=== PATIENT | male | born 1995 | race African-American/Black ===

== ENCOUNTER → 2016-04-15 | Outpatient (CLI) | payer OTHER ==
--- NOTE | 2016-04-16 18:09 | ECGEPIP ---
Stationary ECG Study [facility] Test Date: 2016-04-15 Pat Name: BISHNU CASEY Department: Room: - Gender: M Entry Level: VU : 1995 Requested By: Maged Ortega Order Number: [id number] Reading MD: Nicolás Meza Measurements Intervals [place] Rate: 98 P: 32 LA: 137 QRS: 81 QRSD: 101 T: 29 QT: 326 QTc: 417 Interpretive Statements SINUS RHYTHM NONSPECIFIC ST ELEVATION LAST TRACING ON 09/29/2014 AT 23:36:18. NO SIGNIFICANT CHANGES BUT HEART RATE IS SLOWER Electronically Signed On 04-16-2016 18:09:37 EST by Nicolás Meza
== END ==
LOC: M EKG 12:38
PROVIDERS: ATTEND Family Medicine
DX: F11.20 Opioid dependence, uncomplicated (principal)

== ENCOUNTER 2016-08-01 09:24 | Emergency (ER) | payer OTHER ==
[~2016-08-01] VITALS: Ht 165.1 cm; Wt 72.1 kg
[2016-08-01 09:26] VITALS: BP_SYST 139
[2016-08-01] MEDS ORDERED: METH40TA PO (09:35)
[2016-08-01] MEDS ORDERED: VYVA30CH PO (09:35)
[2016-08-01] MEDS ORDERED: SERO1TAB3 PO (09:35)
[2016-08-01] MEDS ORDERED: SERO1TAB PO (09:35)
[2016-08-01] MEDS ORDERED: WELLTAB40 PO (09:35)
[2016-08-01] MEDS ORDERED: GABA-283 PO (09:35)
== END 2016-08-01 10:04 | disposition home or self-care (01) ==
LOC: M ED 09:59
DX: S09.90XA Unspecified injury of head, initial encounter (principal); V00.131A Fall from skateboard, initial encounter; Y92.410 Unspecified street and highway as the place of occurrence of the external cause; Y93.51 Activity, roller skating (inline) and skateboarding; Y99.8 Other external cause status; J45.909 Unspecified asthma, uncomplicated; F41.9 Anxiety disorder, unspecified; F33.9 Major depressive disorder, recurrent, unspecified; F90.9 Attention-deficit hyperactivity disorder, unspecified type; F11.20 Opioid dependence, uncomplicated; Z79.899 Other long term (current) drug therapy

== ENCOUNTER 2016-08-06 14:46 | Emergency (ER) | payer OTHER ==
[~2016-08-06] VITALS: Ht 165.1 cm; Wt 72.6 kg
[~2016-08-06 14:46] MED LIST: GABA-283 PO; METH40TA PO; SERO1TAB PO; SERO1TAB3 PO; VYVA30CH PO; WELLTAB40 PO
[2016-08-06 16:24] VITALS: BP 138/76
== END 2016-08-06 16:29 | disposition home or self-care (01) ==
LOC: M ED 16:14
DX: F07.81 Postconcussional syndrome (principal); F17.200 Nicotine dependence, unspecified, uncomplicated

== ENCOUNTER 2016-08-19 13:28 | Emergency (ER) | payer OTHER ==
[~2016-08-19] VITALS: Ht 165.1 cm; Wt 68.0 kg
--- NOTE | 2016-08-19 15:20 | REP ---
CT Head without contrast HISTORY: Trauma COMPARISON: 05/31/2014 There is no intraparenchymal hemorrhage, acute infarct, mass or midline shift. The ventricular system is normal in appearance. There is no extra cerebral collection. There is no fracture. The visualized sinuses are clear. IMPRESSION: There is no intracranial lesion. Signed by Fritz Urrutia MD 08/19/2016 03:12 P
[2016-08-19 15:39] VITALS: BP 115/63
[2016-08-20] MEDS ORDERED: REGL10TA6 PO (22:57)
== END 2016-08-19 15:44 | disposition home or self-care (01) ==
LOC: M ED 14:19
DX: F07.81 Postconcussional syndrome (principal); F17.210 Nicotine dependence, cigarettes, uncomplicated

== ENCOUNTER 2016-08-20 21:10 | Emergency (ER) | payer OTHER ==
[~2016-08-20] VITALS: Ht 165.1 cm; Wt 63.5 kg
[2016-08-20] MEDS ORDERED: REGL10TA6 PO (22:57)
[2016-08-20 23:26] VITALS: BP 118/67
== END 2016-08-20 23:31 | disposition home or self-care (01) ==
LOC: M ED 22:31
DX: R51 Headache (principal)

== ENCOUNTER 2017-07-06 20:05 | Emergency (ER) | payer MEDICAID, OTHER ==
[2017-07-06] MEDS ORDERED: FLUORESCEIN OPHTH 1 MG STRIP OS (23:00)
== END 2017-07-06 23:16 | disposition left against medical advice (07) ==
LOC: M ED 20:05
DX: H53.9 Unspecified visual disturbance (principal); Z79.899 Other long term (current) drug therapy
CPT/HCPCS: 99281

== ENCOUNTER 2017-07-07 07:51 | Emergency (ER) | payer MEDICAID ==
[2017-07-07] MEDS: FLUORESCEIN OPHTH 1 MG STRIP OS (08:45)
== END 2017-07-07 09:46 | disposition home or self-care (01) ==
LOC: M ED 07:51
DX: H53.9 Unspecified visual disturbance (principal); J45.909 Unspecified asthma, uncomplicated; F41.9 Anxiety disorder, unspecified; F33.9 Major depressive disorder, recurrent, unspecified; F90.9 Attention-deficit hyperactivity disorder, unspecified type; F11.20 Opioid dependence, uncomplicated; Z79.899 Other long term (current) drug therapy
CPT/HCPCS: 99283

== ENCOUNTER → 2017-07-10 | Outpatient (CLI) | payer MEDICAID ==
[2017-07-13 12:13] LABS: HEPATITIS C VIRUS ABY INDEX > 11.0 INDEX (<0.8)
== END ==
LOC: M LAB 17:16
DX: Z11.3 Encounter for screening for infections with a predominantly sexual mode of transmission (principal)
CPT/HCPCS: 86803

== ENCOUNTER → 2017-07-22 | Outpatient (CLI) | payer MEDICAID ==
[2017-07-25 00:07] LABS: HEPATITIS C QUANTITATION 2892920 IU/mL (.)
== END ==
LOC: M LAB 17:31
DX: B18.2 Chronic viral hepatitis C (principal)
CPT/HCPCS: 36415

== ENCOUNTER 2017-07-23 15:45 | Emergency (ER) | payer MEDICAID | END 2017-07-23 17:06 | disposition left against medical advice (07) | LOC: M ED 15:45 | DX: Z53.29 Procedure and treatment not carried out because of patient's decision for other reasons (principal) ==

== ENCOUNTER → 2017-08-04 | Outpatient (CLI) | payer MEDICAID ==
[2017-08-04 17:59] LABS: HEMATOCRIT 34.9 % (42.0-52.0); HEMOGLOBIN 11.8 g/dl (13.5-17.5); MEAN CORPUSCULAR HEMOGLOBIN 28.2 pg (27.0-33.0); MEAN CORPUSCULAR HGB CONC 33.8 g/dl (32.0-36.5); MEAN CORPUSCULAR VOLUME 83.5 fl (80.0-96.0); PLATELET COUNT, AUTOMATED 319 10^3/uL (150-450); RED BLOOD COUNT 4.18 10^6/uL (4.30-6.10); RED CELL DISTRIBUTION WIDTH 13.1 % (11.5-14.5); WHITE BLOOD COUNT 8.2 10^3/uL (4.0-10.0)
[2017-08-04 18:38] LABS: ALBUMIN 4.5 GM/DL (3.2-5.2); ALBUMIN/GLOBULIN RATIO 1.22 (1.00-1.93); ALKALINE PHOSPHATASE 107 U/L (45-117); ALT/SGPT 55 U/L (12-78); ANION GAP 6 MEQ/L (8-16); AST/SGOT 38 U/L (7-37); BILIRUBIN,TOTAL 0.4 MG/DL (0.2-1.0); BLOOD UREA NITROGEN 13 MG/DL (7-18); CALCIUM LEVEL 9.4 MG/DL (8.5-10.1); CARBON DIOXIDE LEVEL 27 MEQ/L (21-32); CHLORIDE LEVEL 106 MEQ/L (98-107); CREATININE FOR GFR 1.04 MG/DL (0.70-1.30); GLOMERULAR FILTRATION RATE > 60.0 (>60); GLUCOSE, FASTING 113 MG/DL (70-100); POTASSIUM SERUM 4.3 MEQ/L (3.5-5.1); SODIUM LEVEL 139 MEQ/L (136-145); TOTAL PROTEIN 8.2 GM/DL (6.4-8.2)
[2017-08-04 21:01] LABS: CHLAMYDIA DNA AMPLIFICATION NEGATIVE (NEGATIVE); GC DNA AMPLIFICATION NEGATIVE (NEGATIVE)
[2017-08-05 10:47] LABS: HEPATITIS B SURFACE ANTIGEN NEGATIVE (NEGATIVE)
[2017-08-05 11:29] LABS: HIV 1&2 SCREEN CENTAUR NEGATIVE (NEGATIVE)
[2017-08-05 11:31] LABS: HEPATITIS C VIRUS ABY INDEX > 11.0 INDEX (<0.8)
[2017-08-08 00:07] LABS: HCV RNA NAA QUALITATIVE Positive (Negative)
== END ==
LOC: M LAB 16:14
DX: F11.20 Opioid dependence, uncomplicated (principal)
CPT/HCPCS: 93005

== ENCOUNTER 2017-08-15 19:02 | Emergency (ER) | payer MEDICAID ==
[2017-08-15] MEDS: AUGMENTIN 875 MG TAB PO (21:36)
[2017-08-15] MEDS: ERYTHROMYCIN OPHTH OINT OU (21:36)
== END 2017-08-15 21:38 | disposition home or self-care (01) ==
LOC: M ED 19:02
DX: H10.89 Other conjunctivitis (principal); J45.909 Unspecified asthma, uncomplicated; F17.210 Nicotine dependence, cigarettes, uncomplicated
CPT/HCPCS: 99283

== ENCOUNTER 2017-08-17 04:18 | Emergency (ER) | payer MEDICAID | END 2017-08-17 07:25 | disposition home or self-care (01) | LOC: M ED 04:18 | DX: S51.832A Puncture wound without foreign body of left forearm, initial encounter (principal); W46.0XXA Contact with hypodermic needle, initial encounter; Y92.89 Other specified places as the place of occurrence of the external cause; J45.909 Unspecified asthma, uncomplicated; B19.20 Unspecified viral hepatitis C without hepatic coma; F41.9 Anxiety disorder, unspecified; F33.9 Major depressive disorder, recurrent, unspecified; F90.9 Attention-deficit hyperactivity disorder, unspecified type; F11.20 Opioid dependence, uncomplicated; Z79.899 Other long term (current) drug therapy; F17.210 Nicotine dependence, cigarettes, uncomplicated | CPT/HCPCS: 73090 ==

== ENCOUNTER 2017-10-04 22:37 | Inpatient (IN) | payer OTHER, MEDICAID ==
[2017-10-04 23:12] LABS: BASO # 0.1 10^3/uL (0.0-0.2); BASO % 0.3 % (0.0-1.0); EOS # 0.3 10^3/uL (0.0-0.50); EOS % 1.7 % (0.0-3.0); HEMATOCRIT 33.6 % (42.0-52.0); HEMOGLOBIN 10.9 g/dl (13.5-17.5); IMMATURE GRANULOCYTE % 0.8 % (0-3.0); LYMPH # 2.6 10^3/uL (1.5-6.5); LYMPH % 14.5 % (24.0-44.0); MEAN CORPUSCULAR HEMOGLOBIN 27.5 pg (27.0-33.0); MEAN CORPUSCULAR HGB CONC 32.4 g/dl (32.0-36.5); MEAN CORPUSCULAR VOLUME 84.6 fl (80.0-96.0); MONO % 10.8 % (0.0-5.0); NEUTROPHILS # 13.1 10^3/uL (1.8-7.7); NEUTROPHILS % 71.9 % (36.0-66.0); PLATELET COUNT, AUTOMATED 298 10^3/uL (150-450); RED BLOOD COUNT 3.97 10^6/uL (4.30-6.10); RED CELL DISTRIBUTION WIDTH 13.5 % (11.5-14.5); WHITE BLOOD COUNT 18.2 10^3/uL (4.0-10.0)
[2017-10-04 23:58] LABS: ACETAMINOPHEN LEVEL < 2.0 UG/ML (10.0-30.0); ALBUMIN 3.9 GM/DL (3.2-5.2); ALBUMIN/GLOBULIN RATIO 1.03 (1.00-1.93); ALKALINE PHOSPHATASE 115 U/L (45-117); ALT/SGPT 122 U/L (12-78); ANION GAP 10 MEQ/L (8-16); AST/SGOT 191 U/L (7-37); BILIRUBIN,DIRECT 0.2 MG/DL (0.0-0.2); BILIRUBIN,TOTAL 0.6 MG/DL (0.2-1.0); BLOOD UREA NITROGEN 16 MG/DL (7-18); CALCIUM LEVEL 8.8 MG/DL (8.5-10.1); CARBON DIOXIDE LEVEL 27 MEQ/L (21-32); CHLORIDE LEVEL 108 MEQ/L (98-107); CPK CREATINE PHOSPHOKINASE 5737 U/L (39-308); CREATININE FOR GFR 1.18 MG/DL (0.70-1.30); ETHYL ALCOHOL (ETHANOL) < 0.003 % (0.000-0.010); GLOMERULAR FILTRATION RATE > 60.0 (>60); GLUCOSE, FASTING 73 MG/DL (70-100); POTASSIUM SERUM 3.7 MEQ/L (3.5-5.1); SALICYLATE LEVEL < 1.7 MG/DL (5.0-30.0); SODIUM LEVEL 145 MEQ/L (136-145); TOTAL PROTEIN 7.7 GM/DL (6.4-8.2)
[2017-10-05] MEDS: NALOXONE INJ 2 MG/2 ML SYRINGE (J2310) IV (00:07)
[2017-10-05] MEDS: NS 1,000 ML IV ×2 (00:30→06:05)
[2017-10-05 00:34] LABS: CK-MB VALUE MASS 19.4 NG/ML (<3.6); MB/CK RELATIVE INDEX 0.33 (< OR =4); TROPONIN I 0.02 NG/ML (< 0.10)
[2017-10-05] MEDS ORDERED: LORazepam 2 MG/ML VIAL (J2060) As Ordered ×2 (00:45→00:52)
[2017-10-05] MEDS: LORazepam 2 MG/ML VIAL (J2060) IV ×3 (00:49→00:51)
[2017-10-05] MEDS ORDERED: MIDAZOLAM INJ 2 MG/2 ML VIAL (J2250) As Ordered ×4 (01:04→01:05)
[2017-10-05] MEDS: MIDAZOLAM INJ 2 MG/2 ML VIAL (J2250) IV ×2 (01:09→01:13)
[2017-10-05 02:13] LABS: CSF TUBE# GLU TUBE 2; CSF TUBE# TP TUBE 2; GLUCOSE CSF 53 MG/DL (40-75)
[2017-10-05 02:19] LABS: CSF RBC < 2 10^3/uL (<2)
[2017-10-05 02:21] LABS: APPEARANCE, CSF CLEAR (CLEAR); COLOR, CSF COLORLESS (COLORLESS); CSF DIFF IF INDICATED? NO (NO); CSF TUBE# CELL CNT TUBE 1; CSF WBC 3 /uL (0-10)
[2017-10-05 02:22] LABS: CSF RBC < 2 10^3/uL (<2)
[2017-10-05 02:23] LABS: APPEARANCE, CSF CLEAR (CLEAR); COLOR, CSF COLORLESS (COLORLESS); CSF DIFF IF INDICATED? NO (NO); CSF TUBE# CELL CNT TUBE 3; CSF WBC 4 /uL (0-10)
[2017-10-05] MEDS: NS IV (02:30)
[2017-10-05] MEDS: DILUENT IV (02:30)
[2017-10-05] MEDS: ACETAMINOPHEN 650 MG SUPP PR (02:32)
[2017-10-05 04:31] LABS: LACTIC ACID SEPSIS PROTOCOL 0.7 MMOL/L (0.4-2.0)
[2017-10-05 04:48] LABS: AMPHETAMINES LEVEL URINE POSITIVE (NEGATIVE); BARBITURATES URINE NEGATIVE (NEGATIVE); BENZODIAZEPINES URINE POSITIVE (NEGATIVE); CANNABINOIDS URINE POSITIVE (NEGATIVE); COCAINE METABOLITE URINE NEGATIVE (NEGATIVE); METHADONE URINE POSITIVE (NEGATIVE); OPIATES URINE POSITIVE (NEGATIVE); PHENCYCLIDINE URINE NEGATIVE (NEGATIVE)
[2017-10-05 05:02] LABS: KETONE, URINE AUTO RFX 1+ mg/dL (NEGATIVE); LEUKOCYTE ESTERASE UR AUTO RFX NEGATIVE (NEGATIVE); MUCUS, URINE RFX SMALL (NEGATIVE); NITRITE, URINE AUTO RFX NEGATIVE (NEGATIVE); RBC, URINE AUTO RFX 1 /HPF (0-3); SPECIFIC GRAVITY UR AUTO RFX 1.029 (1.002-1.035); SQUAM EPITHELIAL CELL UR AURFX 0 /HPF (0-6); WBC, URINE AUTO RFX 1 /HPF (0-3)
[2017-10-05] MEDS: VANCOMYCIN HCL 1,000 MG, VIAL MATE ADAPTER 1 EACH in D5W 250 ML IV (06:05)
[2017-10-05 06:17] LABS: BEDSIDE GLUCOSE 94 MG/DL (70-105)
[2017-10-05] MEDS: VANCOMYCIN HCL 500 MG in D5W MINI-BAG PLUS 100 ML IV (06:49)
[2017-10-05] MEDS: ENOXAPARIN 40 MG/0.4 ML SYRINGE (J1650) SC (09:00)
[2017-10-05 09:02] LABS: ABG HCO3 25.9 MEQ/L (22.0-26.0); ABG O2 SATURATION 98.1 % (95.0-99.0); ABG PARTIAL PRESSURE CO2 47.7 mmHg (35.0-45.0); ABG PARTIAL PRESSURE O2 109.2 mmHg (75.0-100.0); ABG STANDARD HCO3 24.5 MEQ/L (22.0-26.0); ABG TOTAL CO2 27.4 MEQ/L (22.0-29.0); ABG pH (ARTERIAL) 7.353 UNITS (7.350-7.450)
[2017-10-05 09:35] LABS: HEMATOCRIT 36.6 % (42.0-52.0); HEMOGLOBIN 11.6 g/dl (13.5-17.5); MEAN CORPUSCULAR HEMOGLOBIN 27.1 pg (27.0-33.0); MEAN CORPUSCULAR HGB CONC 31.7 g/dl (32.0-36.5); MEAN CORPUSCULAR VOLUME 85.5 fl (80.0-96.0); PLATELET COUNT, AUTOMATED 277 10^3/uL (150-450); RED BLOOD COUNT 4.28 10^6/uL (4.30-6.10); RED CELL DISTRIBUTION WIDTH 13.9 % (11.5-14.5); WHITE BLOOD COUNT 12.4 10^3/uL (4.0-10.0)
[2017-10-05 09:46] LABS: TROPONIN I < 0.02 NG/ML (< 0.10)
[2017-10-05 09:56] LABS: ALBUMIN 3.3 GM/DL (3.2-5.2); ALBUMIN/GLOBULIN RATIO 0.97 (1.00-1.93); ALKALINE PHOSPHATASE 107 U/L (45-117); ALT/SGPT 107 U/L (12-78); ANION GAP 4 MEQ/L (8-16); AST/SGOT 153 U/L (7-37); BILIRUBIN,TOTAL 0.5 MG/DL (0.2-1.0); BLOOD UREA NITROGEN 15 MG/DL (7-18); CALCIUM LEVEL 8.3 MG/DL (8.5-10.1); CARBON DIOXIDE LEVEL 29 MEQ/L (21-32); CHLORIDE LEVEL 111 MEQ/L (98-107); CPK CREATINE PHOSPHOKINASE 3285 U/L (39-308); CREATININE FOR GFR 0.73 MG/DL (0.70-1.30); GLOMERULAR FILTRATION RATE > 60.0 (>60); GLUCOSE, FASTING 101 MG/DL (70-100); POTASSIUM SERUM 4.4 MEQ/L (3.5-5.1); SODIUM LEVEL 144 MEQ/L (136-145); TOTAL PROTEIN 6.7 GM/DL (6.4-8.2)
[2017-10-05] MEDS: PANTOPRAZOLE 40MG INJ (PROTONIX) (C9113) IV (10:04)
[2017-10-07 15:02] LABS: BEDSIDE GLUCOSE 77 MG/DL (70-105)
== END 2017-10-05 11:00 | disposition left against medical advice (07) | DRG 351 ==
LOC: M ED 22:37 → M ED INP 10-05 04:48 → M ICU 10-05 05:15
PROC: 009U3ZX Drainage of Spinal Canal, Percutaneous Approach, Diagnostic (ICD-10-PCS; principal; 2017-10-05)
DX: M62.82 Rhabdomyolysis (principal); G93.41 Metabolic encephalopathy; D72.829 Elevated white blood cell count, unspecified; F12.90 Cannabis use, unspecified, uncomplicated; R45.1 Restlessness and agitation; Z79.899 Other long term (current) drug therapy

== ENCOUNTER 2018-08-13 04:44 | Emergency (ER) | payer MEDICAID, OTHER ==
[~2018-08-13] VITALS: Ht 167.6 cm; Wt 70.5 kg
[~2018-08-13 04:44] MED LIST changes: +ATRO1OPD; +AUGM875T28 PO; +ERYTOIN8 OU; -GABA-283 PO; +GABA-845 PO; +GABA600T4 PO; +GUAN2TAB PO; +KEFL500C17 PO; +NIAC1TAB5 PO; +OFLO3OPSO; +PATIENT COMMENTS; +PREDOPD; +REGL10TA6 PO; +VITA-121 PO
[2018-08-13] MEDS ORDERED: AMOX500C PO (04:50)
[2018-08-13] MEDS ORDERED: AUGMENTIN 875 MG TAB PO ONE (05:15)
[2018-08-13] MEDS ORDERED: KETOROLAC 60 MG/2 ML VIAL (J1885) IM ONE (05:15)
[2018-08-13 06:33] VITALS: BP 158/78
== END 2018-08-13 06:34 | disposition home or self-care (01) ==
LOC: M ED 04:44
DX: K08.89 Other specified disorders of teeth and supporting structures (principal); J45.909 Unspecified asthma, uncomplicated; F33.9 Major depressive disorder, recurrent, unspecified; F41.9 Anxiety disorder, unspecified; F10.10 Alcohol abuse, uncomplicated; Z79.899 Other long term (current) drug therapy; Z79.82 Long term (current) use of aspirin; F17.210 Nicotine dependence, cigarettes, uncomplicated
CPT/HCPCS: 96372; 99283; J1885

== ENCOUNTER 2018-08-26 21:09 | Inpatient (IN) | payer MEDICAID ==
[~2018-08-26] VITALS: Ht 167.6 cm; Wt 68.2 kg
[~2018-08-26 21:09] MED LIST changes: +AMOX500C PO
[2018-08-26] MEDS ORDERED: LORazepam 2 MG/ML VIAL (J2060) IV ONE (21:45)
[2018-08-26] MEDS ORDERED: ONDANSETRON 4MG/2ML VIAL (J2405) IV ONE (21:45)
[2018-08-26] MEDS ORDERED: NS 1,000 ML IV ONE (21:45)
[2018-08-26 22:17] LABS: BASO % 0.3 % (0.0-1.0); EOS # 0.1 10^3/uL (0.0-0.50); EOS % 0.9 % (0.0-3.0); HEMATOCRIT 30.4 % (42.0-52.0); HEMOGLOBIN 9.9 g/dl (13.5-17.5); LYMPH # 2.6 10^3/uL (1.5-6.5); LYMPH % 39.1 % (24.0-44.0); MEAN CORPUSCULAR HEMOGLOBIN 28.1 pg (27.0-33.0); MEAN CORPUSCULAR HGB CONC 32.6 g/dl (32.0-36.5); MEAN CORPUSCULAR VOLUME 86.4 fl (80.0-96.0); MONO # 0.6 10^3/uL (0.0-0.8); MONO % 9.1 % (0.0-5.0); NEUTROPHILS # 3.3 10^3/uL (1.8-7.7); NEUTROPHILS % 50.1 % (36.0-66.0); PLATELET COUNT, AUTOMATED 265 10^3/uL (150-450); RED BLOOD COUNT 3.52 10^6/uL (4.30-6.10); WHITE BLOOD COUNT 6.6 10^3/uL (4.0-10.0)
[2018-08-26] MEDS ORDERED: SUBO8MIS SL (22:21)
[2018-08-26 22:29] LABS: INR 1.05; PARTIAL THROMBOPLASTIN TIME 29.6 SECONDS (25.4-37.6); PROTHROMBIN TIME 13.8 SECONDS (12.1-14.4)
[2018-08-26 22:36] LABS: ERYTHROCYTE SEDIMENTATION RATE 17 mm/hr (0-15)
[2018-08-26 22:48] LABS: ALBUMIN 2.6 GM/DL (3.2-5.2); ALT/SGPT 91 U/L (12-78); BILIRUBIN,DIRECT < 0.1 MG/DL (0.0-0.2); BILIRUBIN,TOTAL 0.3 MG/DL (0.2-1.0); BLOOD UREA NITROGEN 4 MG/DL (7-18); C REACTIVE PROTEIN QUANTITATIV 0.69 MG/DL (0.00-0.30); CALCIUM LEVEL 7.7 MG/DL (8.5-10.1); CARBON DIOXIDE LEVEL 28 MEQ/L (21-32); CHLORIDE LEVEL 108 MEQ/L (98-107); CPK CREATINE PHOSPHOKINASE 674 U/L (39-308); CREATININE FOR GFR 0.68 MG/DL (0.70-1.30); GLOMERULAR FILTRATION RATE > 60.0 (>60); GLUCOSE, FASTING 129 MG/DL (70-100); MB/CK RELATIVE INDEX 1.14 (< OR =4); NT-PRO BNP 121 PG/ML (<125); SODIUM LEVEL 142 MEQ/L (136-145); THYROID STIMULATING HORMONE 0.157 uIU/ML (0.358-3.740); TOTAL PROTEIN 6.1 GM/DL (6.4-8.2); TROPONIN I < 0.02 NG/ML (< 0.10)
[2018-08-26] MEDS ORDERED: ceFAZolin SOD 1 GM in D5W MINI-BAG PLUS 50 ML IV ONE (23:30)
[2018-08-27] MEDS ORDERED: ACETAMINOPHEN TAB 650MG DOSE (2X325MG) PO PRN
[2018-08-27] MEDS ORDERED: BUPR300T34 PO (00:04)
[2018-08-27] MEDS ORDERED: HYDR1CAP25 PO (00:04)
[2018-08-27] MEDS ORDERED: ASPI-161 PO (00:04)
[2018-08-27] MEDS ORDERED: SUBO8MIS SL (00:04)
[2018-08-27] MEDS ORDERED: CLOT1CRE TOP (00:04)
--- NOTE | 2018-08-27 00:20 | HPEPDOC ---
[facility] Medical History & Physical Date of Admission Aug 27, 2018 Date of Service: Aug 27, 2018 History and Physical CHIEF COMPLAINT: Opiate withdrawal HISTORY OF PRESENT ILLNESS: Patient is a 22-year-old male with history of IVDU heroin and Psychiatry disorders including anxiety/depression/ADHD presented to the ER with complaints of undergoing opiate withdrawal. He reports being on Suboxone normally but had not taken it in a week because he had lost his medications and he has been using heroin for the past week instead. Last use 48 hours ago and now he feels that he is undergoing withdrawal with symptoms of nausea/muscle discomfort/restless legs/agitation. Denies any significant pain or other symptoms. PAST MEDICAL HISTORY: Refer to [facility] PAST SURGICAL HISTORY: None SOCIAL HISTORY: Smokes 1ppd. Denies alcohol use. uses heroin. FAMILY HISTORY: None reported ALLERGIES: Please see below. REVIEW OF SYSTEMS: 10 point review of system negative except as stated in HPI HOME MEDICATIONS: Please see below. PHYSICAL EXAMINATION: General: Agitated with constant leg movement. Eyes closed but follows command and directable. Eyes: Normal sclera, EOMI, WAGNER HENT: Atraumatic, neck supple, moist mucous membranes Cardiovascular: Normal rate, normal rhythm. No murmurs appreciated. Pulmonary: Clear to auscultation b/l, no wheezing GI: Soft, nontender, nondistended Skin: Warm and dry Neuro: CN grossly intact. No focal deficits. Strengths equal b/l. LABORATORY DATA: See below. MICROBIOLOGY: Please see below. ASSESSMENT AND PLAN: 1. Opiate withdrawal - Normally on Suboxone but had stopped taking for 1 week, reportedly lost. - Last use IV heroin 2 days prior now with active withdraw symptoms. - Received some Ativan in ER and IVF. - To give one dose of Suboxone now and start daily dosing. - Monitor for withdrawal. Admit to ICU. 2. R. wrist swelling - Concern for possible abscess. - Will obtain CT scan. - Received Abx in ER. DVT ppx: Lovenox Code status: Full code Vital Signs Vital Signs Date Time Temp Pulse Resp B/P (MAP) Pulse Ox O2 Delivery O2 Flow Rate FiO2 08/26/18 22:39 85 16 98 Room Air 08/26/18 22:30 134/67 (89) 08/26/18 21:23 100.0 Laboratory Data Labs 24H Laboratory Tests 2 08/26/18 22:09: Immature Granulocyte % (Auto) 0.5, White Blood Count 6.6, Red Blood Count 3.52L, Hemoglobin 9.9L, Hematocrit 30.4L, Mean Corpuscular Volume 86.4, Mean Corpuscular Hemoglobin 28.1, Mean Corpuscular Hemoglobin Concent 32.6, Red Cell Distribution Width 14.1, Platelet Count 265, Neutrophils (%) (Auto) 50.1, Lymphocytes (%) (Auto) 39.1, Monocytes (%) (Auto) 9.1H, Eosinophils (%) (Auto) 0.9, Basophils (%) (Auto) 0.3, Neutrophils # (Auto) 3.3, Lymphocytes # (Auto) 2. 6, Monocytes # (Auto) 0.6, Eosinophils # (Auto) 0.1, Basophils # (Auto) 0.0, Nucleated Red Blood Cells % (auto) 0.0, Erythrocyte Sedimentation Rate 17H, Prothrombin Time 13.8, Prothromb Time International Ratio 1.05, Activated Partial Thromboplast Time 29.6, Anion Gap 6L, Glomerular Filtration Rate > 60.0, Calcium Level 7.7L, Aspartate Amino Transf (AST/SGOT) 84H, Alanine Aminotransferase (ALT/SGPT) 91H, Alkaline Phosphatase 87, Total Bilirubin 0.3, Direct Bilirubin < 0.1, Total Creatine Kinase 674H, Creatine Kinase MB 8.0H, Creatine Kinase MB Relative Index 1.14, Troponin I < 0.02, C-Reactive Protein, Quantitative 0.69H, UL-Ggl-W-Type Natriuretic Peptide 121, Total Protein 6.1L, Albumin 2.6L, Albumin/Globulin Ratio 0.74L, Thyroid Stimulating Hormone (TSH) 0.157L CBC/BMP Laboratory Tests 08/26/18 22:09 Red Blood Count 3.52 L, Mean Corpuscular Volume 86.4, Mean Corpuscular Hemoglobin 28.1, Mean Corpuscular Hemoglobin Concent 32.6, Red Cell Distribution Width 14.1, Neutrophils (%) (Auto) 50.1, Lymphocytes (%) (Auto) 39.1, Monocytes (%) (Auto) 9.1 H, Eosinophils (%) (Auto) 0.9, Basophils (%) (Auto) 0.3, Neutrophils # (Auto) 3.3, Lymphocytes # (Auto) 2.6, Monocytes # (Auto) 0.6, Eosinophils # (Auto) 0.1, Basophils # (Auto) 0.0 Microbiology Microbiology 08/26/18 Blood Culture, Received Pending 08/26/18 Blood Culture, Received Pending Home Medications Scheduled Aspirin (Aspirin EC) 81 Mg Tablet.dr, 81 MG PO DAILY Buprenorphine HCl/Naloxone HCl (Suboxone 8 mg-2 mg Sl Film) 1 Each Film, 1 STRIP SL DAILY Bupropion HCl (Bupropion Xl) 300 Mg Tab.er.24h, 300 MG PO DAILY Scheduled PRN Clotrimazole (Clotrimazole) 1% 28GM Cream..g., 1 DOSE TOP BID PRN for FUNGUS APPLY TO FEET NEEDED Hydroxyzine Pamoate (Hydroxyzine Pamoate) 25 Mg Capsule, 25 MG PO QID PRN for ANXIETY Allergies Coded Allergies: No Known Allergies (Verified , 08/19/16) A-FIB/CHADSVASC A-FIB History Current/History of A-Fib/PAF?: No GLEN JUSTICE MD Aug 27, 2018 00:20
[2018-08-27] MEDS ORDERED: POTASSIUM CHLORIDE 10 MEQ SR TABLET PO ONE ×2 (00:30)
[2018-08-27] MEDS: BUPRENORPHINE/NALOXONE 8-2MG SUBLINGUAL TABLET(SUBOXONE) SL SCH ×2 (00:32→12:43)
[2018-08-27 01:00] VITALS: BP 119/72
[2018-08-27] MEDS: NS 1,000 ML IV SCH ×2 (01:37→12:44)
[2018-08-27] MEDS: KETOROLAC 30 MG/ML VIAL (J1885) IV PRN ×2 (01:40→07:49)
[2018-08-27] MEDS ORDERED: KETOROLAC 30 MG/ML VIAL (J1885) IV SCH (02:00)
[2018-08-27 04:00] VITALS: BP 113/61
[2018-08-27 04:45] LABS: HEMATOCRIT 30.8 % (42.0-52.0); HEMOGLOBIN 9.8 g/dl (13.5-17.5); MEAN CORPUSCULAR HGB CONC 31.8 g/dl (32.0-36.5); MEAN CORPUSCULAR VOLUME 84.8 fl (80.0-96.0); PLATELET COUNT, AUTOMATED 276 10^3/uL (150-450); RED BLOOD COUNT 3.63 10^6/uL (4.30-6.10); WHITE BLOOD COUNT 5.5 10^3/uL (4.0-10.0)
[2018-08-27 04:58] LABS: BLOOD UREA NITROGEN 3 MG/DL (7-18); CALCIUM LEVEL 8.1 MG/DL (8.5-10.1); CARBON DIOXIDE LEVEL 29 MEQ/L (21-32); CHLORIDE LEVEL 111 MEQ/L (98-107); CREATININE FOR GFR 0.66 MG/DL (0.70-1.30); GLOMERULAR FILTRATION RATE > 60.0 (>60); GLUCOSE, FASTING 98 MG/DL (70-100); MAGNESIUM LEVEL 1.7 MG/DL (1.8-2.4); POTASSIUM SERUM 3.5 MEQ/L (3.5-5.1); SODIUM LEVEL 144 MEQ/L (136-145)
[2018-08-27] MEDS ORDERED: MAG SULF 1GM/100ML (MAG RUN) 1 GM in APPROPRIATE DILUENT 1 EA IV ONE (07:15)
[2018-08-27 07:39] VITALS: BP 116/61
[2018-08-27] MEDS ORDERED: BACTRIM 160MG/800MG DS TAB PO SCH (09:00)
[2018-08-27] MEDS ORDERED: DOXYCYCLINE HYCLATE 100 MG TAB PO SCH (09:00)
[2018-08-27] MEDS ORDERED: ENOXAPARIN 40 MG/0.4 ML SYRINGE (J1650) SC SCH (09:00)
--- NOTE | 2018-08-27 09:09 | REP ---
CHEST, SINGLE VIEW: There is no evidence of acute infiltrate. No pleural effusion is seen. The heart is normal in size. The mediastinal silhouette is unremarkable. The visualized osseous structures are intact. IMPRESSION: No acute pulmonary disease. Electronically Signed by Maged Arvizu MD 08/30/2018 05:01 P
[2018-08-27 10:26] LABS: HEPATITIS B SURFACE ANTIGEN NEGATIVE (NEGATIVE)
[2018-08-27 10:54] LABS: HEPATITIS B CORE ANTIBODY IGM NEGATIVE (NEGATIVE)
[2018-08-27 10:55] LABS: HEPATITIS A ANTIBODY IGM NEGATIVE (NEGATIVE)
[2018-08-27 11:06] LABS: HEPATITIS C VIRUS ABY INDEX > 11.0 INDEX (<0.8)
--- NOTE | 2018-08-27 11:24 | IPNPDOC ---
Text Note Date of Service The patient was seen on 08/27/18. NOTE SUBJECTIVE: Complains of wrist pain and swelling after his IV drug use. No abd ominal pain , nausea or vomiting or diarrhea any more. PHYSICAL EXAMINATION: VITALS: As below General: awake alert lying down comfortable in no acute distress. Eyes: Normal sclera, EOMI, HEENT: Atraumatic, neck supple, moist mucous membranes, anicteric eyes. Cardiovascular: Normal rate, normal rhythm. No murmurs appreciated. Pulmonary: Clear to auscultation b/l, no wheezing GI: Soft, nontender, nondistended Skin: Warm and dry Neuro: CN grossly intact. No focal deficits. Strengths equal b/l. LABORATORY DATA: See below. MICROBIOLOGY: Please see below. ASSESSMENT AND PLAN: 22 year old male with h/o IV heroin use on Suboxone program did not have any subaxone for the past week as his meds were stollen so he used heroin 2 to 3 days ago then came her for agitation , abdominal pain , nausea or vomiting and diarrhea admitted for withdrawal. Opiate withdrawal - Normally on Suboxone but had stopped taking for 1 week, reportedly lost. - Last use IV heroin 2 days prior - continue Suboxone. Right wrist developing abscess - Keflex. - seen by surgery , no fluctuation yet so nothing to drain for now but will probably develop in 1 to 2 days. - Hot compress for now. VS,Fishbone, I+O VS, Fishbone, I+O Laboratory Tests 08/26/18 22:09 Red Blood Count 3.52 L, Mean Corpuscular Volume 86.4, Mean Corpuscular Hemoglobin 28.1, Mean Corpuscular Hemoglobin Concent 32.6, Red Cell Distribution Width 14.1, Neutrophils (%) (Auto) 50.1, Lymphocytes (%) (Auto) 39.1, Monocytes (%) (Auto) 9.1 H, Eosinophils (%) (Auto) 0.9, Basophils (%) (Auto) 0.3, Neutrophils # (Auto) 3.3, Lymphocytes # (Auto) 2.6, Monocytes # (Auto) 0.6, Eosinophils # (Auto) 0.1, Basophils # (Auto) 0.0 08/27/18 04:15 Red Blood Count 3.63 L, Mean Corpuscular Volume 84.8, Mean Corpuscular Hemoglobin 27.0, Mean Corpuscular Hemoglobin Concent 31.8 L, Red Cell Distribution Width 14.0, Calcium Level 8.1 L Vital Signs Date Time Temp Pulse Resp B/P (MAP) Pulse Ox O2 Delivery O2 Flow Rate FiO2 08/27/18 07:39 97.7 80 16 116/61 (79) 100 08/27/18 00:39 Room Air I&O- Last 24 Hours up to 6 AM 08/27/18 06:00 Intake Total 1520 ml Output Total 0 ml Balance 1520 ml EVERARDO CORTES MD Aug 27, 2018 11:13
[2018-08-27 12:00] VITALS: BP 118/68
[2018-08-27] MEDS ORDERED: CEPHALEXIN 500 MG CAP PO SCH (12:00)
[2018-08-27] MEDS ORDERED: SULF1TAB93 PO (14:35)
--- NOTE | 2018-08-27 15:19 | DS.PDOC ---
Discharge Summary General Date of Admission Aug 26, 2018 at 23:46 Date of Discharge 08/27/18 Discharge Summary PROCEDURES PERFORMED DURING STAY: [None]. DISCHARGE DIAGNOSES: Opiate withdrawal Right wrist abscess COMPLICATIONS/CHIEF COMPLAINT: Opiate Withdrawal, Skin Abcess. HISTORY OF PRESENT ILLNESS: Please see history and physical HOSPITAL COURSE: 22 year old male with h/o IV heroin use on Suboxone program did not have any subaxone for the past week as his meds were stollen so he used heroin 2 to 3 days ago then came her for agitation , abdominal pain , nausea or vomiting and diarrhea admitted for withdrawal. Opiate withdrawal - Normally on Suboxone but had stopped taking for 1 week, reportedly lost. - Last use IV heroin 2 days prior - continue Suboxone. Right wrist developing abscess - Bactrim DS bid - seen by surgery , no fluctuation yet so nothing to drain for now but will probably develop in 1 to 2 days. - Hot compress for now. DISCHARGE MEDICATIONS: Please see below. ALLERGIES: Please see below. PHYSICAL EXAMINATION ON DISCHARGE: VITAL SIGNS: Please see below. General: awake alert lying down comfortable in no acute distress. Eyes: Normal sclera, EOMI, HEENT: Atraumatic, neck supple, moist mucous membranes, anicteric eyes. Cardiovascular: Normal rate, normal rhythm. No murmurs appreciated. Pulmonary: Clear to auscultation b/l, no wheezing GI: Soft, nontender, nondistended Skin: Warm and dry Neuro: CN grossly intact. No focal deficits. Strengths equal b/l. LABORATORY DATA: Please see below. ACTIVITY: [As tolerated]. DIET: As tolerated DISPOSITION: 01 Home, Self-Care. DISCHARGE INSTRUCTIONS: Follow up PMD in 1 week Follow up with Dr Mark in 3 days DISCHARGE CONDITION: [Stable]. TIME SPENT ON DISCHARGE: 35 minutes. Vital Signs/I&Os Vital Signs Date Time Temp Pulse Resp B/P (MAP) Pulse Ox O2 Delivery O2 Flow Rate FiO2 08/27/18 12:00 83 16 118/68 (85) 99 08/27/18 07:39 97.7 08/27/18 00:39 Room Air I&O- Last 24 Hours up to 6 AM 08/27/18 06:00 Intake Total 1520 ml Output Total 0 ml Balance 1520 ml Laboratory Data Labs 24H Laboratory Tests 2 08/26/18 22:09: Immature Granulocyte % (Auto) 0.5, White Blood Count 6.6, Red Blood Count 3.52L, Hemoglobin 9.9L, Hematocrit 30.4L, Mean Corpuscular Volume 86.4, Mean Corpuscular Hemoglobin 28.1, Mean Corpuscular Hemoglobin Concent 32.6, Red Cell Distribution Width 14.1, Platelet Count 265, Neutrophils (%) (Auto) 50.1, Lymphocytes (%) (Auto) 39.1, Monocytes (%) (Auto) 9.1H, Eosinophils (%) (Auto) 0.9, Basophils (%) (Auto) 0.3, Neutrophils # (Auto) 3.3, Lymphocytes # (Auto) 2.6, Monocytes # (Auto) 0.6, Eosinophils # (Auto) 0.1, Basophils # (Auto) 0.0, Nucleated Red Blood Cells % (auto) 0.0, Erythrocyte Sedimentation Rate 17H, Prothrombin Time 13.8, Prothromb Time International Ratio 1.05, Activated Partial Thromboplast Time 29.6, Anion Gap 6L, Glomerular Filtration Rate > 60.0, Calcium Level 7.7L, Aspartate Amino Transf (AST/SGOT) 84H, Alanine Aminotransferase (ALT/SGPT) 91H, Alkaline Phosphatase 87, Total Bilirubin 0.3, Direct Bilirubin < 0.1, Total Creatine Kinase 674H, Creatine Kinase MB 8.0H, Creatine Kinase MB Relative Index 1.14, Troponin I < 0.02, C-Reactive Protein, Quantitative 0.69H, LC-Kjo-Z-Type Natriuretic Peptide 121, Total Protein 6.1L, Albumin 2.6L, Albumin/Globulin Ratio 0.74L, Thyroid Stimulating Hormone (TSH) 0.157L, Hepatitis A IgM Antibody NEGATIVE, Hepatitis B Surface Antigen NEGATIVE, Hepatitis B Core IgM Antibody NEGATIVE, Hepatitis C Antibody Index > 11.0H, HIV Antigen/Antibody Combo Qual NEGATIVE 08/27/18 04:15: Nucleated Red Blood Cells % (auto) 0.0, Anion Gap 4L, Glomerular Filtration Rate > 60.0, Calcium Level 8.1L, Blood Urea Nitrogen 3L, Creatinine 0.66L, Sodium [place] 144, Potassium Level 3.5, Chloride Level 111H, Carbon Dioxide Level 29, Magnesium Level 1.7L CBC/BMP Laboratory Tests 08/26/18 22:09 Red Blood Count 3.52 L, Mean Corpuscular Volume 86.4, Mean Corpuscular Hemoglobin 28.1, Mean Corpuscular Hemoglobin Concent 32.6, Red Cell Distribution Width 14.1, Neutrophils (%) (Auto) 50.1, Lymphocytes (%) (Auto) 39.1, Monocytes (%) (Auto) 9.1 H, Eosinophils (%) (Auto) 0.9, Basophils (%) (Auto) 0.3, Neutrophils # (Auto) 3.3, Lymphocytes # (Auto) 2.6, Monocytes # (Auto) 0.6, Eosinophils # (Auto) 0.1, Basophils # (Auto) 0.0 08/27/18 04:15 Red Blood Count 3.63 L, Mean Corpuscular Volume 84.8, Mean Corpuscular Hemog lobin 27.0, Mean Corpuscular Hemoglobin Concent 31.8 L, Red Cell Distribution Width 14.0, Calcium Level 8.1 L Microbiology Microbiology 08/26/18 Blood Culture, Received Pending 08/26/18 Blood Culture, Received Pending Discharge Medications Scheduled Aspirin (Aspirin EC) 81 Mg Tablet.dr, 81 MG PO DAILY, (Reported) Buprenorphine HCl/Naloxone HCl (Suboxone 8 mg-2 mg Sl Film) 1 Each Film, 1 STRIP SL DAILY, (Reported) Bupropion HCl (Bupropion Xl) 300 Mg Tab.er.24h, 300 MG PO DAILY, (Reported) Sulfamethoxazole/Trimethoprim (Sulfamethoxazole-Tmp Ds Tablet) 1 Each Tablet, 1 TAB PO BID Scheduled PRN Clotrimazole (Clotrimazole) 1% 28GM Cream..g., 1 DOSE TOP BID PRN for FUNGUS, (Reported) APPLY TO FEET NEEDED Hydroxyzine Pamoate (Hydroxyzine Pamoate) 25 Mg Capsule, 25 MG PO QID PRN for ANXIETY, (Reported) Allergies Coded Allergies: No Known Allergies (Verified , 08/19/16) EVERARDO CORTES MD Aug 27, 2018 15:19
--- NOTE | 2018-08-28 08:25 | ECGEPIP ---
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
== END 2018-08-27 14:50 | disposition home or self-care (01) | DRG 383 ==
LOC: M ED 21:09 → M ED INP 23:46 → M ICU 08-27 00:52
PROVIDERS: ADMIT Student in an Organized Health Care Education/Training Program; ATTEND Internal Medicine Nephrology
DX: L02.413 Cutaneous abscess of right upper limb (principal); F11.23 Opioid dependence with withdrawal; Z79.82 Long term (current) use of aspirin; Z79.899 Other long term (current) drug therapy

== ENCOUNTER 2018-09-15 22:36 | Emergency (ER) | payer MEDICAID ==
[~2018-09-15] VITALS: Ht 167.6 cm; Wt 72.7 kg
[~2018-09-15 22:36] MED LIST changes: +ASPI-161 PO; +BUPR300T34 PO; +CLOT1CRE TOP; +HYDR1CAP25 PO; +SUBO8MIS SL; +SULF1TAB93 PO
[2018-09-15] MEDS ORDERED: BUPR150T3 (22:45)
[2018-09-15] MEDS ORDERED: QUET1TAB8 (22:45)
[2018-09-15] MEDS ORDERED: GABA-843 (22:45)
[2018-09-16] MEDS ORDERED: ACETAMINOPHEN 325 MG TAB PO ONE (02:00)
[2018-09-16] MEDS ORDERED: cloNIDine 0.1 MG TAB PO ONE (02:00)
[2018-09-16] MEDS ORDERED: ONDANSETRON 4 MG ORAL DISINTEGRATING TAB (Q0162 PER 1MG) PO ONE (02:00)
[2018-09-16] MEDS ORDERED: hydrOXYzine 25 MG TAB PO ONE (02:00)
[2018-09-16 02:10] VITALS: BP 136/68
[2018-09-16 02:41] VITALS: BP 120/55
== END 2018-09-16 02:57 | disposition home or self-care (01) ==
LOC: M ED 22:36
DX: F11.23 Opioid dependence with withdrawal (principal); G43.909 Migraine, unspecified, not intractable, without status migrainosus; E78.5 Hyperlipidemia, unspecified; J45.909 Unspecified asthma, uncomplicated; M54.9 Dorsalgia, unspecified; F41.9 Anxiety disorder, unspecified; F32.9 Major depressive disorder, single episode, unspecified; F90.9 Attention-deficit hyperactivity disorder, unspecified type; F11.10 Opioid abuse, uncomplicated; Z72.0 Tobacco use; Z79.899 Other long term (current) drug therapy
CPT/HCPCS: 99284; Q0162

== ENCOUNTER 2018-09-22 03:52 | Emergency (ER) | payer MEDICAID ==
[~2018-09-22] VITALS: Ht 167.6 cm; Wt 72.7 kg
[~2018-09-22 03:52] MED LIST changes: +BUPR150T3; +GABA-843; +QUET1TAB8
[2018-09-22 04:27] VITALS: BP 136/75
[2018-09-22] MEDS ORDERED: IBUPROFEN 800 MG TAB PO ONE (05:30)
[2018-09-23] MEDS ORDERED: IBUP80TA PO (06:13)
== END 2018-09-22 06:14 | disposition left against medical advice (07) ==
LOC: M ED 03:52
DX: M79.605 Pain in left leg (principal); H10.023 Other mucopurulent conjunctivitis, bilateral; F11.11 Opioid abuse, in remission; Z79.899 Other long term (current) drug therapy

== ENCOUNTER 2018-09-23 00:20 | Emergency (ER) | payer MEDICAID ==
[~2018-09-23] VITALS: Ht 165.1 cm; Wt 75.0 kg
[2018-09-23] MEDS ORDERED: ACETAMINOPHEN TAB 650MG DOSE (2X325MG) PO ONE (02:45)
[2018-09-23] MEDS ORDERED: IBUPROFEN 800 MG TAB PO ONE (02:45)
[2018-09-23] MEDS ORDERED: IBUP80TA PO (06:13)
[2018-09-23 06:31] VITALS: BP 111/55
--- NOTE | 2018-09-23 08:01 | REP ---
Clinical: Pain. Swelling. Technique: AP, lateral views of the right tibia / fibula. Findings: No acute fracture dislocation. Skeletal structures, joint spaces, and surrounding soft tissues are normal. Impression: No acute fracture dislocation. Electronically Signed by Mario Read MD 09/23/2018 07:52 A
--- NOTE | 2018-09-23 08:02 | REP ---
Clinical: Right lower extremity pain and swelling . Technique: Arvizu scale and color Doppler evaluation using linear high frequency transducer. Findings: Ultrasound examination of the right lower extremity deep venous structures from the common femoral vein to the popliteal vein demonstrates normal compressibility flow and wave patterns in response to respiration and augmentation. There is no evidence for deep venous thrombosis. Impression: No evidence for deep venous thrombosis. Electronically Signed by Mario Read MD 09/23/2018 07:53 A
== END 2018-09-23 06:32 | disposition home or self-care (01) ==
LOC: M ED 00:20
DX: M79.604 Pain in right leg (principal); X50.1XXA Overexertion from prolonged static or awkward postures, initial encounter; Y92.830 Public park as the place of occurrence of the external cause; Y93.67 Activity, basketball; Y99.9 Unspecified external cause status; F19.10 Other psychoactive substance abuse, uncomplicated; Z72.0 Tobacco use; Z79.899 Other long term (current) drug therapy

== ENCOUNTER 2019-06-12 22:58 | Emergency (ER) | payer MEDICAID ==
[~2019-06-12] VITALS: Ht 165.1 cm; Wt 68.2 kg
[~2019-06-12 22:58] MED LIST changes: -BUPR300T34 PO; +BUPR300T92 PO; +IBUP80TA PO; +QUET100T2; -QUET1TAB8
[2019-06-13] MEDS ORDERED: NS 1,000 ML IV ONE
[2019-06-13 00:18] LABS: HEMATOCRIT 32.1 % (42.0-52.0); HEMOGLOBIN 10.8 g/dl (13.5-17.5); MEAN CORPUSCULAR HEMOGLOBIN 28.2 pg (27.0-33.0); MEAN CORPUSCULAR HGB CONC 33.6 g/dl (32.0-36.5); MEAN CORPUSCULAR VOLUME 83.8 fl (80.0-96.0); PLATELET COUNT, AUTOMATED 226 10^3/uL (150-450); RED BLOOD COUNT 3.83 10^6/uL (4.30-6.10); WHITE BLOOD COUNT 8.6 10^3/uL (4.0-10.0)
[2019-06-13] MEDS ORDERED: DALBAVANCIN 1,500 MG in D5W 250 ML IV ONE (00:30)
[2019-06-13 00:44] LABS: ERYTHROCYTE SEDIMENTATION RATE 34 mm/hr (0-15)
[2019-06-13 01:10] VITALS: BP 148/90
[2019-06-13 01:21] LABS: ATYPICAL LYMPH 1 % (0-5); BASOPHILS 1 % (0-1); EOSINOPHILS 1 % (0-3); LYMPHOCYTES 12 % (16-44); MONOCYTES 8 % (0-5); NEUTROPHILS 77 % (28-66)
[2019-06-13 01:22] LABS: PLATELET ESTIMATE NORMAL (NORMAL)
--- NOTE | 2019-06-13 08:22 | REP ---
Clinical: Pain and swelling. Technique: AP, lateral, bilateral oblique views of the hands. Findings: The osseous structures and joint spaces are intact and normal. No acute fracture dislocation. No periosteal reaction or aggressive bony lesions noted. Mild soft tissue swelling cannot be excluded primarily surrounding the second digit. No subcutaneous emphysema or foreign body. Impression: Areas of swelling. Otherwise unremarkable. Electronically Signed by Mario Read MD 06/13/2019 08:13 A
== END 2019-06-13 01:25 | disposition home or self-care (01) ==
LOC: M ED 22:58
DX: L03.012 Cellulitis of left finger (principal); L03.114 Cellulitis of left upper limb; F19.10 Other psychoactive substance abuse, uncomplicated; J45.909 Unspecified asthma, uncomplicated; E78.5 Hyperlipidemia, unspecified; R51 Headache; Z86.19 Personal history of other infectious and parasitic diseases; F17.200 Nicotine dependence, unspecified, uncomplicated; Z79.899 Other long term (current) drug therapy
CPT/HCPCS: 36415; 73130; 80047; 83605; 85025; 85652; 86140; 87040; 96365; 99284; J0875

== ENCOUNTER 2019-08-09 17:13 | Emergency (ER) | payer MEDICAID ==
[2019-08-09 17:29] VITALS: BP 132/94
[2019-08-09] MEDS ORDERED: MORPHINE 2 MG/ML 1ML VIAL (J2270) IV PRN (17:30)
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
== END 2019-08-09 17:50 | disposition left against medical advice (07) ==
LOC: M ED 17:13 → EDBD 17:13 → M ED 17:50
DX: S51.012A Laceration without foreign body of left elbow, initial encounter (principal); S21.212A Laceration without foreign body of left back wall of thorax without penetration into thoracic cavity, initial encounter; W26.0XXA Contact with knife, initial encounter; Y92.89 Other specified places as the place of occurrence of the external cause; F17.210 Nicotine dependence, cigarettes, uncomplicated; F11.20 Opioid dependence, uncomplicated
CPT/HCPCS: 74021; 96374; 99283; J2270

== ENCOUNTER 2019-08-10 00:08 | Emergency (ER) | payer MEDICAID ==
[~2019-08-10] VITALS: Ht 157.5 cm; Wt 59.1 kg
[2019-08-10 00:48] VITALS: BP 131/76
[2019-08-10] MEDS ORDERED: LIDOCAINE 1% MDV 20ML VIAL SC ONE (01:00)
== END 2019-08-10 01:26 | disposition left against medical advice (07) ==
LOC: M ED 00:08
DX: S41.012A Laceration without foreign body of left shoulder, initial encounter (principal); Y04.8XXA Assault by other bodily force, initial encounter; Y92.89 Other specified places as the place of occurrence of the external cause

== ENCOUNTER 2019-08-13 19:35 | Emergency (ER) | payer MEDICAID ==
[~2019-08-13] VITALS: Ht 165.1 cm; Wt 63.6 kg
[2019-08-13 19:44] VITALS: BP_DIAS 63
[2019-08-13 19:45] VITALS: BP_SYST 127
== END 2019-08-13 19:58 | disposition left against medical advice (07) ==
LOC: EDBD 19:35 → M ED 19:35
DX: Z53.21 Procedure and treatment not carried out due to patient leaving prior to being seen by health care provider (principal)

== ENCOUNTER 2019-08-13 23:51 | Emergency (ER) | payer MEDICAID ==
[~2019-08-13] VITALS: Ht 165.1 cm; Wt 63.6 kg
[2019-08-13 23:59] VITALS: BP 162/94
== END 2019-08-14 00:51 | disposition left against medical advice (07) ==
LOC: M ED 23:51
DX: Z53.21 Procedure and treatment not carried out due to patient leaving prior to being seen by health care provider (principal)

== ENCOUNTER 2019-08-14 05:37 | Emergency (ER) | payer MEDICAID ==
[~2019-08-14] VITALS: Ht 165.1 cm; Wt 63.6 kg
[2019-08-14] MEDS ORDERED: BOOSTRIX/ADACEL VACCINE (DIPHTH/PERTUSS/ACELL/TETANUS) 0.5ML SYR IM ONE (06:30)
[2019-08-14] MEDS ORDERED: LIDOCAINE 1% MDV 20ML VIAL INFIL ONE (06:30)
[2019-08-14 07:26] LABS: BASO % 0.3 % (0.0-1.0); EOS # 0.1 10^3/uL (0.0-0.5); EOS % 1.1 % (0.0-3.0); HEMATOCRIT 29.3 % (42.0-52.0); HEMOGLOBIN 9.5 g/dl (13.5-17.5); LYMPH % 27.4 % (24.0-44.0); MEAN CORPUSCULAR HEMOGLOBIN 27.9 pg (27.0-33.0); MEAN CORPUSCULAR HGB CONC 32.4 g/dl (32.0-36.5); MEAN CORPUSCULAR VOLUME 85.9 fl (80.0-96.0); MONO # 0.7 10^3/uL (0.0-0.8); MONO % 9.6 % (0.0-5.0); NEUTROPHILS # 4.4 10^3/uL (1.5-8.5); NEUTROPHILS % 61.3 % (36.0-66.0); PLATELET COUNT, AUTOMATED 225 10^3/uL (150-450); RED BLOOD COUNT 3.41 10^6/uL (4.30-6.10); WHITE BLOOD COUNT 7.2 10^3/uL (4.0-10.0)
[2019-08-14] MEDS ORDERED: DALBAVANCIN 1,500 MG in D5W 250 ML IV ONE (07:45)
[2019-08-14 07:58] LABS: ALBUMIN 3.6 GM/DL (3.2-5.2); ALT/SGPT 50 U/L (12-78); BILIRUBIN,TOTAL 0.4 MG/DL (0.2-1.0); BLOOD UREA NITROGEN 13 MG/DL (7-18); CALCIUM LEVEL 8.7 MG/DL (8.5-10.1); CARBON DIOXIDE LEVEL 28 MEQ/L (21-32); CHLORIDE LEVEL 107 MEQ/L (98-107); CREATININE FOR GFR 0.91 MG/DL (0.70-1.30); GLOMERULAR FILTRATION RATE > 60.0 (>60); GLUCOSE, FASTING 98 MG/DL (70-100); POTASSIUM SERUM 3.7 MEQ/L (3.5-5.1); SODIUM LEVEL 140 MEQ/L (136-145); TOTAL PROTEIN 7.1 GM/DL (6.4-8.2)
[2019-08-14 10:01] VITALS: BP 138/82
--- NOTE | 2019-08-16 11:15 | REP ---
REASON: Assess for foreign body. PRIORS: None. Preliminary report given by Dr. Read There is a linear radial density seen in the soft tissues of the upper arm consistent with a foreign body. This measures approximately 7 mm in length. There is no osseous involvement. Electronically Signed by Bogdan Chandler DO 08/16/2019 12:26 P
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
--- NOTE | 2019-08-16 11:22 | REP ---
LEFT HUMERUS: Two views of the left humerus performed. The humerus is intact. There is no fracture or bone lesion identified. No dislocation is seen. There is a thin linear metallic foreign body at the level of the mid humerus unchanged since the prior exam earlier the same day. Electronically Signed by Maged Arvizu MD 08/16/2019 01:40 P
--- NOTE | 2019-08-16 11:26 | REP ---
REASON FOR EXAM: Foreign body seen radiographically. Assess for ultrasonographic evidence for possible extraction. Preliminary report is given by Dr. Read. Ultrasonic evaluation over the "palpable area" shows no ultrasonographic evidence of a foreign body. Electronically Signed by Bogdan Chandler DO 08/16/2019 12:27 P
== END 2019-08-14 10:32 | disposition left against medical advice (07) ==
LOC: M ED 05:37
DX: S61.211A Laceration without foreign body of left index finger without damage to nail, initial encounter (principal); W26.8XXA Contact with other sharp object(s), not elsewhere classified, initial encounter; Y92.89 Other specified places as the place of occurrence of the external cause; S41.122A Laceration with foreign body of left upper arm, initial encounter; S21.211A Laceration without foreign body of right back wall of thorax without penetration into thoracic cavity, initial encounter; L03.114 Cellulitis of left upper limb; Y04.8XXA Assault by other bodily force, initial encounter; Y92.098 Other place in other non-institutional residence as the place of occurrence of the external cause; F11.20 Opioid dependence, uncomplicated; F32.9 Major depressive disorder, single episode, unspecified; E78.5 Hyperlipidemia, unspecified; B19.20 Unspecified viral hepatitis C without hepatic coma; F90.9 Attention-deficit hyperactivity disorder, unspecified type; F17.200 Nicotine dependence, unspecified, uncomplicated; Z23 Encounter for immunization
CPT/HCPCS: 64450; 73060; 73140; 76882; 80053; 85025; 87040; 90471; 90715; 96365; 99284; J0875

== ENCOUNTER 2019-08-16 17:46 | Emergency (ER) | payer MEDICAID ==
[~2019-08-16] VITALS: Ht 165.1 cm; Wt 59.5 kg
[2019-08-16 17:47] VITALS: BP 113/56
[2019-08-16] MEDS ORDERED: SUBO8MIS (18:00)
== END 2019-08-16 20:06 | disposition left against medical advice (07) ==
LOC: M ED 17:46
DX: S61.211A Laceration without foreign body of left index finger without damage to nail, initial encounter (principal); F11.20 Opioid dependence, uncomplicated; S21.212A Laceration without foreign body of left back wall of thorax without penetration into thoracic cavity, initial encounter; Z87.891 Personal history of nicotine dependence; F32.9 Major depressive disorder, single episode, unspecified; X99.1XXA Assault by knife, initial encounter; Y92.9 Unspecified place or not applicable; Y07.9 Unspecified perpetrator of maltreatment and neglect; Y99.8 Other external cause status

== ENCOUNTER 2019-12-20 22:54 | Emergency (ER) | payer MEDICAID ==
[~2019-12-20] VITALS: Ht 165.1 cm; Wt 72.7 kg
[~2019-12-20 22:54] MED LIST changes: +SUBO8MIS
== END 2019-12-21 00:01 | disposition left against medical advice (07) ==
LOC: M ED 22:54
DX: Z53.21 Procedure and treatment not carried out due to patient leaving prior to being seen by health care provider (principal)

== ENCOUNTER 2020-08-16 21:54 | Emergency (ER) | payer MEDICAID ==
[~2020-08-16] VITALS: Ht 167.6 cm; Wt 72.0 kg
[2020-08-16 21:54] VITALS: BP 144/80
[~2020-08-16 21:54] MED LIST changes: +BACTDSTA PO; +BUPR150T12; -BUPR150T3; +GABA-282; +GABA-283 PO; -GABA-843; -GABA-845 PO; -SULF1TAB93 PO
--- NOTE | 2020-08-17 08:58 | REP ---
INDICATION: testicularpain r/o torsion; R/O TORSION. Repeat dictation. Preliminary report is provided at the time of the exam by allyson PERALTA. COMPARISON: No comparison study.. TECHNIQUE: High-resolution bilateral scrotal sonography. FINDINGS: There is evidence of a right inguinal hernia containing bowel. Patient reports a prior inguinal hernia repair. There is a complex hydrocele in the left scrotum. There is scrotal wall edema, left more so than right. There is no evidence of intratesticular mass lesion. Right testis measures 3.5 x 2.2 x 2.1 cm. Left testicular dimensions are 3.2 x 2.2 x 2.1 cm. Testicular Doppler flow is present bilaterally, resistive indices are 0.54 on the right and 0.38 on the left. There is some hyperemia of the left epididymis and left testis consistent with epididymo-orchitis. IMPRESSION: Complex hydrocele on the left. Scrotal wall edema as above. Right inguinal hernia containing bowel. Hyperemic epididymis and left testis consistent with epididymo-orchitis. <Electronically signed by Nahun De La Rosa > 08/17/20 0840
[2020-08-17] MEDS ORDERED: KETO10TAB PO (10:56)
[2020-08-17] MEDS ORDERED: DOXY100C37 PO (10:57)
== END 2020-08-17 01:11 | disposition left against medical advice (07) ==
LOC: M ED 21:54
DX: Z53.21 Procedure and treatment not carried out due to patient leaving prior to being seen by health care provider (principal)

== ENCOUNTER 2020-08-17 08:50 | Emergency (ER) | payer MEDICAID, OTHER ==
[~2020-08-17] VITALS: Ht 167.6 cm; Wt 75.0 kg
[2020-08-17] MEDS ORDERED: KETOROLAC 30 MG/ML 1ML VIAL IV ONE (09:05)
[2020-08-17] MEDS ORDERED: KETOROLAC TROMETHAMINE 10 MG TAB PO ONE (09:55)
[2020-08-17] MEDS ORDERED: PERCOCET 5MG/325MG TAB PO ONE (09:55)
[2020-08-17 10:02] LABS: BASO % 0.3 % (0.0-1.0); EOS # 0.1 10^3/uL (0.0-0.5); EOS % 1.1 % (0.0-3.0); HEMATOCRIT 30.1 % (42.0-52.0); HEMOGLOBIN 9.7 g/dl (13.5-17.5); LYMPH # 1.8 10^3/uL (1.5-5.0); LYMPH % 17.1 % (24.0-44.0); MEAN CORPUSCULAR HEMOGLOBIN 26.6 pg (27.0-33.0); MEAN CORPUSCULAR HGB CONC 32.2 g/dl (32.0-36.5); MEAN CORPUSCULAR VOLUME 82.7 fl (80.0-96.0); MONO # 0.9 10^3/uL (0.0-0.8); MONO % 8.6 % (2.0-8.0); NEUTROPHILS # 7.8 10^3/uL (1.5-8.5); NEUTROPHILS % 72.5 % (36.0-66.0); PLATELET COUNT, AUTOMATED 252 10^3/uL (150-450); RED BLOOD COUNT 3.64 10^6/uL (4.30-6.10); WHITE BLOOD COUNT 10.7 10^3/uL (4.0-10.0)
[2020-08-17 10:27] LABS: BLOOD UREA NITROGEN 11 MG/DL (7-18); CALCIUM LEVEL 8.8 MG/DL (8.5-10.1); CARBON DIOXIDE LEVEL 30 MEQ/L (21-32); CHLORIDE LEVEL 103 MEQ/L (98-107); CREATININE FOR GFR 0.88 MG/DL (0.70-1.30); GLOMERULAR FILTRATION RATE > 60.0 (>60); GLUCOSE, FASTING 96 MG/DL (70-100); SODIUM LEVEL 138 MEQ/L (136-145)
[2020-08-17] MEDS ORDERED: cefTRIAXone 500MG VIAL (J0696 PER 250MG) IM ONE (10:40)
[2020-08-17] MEDS ORDERED: DOXYCYCLINE HYCLATE 100MG TABLET PO ONE (10:40)
[2020-08-17] MEDS ORDERED: LIDOCAINE 1% SDV 5ML VIAL DILUENT ONE ×2 (10:40)
[2020-08-17] MEDS ORDERED: KETO10TAB PO (10:56)
[2020-08-17] MEDS ORDERED: DOXY100C37 PO (10:57)
[2020-08-17 12:08] VITALS: BP 138/77
== END 2020-08-17 12:10 | disposition home or self-care (01) ==
LOC: EDBD 08:50 → M ED 08:50
DX: N45.2 Orchitis (principal); K40.90 Unilateral inguinal hernia, without obstruction or gangrene, not specified as recurrent; N43.3 Hydrocele, unspecified; J45.909 Unspecified asthma, uncomplicated; F17.200 Nicotine dependence, unspecified, uncomplicated; Z83.3 Family history of diabetes mellitus
CPT/HCPCS: 36415; 80048; 85025; 87040; 87490; 87590; 87661; 96372; 99284; J0696

== ENCOUNTER 2020-08-21 17:54 | Emergency (ER) | payer OTHER ==
[~2020-08-21] VITALS: Ht 167.6 cm; Wt 70.1 kg
[~2020-08-21 17:54] MED LIST changes: +DOXY100C37 PO; +KETO10TAB PO
[2020-08-21 18:12] VITALS: BP 118/63
[2020-08-21] MEDS ORDERED: MECLIZINE 25 MG TABLET PO ONE (21:00)
[2020-08-21] MEDS ORDERED: NS 1,000 ML IV ONE (21:00)
--- NOTE | 2020-08-21 22:02 | REPVR ---
PROCEDURE INFORMATION: Exam: CT Head Without Contrast Exam date and time: 08/21/2020 9:02 PM Age: 24 years old Clinical indication: Altered mental status/memory loss; Confusion or disorientation TECHNIQUE: Imaging protocol: Computed tomography of the head without contrast. Axial and coronal reformatted images were created and reviewed. Radiation optimization: All CT scans at this facility use at least one of these dose optimization techniques: automated exposure control; mA and/or kV adjustment per patient size (includes targeted exams where dose is matched to clinical indication); or iterative reconstruction. COMPARISON: CT Head without contrast 10/05/2017 12:24 AM FINDINGS: Brain: No CT evidence of acute intracranial hemorrhage or acute territorial infarction. No significant mass effect or midline shift. Basal cisterns patent. Cerebral ventricles: Normal in size and configuration. Paranasal sinuses: Unremarkable. No fluid levels. Mastoid air cells: Grossly unremarkable. Bones/joints: No acute osseous abnormality. Soft tissues: Grossly unremarkable. IMPRESSION: No CT evidence of acute intracranial pathology. Electronically signed by: David Ortiz On 08/21/2020 22:01:41 PM
--- NOTE | 2020-08-22 20:46 | ECGEPIP ---
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
== END 2020-08-21 22:08 | disposition left against medical advice (07) ==
LOC: M ED 21:36
DX: R42 Dizziness and giddiness (principal); R00.1 Bradycardia, unspecified; I45.19 Other right bundle-branch block; J45.909 Unspecified asthma, uncomplicated; Z86.19 Personal history of other infectious and parasitic diseases; M54.9 Dorsalgia, unspecified; F17.200 Nicotine dependence, unspecified, uncomplicated; Z79.899 Other long term (current) drug therapy

== ENCOUNTER 2020-08-31 20:56 | Emergency (ER) | payer OTHER ==
[~2020-08-31] VITALS: Ht 167.6 cm; Wt 70.0 kg
[2020-08-31 20:56] VITALS: BP 156/91
== END 2020-09-01 00:35 | disposition left against medical advice (07) ==
LOC: M ED 20:56
DX: R05 Cough (principal); F17.210 Nicotine dependence, cigarettes, uncomplicated

== ENCOUNTER 2020-10-12 16:25 | Emergency (ER) | payer OTHER ==
[~2020-10-12] VITALS: Ht 167.6 cm; Wt 63.6 kg
[~2020-10-12 16:25] MED LIST changes: -CLOT1CRE TOP; +CLOT28CR2 TOP; -DOXY100C37 PO; +DOXY1CAP62 PO
[2020-10-12 16:26] VITALS: BP 137/96
[2020-10-13] MEDS ORDERED: CLIN150C15 PO (07:52)
== END 2020-10-13 00:02 | disposition left against medical advice (07) ==
LOC: M ED 16:25
DX: Z53.21 Procedure and treatment not carried out due to patient leaving prior to being seen by health care provider (principal)

== ENCOUNTER 2020-10-13 00:34 | Emergency (ER) | payer OTHER ==
[~2020-10-13] VITALS: Ht 167.6 cm; Wt 64.6 kg
[2020-10-13] MEDS ORDERED: IBUPROFEN 600MG TAB PO ONE (06:25)
[2020-10-13] MEDS ORDERED: CLINDAMYCIN 900 MG in IV 1 EA IV ONE (06:25)
[2020-10-13] MEDS ORDERED: NS 1,000 ML IV SCH (06:25)
[2020-10-13] MEDS ORDERED: ACETAMINOPHEN 325 MG TAB PO ONE (06:25)
[2020-10-13] MEDS ORDERED: CLIN150C15 PO (07:52)
[2020-10-13 08:00] VITALS: BP 150/70
== END 2020-10-13 08:13 | disposition home or self-care (01) ==
LOC: M ED 00:34
DX: L03.221 Cellulitis of neck (principal); Z53.9 Procedure and treatment not carried out, unspecified reason; Z86.19 Personal history of other infectious and parasitic diseases; Z86.14 Personal history of Methicillin resistant Staphylococcus aureus infection; F19.10 Other psychoactive substance abuse, uncomplicated

== ENCOUNTER 2020-10-14 23:55 | Emergency (ER) | payer OTHER ==
[~2020-10-14] VITALS: Ht 167.6 cm; Wt 66.6 kg
[~2020-10-14 23:55] MED LIST changes: +CLIN150C15 PO
[2020-10-14 23:58] VITALS: BP 145/68
[2020-10-15 02:07] LABS: BASO % 0.3 % (0.0-1.0); EOS # 0.1 10^3/uL (0.0-0.5); EOS % 1.4 % (0.0-3.0); HEMOGLOBIN 9.9 g/dl (13.5-17.5); LYMPH # 1.9 10^3/uL (1.5-5.0); LYMPH % 21.7 % (24.0-44.0); MEAN CORPUSCULAR HEMOGLOBIN 25.4 pg (27.0-33.0); MEAN CORPUSCULAR HGB CONC 30.9 g/dl (32.0-36.5); MEAN CORPUSCULAR VOLUME 82.1 fl (80.0-96.0); MONO # 0.5 10^3/uL (0.0-0.8); MONO % 5.3 % (2.0-8.0); NEUTROPHILS # 6.2 10^3/uL (1.5-8.5); NEUTROPHILS % 71.1 % (36.0-66.0); PLATELET COUNT, AUTOMATED 301 10^3/uL (150-450); WHITE BLOOD COUNT 8.8 10^3/uL (4.0-10.0)
[2020-10-15 02:32] LABS: BLOOD UREA NITROGEN 12 MG/DL (7-18); CALCIUM LEVEL 8.6 MG/DL (8.5-10.1); CARBON DIOXIDE LEVEL 31 MEQ/L (21-32); CHLORIDE LEVEL 104 MEQ/L (98-107); CREATININE FOR GFR 0.73 MG/DL (0.70-1.30); GLOMERULAR FILTRATION RATE > 60.0 (>60); GLUCOSE, FASTING 106 MG/DL (70-100); POTASSIUM SERUM 4.1 MEQ/L (3.5-5.1); SODIUM LEVEL 139 MEQ/L (136-145)
[2020-10-15] MEDS ORDERED: ISOVUE-370 76% 100ML VIAL As Ordered ONE (02:40)
== END 2020-10-15 02:47 | disposition left against medical advice (07) ==
LOC: M ED 23:55
DX: L02.11 Cutaneous abscess of neck (principal); Z53.9 Procedure and treatment not carried out, unspecified reason; F11.10 Opioid abuse, uncomplicated

== ENCOUNTER 2020-10-16 01:58 | Emergency (ER) | payer OTHER ==
[~2020-10-16] VITALS: Ht 167.6 cm; Wt 65.1 kg
[2020-10-16 01:59] VITALS: BP 136/73
== END 2020-10-16 02:43 | disposition left against medical advice (07) ==
LOC: M ED 01:58
DX: Z53.21 Procedure and treatment not carried out due to patient leaving prior to being seen by health care provider (principal)

== ENCOUNTER 2020-11-09 02:36 | Emergency (ER) | payer OTHER ==
[~2020-11-09] VITALS: Ht 167.6 cm; Wt 64.0 kg
[2020-11-09 02:36] VITALS: BP 143/74
[~2020-11-09 02:36] MED LIST changes: -CLIN150C15 PO; +CLIN150C17 PO
== END 2020-11-09 04:45 | disposition left against medical advice (07) ==
LOC: M ED 02:36
DX: Z53.21 Procedure and treatment not carried out due to patient leaving prior to being seen by health care provider (principal)

== ENCOUNTER 2020-11-15 02:31 | Emergency (ER) | payer OTHER ==
[~2020-11-15] VITALS: Ht 167.6 cm; Wt 64.8 kg
[2020-11-15 02:32] VITALS: BP 128/69
== END 2020-11-15 08:13 | disposition left against medical advice (07) ==
LOC: M ED 02:31
DX: Z53.21 Procedure and treatment not carried out due to patient leaving prior to being seen by health care provider (principal)

== ENCOUNTER 2020-11-21 07:14 | Day surgery (SDC) | payer OTHER ==
[~2020-11-21] VITALS: Ht 167.6 cm; Wt 64.6 kg
[2020-11-21 08:55] LABS: BASO # 0.1 10^3/uL (0.0-0.2); BASO % 0.4 % (0.0-1.0); EOS # 0.1 10^3/uL (0.0-0.5); EOS % 0.8 % (0.0-3.0); HEMATOCRIT 35.3 % (42.0-52.0); HEMOGLOBIN 11.1 g/dl (13.5-17.5); LYMPH # 3.7 10^3/uL (1.5-5.0); LYMPH % 31.8 % (24.0-44.0); MEAN CORPUSCULAR HEMOGLOBIN 25.4 pg (27.0-33.0); MEAN CORPUSCULAR HGB CONC 31.4 g/dl (32.0-36.5); MEAN CORPUSCULAR VOLUME 80.8 fl (80.0-96.0); MONO # 0.7 10^3/uL (0.0-0.8); MONO % 5.7 % (2.0-8.0); NEUTROPHILS # 7.1 10^3/uL (1.5-8.5); PLATELET COUNT, AUTOMATED 447 10^3/uL (150-450); RED BLOOD COUNT 4.37 10^6/uL (4.30-6.10); WHITE BLOOD COUNT 11.6 10^3/uL (4.0-10.0)
--- NOTE | 2020-11-21 09:10 | REP ---
INDICATION: abscess/needle stuck in L anterior neck COMPARISON: None. TECHNIQUE: Limited grayscale and color B-mode directed ultrasound examination using linear high-frequency transducer.. FINDINGS: Ultrasound examination demonstrates a linear foreign body consistent with needle fragment measuring approximately 8 mm in length along with an adjacent heterogeneous collection measuring 1.4 x 0.7 x 1.3 cm consistent with phlegmon/forming abscess. IMPRESSION: Foreign body and forming abscess noted. <Electronically signed by Mario Read > 11/21/20 [id number]
[2020-11-21 09:22] LABS: ALBUMIN 3.9 GM/DL (3.2-5.2); ALT/SGPT 30 U/L (12-78); BILIRUBIN,DIRECT < 0.1 MG/DL (0.0-0.2); BILIRUBIN,TOTAL 0.3 MG/DL (0.2-1.0); BLOOD UREA NITROGEN 10 MG/DL (7-18); CALCIUM LEVEL 9.6 MG/DL (8.5-10.1); CARBON DIOXIDE LEVEL 28 MEQ/L (21-32); CHLORIDE LEVEL 106 MEQ/L (98-107); CREATININE FOR GFR 0.91 MG/DL (0.70-1.30); GLOMERULAR FILTRATION RATE > 60.0 (>60); GLUCOSE, FASTING 82 MG/DL (70-100); SODIUM LEVEL 137 MEQ/L (136-145); TOTAL PROTEIN 8.4 GM/DL (6.4-8.2)
[2020-11-21 09:29] LABS: ERYTHROCYTE SEDIMENTATION RATE 22 mm/hr (0-15)
[2020-11-21 09:33] LABS: POTASSIUM SERUM 5.8 MEQ/L (3.5-5.1)
[2020-11-21] MEDS ORDERED: PIPERACILLIN/TAZOBACTAM SOD 3.375 GM in D5W MINI-BAG PLUS 50 ML IV ONE (09:55)
[2020-11-21 10:52] LABS: RSV AMPLIFICATION NEGATIVE (NEGATIVE)
[2020-11-21] MEDS ORDERED: AUGM875T28 PO (11:04)
[2020-11-21] MEDS ORDERED: SUBO8MIS SL (11:04)
[2020-11-21] MEDS ORDERED: HYDR-3363 PO (11:07)
[2020-11-21] MEDS ORDERED: CLON0.2T PO (11:07)
[2020-11-21] MEDS ORDERED: CVS10CAP7 PO (11:18)
[2020-11-21] MEDS ORDERED: ACET32TAB PO (11:18)
[2020-11-21] MEDS ORDERED: NICO21PAT TOP (11:18)
[2020-11-21] MEDS ORDERED: HYDR-3910 PO (11:18)
[2020-11-21] MEDS ORDERED: BENA25CA4 PO (11:18)
[2020-11-21] MEDS ORDERED: HOME MED LIST COMPLETE! XX SCH (11:20)
--- NOTE | 2020-11-21 12:28 | CR.PDOC ---
General Date of Consultation: Nov 21, 2020 Referring Provider: DOROTHY LORENZO PA-C Attending Physician: Fortino Samaniego MD Consultation REASON FOR CONSULTATION/CHIEF COMPLAINT: [Left neck abscess and foreign body]. HISTORY OF PRESENT ILLNESS: [Danny is a 24-year-old gentleman who has a history of IV drug abuse. He was injecting heroin about 10 days ago and the needle broke off in his neck. He was seen in outside hospital and had an incision and drainage but refused to have the needle removed in the operating room. He returned to the ER today with swelling pain in the same location. He said he does not use drugs since the incident occurred. Is a his history of hepatitis C and has been treated for that. Previous cultures have shown methicillin- resistant staph aureus. Ultrasound done in the ER shows a 1.5 cm abscess with an 8 mm linear fragment most likely needle tip]. ALLERGIES: Please see below. HOME MEDICATIONS: Please see below. PAST MEDICAL HISTORY: 1. [Hepatitis C]. 2. . PAST SURGICAL HISTORY: 1. [Hernia repair without complication] 2. FAMILY HISTORY: Father: Mother: Siblings: Children: Hereditary Diseases: Unexpected deaths due to medical reasons: SOCIAL HISTORY: Marital status and/or living arrangements: Children: Employment: Tobacco use:[Daily smoker] ETOH: Illicit drug use: IV drug use: [Yes] Other relevant social factors: REVIEW OF SYSTEMS: CONSTITUTIONAL: [Normal]. HEENT: [Normal]. CARDIOVASCULAR: [Negative]. RESPIRATORY: [Negative]. GENITOURINARY: [Negative]. MUSCULOSKELETAL: [Negative]. GASTROINTESTINAL: [Negative]. SKIN: [Negative]. NEUROLOGICAL: [Negative]. PSYCHIATRIC: [ADDH depression]. ENDOCRINE: [Negative]. HEMATOLOGIC/LYMPHATIC: [Negative]. ALLERGIC/IMMUNOLOGIC: [Negative]. PHYSICAL EXAMINATION: VITAL SIGNS: Please see below. GENERAL APPEARANCE: [Alert and oriented]. HEENT: [Ears are normal examination nose shows no obvious abnormality lips teeth and gums are within normal limits oral cavity and oropharynx are clear examination of the neck reveals a 1.5 cm swelling in the left neck minimally tender]. RESPIRATORY: [Clear]. CARDIOVASCULAR: [Normal heart sounds]. ABDOMEN: [Not assessed]. EXTREMITIES: [Grossly normal]. NEUROLOGICAL: [Not assessed]. PSYCHIATRIC: [Not assessed]. LABORATORY DATA: Please see below. ASSESSMENT/PLAN: 1. [Small neck abscess with foreign body most likely needle tip]. 2. [We recommended incision and drainage of the abscess and possible removal of foreign body I discussed the risks and benefits with him today and all questions were answered he indicated he like to proceed we will arrange for this later today in the operating room. For now he should remain n.p.o. and have recommended IV antibiotics prior to surgery]. Vital Signs/I&O Vital Signs Date Time Temp Pulse Resp B/P (MAP) Pulse Ox O2 Delivery O2 Flow Rate FiO2 11/21/20 10:48 97.1 81 18 135/71 (92) 100 Room Air Laboratory Data Labs 24H Laboratory Tests 2 11/21/20 08:40: Immature Granulocyte % (Auto) 0.3, Neutrophils (%) (Auto) 61.0, Lymphocytes (%) (Auto) 31.8, Monocytes (%) (Auto) 5.7, Eosinophils (%) (Auto) 0.8, Basophils (%) (Auto) 0.4, Neutrophils # (Auto) 7.1, Lymphocytes # (Auto) 3.7, Monocytes # (Auto) 0.7, Eosinophils # (Auto) 0.1, Basophils # (Auto) 0.1, Nucleated Red Blood Cells % (auto) 0.0, Erythrocyte Sedimentation Rate 22H, Anion Gap 3L, Glomerular Filtration Rate > 60.0, Calcium Level 9.6, Total Bilirubin 0.3, Direct Bilirubin < 0.1, Aspartate Amino Transf (AST/SGOT) 58H, Alanine Aminotransferase (ALT/SGPT) 30, Alkaline Phosphatase 120H, C-Reactive Protein, Quantitative 0.30, Total Protein 8.4H, Albumin 3.9, Albumin/Globulin Ratio 0.9 11/21/20 09:08: POC Lactate (Misc Panel) 0.69 11/21/20 10:04: Coronavirus (COVID-19)(PCR) NEGATIVE, Influenza Type A (RT-PCR) NEGATIVE, Influenza Type B (RT-PCR) NEGATIVE, Respiratory Syncytial Virus (PCR) NEGATIVE CBC/BMP Laboratory Tests 11/21/20 08:40 Microbiology Microbiology 11/21/20 Blood Culture, Received Pending 11/21/20 Blood Culture, Received Pending Allergies Coded Allergies: No Known Allergies (Verified , 08/19/16) Home Medications Scheduled Amoxicillin/Potassium Clav (Augmentin 875-125 Tablet) 1 Each Tablet, 875 MG PO BID, (Reported) Buprenorphine HCl/Naloxone HCl (Suboxone 8 mg-2 mg Sl Film) 1 Each Film, 1 STRIP SL DAILY, (Reported) Nicotine (Nicotine Patch) 21 Mg Patch.td24, 1 PATCH TOP QHS, (Reported) Scheduled PRN Acetaminophen (Acetaminophen) 325 Mg Tablet, 650 MG PO Q4H PRN for PAIN LEVEL 1- 4, (Reported) Clonidine HCl (Clonidine HCl) 0.2 Mg Tablet, 0.2 MG PO Q6H PRN for HIGH BLOOD PRESSURE, (Reported) Diphenhydramine HCl (Benadryl) 25 Mg Capsule, 25 MG PO ASDIRECTED PRN for WITHDRAWAL SYMPTOMS, (Reported) Hydralazine HCl (Hydralazine HCl) 25 Mg Tablet, 25 MG PO Q6H PRN for HIGH BLOOD PRESSURE, (Reported) Melatonin (Melatonin) 10 Mg Capsule, 10 MG PO QHS PRN for INSOMNIA, (Reported) Fortino Samaniego MD Nov 21, 2020 12:28
[2020-11-21] MEDS ORDERED: ROCURONIUM BROMIDE 50 MG/5 ML VIAL As Ordered ONE (15:36)
[2020-11-21] MEDS ORDERED: fentaNYL 100 MCG/2 ML INJECTION (J3010) As Ordered ONE (15:37)
[2020-11-21] MEDS ORDERED: KETOROLAC 60MG 2ML VIAL As Ordered ONE (15:37)
[2020-11-21] MEDS ORDERED: SUGAMMADEX SODIUM 500 MG/5 ML VIAL (BRIDION) As Ordered ONE (15:37)
[2020-11-21] MEDS ORDERED: ACETAMINOPHEN 1000MG 100ML IV BTL (OFIRMEV) (J0131 PER 10MG) As Ordered ONE (15:37)
[2020-11-21] MEDS ORDERED: ONDANSETRON 4MG/2ML VIAL As Ordered ONE (15:37)
[2020-11-21] MEDS ORDERED: LIDOCAINE 2% 100MG/5ML SDV (FOR ANES.) As Ordered ONE (15:37)
[2020-11-21] MEDS ORDERED: propofoL 200 MG/20 ML VIAL As Ordered ONE (15:37)
[2020-11-21] MEDS ORDERED: dexameTHASONE 4 MG/ML 1ML VIAL (J1100 PER 1MG) As Ordered ONE (15:37)
[2020-11-21] MEDS ORDERED: MIDAZOLAM INJ 2MG/2ML VIAL (J2250 PER 1MG) As Ordered ONE (15:38)
[2020-11-21] MEDS ORDERED: LIDOCAINE W/EPINEPHRINE 1% 20ML VIAL As Ordered ONE (16:42)
[2020-11-21] MEDS ORDERED: ePHEDrine SULFATE 25 MG/5 ML(5MG/ML) SYRINGE As Ordered ONE (16:56)
[2020-11-21] MEDS ORDERED: PHENYLephrine 500MCG 5ML (100MCG/ML) SYRINGE As Ordered ONE (16:56)
[2020-11-21] MEDS ORDERED: BACITRACIN OINTMENT 30GM TUBE As Ordered ONE (17:09)
[2020-11-21] MEDS ORDERED: ONDANSETRON 4MG/2ML VIAL IV PRN ×2 (17:40→19:10)
[2020-11-21] MEDS ORDERED: LR 1,000 ML IV SCH ×2 (17:40→19:05)
[2020-11-21] MEDS ORDERED: METOCLOPRAMIDE INJ 10MG/2ML VIAL (J2765 PER 1) IV PRN (17:40)
--- NOTE | 2020-11-21 17:42 | REP ---
INDICATION: LEFT NECK FOREIGN BODY. COMPARISON: None. TECHNIQUE: A C-arm view of the neck is performed. FINDINGS: The cervicothoracic junction is visualized. IMPRESSION: 1 second fluoroscopy time was utilized. <Electronically signed by Maged Arvizu > 11/21/20 3201
[2020-11-21] MEDS: PERCOCET 5MG/325MG TAB PO PRN ×2 (17:43→18:14)
[2020-11-21] MEDS: fentaNYL 100 MCG/2 ML INJECTION (J3010) IV PRN ×4 (17:46→18:03)
[2020-11-21 18:40] VITALS: BP 150/105
[2020-11-21] MEDS ORDERED: ANEXSIA, NORCO 7.5MG/325MG TABLET(HYDROCODONE/APAP) PO PRN (19:10)
[2020-11-21] MEDS ORDERED: PIPERACILLIN/TAZOBACTAM SOD 3.375 GM in D5W MINI-BAG PLUS 50 ML IV SCH (20:00)
--- NOTE | 2020-11-21 20:46 | POST-OPPD ---
Postoperative Procedure Note Date Of Procedure: Nov 21, 2020 Time Of Procedure: 17:30 PREOPERATIVE DIAGNOSIS: [Left neck abscess, foriegn body left neck (hypodermic needle)] POSTOPERATIVE DIAGNOSIS: [same] PROCEDURE: [Incision and drainage left neck abscess, exploration of left neck and removal of foreign body (needle)] SURGEON: [Aden] WEAVE ROOM SUPERVISOR: [Laurita] ANESTHESIA: [general] ESTIMATED BLOOD LOSS: [less than 20ml] FINDINGS: SPECIMENS: [culture sent for aeobic anaerobic and acid fast bacillus, left neck foreign body] COMPLICATIONS: [none] REPLACED: [none] DRAINS: [amrik] POSTOPERATIVE CONDITION: [stable] Operative note: Danny is a 24 year old who was seen in the ER and diagnosed with the above condition. Decision was made after discussion of the risks and benefits to undergo the above named procedure. He was taken to the operating room and administered a general anesthetic via intravenous injection. He was intubated endotracheally. The left neck was prepped and drapped in the usual fashion. The skin over the abscess was injected with 1% lidocaine with epinephrine. Using a 15 blade the skin was incised sharpely. We encountered an abscess cavity and cultures were sent for aerobic, anaerobic and acid fast bacillus. We carefully dissected the abscess cavity exploring for the 8mm length of needle seen on the ultrasound. The needle was discovered and removed. The wound was thoroughly irrigated. Decision was made to place a small amrik drain this was secured with 4-0 nylon sutures. The wound edges were then closed up the the amrik on either side. C -arm was brought in to confirm the entire foreign body was removed. No further evidence of foreign body were seen. A dressing was applied. The patient was then allowed to recover from the anesthesia and taken to the recovery area in stable condition. Fortino Samaniego MD Nov 21, 2020 20:46
[2020-11-22] MEDS ORDERED: UNRESOLVED CLARIFICATION ENTRY XX SCH (00:01)
== END 2020-11-21 19:09 | disposition home or self-care (01) ==
LOC: M ED 07:14 → M SDC 15:03 → ENRESERV 17:37 → M MSPAV 18:48 → M SDC 19:09
PROVIDERS: ATTEND Otolaryngology
DX: L02.11 Cutaneous abscess of neck (principal); M79.5 Residual foreign body in soft tissue; F11.10 Opioid abuse, uncomplicated; B18.2 Chronic viral hepatitis C; Z79.899 Other long term (current) drug therapy; Z79.891 Long term (current) use of opiate analgesic; F17.218 Nicotine dependence, cigarettes, with other nicotine-induced disorders; J45.909 Unspecified asthma, uncomplicated
CPT/HCPCS: 10060; 76000; 76536; 80048; 80076; 83605; 85025; 85652; 86140; 87040; 87070; 87075; 87076; 87116; 87206; 87631; 88300; 96365; 99284; J0131; J1100; J1885; J2250; J2370; J2405; J2543; J3010

== ENCOUNTER 2020-11-26 00:24 | Emergency (ER) | payer OTHER ==
[~2020-11-26] VITALS: Ht 167.6 cm; Wt 65.9 kg
[~2020-11-26 00:24] MED LIST changes: +ACET32TAB PO; +BENA25CA4 PO; +CLON0.2T PO; +CVS10CAP7 PO; +HYDR-3363 PO; +HYDR-3910 PO; +NICO21PAT TOP
[2020-11-26 00:26] VITALS: BP 132/74
== END 2020-11-26 00:55 | disposition left against medical advice (07) ==
LOC: M ED 00:24
DX: Z53.29 Procedure and treatment not carried out because of patient's decision for other reasons (principal)

== ENCOUNTER 2020-11-27 16:51 | Emergency (ER) | payer OTHER ==
[~2020-11-27] VITALS: Ht 167.6 cm; Wt 65.9 kg
[2020-11-27 16:52] VITALS: BP 131/65
[2020-11-28] MEDS ORDERED: BACT800T5 PO (06:38)
== END 2020-11-27 18:53 | disposition left against medical advice (07) ==
LOC: M ED 16:51
DX: Z53.21 Procedure and treatment not carried out due to patient leaving prior to being seen by health care provider (principal)

== ENCOUNTER 2020-11-27 20:21 | Emergency (ER) | payer OTHER ==
[~2020-11-27] VITALS: Ht 172.7 cm; Wt 65.9 kg
[2020-11-27 20:21] VITALS: BP 117/67
[2020-11-28] MEDS ORDERED: BACT800T5 PO (06:38)
== END 2020-11-27 21:22 | disposition left against medical advice (07) ==
LOC: M ED 20:21
DX: Z53.21 Procedure and treatment not carried out due to patient leaving prior to being seen by health care provider (principal)

== ENCOUNTER 2020-11-27 21:38 | Emergency (ER) | payer OTHER ==
[2020-11-28] MEDS ORDERED: BACT800T5 PO (06:38)
[2020-11-28 06:40] VITALS: BP 118/52
== END 2020-11-28 06:48 | disposition home or self-care (01) ==
LOC: M ED 21:38
DX: Z76.0 Encounter for issue of repeat prescription (principal); Z86.19 Personal history of other infectious and parasitic diseases; F19.10 Other psychoactive substance abuse, uncomplicated; F90.9 Attention-deficit hyperactivity disorder, unspecified type; F17.200 Nicotine dependence, unspecified, uncomplicated; Z79.899 Other long term (current) drug therapy

== ENCOUNTER 2020-11-29 04:55 | Emergency (ER) | payer OTHER ==
[~2020-11-29] VITALS: Ht 167.6 cm; Wt 67.5 kg
[~2020-11-29 04:55] MED LIST changes: +BACT800T5 PO
[2020-11-29 04:56] VITALS: BP 126/71
== END 2020-11-29 12:14 | disposition left against medical advice (07) ==
LOC: M ED 04:55
DX: Z53.21 Procedure and treatment not carried out due to patient leaving prior to being seen by health care provider (principal)

== ENCOUNTER 2021-02-11 22:21 | Emergency (ER) | payer OTHER, MEDICAID ==
[~2021-02-11] VITALS: Ht 167.6 cm; Wt 72.7 kg
[~2021-02-11 22:21] MED LIST changes: +DOXY-443 PO; -DOXY1CAP62 PO
--- OUTSIDE RECORDS SUMMARY | 2021-02-11 22:30 | CCD ---
Author Author Jean-Paul BISHNU Autogen erated Organization [facility] Address Unknown Phone Unavailable Care Team Providers Care Solutions Development Analyst Name Role Phone Deandra Webster Admphys Fritz Medina Attphys Aristeo Kelly Practitioner Roberto Jasso Admphys Functional Status No Results Allergies Name Onset Date Reaction Severity NKDA - NO KNOWN DRUG ALLERGIES (Allergy) ThuSep 19 08:00:00 EDT 2015 Encounters Program Name Primary Diagnosis Admission Date/ Time Discharge Date/Time [facility] ThuSep 19 13:15:00 EDT 2015 [facility] ThuSep 17 10:00:00 EDT 2015 [facility] ThuSep 09 13:00:00 EDT 2017 [facility] Heroin use disorder, severe ThuNov 16 18:32:00 EDT 2020 [facility] use dis order, severe, dependence ThuNov 16 21:15:00 EDT 2020Nov 20 15:15:00 EDT 2020 Immunizations No Known Immunizations Lab Results No Known Laboratory Results Medications Medication Directions Start Date End Date Suboxone 0.[address] one (1) mook m under the tongue daily ThuNov 21 00:00:00 EDT 2020Dec 04 00:00 :00 EDT 2020 NICOTINE 21 MG/24 HR PATCH, EXTENDED RELEASE 1 Patch Daily TRANSDERMAL ThuNov 19 08:00:00 EDT 2020Nov 20 15:17 :00 EDT 2020 NICOTINE POLACRILEX 2 MG LOZENGE/MARVIN 2 Each TID: Three Times a Day ORAL ThuNov 19 08:00:00 EDT 2020Nov 20 15:17:00 EDT 2020 SUBOXONE (BUPRENORPHINE-NALOXONE) 8MG-2MG F ILM 1 Film Daily SUBLINGUAL ThuNov 19 10:18:00 EDT 2020Nov 20 15:17 :00 EDT 2020 SUBOXONE (BUPRENORPHINE-NALOXONE) 4MG-1MG F ILM 1 Film Stat SUBLINGUAL (EKIT) ThuNov 18 09:34:00 EDT 2020Nov 18 09:35:00 EDT 2020 SUBOXONE (BUPRENORPHINE-NALOXONE) 4MG-1MG F ILM 1 Film Stat SUBLINGUAL (EKIT) ThuNov 17 13:13:00 EDT 2020 Rust Nov 17 13:17:00 EDT 2020 AMOXICILLIN/CLAVULANATE 875MG-125MG TABLET 1 Tablet BID: Twice a Day ORAL ThuNov 16 23:46:00 EDT 2020Nov 20 15:17:00 EDT 2020 ACETAMINOPHEN 500 MG CAPSULE 2 caps ule Q4HPRN: Every 4 Hours As Needed ORAL (MDD 6 Tabs) ThuNov 16:43:00 EDT 2020Nov 20:17:00 EDT 2020 DIPHENHYDRAMINE HCL 25 MG CAPSULE 1 capsule TID: Three Times a Day ORAL ThuNov 16:43:00 EDT 2020Nov 20:17 :00 EDT 2020 DOCUSATE SODIUM 100 MG CAPSULE, LIQUID FILLE D 1 capsule Daily As Needed ORAL ThuNov 16:43:00 EDT 2020Nov 20:17:00 EDT 2020 HYDROXYZINE HCL 25 MG TABLET 1 tabl et TIDPRN: Three Times A Day As Needed ORAL (Do not give within two (2) hours of Diphenhydramine or within one (1) hour of clonidine administration) ThuNov 16 23:43:00 EDT 2020Nov 20 15:17:00 EDT 2020 FIBER-LAX 625 MG TABLET 2 tablet IA N: As Needed ORAL (MDD 4 Tabs) ThuNov 16 23:43:00 EDT 2020Nov 20 15:17 :00 EDT 2020 IBUPROFEN 200 MG TABLET 3 tablet TI DPRN: Three Times A Day As Needed ORAL ThuNov 16:43:00 EDT 2020Nov 20 15:17 :00 EDT 2020 MELATONIN 5 MG CAPSULE 1 capsule HS PRN: At Bedtime As Needed ORAL (MDD 5mg) ThuNov 16:43:00 EDT 2020Nov 20:17:00 EDT 2020 MULTIVITAMIN TABLET 1 tablet Daily ORAL ThuNov 16:43:00 EDT 2020Nov 20:17:00 EDT 2020 CALCIUM CARBONATE 500 MG TABLET, CHEWABLE 3 tablet TIDPRN: Three Times A Day As Needed ORAL ThuNov 16:43:00 EDT 2020Nov 20:17:00 EDT 2020 ONDANSETRON 4 MG TABLET 1 tablet TI DPRN: Three Times A Day As Needed ORAL ThuNov 16:43:00 EDT 2020Nov 20:17 :00 EDT 2020 CLONIDINE HCL 0.1 MG TABLET 1 table t TIDPRN: Three Times A Day As Needed ORAL (SBP >110 HR>60Do not give within one (1) hour of hydroxyzine administration) ThuNov 16:43:00 EDT 2020Nov 20:17:00 EDT 2020 NARCAN (NALOXONE HCL) 4 MG/0.1 ML SPRAY 1 spray(s) As Directed NASAL ThuNov 16 23:43:00 EDT 2020Nov 17 23:42:00 EDT 2020 NICODERM CQ (NICOTINE) 21 MG/24 HR PATCH, EX TENDED RELEASE 1 patch Daily As Needed TRANSDERMAL (Remove at HS. MDD 1 Patch) ThuNov 16 23:43:00 EDT 2020Nov 18 23:42:00 EDT 2020 Problems Active Concerns * Addiction/Abstinence/Withdrawal * Code: USER-Addiction * Start Date: ThuSep 19 08:00:00 ED2015 * Text: * Biomedical * Code: USER-Biomedical * Start Date: ThuSep 19 08:00:00 ED2015 * Text: * Emotional/Behavioral/State of Change * Code: USER-Emotional * Start Date: ThuSep 19 08:00:00 ED2015 * Text: * Educational/Vocational * Code: USER-EducationalVoc * Start Date: ThuSep 19 08:00:00 EDT 2015 * Text: * Social/Interpersonal/Recovery Environment * Code: USER-Social * Start Date: ThuSep 19 08:00:00 ED2015 * Text: * Family * Code: USER-Family * Start Date: ThuSep 19 08:00:00 EDT 2015 * Text: * Legal * Code: USER-Legal * Start Date: ThuSep 19 08:00:00 EDT 2015 * Text: Procedures No Known Procedures Social History Social History Observation Description Alistair e Smoking Status Current Every Da y Smoker ThuNov 16 08:00:00 EDT 2020 Smoking Status Current Every Da y Smoker ThuNov 16 08:00:00 EDT 2020 Smoking Status Current Every Da y Smoker ThuNov 16 08:00:00 EDT 2020 Smoking Status Current Every Da y Smoker ThuNov 16 08:00:00 EDT 2020 Smoking Status Current Every Da y Smoker ThuSep 17 12:00:00 EDT 2015 Smoking Status Current Every Da y Smoker ThuSep 17 08:00:00 EDT 2015 Sex Male ThuNov 26 08:00:00 EDT 1993 Vital Signs Vital Sign Measurement Date Heart Rate 111 /MIN ThuNov 20 13:32:00 EDT 2020 Systolic 108 MM[HG] ThuNov 20 3:32:00 EDT 2020 Diastolic 66 MM[HG] ThuNov 20 13:32:00 EDT 2020 Vitals Refused Y Thu 05:27:00 EDT 2020 Temperature 97.7 [DEGF] ThuNov 19 19:05:00 EDT 2020 Temperature 36.5 VIN ThuOct 23 0 19:05:00 EDT 2020 Heart Rate 100 /MIN ThuNov 19 19:05:00 EDT 2020 Respiration 16 /MIN ThuOct 23 0 19:05:00 EDT 2020 Systolic 116 MM[HG] ThuNov 19 1 9:05:00 EDT 2020 Diastolic 75 MM[HG] ThuNov 19 19:05:00 EDT 2020 Temperature 98.2 [DEGF] ThuNov 19 14:52:00 EDT 2020 Temperature 36.8 VIN ThuOct 23 0 14:52:00 EDT 2020 Heart Rate 69 /MIN ThuNov 19 14:52:00 EDT 2020 Respiration 18 /MIN ThuOct 23 0 14:52:00 EDT 2020 Systolic 138 MM[HG] ThuNov 19 1 4:52:00 EDT 2020 Diastolic 82 MM[HG] ThuNov 19 14:52:00 EDT 2020 Temperature 98.2 [DEGF] ThuNov 19 05:35:00 EDT 2020 Temperature 36.8 VIN ThuOct 23 0 05:35:00 EDT 2020 Heart Rate 81 /MIN ThuNov 19 05:35:00 EDT 2020 Respiration 16 /MIN Mon Aug 3 0 05:35:00 EDT 2020 Systolic 134 MM[HG] Thu 30 0 5:35:00 EDT 2020 Diastolic 88 MM[HG] Thu 30 05:35:00 EDT 2020 BP Position 1 Position Mon Oct 3 0 05:35:00 EDT 2020 Vitals Refused Y Sun Au g 29 09:15:00 EDT 2020 Vitals Refused Y Sun Au g 29 05:23:00 EDT 2020 Temperature 98.2 [DEGF] Sat Oct 28 23:56:00 EDT 2020 Temperature 36.8 VIN Sat Oct 2 8 23:56:00 EDT 2020 Heart Rate 69 /MIN Sat Oct 28 23:56:00 EDT 2020 Respiration 16 /MIN Sat Oct 2 8 23:56:00 EDT 2020 Systolic 131 MM[HG] Sat Oct 28 2 3:56:00 EDT 2020 Diastolic 85 MM[HG] Sat Oct 28 23:56:00 EDT 2020 BP Position 3 Position Sat Oct 2 8 23:56:00 EDT 2020 Temperature 98.4 [DEGF] Sat Oct 28 11:58:00 EDT 2020 Temperature 36.9 VIN Sat Oct 2 8 11:58:00 EDT 2020 Heart Rate 116 /MIN Sat Oct 28 11:58:00 EDT 2020 Respiration 16 /MIN Sat Oct 2 8 11:58:00 EDT 2020 Systolic 128 MM[HG] Thu 28 1 1:58:00 EDT 2020 Diastolic 85 MM[HG] Rust Oct 28 11:58:00 EDT 2020 Temperature 97.7 [DEGF] Sat Oct 28 06:18:00 EDT 2020 Temperature 36.5 VIN Sat Oct 2 8 06:18:00 EDT 2020 Heart Rate 80 /MIN Thu 28 06:18:00 EDT 2020 Respiration 16 /MIN Sat Oct 2 8 06:18:00 EDT 2020 Systolic 130 MM[HG] Sat Oct 28 0 6:18:00 EDT 2020 Diastolic 84 MM[HG] Thu 28 06:18:00 EDT 2020 BP Position 1 Position Thu 2 8 06:18:00 EDT 2020 Temperature 98.1 [DEGF] ThuNov 16 23:35:00 EDT 2020 Temperature 36.7 VIN Thu 2 7 23:35:00 EDT 2020 Heart Rate 82 /MIN ThuNov 16 23:35:00 EDT 2020 Respiration 18 /MIN ThuOct 22 23:35:00 EDT 2020 SpO2 96 % ThuNov 16 23:35 :00 EDT 2020 Systolic 132 MM[HG] ThuNov 16 3:35:00 EDT 2020 Diastolic 97 MM[HG] ThuNov 16 23:35:00 EDT 2020 BP Position 2 Position ThuOct 22 23:35:00 EDT 2020
--- OUTSIDE RECORDS SUMMARY | 2021-02-11 22:30 | CCD | Continuity of Care Document ---
Author Author Danny SAMANIEGO MD Organization Unknown Address [address], [address] [place] [address] Phone [phone] Care Team Providers Care Mason Tender Restoration Labor Name Role Phone Keith Jimenez M.D. AUTM Jimbo Whitaker M.D. AUTM [phone] Problems Active Problems Provider Date Residual foreign body in soft tissue Fortino Samaniego MD Ons et: 11/21/2020 Cellulitis and abscess of neck Fortino Samaniego MD Onset: Allergic asthma without status asthmaticus Fortino Samaniego MD Onset: 11/22/2020 Social History Type Date Description Comments Sex Unknown ETOH Use Denies alcohol use Tobacco Use Start: Unknown Patient is a current smoker, smo kes every day Recreational Drug Use Current Drug User Allergies, Adverse Reactions, Alerts Description No Known Drug Allergies Medications Active Medications SIG Qnty Indications Ordering Provide r Date Sulfamethoxazole/Trimethoprim DS 800-160mg Tablets 1 PO bid 10 days 20tabs L02.11 Fortino Samaniego MD 021 Amoxicillin 500mg Capsules 1 by mouth every day Unknown Immunizations Description No Information Available Vital Signs Date Vital Result Comment 11/22/2020 12:52pm BP Systolic 120 mmHg BP Diastolic 980 mmHg Heart Rate 98 /min O2 % BldC Oximetry 97 % Height 65.5 inches 5'5.50" Weight 145.00 lb BMI (Body Mass Index) 23.8 kg/m2 [place] Body Weight 136 lb Weight 65.772 kg BSA (Body Surface Area) 1.74 m2 Results Test Acquired Date Facility Test Result H/L Range Note Laboratory test finding 11/21/2020 [facility] [address] [place] [address] [phone] Pathology Request For Service (SEE NOTE) 1 Wound Culture 11/21/2020 [facility] [address] [place] [address] [phone] Wound Culture <SEE NOTE> 2 Laboratory test finding 11/21/2020 [facility] [address] [place] [address] [phone] Anaerobic Culture FULL REPORT IN L <SEE NOTE> Normal 3 Blood Culture 11/21/2020 [facility] [address] [place] [address] [phone] Blood Culture No growth after <SEE NOTE> 4 1 FINAL DIAGNOSIS Foreign body, left neck, removal: Metallic foreign body, for gross examination only. 11/23/2020 - 1210 CLINICAL DIAGNOSIS Foreign body left neck 11/22/2020 - 1314 GROSS DIAGNOSIS Received in formalin labeled "foreign body left neck" and consists of one piece of thin lópez metallic object measuring 0.7 cm. in length and less than 1 mm. in diameter. For gross examination only. -CADENCE 11/22/2020 - 1314 Signed GOVIND SCOTT MD 11/23/2020 1211 2 If aerobic or anaerobic growth is detected within the next 7-21 days, an addendum will follow. . . FULL REPORT IN LAB NOTES ([facility] and [facility]). NO GROWTH AEROBICALLY 3 FULL REPORT IN LAB NOTES (e[facility] and [facility]). ORGANISM 1: STREPTOCOCCUS INTERMEDIUS ORGANISM 1: STREPTOCOCCUS INTERMEDIUS 4 No growth after 72 hours . A ll specimens observed for 5 days. Results final at that time. No growth after 48 hours . All specimens observed for 5 days. Results final at that time. No growth after 24 hours . All specimens observed for 5 days. Results final at that time. NO GROWTH AFTER 5 DAYS Procedures Date Code Description Status 11/21/2020 Remove Foreign Body Muscle/Tendo n Sheath Deep/Complicated Completed 11/21/2020 56636 I & D Abscess Simple Completed Medical Devices Description No Information Available Encounters Type Date Location Provider Dx Diagnosis Office Visit 11/22/2020 1:00p [facility] Brooklynn Pena D L02.11 Cutaneous abscess of neck Z48.817 Encntr for surgical aftcr fo l surgery on the skin, subcu Assessments Date Code Description Provider 11/22/2020 L02.11 Cutaneous abscess of neck Fortino Samaniego MD 11/22/2020 Z48.817 Encounter for surgic al aftercare following surgery on the skin and subcutaneous tissue Fortino Samaniego MD 11/21/2020 M79.5 Residual foreign body in soft ti ssue Fortino Samanigeo MD 11/21/2020 L02.11 Cutaneous abscess of neck Fortino Samaniego MD Plan of Treatment Future Appointment(s):* 11/29/2020 11:15 am - Fortino Samaniego MD at [facility] 11/22/2020 - Fortino Samaniego MD* L02.11 Cutaneous abscess of neck* New Medication: * Sulfamethoxazole/Trimethoprim DS 800-160 mg - 1 PO bid 10 days * Comments:* Partial suture removal was performed in the office to remove the drain. We discussed proper handling of the suture site. He will return in one week for removal of remaining sutures. I will see him back in the meantime for any changes. * Z48.817 Encounter for surgical aftercare following surgery on the skin and subcutaneous tissue Functional Status Description No Information Available Mental Status Description No Information Available Referrals Description No Information Available
--- OUTSIDE RECORDS SUMMARY | 2021-02-11 22:30 | CCD | Continuity of Care Document ---
Author Author Danny SAMANIEGO MD Organization Unknown Address [address], [address] [place] [address] Phone [phone] Care Team Providers Care Jr. Systems Administrator Name Role Phone Keith Jimenez M.D. AUTM Jimbo Whitaker M.D. AUTM [phone] Problems Active Problems Provider Date Residual foreign [...] lb BMI (Body Mass Index) 23.8 kg/m2 [place] Body Weight 136 lb Weight 65.772 kg BSA (Body Surface Area) 1.74 m2 Results Test Acquired Date Facility Test Result H/L Range Note Laboratory test finding 11/21/2020 [facility] Main [facility] [address] [place] [address] [phone] Pathology Request For Service (SEE NOTE) 1 Blood Culture 11/21/2020 [facility] Main Lab [address] [place] [address] [phone] Blood Culture No growth after <SEE NOTE> 2 1 FINAL DIAGNOSIS Foreign body, left neck, removal: Metallic foreign body, for gross examination only. 11/23/2020 - 1210 CLINICAL DIAGNOSIS Foreign body left neck 11/22/2020 - 1314 GROSS DIAGNOSIS Received in formalin labeled "foreign body left neck" and consists of one piece of thin lópez metallic object measuring 0.7 cm. in length and less than 1 mm. in diameter. For gross examination only. -SVEmy 11/22/2020 - 1314 Signed GOVIND SCOTT MD 11/23/20201210 2 No growth after 24 hours . A ll specimens observed for 5 days. Results final at that time. No Growth after 48 hours. All Specimens observed for 5 days. Results final at that time. Procedures Date Code Description Status 11/21/2020 68677 I & D Abscess/Hematoma Neck/Thor ax Soft Tissue Completed 11/21/2020 10460 Remove Foreign Body Subcutaneous Complicated Completed Medical Devices Description No Information Available Encounters Description No Information Available Assessments Date Code Description Provider 11/22/2020 L02.11 Cutaneous abscess of neck Fortino Samaniego MD 11/21/2020 M79.5 Residual foreign body in soft ti ssue Fortino Samaniego MD 11/21/2020 L02.11 Cutaneous abscess of neck Fortino Samaniego MD Plan of Treatment Future Appointment(s):* 11/29/2020 11:15 am - Fortino Samaniego MD at [facility] 11/22/2020 - Fortino Samaniego MD* L02.11 Cutaneous [...] back in the meantime for any changes. Functional Status Description No Information Available Mental Status Description No Information Available Referrals Description No Information Available
--- OUTSIDE RECORDS SUMMARY | 2021-02-11 22:30 | CCD | Continuity of Care Document ---
Author Author Danny SAMANIEGO MD Organization Unknown Address [address], [address] [place] [address] Phone [phone] Care Team Providers Care Single Spindle Screw Machine Operator Name Role Phone Keith Jimenez M.D. AUTM Jimbo Whitaker M.D. AUTM [phone] Problems Active Problems Provider Date Residual foreign [...] lb BMI (Body Mass Index) 23.8 kg/m2 [place] Body Weight 136 lb Weight 65.772 kg BSA (Body Surface Area) 1.74 m2 Results Test Acquired Date Facility Test Result H/L Range Note Laboratory test finding 11/21/2020 [facility] Main Lab [address] [place] [address] [phone] Pathology Request For Service (SEE NOTE) 1 Wound Culture 11/21/2020 [facility] [address] [place] [address] [phone] Wound Culture <SEE NOTE> 2 Laboratory test finding 11/21/2020 [facility] [address] [place] [address] [phone] Anaerobic Culture FULL REPORT IN L <SEE NOTE> Normal 3 Blood Culture 11/21/2020 [facility] [address] [place] [address] [phone] Blood Culture No growth after <SEE NOTE> [...] DAYS Procedures Date Code Description Status 11/21/2020 47331 I & D Abscess/Hematoma Neck/Thor ax Soft Tissue Completed 11/21/2020 52822 Remove Foreign Body Subcutaneous Complicated Completed Medical Devices Description No Information Available Encounters Description No Information Available Assessments Date Code Description Provider 11/22/2020 L02.11 Cutaneous abscess of neck Fortino Samaniego MD 11/21/2020 M79.5 Residual foreign body in soft ti ssue Fortino Samanigeo MD 11/21/2020 L02.11 Cutaneous abscess of neck Fortino Samaniego MD Plan of Treatment Future Appointment(s):* 11/29/2020 11:15 am - Fortino Saamniego MD at [facility] 11/22/2020 - Fortino Samaniego MD* [...]
--- OUTSIDE RECORDS SUMMARY | 2021-02-11 22:30 | CCD | Continuity of Care Document ---
Author Author Danny NOVAK M.D. Organization Unknown Address [address] [place] [address] Phone [phone] Problems Active Problems Provider Date Substance abuse Medical Onset: 10/08/2017 Chronic hepatitis C Medical Onset: 10/08/2017 Social History Type Date Description Comments Sex Unknown Allergies and adverse reactions Description No Known Drug Allergies Medications Description No Active Medications Immunizations Description No Information Available Vital Signs Date Vital Result Comment 01/07/2021 8:34am BP Systolic 122 mmHg BP Diastolic 90 mmHg Heart Rate 107 /min Respiratory Rate 20 /min Body Temperature 98.4 F 10/26/2019 8:27am BP Systolic 130 mmHg BP Diastolic 84 mmHg Heart Rate 85 /min Respiratory Rate 18 /min Body Temperature 98.0 F Weight 127.00 lb Results Description No Information Available Procedures Description No Information Available Medical Devices Description No Information Available Encounters Description No Information Available Assessments Description No Information Available Plan of Treatment No Information Available Functional Status Description No Information Available Mental Status Description No Information Available Referrals Description No Information Available
--- OUTSIDE RECORDS SUMMARY | 2021-02-11 22:30 | CCD | Continuity of Care Document ---
Author Author Danny SAMANIEGO MD Organization Unknown Address [address] [facility], [address] [place] [address] Phone [phone] Care Team Providers Care Morning Show Producer Name Role Phone Keith Jimenez M.D. AUTM [phone] Jimbo Whitaker M.D. AUTM [phone] Problems Active Problems Provider Date Residual foreign [...] lb BMI (Body Mass Index) 23.8 kg/m2 [place] Body Weight 136 lb Weight 65.772 kg BSA (Body Surface Area) 1.74 m2 Results Test Acquired Date Facility Test Result H/L Range Note Laboratory test finding 11/21/2020 [facility] Main Lab [address] [place] [address] [phone] Pathology Request For Service (SEE NOTE) 1 Wound Culture 11/21/2020 [facility] Lab [address] [place] [address] [phone] Wound Culture <SEE NOTE> 2 Laboratory test finding 11/21/2020 [facility] Main Lab [address] [place] [address] [phone] Anaerobic Culture FULL REPORT IN L <SEE NOTE> Normal 3 Blood Culture 11/21/2020 [facility] Lab [address] [place] [address] [phone] Blood Culture No growth after <SEE NOTE> [...] Body Muscle/Tendo n Sheath Deep/Complicated Completed 11/21/2020 15578 I & D Abscess Simple Completed Medical Devices Description No Information Available Encounters Type Date Location Provider Dx Diagnosis Office Visit 11/22/2020 1:00p [facility] Practice Brooklynn Pena D L02.11 Cutaneous [...] 11:15 am - Fortino Samaniego MD at [facility] 11/22/2020 - Fortino Samaniego MD* L02.11 Cutaneous [...]
--- OUTSIDE RECORDS SUMMARY | 2021-02-11 22:30 | CCD ---
Author Author Jean-Paul BISHNU Autogen erated Organization [facility] Address Unknown Phone Unavailable Care Team Providers Care Mushroom Packer Name Role Phone Deandra Webster Admphys Fritz Medina Attphys Aristeo Kelly Practitioner Roberto Jasso Admphys Functional Status No Results Allergies Name Onset Date Reaction Severity NKDA - NO KNOWN DRUG ALLERGIES (Allergy) ThuSep 19 08:00:00 EDT 2015 Encounters Program Name Primary Diagnosis Admission Date/ Time Discharge Date/Time [facility] ThuSep 17 10:00:00 EDT 2015 [place] [facility] Heroin use dis order, severe, dependence ThuNov 16 21:15:00 EDT 2020Nov 20 15:15:00 EDT 2020 [facility] Wait[facility] ThuSep 09 13:00:00 EDT 2017 [facility] [place] ThuSep 19 13:15:00 EDT 2015 [facility] Waiting Heroin use disorder, severe ThuNov 16 18:32:00 EDT 2020 Immunizations No Known Immunizations Lab [...] SUBLINGUAL (EKIT) ThuNov 17 13:13:00 EDT 2020 [facility] Nov 17 13:17:00 EDT 2020 AMOXICILLIN/CLAVULANATE 875MG-125MG [...] 2020 FIBER-LAX 625 MG TABLET 2 tablet NC N: As Needed ORAL (MDD 4 Tabs) [...] EDT 2020 Systolic 108 MM[HG] ThuNov 20 1 3:32:00 EDT 2020 Diastolic 66 MM[HG] ThuNov [...] 19 05:35:00 EDT 2020 Respiration 16 /MIN ThuOct 23 0 05:35:00 EDT 2020 Systolic 134 MM[HG] Mon Aug 30 0 5:35:00 EDT 2020 Diastolic 88 [...] 2 3:56:00 EDT 2020 Diastolic 85 MM[HG] Thu 28 23:56:00 EDT 2020 BP Position 3 Position Sat Oct 2 8 23:56:00 EDT 2020 Temperature 98.4 [DEGF] Sat Oct 28 11:58:00 EDT 2020 Temperature 36.9 VIN Sat Oct 2 8 11:58:00 EDT 2020 Heart Rate 116 /MIN Sat Oct 28 11:58:00 EDT 2020 Respiration 16 /MIN Sat Oct 2 8 11:58:00 EDT 2020 Systolic 128 MM[HG] Sat Oct 28 1 1:58:00 EDT 2020 Diastolic 85 MM[HG] Sat Oct 28 11:58:00 EDT 2020 Temperature 97.7 [DEGF] [facility] Oct 28 06:18:00 EDT 2020 Temperature 36.5 VIN Sat Oct 2 8 06:18:00 EDT 2020 Heart Rate 80 /MIN Thu 28 06:18:00 EDT 2020 Respiration 16 /MIN Sat Oct 2 8 06:18:00 EDT 2020 Systolic 130 MM[HG] Sat Oct 28 0 6:18:00 EDT 2020 Diastolic 84 MM[HG] Thu 28 06:18:00 EDT 2020 BP Position 1 Position Sat Oct 2 8 06:18:00 EDT 2020 Temperature 98.1 [DEGF] ThuNov 16 23:35:00 EDT 2020 Temperature 36.7 VIN ThuOct 22 7 23:35:00 EDT 2020 Heart Rate 82 /MIN ThuNov 16 23:35:00 EDT 2020 Respiration 18 /MIN ThuOct 22 23:35:00 EDT 2020 SpO2 96 % ThuNov 16 23:35 :00 EDT 2020 Systolic 132 MM[HG] ThuNov 16 3:35:00 EDT 2020 Diastolic 97 MM[HG] ThuNov 16 23:35:00 EDT 2020 BP Position 2 Position ThuOct 22 23:35:00 EDT 2020
--- OUTSIDE RECORDS SUMMARY | 2021-02-11 22:30 | CCD | Continuity of Care Document ---
Author Author Danny SAMANIEGO MD Organization Unknown Address [address] [facility], [address] [address] Phone [phone] Care Team Providers Care Telephone Maintainer Name Role Phone Keith Jimenez M.D. AUTM Jimbo Whitaker M.D. AUTM [phone] Problems Active Problems Provider Date Residual foreign [...] days 20tabs L02.11 Fortino Samaniego MD 021 Immunizations Description No Information Available Vital Signs Date Vital Result Comment 11/29/2020 2:55pm BP Systolic 110 mmHg BP Diastolic 80 mmHg Heart Rate 123 /min O2 % BldC Oximetry 98 % Height 65.5 inches 5'5.50" Weight 143.00 lb BMI (Body Mass Index) 23.4 kg/m2 [place] Body Weight 136 lb Weight 64.865 kg BSA (Body Surface Area) 1.73 m2 11/22/2020 12:52pm BP Systolic 120 mmHg BP Diastolic 980 mmHg Heart Rate 98 /min O2 % BldC Oximetry 97 % Height 65.5 inches 5'5.50" Weight 145.00 lb BMI (Body Mass Index) 23.8 kg/m2 [place] Body Weight 136 lb Weight 65.772 kg BSA (Body Surface Area) 1.74 m2 Results Test Acquired Date Facility Test Result H/L Range Note Laboratory test finding 11/21/2020 [facility] Main Lab [address] [place] [address] [phone] Pathology Request For Service (SEE NOTE) 1 Wound Culture 11/21/2020 [facility] Lab [address] [place] [address] [phone] Wound Culture <SEE NOTE> 2 Laboratory test finding 11/21/2020 [facility] Lab [address] [place] [address] [phone] Anaerobic Culture FULL REPORT IN L <SEE NOTE> Normal 3 Blood Culture 11/21/2020 [facility] Lab [address] [place] [address] [phone] Blood Culture No growth after <SEE NOTE> 4 1 FINAL DIAGNOSIS Foreign body, left neck, removal: Metallic foreign body, for gross examination only. 11/23/2020 - 1210 CLINICAL DIAGNOSIS Foreign body left neck 11/22/20201314 GROSS DIAGNOSIS Received in formalin labeled "foreign body left neck" and consists of one piece of thin lópez metallic object measuring 0.7 cm. in length and less than 1 mm. in diameter. For gross examination only. YOVANNY 11/22/2020 - 1314 Signed GOVIND SCOTT MD 11/23/20201210 2 If aerobic or anaerobic growth is [...] Body Muscle/Tendo n Sheath Deep/Complicated Completed 11/21/2020 52412 I & D Abscess Simple Completed Medical Devices Description No Information Available Encounters Type Date Location Provider Dx Diagnosis Office Visit 11/22/2020 1:00p [facility] Practice Brooklynn Pena D L02.11 Cutaneous abscess of neck Z48.817 Encntr for surgical aftcr fo l surgery on the skin, subcu Assessments Date Code Description Provider 11/29/2020 L02.11 Cutaneous abscess of neck Fortino Samaniego MD 11/22/2020 L02.11 Cutaneous abscess of neck Fortino Samaniego MD 11/22/2020 Z48.817 Encounter for surgic al aftercare following surgery on the skin and subcutaneous tissue Fortino Samaniego MD 11/21/2020 M79.5 Residual foreign body in soft ti ssue Fortino Samaniego MD 11/21/2020 L02.11 Cutaneous abscess of neck Fortino Samaniego MD Plan of Treatment No Information Available Functional Status Description No Information Available Mental Status Description No Information Available Referrals Description No Information Available
--- OUTSIDE RECORDS SUMMARY | 2021-02-11 22:30 | CCD | Continuity of Care Document ---
Author Author Danny SAMANIEGO MD Organization Unknown Address [address] [facility], [address] [place] [address] Phone [phone] Care Team Providers Care Down Filler Name Role Phone Keith Jimenez M.D. AUTM Jimbo Whitaker M.D. AUTM [phone] Problems Active Problems Provider Date Residual foreign [...] lb BMI (Body Mass Index) 23.8 kg/m2 [place] Body Weight 136 lb Weight 65.772 kg BSA (Body Surface Area) 1.74 m2 Results Test Acquired Date Facility Test Result H/L Range Note Laboratory test finding 11/21/2020 [facility] Main Lab [address] [place] [address] [phone] Pathology Request For Service (SEE NOTE) 1 Blood Culture 11/21/2020 [facility] Main Lab [address] [place] [address] [phone] Blood Culture No growth after <SEE NOTE> [...] time. Procedures Date Code Description Status 11/21/2020 98728 I & D Abscess/Hematoma Neck/Thor ax Soft Tissue Completed 11/21/2020 56930 Remove Foreign Body Subcutaneous Complicated Completed Medical [...] 11:15 am - Fortino Samaniego MD at [facility] 11/22/2020 - Fortino Samaniego MD* [...]
--- OUTSIDE RECORDS SUMMARY | 2021-02-11 22:30 | CCD | Continuity of Care Document ---
Author Author Danny SAMANIEGO MD Organization Unknown Address [address] [facility], [address] [place] [address] Phone [phone] Care Team Providers Care Transmitter Supervisor Name Role Phone Keith Jimenez M.D. AUTM [phone] Jimbo Whitaker M.D. AUTM [phone] Problems Active Problems Provider Date Residual foreign body in soft tissue Fortino Samaniego MD Ons et: 11/21/2020 Cellulitis and abscess of neck Fortino Samaniego MD Onset: Allergic asthma without status asthmaticus Fortino Samaniego MD Onset: 11/22/2020 Superficial foreign body in neck Fortino Samaniego MD Onset: 11/29/2020 Social History Type Date Description Comments Sex [...] lb BMI (Body Mass Index) 23.4 kg/m2 [place] Body Weight 136 lb Weight 64.865 kg BSA (Body Surface Area) 1.73 m2 11/22/2020 12:52pm BP Systolic 120 mmHg BP Diastolic 980 mmHg Heart Rate 98 /min O2 % BldC Oximetry 97 % Height 65.5 inches 5'5.50" Weight 145.00 lb BMI (Body Mass Index) 23.8 kg/m2 [place] Body Weight 136 lb Weight 65.772 kg BSA (Body Surface Area) 1.74 m2 Results Test Acquired Date Facility Test Result H/L Range Note Laboratory test finding 11/21/2020 [facility] Main Lab [address] [place] [address] [phone] Pathology Request For Service (SEE NOTE) 1 Wound Culture 11/21/2020 [facility] Lab [address] [place] [address] [phone] Wound Culture <SEE NOTE> 2 Laboratory test finding 11/21/2020 [facility] Lab [address] [place] [address] [phone] Anaerobic Culture FULL REPORT IN L <SEE NOTE> Normal 3 Blood Culture 11/21/2020 [facility] Lab [address] [place] [address] [phone] Blood Culture No growth after <SEE NOTE> 4 1 FINAL DIAGNOSIS Foreign body, left neck, removal: Metallic foreign body, for gross examination only. 11/23/20201210 CLINICAL DIAGNOSIS Foreign body left neck 11/22/20201314 GROSS DIAGNOSIS Received in formalin labeled "foreign body left neck" and consists of one piece of thin lópez metallic object measuring 0.7 cm. in length and less than 1 mm. in diameter. For gross examination only. YOVANNY 11/22/20201314 Signed GOVIND SCOTT MD 11/23/20201210 2 If [...] Body Muscle/Tendo n Sheath Deep/Complicated Completed 11/21/2020 37263 I & D Abscess Simple Completed Medical Devices Description No Information Available Encounters Type Date Location Provider Dx Diagnosis Office Visit 11/29/2020 11:15a [facility] Practice Brooklynn Pena L02.11 Cutaneous abscess of neck S10.95xD Superficial foreign body of unsp part of neck, subs encntr Z48.02 Encounter for removal of sut ures Office Visit 11/22/2020 1:00p [facility] Practice Brooklynn Pena L02.11 Cutaneous abscess of neck Z48.817 Encntr for surgical aftcr fo l surgery on the skin, subcu Assessments Date Code Description Provider 11/29/2020 L02.11 Cutaneous abscess of neck Fortino Samaniego MD 11/29/2020 S10.95xD Superficial foreign body of unspecified part of neck, subsequent encounter Fortino Samaniego MD 11/29/2020 Z48.02 Encounter for removal of sutures Fortino Samaniego MD 11/22/2020 L02.11 Cutaneous abscess of neck Fortino Samaniego MD 11/22/2020 Z48.817 Encounter for surgic al aftercare following surgery on the skin and subcutaneous tissue Fortino Samaniego MD 11/21/2020 M79.5 Residual foreign body in soft ti ssue Fortino Samaniego MD 11/21/2020 L02.11 Cutaneous abscess of neck Fortino Samaniego MD Plan of Treatment 11/29/2020 - Fortino Samaniego MD* L02.11 Cutaneous abscess of neck* Comments:* Sutures were removed fully today. We recommend he obtains the prescription tomorrow and finishes the dose to avoid recurrence. He is happy to follow this plan. * S10.95xD Superficial foreign body of unspecified part of neck, subsequent encounter* Comments:* This was removed in surgery on 11/21. The neck has healed nicely since then and wound is closed. * Z48.02 Encounter for removal of sutures Functional Status Description No Information Available Mental Status Description No Information Available Referrals Description No Information Available
--- OUTSIDE RECORDS SUMMARY | 2021-02-11 22:30 | CCD | Continuity of Care Document ---
Author Author Nurse 2, Danny Organization Unknown Address [address] [place] [address] Phone Unavailable Problems Active Problems Provider Date Substance abuse Medical Onset: 10/08/2017 Chronic hepatitis C Medical Onset: 10/08/2017 Social History Type Date Description Comments Sex Unknown Allergies and adverse reactions Description No Known Drug Allergies Medications Description No Active Medications Immunizations Description No Information Available Vital Signs Date Vital Result Comment 10/26/2019 8:27am BP Systolic 130 mmHg BP Diastolic 84 mmHg Heart Rate 85 /min Respiratory Rate 18 /min Body Temperature 98.0 F Weight 127.00 lb 09/30/2018 8:49am BP Systolic 108 mmHg BP Diastolic 70 mmHg Heart Rate 83 /min Respiratory Rate 18 /min Body Temperature 98.2 F Weight 137.00 lb Results Description No Information Available Procedures Description No Information Available Medical Devices Description No Information Available Encounters Description No Information Available Assessments Description No Information Available Plan of Treatment No Information Available Functional Status Description No Information Available Mental Status Description No Information Available Referrals Description No Information Available
--- OUTSIDE RECORDS SUMMARY | 2021-02-11 22:30 | CCD | Continuity of Care Document ---
Author Author Danny NOVAK M.D. Organization Unknown Address [address] [place] [address] Phone [phone] Problems Active Problems Provider Date Substance abuse [...]
--- OUTSIDE RECORDS SUMMARY | 2021-02-11 22:30 | CCD | Continuity of Care Document ---
Author Author Danny SAMANIEGO MD Organization Unknown Address [address] [facility], [address] [place] [address] Phone [phone] Care Team Providers Care Painter Helper Sign Name Role Phone Keith Jimenez M.D. AUTM Jimbo Whitaker M.D. AUTM [phone] Problems Active Problems Provider Date Residual foreign [...] lb BMI (Body Mass Index) 23.8 kg/m2 [place] Body Weight 136 lb Weight 65.772 kg BSA (Body Surface Area) 1.74 m2 Results Test Acquired Date Facility Test Result H/L Range Note Laboratory test finding 11/21/2020 [facility] Main Lab [address] [place] [address] [phone] Pathology Request For Service (SEE NOTE) 1 Wound Culture 11/21/2020 [facility] Lab [address] [place] [address] [phone] Wound Culture <SEE NOTE> 2 Laboratory test finding 11/21/2020 [facility] Main Lab [address] [place] [address] [phone] Anaerobic Culture FULL REPORT IN L <SEE NOTE> Normal 3 Blood Culture 11/21/2020 [facility] Lab [address] [place] [address] [phone] Blood Culture No growth after <SEE NOTE> [...] DAYS Procedures Date Code Description Status 11/21/2020 60152 I & D Abscess/Hematoma Neck/Thor ax Soft Tissue Completed 11/21/2020 77780 Remove Foreign Body Subcutaneous Complicated Completed Medical [...] 11:15 am - Fortino Samaniego MD at [facility] 11/22/2020 - Fortino Samaniego [...]
--- OUTSIDE RECORDS SUMMARY | 2021-02-11 22:30 | CCD | Continuity of Care Document ---
Author Author Danny SAMANIEGO MD Organization Unknown Address [address] [place] [address], [address] [place] [address] Phone [phone] Care Team Providers Care Silver Solderer Name Role Phone Keith Jimenez M.D. AUTM Jimbo Whitaker M.D. AUTM [phone] Problems Active Problems Provider Date Residual foreign [...] day Recreational Drug Use Current Drug User Allergies and adverse reactions Description No Known Drug Allergies Medications Active [...] lb BMI (Body Mass Index) 23.4 kg/m2 [place] Body Weight 136 lb Weight 64.865 kg BSA (Body Surface Area) 1.73 m2 11/22/2020 12:52pm BP Systolic 120 mmHg BP Diastolic 980 mmHg Heart Rate 98 /min O2 % BldC Oximetry 97 % Height 65.5 inches 5'5.50" Weight 145.00 lb BMI (Body Mass Index) 23.8 kg/m2 [place] Body Weight 136 lb Weight 65.772 kg BSA (Body Surface Area) 1.74 m2 Results Test Acquired Date Facility Test Result H/L Range Note Laboratory test finding 11/21/2020 [facility] Lab [address] [place] [address] [phone] Pathology Request For Service (SEE NOTE) 1 Wound Culture 11/21/2020 [facility] Lab [address] [place] [address] [phone] Wound Culture <SEE NOTE> 2 Laboratory test finding 11/21/2020 [facility] Lab [address] [place] [address] [phone] Anaerobic Culture FULL REPORT IN L <SEE NOTE> Normal 3 Acid Fast Smear & Culture(Afb) Sendout 11/21/2020 [facility] Lab [address] [place] [address] [phone] Afb Smear Testing performe <SEE NOTE> 4 Afb Culture Testing performe <SEE NOTE> 5 Blood Culture 11/21/[address] [address] [phone] Blood Culture No growth after <SEE NOTE> 6 1 FINAL DIAGNOSIS Foreign body, left neck, [...] STREPTOCOCCUS INTERMEDIUS ORGANISM 1: STREPTOCOCCUS INTERMEDIUS 4 Testing performed at [facility] . Report copy to follow on a separate form. 01/07/21 REF LAB#:[phone] Due to limited sensitivity, smear results should be used as an adjunct in evaluating patient tuberculosis status. Cultural examination is highly recommended for clinical diagnosis. AFB sm REF LAB concentra NEGATIVE 5 Testing performed at [facility] . Report copy to follow on a separate form. 01/07/21 REF LAB#:[phone] FULL REPORT IN LAB NOTES (eCW and Medent). No Acid-Fast Bacilli Isolated after 6 Weeks. 6 No growth after 72 hours . A ll specimens observed for 5 days. Results final at that time. No growth after 48 hours . All specimens observed for 5 days. Results final at that time. No growth after 24 hours . All specimens observed for 5 days. Results final at that time. NO GROWTH AFTER 5 DAYS Procedures Date Code Description Status 11/21/202059290 Remove Foreign Body Muscle/Tendo n Sheath Deep/Complicated Completed 11/21/2020 90502 I & D Abscess Simple Completed Medical Devices Description No Information Available Encounters Type Date Location Provider Dx Diagnosis Office Visit 11/29/2020 11:15a [facility]NT Practice Brooklynn Pena L02.11 Cutaneous abscess of neck S10.95xD Superficial foreign body of unsp part of neck, subs encntr Z48.02 Encounter for removal of sut ures Office Visit 11/22/2020 1:00p [facility]NT Practice Brooklynn Pena L02.11 Cutaneous abscess [...]
--- OUTSIDE RECORDS SUMMARY | 2021-02-11 22:30 | CCD | Continuity of Care Document ---
Author Author Nurse 2, Danny Organization Unknown Address [address] [place] [address] Phone Unavailable Problems Active Problems Provider Date [...]
--- OUTSIDE RECORDS SUMMARY | 2021-02-11 22:31 | CCD ---
Author Author BISHNU ROCHA [facility] Address [address] [place] [id number] Care Team Providers Care Flavor Maker Name Role Phone Deandra Webster Admphys Fritz Medina Attphys Aristeo Kelly Practitioner Roberto Jasso Admphys Functional Status No Results Allergies Name Onset Date Reaction Severity NKDA - NO KNOWN DRUG ALLERGIES (Allergy) ThuSep 19 08:00:00 EDT 2015 Encounters Program Name Primary Diagnosis Admission Date/ Time Discharge Date/Time [facility] ThuSep 17 10:00:00 EDT 2015 [place] Heroin use dis order, severe, dependence ThuNov 16 21:15:00 EDT 2020 [facility] ThuNov 16 18:32:00 EDT 2020 [facility] ThuSep 19 13:15:00 EDT 2015 [facility] ThuSep 09 13:00:00 EDT 2017 Immunizations No Known Immunizations Lab Results No Known Laboratory Results Medications Medication Directions Start Date End Date NICOTINE 21 MG/24 HR PATCH, EXTENDED RELEASE 1 Patch Daily TRANSDERMAL ThuNov 19 08:00:00 EDT 2020Dec 17 07:59 :00 EDT 2020 NICOTINE POLACRILEX 2 MG LOZENGE/MARVIN 2 Each TID: Three Times a Day ORAL ThuNov 19 08:00:00 EDT 2020Dec 17 07:59:00 EDT 2020 SUBOXONE (BUPRENORPHINE-NALOXONE) 8MG-2MG F ILM 1 Film Daily SUBLINGUAL ThuNov 19 10:18:00 EDT 2020Nov 23 10:17 :00 EDT 2020 SUBOXONE (BUPRENORPHINE-NALOXONE) 4MG-1MG F ILM 1 Film Stat SUBLINGUAL (EKIT) ThuNov 18 09:34:00 EDT 2020Nov 18 09:35:00 EDT 2020 SUBOXONE (BUPRENORPHINE-NALOXONE) 4MG-1MG F ILM 1 Film Stat SUBLINGUAL (EKIT) Sat Nov 17 13:13:00 EDT 2020 Sat Nov 17 13:17:00 EDT 2020 AMOXICILLIN/CLAVULANATE 875MG-125MG TABLET 1 Tablet BID: Twice a Day ORAL ThuNov 16 23:46:00 EDT 2020 Fri Sep 23:45:00 EDT 2020 ACETAMINOPHEN 500 MG CAPSULE 2 caps ule Q4HPRN: Every 4 Hours As Needed ORAL (MDD 6 Tabs) ThuNov 16 23:43:00 EDT 2020 Fri Sep 23:42:00 EDT 2020 DIPHENHYDRAMINE HCL 25 MG CAPSULE 1 capsule TID: Three Times a Day ORAL ThuNov 16:43:00 EDT 2020 Sep 23:42 :00 EDT 2020 DOCUSATE SODIUM 100 MG CAPSULE, LIQUID FILLE D 1 capsule Daily As Needed ORAL ThuNov 16:43:00 EDT 2020 Sep 23:42:00 EDT 2020 HYDROXYZINE HCL 25 MG TABLET 1 tabl et TIDPRN: Three Times A Day As Needed ORAL (Do not give within two (2) hours of Diphenhydramine or within one (1) hour of clonidine administration) ThuNov 16:43:00 EDT 2020 Sep 23:42:00 EDT 2020 FIBER-LAX 625 MG TABLET 2 tablet [place] N: As Needed ORAL (MDD 4 Tabs) ThuNov 16:43:00 EDT 2020 Fri Sep 23:42 :00 EDT 2020 IBUPROFEN 200 MG TABLET 3 tablet TI DPRN: Three Times A Day As Needed ORAL ThuNov 16:43:00 EDT 2020 Fri Sep 24 23:42 :00 EDT 2020 MELATONIN 5 MG CAPSULE 1 capsule HS PRN: At Bedtime As Needed ORAL (MDD 5mg) ThuNov 16:43:00 EDT 2020 Fri Sep 23:42:00 EDT 2020 MULTIVITAMIN TABLET 1 tablet Daily ORAL ThuNov 16:43:00 EDT 2020 Fri Sep 23:42:00 EDT 2020 CALCIUM CARBONATE 500 MG TABLET, CHEWABLE 3 tablet TIDPRN: Three Times A Day As Needed ORAL ThuNov 16:43:00 EDT 2020 ThuDec 14 23:42:00 EDT 2020 ONDANSETRON 4 MG TABLET 1 tablet TI DPRN: Three Times A Day As Needed ORAL ThuNov 16:43:00 EDT 2020Nov 23 23:42 :00 EDT 2020 NARCAN (NALOXONE HCL) 4 MG/0.1 ML SPRAY 1 spray(s) As Directed NASAL ThuNov 16 23:43:00 EDT 2020Nov 17:42:00 EDT 2020 CLONIDINE HCL 0.1 MG TABLET 1 table t TIDPRN: Three Times A Day As Needed ORAL (SBP >110 HR>60Do not give within one (1) hour of hydroxyzine administration) ThuNov 16:43:00 EDT 2020Nov 23:42:00 EDT 2020 NICODERM CQ (NICOTINE) 21 MG/24 HR PATCH, EX TENDED RELEASE 1 patch Daily As Needed TRANSDERMAL (Remove at HS. MDD 1 Patch) ThuNov 16:43:00 EDT 2020Nov 18:42:00 EDT 2020 Problems Active Concerns * Addiction/Abstinence/Withdrawal * Code: USER-Addiction * Start Date: ThuSep 19 08:00:00 EDT 2015 * Text: * Biomedical * Code: USER-Biomedical * Start Date: ThuSep 19 08:00:00 EDT 2015 * Text: * Emotional/Behavioral/State of Change * Code: USER-Emotional * Start Date: ThuSep 19 08:00:00 EDT 2015 * Text: * Educational/Vocational * Code: USER-EducationalVoc * Start Date: ThuSep 19 08:00:00 EDT 2015 * Text: * Social/Interpersonal/Recovery Environment * Code: USER-Social * Start Date: ThuSep 19 08:00:00 EDT 2015 * Text: * Family * Code: USER-Family [...] Smoking Status Current Every Da y Smoker Bina Sep 17 08:00:00 EDT 2015 Sex Male ThuNov 26 08:00:00 EDT 1995 Vital Signs Vital Sign Measurement Date Temperature 97.7 [DEGF] ThuNov 19 19:05:00 EDT 2020 Temperature 36.5 VIN Thu 3 0 19:05:00 EDT 2020 Heart Rate 100 [...] 0 05:35:00 EDT 2020 Systolic 134 MM[HG] ThuNov 19 0 5:35:00 EDT 2020 Diastolic 88 MM[HG] ThuNov 19 05:35:00 EDT 2020 BP Position 1 Position ThuOct 23 0 05:35:00 EDT 2020 Vitals Refused Y Sun Au g 29 09:15:00 EDT 2020 Vitals Refused Y Sun Au g 29 05:23:00 EDT 2020 Temperature 98.2 [DEGF] ThuNov 17 23:56:00 EDT 2020 Temperature 36.8 VIN ThuOct 22 8 23:56:00 EDT 2020 Heart Rate 69 /MIN ThuNov 17 23:56:00 EDT 2020 Respiration 16 /MIN ThuOct 22 8 23:56:00 EDT 2020 Systolic 131 MM[HG] Sat Aug 28 2 3:56:00 EDT 2020 Diastolic 85 MM[HG] Sat Oct 28 23:56:00 EDT 2020 BP Position 3 Position Sat Aug 2 8 23:56:00 EDT 2020 Temperature 98.4 [DEGF] Sat Oct 28 11:58:00 EDT 2020 Temperature 36.9 VIN Sat Aug 2 8 11:58:00 EDT 2020 Heart Rate 116 /MIN Sat Aug 28 11:58:00 EDT 2020 Respiration 16 /MIN Sat Aug 2 8 11:58:00 EDT 2020 Systolic 128 MM[HG] Sat Oct 28 1 1:58:00 EDT 2020 Diastolic 85 MM[HG] Sat Oct 28 11:58:00 EDT 2020 Temperature 97.7 [DEGF] Sat Oct 28 06:18:00 EDT 2020 Temperature 36.5 VIN Sat Oct 2 8 06:18:00 EDT 2020 Heart Rate 80 /MIN Sat Oct 28 06:18:00 EDT 2020 Respiration 16 /MIN Sat Oct 2 8 06:18:00 EDT 2020 Systolic 130 MM[HG] Sat Oct 28 0 6:18:00 EDT 2020 Diastolic 84 MM[HG] Sat Oct 28 06:18:00 EDT 2020 BP Position 1 Position Thu 2 8 06:18:00 EDT 2020 Temperature 98.1 [DEGF] ThuNov 16 23:35:00 EDT 2020 Temperature 36.7 VIN ThuOct 22 7 23:35:00 EDT 2020 Heart Rate 82 /MIN ThuNov 16 23:35:00 EDT 2020 Respiration 18 /MIN ThuOct 22 7 23:35:00 EDT 2020 SpO2 96 % ThuNov 16 23:35 :00 EDT 2020 Systolic 132 MM[HG] ThuNov 16 2 3:35:00 EDT 2020 Diastolic 97 MM[HG] ThuNov 16 23:35:00 EDT 2020 BP Position 2 Position Thu 2 7 23:35:00 EDT 2020
--- OUTSIDE RECORDS SUMMARY | 2021-02-11 22:31 | CCD ---
Author BISHNU Riddle [facility] Address [address] [place] [id number] Care Team Providers Care Civil Design Specialist Name Role Phone Deandra Webster Admphys Fritz Medina Attphys Aristeo Kelly Practitioner Roberto Jasso Admphys Functional Status No Results Allergies Name Onset Date Reaction Severity NKDA - NO KNOWN DRUG ALLERGIES (Allergy) ThuSep 19 08:00:00 EDT 2015 Encounters Program Name Primary Diagnosis Admission Date/ Time Discharge Date/Time [facility] Wait[facility] ThuSep 17 10:00:00 EDT 2015 [facility] ThuSep 09 13:00:00 EDT 2018 [facility] ThuNov 16 18:32:00 EDT 2020 [facility] ThuSep 19 13:15:00 EDT [place] Heroin use dis order, severe, dependence ThuNov 16 21:15:00 EDT 2020 Immunizations No Known Immunizations Lab Results No Known Laboratory Results Medications Medication Directions Start Date End Date SUBOXONE (BUPRENORPHINE-NALOXONE) 8MG-2MG F ILM 1 Film Daily SUBLINGUAL ThuNov 19 10:18:00 EDT 2020Nov 23 10:17 :00 EDT 2020 SUBOXONE (BUPRENORPHINE-NALOXONE) 4MG-1MG F ILM 1 Film Stat SUBLINGUAL (EKIT) ThuNov 18 09:34:00 EDT 2020Nov 18 09:35:00 EDT 2020 SUBOXONE (BUPRENORPHINE-NALOXONE) 4MG-1MG F ILM 1 Film Stat SUBLINGUAL (EKIT) ThuNov 17 13:13:00 EDT 2020Nov 17 13:17:00 EDT 2020 AMOXICILLIN/CLAVULANATE 875MG-125MG TABLET 1 Tablet BID: Twice a Day ORAL ThuNov 16 23:46:00 EDT 2020Dec 14 23:45:00 EDT 2020 ACETAMINOPHEN 500 MG CAPSULE 2 caps ule Q4HPRN: Every 4 Hours As Needed ORAL (MDD 6 Tabs) ThuNov 16:43:00 EDT 2020 Fri Sep 24 :42:00 EDT 2020 DIPHENHYDRAMINE HCL 25 MG CAPSULE 1 capsule TID: Three Times a Day ORAL ThuNov 16:43:00 EDT 2020 Fri Sep :42 :00 EDT 2020 DOCUSATE SODIUM 100 MG CAPSULE, LIQUID FILLE D 1 capsule Daily As Needed ORAL ThuNov 1643:00 EDT 2020 Fri Sep :42:00 EDT 2020 HYDROXYZINE HCL 25 MG TABLET 1 tabl et TIDPRN: Three Times A Day As Needed ORAL (Do not give within two (2) hours of Diphenhydramine or within one (1) hour of clonidine administration) ThuNov 16:43:00 EDT 2020Nov 23:42:00 EDT 2020 FIBER-LAX 625 MG TABLET 2 tablet [place] N: As Needed ORAL (MDD 4 Tabs) ThuNov 16:43:00 EDT 2020 Fri Sep :42 :00 EDT 2020 IBUPROFEN 200 MG TABLET 3 tablet TI DPRN: Three Times A Day As Needed ORAL ThuNov 16:43:00 EDT 2020 Fri Sep :42 :00 EDT 2020 MELATONIN 5 MG CAPSULE 1 capsule HS PRN: At Bedtime As Needed ORAL (MDD 5mg) ThuNov 1643:00 EDT 2020 Fri Sep :42:00 EDT 2020 MULTIVITAMIN TABLET 1 tablet Daily ORAL ThuNov 16:43:00 EDT 2020 Fri Sep :42:00 EDT 2020 CALCIUM CARBONATE 500 MG TABLET, CHEWABLE 3 tablet TIDPRN: Three Times A Day As Needed ORAL ThuNov 16:43:00 EDT 2020 Fri Sep :42:00 EDT 2020 ONDANSETRON 4 MG TABLET 1 tablet TI DPRN: Three Times A Day As Needed ORAL ThuNov 16:43:00 EDT 2020Nov 23:42 :00 EDT 2020 NARCAN (NALOXONE HCL) 4 MG/0.1 ML SPRAY 1 spray(s) As Directed NASAL ThuNov 16:43:00 EDT 2020Nov 17 23:42:00 EDT 2020 CLONIDINE HCL 0.1 MG TABLET 1 table t TIDPRN: Three Times A Day As Needed ORAL (SBP >110 HR>60Do not give within one (1) hour of hydroxyzine administration) ThuNov 16 23:43:00 EDT 2020Nov 23 23:42:00 EDT 2020 NICODERM CQ (NICOTINE) 21 [...] Vital Signs Vital Sign Measurement Date Temperature 98.2 [DEGF] ThuNov 19 05:35:00 EDT 2020 Temperature 36.8 VIN ThuOct 23 0 05:35:00 EDT 2020 Heart Rate 81 /MIN Thu 30 05:35:00 EDT 2020 Respiration 16 /MIN Thu 3 0 05:35:00 EDT 2020 Systolic 134 MM[HG] Thu 30 0 5:35:00 EDT 2020 Diastolic 88 MM[HG] ThuNov 19 05:35:00 EDT 2020 BP Position 1 Position Thu 3 0 05:35:00 EDT 2020 Vitals Refused Y Sun Au g 29 09:15:00 EDT 2020 Vitals Refused Y Sun Au g 29 05:23:00 EDT 2020 Temperature 98.2 [DEGF] Thu 28 23:56:00 EDT 2020 Temperature 36.8 VIN Sat Oct 2 8 23:56:00 EDT 2020 Heart Rate 69 /MIN [facility] Oct 28 23:56:00 EDT 2020 Respiration 16 /MIN [facility] Oct 2 8 23:56:00 EDT 2020 Systolic 131 MM[HG] ThuNov 17 2 3:56:00 EDT 2020 Diastolic 85 MM[HG] [facility] Nov 17 23:56:00 EDT 2020 BP Position 3 Position [facility] Oct 2 8 23:56:00 EDT 2020 Temperature 98.4 [DEGF] ThuNov 17 11:58:00 EDT 2020 Temperature 36.9 VIN [facility] Oct 2 8 11:58:00 EDT 2020 Heart Rate 116 /MIN [facility] Nov 17 11:58:00 EDT 2020 Respiration 16 /MIN Thu 2 8 11:58:00 EDT 2020 Systolic 128 MM[HG] ThuNov 17 1 1:58:00 EDT 2020 Diastolic 85 MM[HG] [facility] Nov 17 11:58:00 EDT 2020 Temperature 97.7 [DEGF] [facility] Oct 28 06:18:00 EDT 2020 Temperature 36.5 VIN Sat Oct 2 8 06:18:00 EDT 2020 Heart Rate 80 /MIN Thu 28 06:18:00 EDT 2020 Respiration 16 /MIN Sat Oct 2 8 06:18:00 EDT 2020 Systolic 130 MM[HG] Thu 28 0 6:18:00 EDT 2020 Diastolic 84 MM[HG] Thu 28 06:18:00 EDT 2020 BP Position 1 Position [facility] Oct 2 8 06:18:00 EDT 2020 Temperature 98.1 [DEGF] ThuNov 16 23:35:00 EDT 2020 Temperature 36.7 VIN ThuOct 22 23:35:00 EDT 2020 Heart Rate 82 /MIN ThuNov 16 23:35:00 EDT 2020 Respiration 18 /MIN ThuOct 22 23:35:00 EDT 2020 SpO2 96 % ThuNov 16 23:35 :00 EDT 2020 Systolic 132 MM[HG] ThuNov 16 3:35:00 EDT 2020 Diastolic 97 MM[HG] ThuNov 16 23:35:00 EDT 2020 BP Position 2 Position ThuOct 22 23:35:00 EDT 2020
--- OUTSIDE RECORDS SUMMARY | 2021-02-11 22:31 | CCD ---
Author Author BISHUN ROBERTS [facility] Address [address] [place] [address] Care Team Providers Care Tail Puller Name Role Phone CezarmariluDeandra Admphys Fritz Medina Attphys Aristeo Kelly Practitioner Roberto Jasso Admphys Functional Status No Results Allergies Name Onset Date Reaction Severity NKDA - NO KNOWN DRUG ALLERGIES (Allergy) ThuSep 19 08:00:00 EDT 2015 Encounters Program Name Primary Diagnosis Admission Date/ Time Discharge Date/Time [facility] Heroin use dis order, severe, dependence ThuNov 16 21:15:00 EDT 2020 [facility] ThuSep 09 13:00:00 EDT 2017 [facility] ThuSep 19 13:15:00 EDT 2016 [facility] Wait[facility] ThuNov 16 18:32:00 EDT 2020 [facility] ThuSep 17 10:00:00 EDT 2015 Immunizations No Known Immunizations Lab Results No Known Laboratory Results Medications Medication Directions Start Date End Date SUBOXONE (BUPRENORPHINE-NALOXONE) 4MG-1MG F ILM 1 Film Stat SUBLINGUAL (EKIT) ThuNov 17 13:13:00 EDT 2020Nov 17 13:17:00 EDT 2020 AMOXICILLIN/CLAVULANATE 875MG-125MG TABLET 1 Tablet BID: Twice a Day ORAL ThuNov 16 23:46:00 EDT 2020Dec 14 23:45:00 EDT 2020 ACETAMINOPHEN 500 MG CAPSULE 2 caps ule Q4HPRN: Every 4 Hours As Needed ORAL (MDD 6 Tabs) ThuNov 16 23:43:00 EDT 2020Dec 14 23:42:00 EDT 2020 DIPHENHYDRAMINE HCL 25 MG CAPSULE 1 capsule TID: Three Times a Day ORAL ThuNov 16 23:43:00 EDT 2020Dec 14 23:42 :00 EDT 2020 DOCUSATE SODIUM 100 MG CAPSULE, LIQUID FILLE D 1 capsule Daily As Needed ORAL ThuNov 1643:00 EDT 2020Dec 14:42:00 EDT 2020 HYDROXYZINE HCL 25 MG TABLET 1 tabl et TIDPRN: Three Times A Day As Needed ORAL (Do not give within two (2) hours of Diphenhydramine or within one (1) hour of clonidine administration) ThuNov 1643:00 EDT 2020Nov 23:42:00 EDT 2020 FIBER-LAX 625 MG TABLET 2 tablet [place] N: As Needed ORAL (MDD 4 Tabs) ThuNov 1643:00 EDT 2020Dec 14:42 :00 EDT 2020 IBUPROFEN 200 MG TABLET 3 tablet TI DPRN: Three Times A Day As Needed ORAL ThuNov 1643:00 EDT 2020Dec 14:42 :00 EDT 2020 MELATONIN 5 MG CAPSULE 1 capsule HS PRN: At Bedtime As Needed ORAL (MDD 5mg) ThuNov 1643:00 EDT 2020Dec 14:42:00 EDT 2020 MULTIVITAMIN TABLET 1 tablet Daily ORAL ThuNov 1643:00 EDT 2020Dec 14:42:00 EDT 2020 CALCIUM CARBONATE 500 MG TABLET, CHEWABLE 3 tablet TIDPRN: Three Times A Day As Needed ORAL ThuNov 1643:00 EDT 2020Dec 14:42:00 EDT 2020 ONDANSETRON 4 MG TABLET 1 tablet TI DPRN: Three Times A Day As Needed ORAL ThuNov 1643:00 EDT 2020Nov 23:42 :00 EDT 2020 NARCAN (NALOXONE HCL) 4 MG/0.1 ML SPRAY 1 spray(s) As Directed NASAL ThuNov 16:43:00 EDT 2020Nov 17:42:00 EDT 2020 CLONIDINE HCL 0.1 MG TABLET 1 table t TIDPRN: Three Times A Day As Needed ORAL (SBP >110 HR>60Do not give within one (1) hour of hydroxyzine administration) ThuNov 1643:00 EDT 2020Nov 23:42:00 EDT 2020 NICODERM CQ [...] 1995 Vital Signs Vital Sign Measurement Date Vitals Refused Y Thu 05:23:00 EDT 2020 Temperature 98.2 [DEGF] ThuNov 17 23:56:00 EDT 2020 Temperature 36.8 VIN ThuOct 22 23:56:00 EDT 2020 Heart Rate 69 /MIN ThuNov 17 23:56:00 EDT 2020 Respiration 16 /MIN ThuOct 22 23:56:00 EDT 2020 Systolic 131 MM[HG] ThuNov 17 2 3:56:00 EDT 2020 Diastolic 85 MM[HG] ThuNov 17 23:56:00 EDT 2020 BP Position 3 [...] 06:18:00 EDT 2020 Heart Rate 80 /MIN [facility] Oct 28 06:18:00 EDT 2020 Respiration 16 /MIN Sat Oct 2 8 06:18:00 EDT 2020 Systolic 130 MM[HG] Sat Oct 28 0 6:18:00 EDT 2020 Diastolic 84 MM[HG] [facility] Oct 28 06:18:00 EDT 2020 BP Position 1 Position ThuOct 22 8 06:18:00 EDT 2020 Temperature 98.1 [DEGF] [...] 2020 BP Position 2 Position ThuOct 22 7 23:35:00 EDT 2020
--- OUTSIDE RECORDS SUMMARY | 2021-02-11 22:31 | CCD ---
Author Author Jean-Paul BISHNU Autogen erated Organization [facility] Address Unknown Phone Unavailable Care Team Providers Care Bottle Capping Machine Operator Name Role Phone Deandra Webster Admphys Fritz Medina Attphys Aristeo Kelly Practitioner Roberto Jasso Admphys Functional Status No Results Allergies Name Onset Date Reaction Severity NKDA - NO KNOWN DRUG ALLERGIES (Allergy) ThuSep 19 08:00:00 EDT 2015 Encounters Program Name Primary Diagnosis Admission Date/ Time Discharge Date/Time [facility] [place] ThuSep 19 13:15:00 EDT 2015 [place] [facility] ThuSep 17 10:00:00 EDT 2015 [facility] ThuNov 16 18:32:00 EDT 2020 [facility] Heroin use dis order, severe, dependence ThuNov 16 21:15:00 EDT 2020 [place] ThuSep 09 13:00:00 EDT [...] (MDD 6 Tabs) ThuNov 16:43:00 EDT 2020 Sep 23:42:00 EDT 2020 DIPHENHYDRAMINE HCL 25 MG CAPSULE 1 capsule TID: Three Times a Day ORAL ThuNov 16:43:00 EDT 2020Dec 14 23:42 :00 EDT 2020 DOCUSATE SODIUM 100 MG CAPSULE, LIQUID FILLE D 1 capsule Daily As Needed ORAL ThuNov 16:43:00 EDT 2020Dec 14:42:00 EDT 2020 HYDROXYZINE HCL 25 MG TABLET 1 tabl et TIDPRN: Three Times A Day As Needed ORAL (Do not give within two (2) hours of Diphenhydramine or within one (1) hour of clonidine administration) ThuNov 16 23:43:00 EDT 2020Nov 23 23:42:00 EDT 2020 FIBER-LAX 625 MG TABLET 2 tablet [place] N: As Needed ORAL (MDD 4 Tabs) ThuNov 16:43:00 EDT 2020 Sep 23:42 :00 EDT 2020 IBUPROFEN 200 MG TABLET 3 tablet TI DPRN: Three Times A Day As Needed ORAL ThuNov 16:43:00 EDT 2020 Sep 23:42 :00 EDT 2020 MELATONIN 5 MG CAPSULE 1 capsule HS PRN: At Bedtime As Needed ORAL (MDD 5mg) ThuNov 16:43:00 EDT 2020 Sep 23:42:00 EDT 2020 MULTIVITAMIN TABLET 1 tablet Daily ORAL ThuNov 16:43:00 EDT 2020 Sep 23:42:00 EDT 2020 CALCIUM CARBONATE 500 MG TABLET, CHEWABLE 3 tablet TIDPRN: Three Times A Day As Needed ORAL ThuNov 16:43:00 EDT 2020Dec 14:42:00 EDT 2020 ONDANSETRON 4 MG TABLET 1 tablet TI DPRN: Three Times A Day As Needed ORAL ThuNov 16:43:00 EDT 2020Nov 23 23:42 :00 EDT 2020 NARCAN (NALOXONE HCL) 4 MG/0.1 ML SPRAY 1 spray(s) As Directed NASAL ThuNov 16 23:43:00 EDT 2020Nov 17 23:42:00 EDT 2020 CLONIDINE HCL 0.1 MG TABLET 1 table t TIDPRN: Three Times A Day As Needed ORAL (SBP >110 HR>60Do not give within one (1) hour of hydroxyzine administration) ThuNov 16:43:00 EDT 2020Nov 23 23:42:00 EDT 2020 NICODERM [...] ThuSep 17 08:00:00 EDT 2015 Sex Male Bina Nov 06 08:00:00 EDT 1995 Vital Signs Vital Sign Measurement Date Temperature 98.2 [DEGF] ThuNov 19 14:52:00 EDT 2020 Temperature 36.8 VIN Thu 3 0 14:52:00 EDT 2020 Heart Rate 69 [...] 29 05:23:00 EDT 2020 Temperature 98.2 [DEGF] [facility] Nov 17 23:56:00 EDT 2020 Temperature 36.8 VIN [facility] Oct 22 8 23:56:00 EDT 2020 Heart Rate 69 /MIN [facility] Nov 17 23:56:00 EDT 2020 Respiration 16 /MIN [facility] Oct 22 8 23:56:00 EDT 2020 Systolic 131 MM[HG] [facility] Nov 17 2 3:56:00 EDT 2020 Diastolic 85 MM[HG] [facility] Nov 17 23:56:00 EDT 2020 BP Position 3 Position [facility] Oct 22 8 23:56:00 EDT 2020 Temperature 98.4 [DEGF] [facility] Nov 17 11:58:00 EDT 2020 Temperature 36.9 VIN [facility] Oct 22 8 11:58:00 EDT 2020 Heart Rate 116 /MIN [facility] Nov 17 11:58:00 EDT 2020 Respiration 16 /MIN [facility] Oct 22 8 11:58:00 EDT 2020 Systolic 128 MM[HG] [facility] Nov 17 1 1:58:00 EDT 2020 Diastolic 85 MM[HG] ThuNov 17 11:58:00 EDT 2020 Temperature 97.7 [DEGF] ThuNov 17 06:18:00 EDT 2020 Temperature 36.5 VIN Thu 2 8 06:18:00 EDT 2020 Heart Rate 80 /MIN ThuNov 17 06:18:00 EDT 2020 Respiration 16 /MIN Thu 2 8 06:18:00 EDT 2020 Systolic 130 MM[HG] [facility] Oct 28 0 6:18:00 EDT 2020 Diastolic 84 MM[HG] ThuNov 17 06:18:00 EDT 2020 BP Position 1 Position [...]
--- OUTSIDE RECORDS SUMMARY | 2021-02-11 22:31 | CCD ---
Author BISHNU Prasad [facility] Address [address] [place] [address] Care Team Providers Care Bindery Cutter Operator Name Role Phone Deandra Webster Admphys Fritz Medina Attphys Aristeo Kelly Practitioner Roberto Jasso Admphys Functional Status No Results Allergies Name Onset Date Reaction Severity NKDA - NO KNOWN DRUG ALLERGIES (Allergy) ThuSep 19 08:00:00 EDT 2015 Encounters Program Name Primary Diagnosis Admission Date/ Time Discharge Date/Time [place] [facility] Wait[facility] ThuSep 17 10:00:00 EDT 2015 [facility] [place] ThuSep 19 13:15:00 EDT 2015 [facility] Wait[facility] ThuNov 16 18:32:00 EDT 2020 [place] [facility] Heroin use dis order, severe, dependence ThuNov 16 21:15:00 EDT 2020Nov 20 15:15:00 EDT 2020 [place] [facility] Wait[facility] ThuSep 09 13:00:00 EDT [...] SUBLINGUAL (EKIT) ThuNov 17 13:13:00 EDT 2020 [facility] Nov 17 13:17:00 EDT 2020 AMOXICILLIN/CLAVULANATE 875MG-125MG TABLET 1 Tablet BID: Twice a Day ORAL ThuNov 16 23:46:00 EDT 2020Nov 20:17:00 EDT 2020 NARCAN (NALOXONE HCL) 4 MG/0.1 ML SPRAY 1 spray(s) As Directed NASAL ThuNov 16 23:43:00 EDT 2020Nov 17 23:42:00 EDT 2020 NICODERM CQ (NICOTINE) 21 MG/24 HR PATCH, EX TENDED RELEASE 1 patch Daily As Needed TRANSDERMAL (Remove at HS. MDD 1 Patch) ThuNov 16 23:43:00 EDT 2020 [place] Nov 18 23:42:00 EDT 2020 ACETAMINOPHEN 500 MG CAPSULE 2 caps ule Q4HPRN: Every 4 Hours As Needed ORAL (MDD 6 Tabs) ThuNov 16:43:00 EDT 2020Nov 20 15:17:00 EDT 2020 DIPHENHYDRAMINE HCL 25 MG CAPSULE 1 capsule TID: Three Times a Day ORAL ThuNov 16:43:00 EDT 2020Nov 20:17 :00 EDT 2020 DOCUSATE SODIUM 100 MG CAPSULE, LIQUID FILLE D 1 capsule Daily As Needed ORAL ThuNov 16 23:43:00 EDT 2020Nov 20 15:17:00 EDT 2020 HYDROXYZINE HCL 25 MG TABLET 1 tabl et TIDPRN: Three Times A Day As Needed ORAL (Do not give within two (2) hours of Diphenhydramine or within one (1) hour of clonidine administration) ThuNov 16:43:00 EDT 2020Nov 20:17:00 EDT 2020 FIBER-LAX 625 MG TABLET 2 tablet [place] N: As Needed ORAL (MDD 4 Tabs) ThuNov 16:43:00 EDT 2020Nov 20:17 :00 EDT 2020 IBUPROFEN 200 MG TABLET 3 tablet TI DPRN: Three Times A Day As Needed ORAL ThuNov 16:43:00 EDT 2020Nov 20 15:17 :00 EDT 2020 MELATONIN 5 MG CAPSULE 1 capsule HS PRN: At Bedtime As Needed ORAL (MDD 5mg) ThuNov 16:43:00 EDT 2020Nov 20:17:00 EDT 2020 MULTIVITAMIN TABLET 1 tablet Daily ORAL ThuNov 16:43:00 EDT 2020Nov 20 15:17:00 EDT 2020 CALCIUM CARBONATE 500 MG TABLET, [...] of hydroxyzine administration) ThuNov 16:43:00 EDT 2020Nov 20::00 EDT 2020 Problems Active Concerns * Addiction/Abstinence/Withdrawal * Code: USER-Addiction * Start Date: ThuSep 19 08:00:00 ED2015 * Text: * Biomedical * Code: USER-Biomedical * Start Date: ThuSep 19 08:00:00 ED2015 * Text: * Emotional/Behavioral/State of Change * Code: USER-Emotional * Start Date: ThuSep 19 08:00:00 ED2015 * Text: * Educational/Vocational * Code: USER-EducationalVoc * Start Date: ThuSep 19 08:00:00 ED2015 * Text: * Social/Interpersonal/Recovery Environment * Code: USER-Social * Start Date: ThuSep 19 08:00:00 ED2015 * Text: * Family * Code: USER-Family * Start Date: ThuSep 19 08:00:00 ED2015 * Text: * Legal * Code: USER-Legal * Start Date: ThuSep 19 08:00:00 ED2015 * Text: Procedures No Known Procedures Social [...] Diastolic 88 MM[HG] ThuNov 19 05:35:00 EDT 2021 BP Position 1 Position Mon Oct 3 0 05:35:00 EDT 2020 Vitals Refused Y Sun Au g 29 09:15:00 EDT 2020 Vitals Refused Y Sun Au g 29 05:23:00 EDT 2020 Temperature 98.2 [DEGF] Sat Oct 28 23:56:00 EDT 2020 Temperature 36.8 VIN Sat Aug 2 8 23:56:00 EDT 2020 Heart Rate [...]
--- OUTSIDE RECORDS SUMMARY | 2021-02-11 22:31 | CCD ---
Author Author Jean-Paul BISHNU Autogen erated Organization [facility] Address Unknown Phone Unavailable Care Team Providers Care Service Counselor Name Role Phone Deandra Webster Admphys Fritz Medina Attphys Aristeo Kelly Practitioner Roberto Jasso Admphys Functional Status No Results Allergies Name Onset Date Reaction Severity NKDA - NO KNOWN DRUG ALLERGIES (Allergy) ThuSep 19 08:00:00 EDT 2015 Encounters Program Name Primary Diagnosis Admission Date/ Time Discharge Date/Time [facility] ThuSep 19 13:15:00 EDT 2015 [facility] Hero[facility] use dis order, severe, dependence ThuNov 16 21:15:00 EDT 2020 [facility] ThuNov 16 18:32:00 EDT 2020 [facility] ThuSep 17 10:00:00 EDT 2015 [facility] ThuSep 09 13:00:00 EDT [...] 2020 FIBER-LAX 625 MG TABLET 2 tablet NE N: As Needed ORAL (MDD 4 Tabs) [...] 20 13:32:00 EDT 2020 Vitals Refused Y Tue Au g 31 05:27:00 EDT 2020 Temperature 97.7 [DEGF] ThuNov [...] Temperature 98.2 [DEGF] ThuNov 17 23:56:00 EDT 2021 Temperature 36.8 VIN Sat Aug 2 8 23:56:00 EDT 2020 Heart Rate 69 /MIN Sat Aug 28 23:56:00 EDT 1 Respiration 16 /MIN Sat Aug 2 8 23:56:00 EDT 2020 Systolic 131 [...] 06:18:00 EDT 2020 Respiration 16 /MIN Sat Aug 2 8 06:18:00 EDT 2020 Systolic 130 [...] 16 23:35:00 EDT 2020 Respiration 18 /MIN Thu 2 7 23:35:00 EDT 2020 SpO2 96 % ThuNov 16 23:35 :00 EDT 2020 Systolic 132 MM[HG] ThuNov 16 2 3:35:00 EDT 2020 Diastolic 97 MM[HG] ThuNov 16 23:35:00 EDT 2020 BP Position 2 Position Thu 2 7 23:35:00 EDT 2020
--- OUTSIDE RECORDS SUMMARY | 2021-02-11 22:31 | CCD ---
Author Author [facility] Organization [facility] Address Unknown Phone Unavailable Care Team Providers Care Process Control Engineer Name Role Phone Alcon Whitaker MD Unavailable Unavailable Alcon Whitaker MD Unavailable Unavailable Alcon Whitaker MD Unavailable Unavailable Alcon Whitaker MD Unavailable Unavailable Alcon Whitaker MD Unavailable Unavailable Alcon Whitaker MD Unavailable Unavailable Alcon Whitaker MD Unavailable Unavailable Alcon Whitaker MD Unavailable Unavailable Alcon Whitaker MD Unavailable Unavailable Alcon Whitaker MD Unavailable Unavailable Alcon Whitaker MD Unavailable Unavailable Alcon Whitaker MD Unavailable Unavailable Alcon Whitaker MD Unavailable Unavailable Alcon Whitaker MD Unavailable Unavailable Alcon Whitaker MD Unavailable Unavailable Alcon Whitaker MD Unavailable Unavailable Alcon Whitaker MD Unavailable Unavailable LyndaAlcon fine MD Unavailable Unavailable LyndaAlcon fine MD Unavailable Unavailable LyndaAlcon fine MD Unavailable Unavailable LyndaAlcon fine MD Unavailable Unavailable LyndaAlcon fine MD Unavailable Unavailable LyndaAlcon fine MD Unavailable Unavailable LyndaAlcon fine MD Unavailable Unavailable LyndaAlcon fine MD Unavailable Unavailable LyndaAlcon fine MD Unavailable Unavailable LyndaAlcon fine MD Unavailable Unavailable LyndaAlcon fine MD Unavailable Unavailable LyndaAlcon fine MD Unavailable Unavailable LyndaAlcon fine MD Unavailable Unavailable LyndaAlcon fine MD Unavailable Unavailable LyndaAlcon fine MD Unavailable Unavailable LyndaAlcon fine MD Unavailable Unavailable LyndaAlcon fine MD Unavailable Unavailable LyndaAlcon fine MD Unavailable Unavailable LyndaAlcon fine MD Unavailable Unavailable LyndaAlcon fine MD Unavailable Unavailable LyndaAlcon fine MD Unavailable Unavailable LyndaAlcon fine MD Unavailable Unavailable LyndaAlcon fine MD Unavailable Unavailable LyndaAlcon fine MD Unavailable Unavailable LyndaAlcon fine MD Unavailable Unavailable LynAlcon paez MD Unavailable Unavailable LyndaAlcon fine MD Unavailable Unavailable LynAlcon paez MD Unavailable Unavailable LyndaAlcon fine MD Unavailable Unavailable LyndaAlcon fine MD Unavailable Unavailable LyndaAlcon fine MD Unavailable Unavailable LynAlcon paez MD Unavailable Unavailable LynAlcon paez MD Unavailable Unavailable LynAlcon paez MD Unavailable Unavailable LynAlcon paez MD Unavailable Unavailable LynAlcon paez MD Unavailable Unavailable LyndaAlcon fine MD Unavailable Unavailable LynAlcon paez MD Unavailable Unavailable LynAlcon paez MD Unavailable Unavailable LynAlcon paez MD Unavailable Unavailable LynAlcon paez MD Unavailable Unavailable LyndaAlcon fine MD Unavailable Unavailable LyndaAlcon fine MD Unavailable Unavailable LyndaAlcon fine MD Unavailable Unavailable LyndaAlcon fine MD Unavailable Unavailable LynAlcon paez MD Unavailable Unavailable LyndaAlcon fine MD Unavailable Unavailable LynAlcon paez MD Unavailable Unavailable LyndaAlcon fine MD Unavailable Unavailable LyndaAlcon fine MD Unavailable Unavailable LyndaAlcon fine MD Unavailable Unavailable Alcon Whitaker MD Unavailable Unavailable Alcon Whitaker MD Unavailable Unavailable Alcon Whitaker MD Unavailable Unavailable Alcon Whitaker MD Unavailable Unavailable Alcon Whitaker MD Unavailable Unavailable Alcon Whitaker MD Unavailable Unavailable Alcon Whitaker MD Unavailable Unavailable Alcon Whitaker MD Unavailable Unavailable Alcon Whitaker MD Unavailable Unavailable Alcon Whitaker MD Unavailable Unavailable Alcon Whitaker MD Unavailable Unavailable Alcon Whitaker MD Unavailable Unavailable Alcon Whitaker MD Unavailable Unavailable Alcon Whitaker MD Unavailable Unavailable Alcon Whitaker MD Unavailable Unavailable Alcon Whitaker MD Unavailable Unavailable Alcon Whitaker MD Unavailable Unavailable Alcon Whitaker MD Unavailable Unavailable Alcon Whitaker MD Unavailable Unavailable Alcon Whitaker MD Unavailable Unavailable Alcon Whitaker MD Unavailable Unavailable Alcon Whitaker MD Unavailable Unavailable Alcon Whitaker MD Unavailable Unavailable Alcon Whitaker MD Unavailable Unavailable Alcon Whitaker MD Unavailable Unavailable Alcon Whitaker MD Unavailable Unavailable Alcon Whitaker MD Unavailable Unavailable Alcon Whitaker MD Unavailable Unavailable Alcon Whitaker MD Unavailable Unavailable Alcon Whitaker MD Unavailable Unavailable Vishal Barclay MD Unavailable Unavailable Vishal Barclay MD Unavailable Unavailable Vishal Barclay MD Unavailable Unavailable Vishal Barclay MD Unavailable Unavailable Vishal Barclay MD Unavailable Unavailable Vishal Barclay MD Unavailable Unavailable Kristen Jasso Unavailable Unavailable Daniele Cherry MD Unavailable Unavailable Daniele Cherry MD Unavailable Unavailable Daniele Cherry MD Unavailable Unavailable Daniele Cherry MD Unavailable Unavailable Daniele Cherry MD Unavailable Unavailable Daniele Cherry MD Unavailable Unavailable Daniele Cherry MD Unavailable Unavailable Daniele Cherry MD Unavailable Unavailable Daniele Cherry MD Unavailable Unavailable Daniele Cherry MD Unavailable Unavailable Daniele Cherry MD Unavailable Unavailable Daniele Cherry MD Unavailable Unavailable Daniele Cherry MD Unavailable Unavailable Daniele Cherry MD Unavailable Unavailable Daniele Cherry MD Unavailable Unavailable Daniele Cherry MD Unavailable Unavailable Daniele Cherry MD Unavailable Unavailable Daniele Cherry MD Unavailable Unavailable Daniele Cherry MD Unavailable Unavailable Daniele Cherry MD Unavailable Unavailable Daniele Cherry MD Unavailable Unavailable Daniele Cherry MD Unavailable Unavailable Daniele Cherry MD Unavailable Unavailable Daniele Cherry MD Unavailable Unavailable Daniele Cherry MD Unavailable Unavailable Daniele Cherry MD Unavailable Unavailable Daniele Cherry MD Unavailable Unavailable Daniele Cherry MD Unavailable Unavailable Daniele Cherry MD Unavailable Unavailable Daniele Cherry MD Unavailable Unavailable Daniele Cherry MD Unavailable Unavailable Daniele Cherry MD Unavailable Unavailable Daniele Cherry MD Unavailable Unavailable Daniele Cherry MD Unavailable Unavailable Daniele Cherry MD Unavailable Unavailable Daniele Cherry MD Unavailable Unavailable Daniele Cherry MD Unavailable Unavailable Daniele Cherry MD Unavailable Unavailable Daniele Cherry MD Unavailable Unavailable Daniele Cherry MD Unavailable Unavailable Daniele Cherry MD Unavailable Unavailable Daniele Cherry MD Unavailable Unavailable Daniele Cherry MD Unavailable Unavailable Daniele Cherry MD Unavailable Unavailable Daniele Cherry MD Unavailable Unavailable Daniele Cherry MD Unavailable Unavailable Daniele Cherry MD Unavailable Unavailable Daniele Cherry MD Unavailable Unavailable Daniele Cherry MD Unavailable Unavailable Daniele Cherry MD Unavailable Unavailable Daniele Cherry MD Unavailable Unavailable Daniele Cherry MD Unavailable Unavailable Daniele Cherry MD Unavailable Unavailable Daniele Cherry MD Unavailable Unavailable Daniele Cherry MD Unavailable Unavailable Daniele Cherry MD Unavailable Unavailable Daniele Cherry MD Unavailable Unavailable Daniele Cherry MD Unavailable Unavailable Daniele Cherry MD Unavailable Unavailable Daniele Cherry MD Unavailable Unavailable Daniele Cherry MD Unavailable Unavailable Daniele Cherry MD Unavailable Unavailable Daniele Cherry MD Unavailable Unavailable Daniele Cherry MD Unavailable Unavailable Daniele Cherry MD Unavailable Unavailable Daniele Cherry MD Unavailable Unavailable Daniele Cherry MD Unavailable Unavailable Daniele Cherry MD Unavailable Unavailable Daniele Cherry MD Unavailable Unavailable Daniele Cherry MD Unavailable Unavailable Daniele Cherry MD Unavailable Unavailable Daniele Cherry MD Unavailable Unavailable Daniele Cherry MD Unavailable Unavailable Daniele Cherry MD Unavailable Unavailable Daniele Cherry MD Unavailable Unavailable Daniele Cherry MD Unavailable Unavailable Daniele Cherry MD Unavailable Unavailable Daniele Cherry MD Unavailable Unavailable Daniele Cherry MD Unavailable Unavailable Daniele Cherry MD Unavailable Unavailable Daniele hCerry MD Unavailable Unavailable Daniele Cherry MD Unavailable Unavailable Daniele Cherry MD Unavailable Unavailable Daniele Cherry MD Unavailable Unavailable Daniele Cherry MD Unavailable Unavailable Daniele Cherry MD Unavailable Unavailable Daniele Cherry MD Unavailable Unavailable Daniele Cherry MD Unavailable Unavailable Daniele Cherry MD Unavailable Unavailable Daniele Cherry MD Unavailable Unavailable Daniele Cherry MD Unavailable Unavailable Daniele Cherry MD Unavailable Unavailable CherryDaniele MD Unavailable Unavailable Aden, C Fortino PH.D., M.D. Unavailable Unavailable Aden, C Fortino PH.D., M.D. Unavailable Unavailable Aden, C Fortino PH.D., M.D. Unavailable Unavailable Aedn, C Fortino PH.D., M.D. Unavailable Unavailable Aden, C Fortino PH.D., M.D. Unavailable Unavailable Aden, C Fortino PH.D., M.D. Unavailable Unavailable Aden, C Fortino PH.D., M.D. Unavailable Unavailable Aden, C Fortino PH.D., M.D. Unavailable Unavailable Aden, C Fortino PH.D., M.D. Unavailable Unavailable Aden, C Fortino PH.D., M.D. Unavailable Unavailable Aden, C Fortino PH.D., M.D. Unavailable Unavailable Aden, C Fortino PH.D., M.D. Unavailable Unavailable Aden, C Fortino PH.D., M.D. Unavailable Unavailable Aden, C Fortino PH.D., M.D. Unavailable Unavailable Aden, C Fortino PH.D., M.D. Unavailable Unavailable Aden, C Fortino PH.D., M.D. Unavailable Unavailable Aden, C Fortino PH.D., M.D. Unavailable Unavailable Aden, C Fortino PH.D., M.D. Unavailable Unavailable Aden, C Fortino PH.D., M.D. Unavailable Unavailable Aden, C Fortino PH.D., M.D. Unavailable Unavailable Aden, C Fortino PH.D., M.D. Unavailable Unavailable Aden, C Fortino PH.D., M.D. Unavailable Unavailable Aden, C Fortino PH.D., M.D. Unavailable Unavailable Aden, C Fortino PH.D., M.D. Unavailable Unavailable Aden, C Fortino PH.D., M.D. Unavailable Unavailable Aden, C Fortino PH.D., M.D. Unavailable Unavailable Aden, C Fortino PH.D., M.D. Unavailable Unavailable Aden, C Fortino PH.D., M.D. Unavailable Unavailable Aden, C Fortino PH.D., M.D. Unavailable Unavailable Aden, C Frotino PH.D., M.D. Unavailable Unavailable Aden, C Fortino PH.D., M.D. Unavailable Unavailable Aden, C Fortino PH.D., M.D. Unavailable Unavailable Aden, C Fortino PH.D., M.D. Unavailable Unavailable Aden, C Fortino PH.D., M.D. Unavailable Unavailable Aden, C Fortino PH.D., M.D. Unavailable Unavailable Aden, C Fortino PH.D., M.D. Unavailable Unavailable Aden, C Fortino PH.D., M.D. Unavailable Unavailable Aden, C Fortino PH.D., M.D. Unavailable Unavailable Aden, C Fortino PH.D., M.D. Unavailable Unavailable Aden, C Fortino PH.D., M.D. Unavailable Unavailable Aden, C Fortino PH.D., M.D. Unavailable Unavailable Aden, C Fortino PH.D., M.D. Unavailable Unavailable Aden, C Fortino PH.D., M.D. Unavailable Unavailable Aden, C Fortino PH.D., M.D. Unavailable Unavailable Aden, C Fortino PH.D., M.D. Unavailable Unavailable Aden, C Fortino PH.D., M.D. Unavailable Unavailable Aden, C Fortino PH.D., M.D. Unavailable Unavailable Aden, C Fortino PH.D., M.D. Unavailable Unavailable Aden, C Fortino PH.D., M.D. Unavailable Unavailable Aden, C Fortino PH.D., M.D. Unavailable Unavailable Aden, C Fortino PH.D., M.D. Unavailable Unavailable Aden, C Fortino PH.D., M.D. Unavailable Unavailable Aden, C Fortino PH.D., M.D. Unavailable Unavailable Aden, C Fortino PH.D., M.D. Unavailable Unavailable Aden, C Fortino PH.D., M.D. Unavailable Unavailable Aden, C Fortino PH.D., M.D. Unavailable Unavailable Aden, C Fortino PH.D., M.D. Unavailable Unavailable Aden, C Fortino PH.D., M.D. Unavailable Unavailable Aden, C Fortino PH.D., M.D. Unavailable Unavailable Aden, C Fortino PH.D., M.D. Unavailable Unavailable Aedn, C Fortino PH.D., M.D. Unavailable Unavailable Aden, C Fortino PH.D., M.D. Unavailable Unavailable Aden, C Fortino PH.D., M.D. Unavailable Unavailable Aden, C Fortino PH.D., M.D. Unavailable Unavailable Aden, C Fortino PH.D., M.D. Unavailable Unavailable Aden, C Fortino PH.D., M.D. Unavailable Unavailable Aden, C Fortino PH.D., M.D. Unavailable Unavailable Aden, Deidre Freitas PH.D., M.D. Unavailable Unavailable Aden, Deidre Freitas PH.D., M.D. Unavailable Unavailable Aden, Deidre Freitas PH.D., M.D. Unavailable Unavailable Aden, Deidre Freitas PH.D., M.D. Unavailable Unavailable Aden, Deidre Freitas PH.D., M.D. Unavailable Unavailable Aden, Deidre Freitas PH.D., M.D. Unavailable Unavailable Aden, Deidre Freitas PH.D., M.D. Unavailable Unavailable Aden, Deidre Freitas PH.D., M.D. Unavailable Unavailable Aden, Deidre Freitas PH.D., M.D. Unavailable Unavailable Aden, Deidre Freitas PH.D., M.D. Unavailable Unavailable Aden, Deidre Freitas PH.D., M.D. Unavailable Unavailable Aden, Deidre Freitas PH.D., M.D. Unavailable Unavailable Aden, Deidre Freitas PH.D., M.D. Unavailable Unavailable Aden, Deidre Freitas PH.D., M.D. Unavailable Unavailable Aden, Deidre Freitas PH.D., M.D. Unavailable Unavailable Re-disclosure Warning The records that you are about to access may contain information from federally-assisted alcohol or drug abuse programs. If such information is present, then the following federally mandated warning applies: This information has been disclosed to you from records protected by federal confidentiality rules (42 CFR part 2). The federal rules prohibit you from making any further disclosure of this information unless further disclosure is expressly permitted by the written consent of the person to whom it pertains or as otherwise permitted by 42 CFR part 2. A general authorization for the release of medical or other information is NOT sufficient for this purpose. The Federal rules restrict any use of the information to criminally investigate or prosecute any alcohol or drug abuse patient.The records that you are about to access may contain highly sensitive health information, the redisclosure of which is protected by Article 27-F of the [facility] Public Health law. If you continue you may have access to information: Regarding HIV / AIDS; Provided by facilities licensed or operated by the [facility] Office of Mental Health; or Provided by the [facility] Office for People With Developmental Disabilities. If such information is present, then the following [facility] mandated warning applies: This information has been disclosed to you from confidential records which are protected by state law. State law prohibits you from making any further disclosure of this information without the specific written consent of the person to whom it pertains, or as otherwise permitted by law. Any unauthorized further disclosure in violation of state law may result in a fine or alf sentence or both. A general authorization for the release of medical or other information is NOT sufficient authorization for further disc losure. Allergies and Adverse Reactions Type Description Substance Reaction Status Data Source(s ) No Known Drug Allergies No Known Drug Allergies [facility] Encounters Encounter Providers Location Date Indications Data Source(s ) Office Visit Attender: Fortino Samaniego PH.Niko Mcwilliams/Leodan 11/29/2020 11:15:00 AM EDT [facility] ([facility] ) Office Visit Attender: Fortino Samaniego PH.Niko Mcwilliams/Leodan 11/22/2020 01:00:00 PM EDT [facility] ([facility] Unlisted evaluation and management service Performer: Roberto hadley 11/17/2020 01:15:00 AM EDT - 11/20/2020 07:15:00 PM EDT [facility] ([facility]) Unlisted evaluation and management service Performer: Roberto hadley 11/16/2020 10:32:00 PM EDT [facility] ([facility]) Emergency Attender: Vishal Barclay MDConsultant: Jimbo Whitaker MD 11/16/2020 09:54:00 AM EDT - 11/16/2020 03:32:00 PM EDT [facility] Patient discharged. Outpatient Attender: Gabriel Cherry MD 12/29/2019 11:37:02 AM EDT [facility] Medications Medication Brand Name Start Date Product Form Dose Route Admi nistrative Instructions Pharmacy Instructions Status Indications Reaction Description Data Source(s) Sulfamethoxazole 800 MG / Trimethoprim 160 MG Oral Tab let Sulfamethoxazole/Trimethoprim DS 11/22/2020 12:00:00 AM EDT ORAL active [facility] ([facility] ) Insurance Providers Payer name Policy type / Coverage type Policy ID Covered republican ID Covered republican's relationship to skinner Policy Skinner Plan Information [facility]AN [facility] [id number] SP [id number] [facility] [id number] SP [id number] MEDICAID [id number] Self [id number] CORRECTIONS [id number] Self [id number] Medicaid P [id number] S [id number] MEDICAID [id number] S [id number] MVP MCDHMO [id number] SP [id number] ANSI-Medicaid [id number] ANSI-Medicaid [id number] MEDICAID [id number] S [id number] [facility] [address] [id number] S [id number] ANSI-Medicaid [id number] SELF PAY Unemployed MEDICAID [id number] S [id number] [facility] [address] [id number] S [id number] ANSI-Medicaid [id number] [facility] COMMUNITY PLAN [facility] [id number] SP [id number] MEDICAID [id number] S [id number] MEDICAID PROF FEES [id number] MEDICAID UNAVAILABLE UNAVAILA BLE Medicaid P [id number] S [id number] ANSI-Medicaid [id number] Sliding Fee Scale P none S no ne Medicaid S UNAVAILABLE S UNAVAILA BLE [facility]) O [id number] S [id number] UN COMMUNITY PLAN MCDHMO [id number] SP [id number] SELF PAY UNAVAILABLE SP UNAVAILA BLE MEDICAID - O/P EMERGENCY ROOM [id number] MEDICAID-O/P [id number] MEDICAID-O/P UNAVAILABLE UNAVA ILABLE [facility] MEDICAID HMO -O/P [id number] MVP MEDICAID HMO -O/P [id number] [employer] AMERICHOICE XIX -HMO [id number] 18 [id number] [place] [id number] SP [id number] [id number] SP [id number] MEDICAID [id number] SP [id number] Problems, Conditions, and Diagnoses Code Display Name Description Problem Type Effective Dates Data Source(s) Y9[address] or not applicable Unspecified place or not applicable Diagnosis 11/16/2020 09:54:00 AM EDT [facility] [id number] Exposure to other specified factors, ini tial encounter Exposure to other specified factors, initial encounter Diagnosis 11/16/2020 09:54:00 AM EDT [facility] Z8614 Personal history of Methicillin resistan t Staphylococcus aureus infection Personal history of Methicillin resistant Staphylococcus aureus infection Diagnosis 11/16/2020 09:54:00 AM EDT [facility] D16827 Unspecified asthma, uncomplicated Unspecified as thma, uncomplicated Diagnosis 11/16/2020 09:54:00 AM EDT [facility] O04866 Nicotine dependence, cigarettes, uncompl icated Nicotine dependence, cigarettes, uncomplicated Diagnosis 11/16/2020 09:54:00 AM EDT [facility] [id number] Superficial foreign body of unspecified part of neck, initial encounter Superficial foreign body of unspecified part of neck, initial encounter Diagnosis 11/16/2020 09:54:00 AM EDT [facility] L0211 Cutaneous abscess of neck Cutaneous abscess of neck Di agnosis 11/16/2020 09:54:00 AM EDT [facility] M542 Cervicalgia Cervicalgia Diagnosis 11/16/2020 09:54:00 AM EDT [facility] S10.95XD Superficial foreign body in neck Superficial for eign body in neck Problem 11/29/2020 12:00:00 AM EDT [facility] ([facility]ON[facility] Matos) [id number] Allergic asthma without status asthmatic us Allergic asthma without status asthmaticus Problem 11/22/2020 12:00:00 AM EDT [facility] ([facility], ) Z48.02 Removal of suture Removal of suture Problem 11/22/2020 12:00:00 AM EDT [facility] ([facility], ) L02.11 Cellulitis and abscess of neck Cellulitis and abscess of neck Problem 11/21/2020 12:00:00 AM EDT [facility] ([facility], ) M79.5 Residual foreign body in soft tissue Residual fo reign body in soft tissue Problem 11/21/2020 12:00:00 AM EDT [facility] ([facility]) Surgeries/Procedures Procedure Description Date Indications Data Source(s) I & D Abscess Simple 11/21/2020 12:00:00 AM EDT [facility] ([facility], ) RMVL FOREIGN BODY MUSCLE/TENDON SHEATH DEEP/COMP 11/21 12:00:00 AM EDT [facility] ([facility], ) Remove Foreign Body Subcutaneous Complicated 12:00:00 AM EDT [facility] ([facility], ) I & D Abscess/Hematoma Neck/Thorax Soft Tissue 021 12:00:00 AM EDT [facility] ([facility], ) Results ID Date Data Source [id number] 11/16/2020 09:54:00 AM EDT [facility] 1 OrderSheet [facility] Emergency Department [address] [place] [address] Phone #: ext- [phone] 11/16/2020 09:54 Patient: BISHNU CASEY III Sex: M : 1995 Age: 24yWEIGHT:68.0 kg (S) HEIGHT:66 inches (S) BMI:24.2ALLERGIES: NoneCHIEF COMPLAINT: lesion, boil, tender areaDIAGNOSIS: Abscess, Soft tissue foreign bodyLAB ORDERSOrder Description Priority Entered Acknowledged InitialedCBC w Diff STAT 10:15 11/16/2020 10:17 Martinez Chandler R.N. PA;CMP STAT 10:15 11/16/2020 10:17 Martinez Chandler R.N. PA;Lactic Acid STAT 10:15 11/16/2020 10:17 Martinez Chandler R.N. PA;Sed. Rate STAT 10:15 11/16/2020 10:17 Martinez Chandler Leatha R.N. PA;CRP STAT 10:15 11/16/2020 10:17 Martinez Chandler R.N. PA;Culture, Wound STAT 14:37 11/16/2020 14:39 Geraldine,(Abscess) Martinez Zhang R.N. PA; NOTES: NeckDIAGNOSTIC STUDY ORDERSOrder Description Priority Entered Acknowledged InitialedCT Neck Soft STAT 10:15 11/16/2020 Ack'd: 10:17 12:32 Geraldine,Tissue W/ Cont Leatha Person R.N.(O xygen?(No)) PA; R.N.(IV?(Yes)) Reason for Study: Infection, Mass, Pain, SwellingUS Soft Tissue 13:22 11/16/2020 Ack'd: 13:25 13:59 Geraldine,Head/Neck Leatha Person R.N. PA; R.N. 2 OrderSheet [facility] Emergency Department [address] [place] [address] Phone #: ext- [phone] 11/16/2020 09:54 Patient: BISHNU CASEY III Sex: M : 1995 Age: 24y NOTES: anterior neck abscess with FB, localize and selena FBMEDICATION/IV/DRIP/FLUID ORDERSOrder Description Priority Entered Acknowledged InitialedToradol IVP 30 mg 10:15 11/16/2020 Ack'd: 10:17 12:59 Martinez Chandler Amber Amber R.N. PA; R.NTrishaZosyn- IVPB 3.375 12:32 11/16/2020 Ack'd: 12:43 13:16 Geraldinegm (in 50 mL D5W, Leatha Person R.N.X1) PA; R.NTrishaNS IV 1000 mL 12:37 11/16/2020 Ack'd: 12:43 12:59 Geraldine,Bolus: : Bolus 1000 Leatha Person R.N.mL (X1) PA; R.NTrishaGENERAL ORDERSOrder Description Priority Entered Acknowledged InitialedSaline Lock 10:15 0 11/16/2020 Ack'd: 10:17 12:32 Martinez Chandler Amber Amber R.N. PA; R.NTrishaDiet: (Regular Diet) 14:21 11/16/2020 14:31 Martinez Chandler R.N.;[Electronically signed by Leatha Chandler R.N. (16:31 11/16/2020)][Electronically signed by Martinez Rollins (19:42 11/17/2020)][Electronically locked by Leatha Chandler R.N. (16:31 11/16/2020)] Name Value Range Interpretation Code Description Data Yaritza rce(s) Supporting Document(s) ID Date Data Source [id number] 11/16/2020 09:54:00 AM EDT [facility] 1 Medication Reconciliation Report [facility] Emergency Department [address] [place] [address] Phone #: ext- [phone] 11/16/2020 09:54 Patient: BISHNU CASEY III Sex: M : 1995 Age: 24yWeight: 68.0 kgHeight/Length: 66 in.BMI: 24.2ALLERGIES: NoneThe patient's Home Medications are listed below:NONE.The source(s) of the original Home Medication information:Not obtained.The following Medications were given to the patient in the Emergency Department:Toradol [IVP] IVP 30 mg, administered: 12:54 11/16/2020NS [IV] IV Fluids bolus 1000 mL wide open, administered: 12:49 11/16/2020Zosyn [IVPB] IVPB bolus 0, then 3.375 gm 100 mL/hr, administered: 13:16 11/16/2020The following Medications were prescribed to the patient:Augmentin 875 mg-125 mg tablet Take 1 tablet twice a day as directed for 10 days -- Dispense 20tablet. Refills: 0. Substitution permitted.Pharmacy - [facility] - [address] [place] [id number]. . -- PACHECO Adams Name Value Range Interpretation Code Description Data Yaritza rce(s) Supporting Document(s) ID Date Data Source [id number] 11/16/2020 09:54:00 AM EDT [facility] 1 Medication Administration Record [facility] Emergency Department [address] [place] [address] Phone #: ext [phone] 11/16/2020 09:54 Patient: BISHNU CASEY III Sex: M : 1995 Age: 24yWeight: 68.0 kgHeight/Length: 66 inBMI: 24.2ALLERGIES: None Date/Time Medication Administered Medication OrderedGiven TORADOL [IVP] (KETOROLAC Toradol IVP 30 mg12:54 11/16/2020 TROMETHAMINE)Leatha Chandler R.N. Dose: 30 mg IVP Site: #1 left upper armStart ZOSYN [IVPB] (PIPERACILLIN Zosyn- IVPB 3.375 gm (in 50 mL13:16 11/16/2020 SOD-TAZOBACTAM SO) D5W, X1)Leatha Chandler R.N. Dose: 3.375 gm IVPB---- Rate: 100 mL/hrStop Dispensed: 50 mL bag13:45 11/16/2020 Site: #1 left upper armLeatha Chandler R.N.Start NS [IV] NS IV 1000 mL Bolus: : Bolus 677231:[id number] 11/16/2020 Dose: IV Fluids mL (X1)Leatha Chandler R.N. Bolus: 1000 mL wide open---- Dispensed: 1000 mL bagStop Site: #1 left upper arm14:34 11/16/2020Leatha Chandler R.N. Name Value Range Interpretation Code Description Data Yaritza rce(s) Supporting Document(s) ID Date Data Source [id number] 11/16/2020 09:54:00 AM EDT [facility] 1 General Instructions [facility] Emergency Department [address] [place] [address] Phone #: ext- [phone] 11/16/2020 09:54 Patient: BISHNU CASEY III Sex: M : 1995 Age: 24ySingle superficial abscess to the neck.Retained superficial metal soft tissue foreign body to the left anterior neck. Infection present. No puncturewound.INSTRUCTIONSWarnings: Further evaluation is necessary. It is very important to follow up with a healthcare provider.GENERAL WARNINGS: Return or contact your physician immediately if your condition worsens orchanges unexpectedly, if not improving as expected, or if other problems arise. Specifically return if pain orfever worsens.Your Current Medications: .No home medication.Prescription Medications:Augmentin 875 mg-125 mg tablet Take 1 tablet twice a day as directed for 10 days -- Dispense 20tablet. Refills: 0. Substitution permitted.Pharmacy - [facility] - [address] [facility] ; [place], [place] [phone]. FaxNumber: .Understanding of the discharge instructions verbalized by patient.Follow-up with: [facility], , [id number], [address] [place] [address], ,[place], [address] Follow up Thursday. Call for the next available appointment. Reason for referral: evaluation and treatment.Summary of care provided to patient. ADDITIONAL INFORMATIONAbscess (Incision Drainage)An abscess is sometimes called a boil. It happens when bacteria get trapped under the skin and startto grow. Pus forms inside the abscess as the body responds to the bacteria. An abscess can happenwith an insect bite, ingrown hair, blocked oil gland, pimple, cyst, or puncture wound.Your healthcare provider has drained the pus from your abscess. If the abscess pocket was large,your healthcare provider may have put in gauze packing. Your provider will need to remove or 2 General Instructions [facility] Emergency Department [address] [place] [address] Phone #: ext- [phone] 11/16/2020 09:54 Patient: BISHNU CASEY III Sex: M : 1995 Age: 24yreplace it on your next visit. . You may not need antibiotics to treat a simp le abscess, unless theinfection is spreading into the skin around the wound (cellulitis).The wound will take about 1 to 2 weeks to heal, depending on the size of the abscess. Healthy tissuewill grow from the bottom and sides of the opening until it seals over.Home careThese tips can help your wound heal: The wound may drain for the first 2 days. Cover the wound with a clean dry dressing. Change the dressing if it becomes soaked with blood or pus. If a gauze packing was placed inside the abscess pocket, you may be told to remove it yourself. You may do this in the shower. Once the packing is removed, you should wash the area in the shower, or clean the area as directed by your provider. Continue to do this until the skin opening has closed. Make sure you wash your hands after changing the packing or cleaning the wound. If you were prescribed antibiotics, take them as directed until they are all gone. You may use acetaminophen or ibuprofen to control pain, unless another pain medicine was prescribed. If you have liver disease or ever had a stomach ulcer, talk with your healthcare provider before using these medicines.Follow-up careFollow up with your healthcare provider, or as advised. If a gauze packing was put in your wound, itshould be removed in 1 to 2 days. Check your wound every day for any signs that the infection isgetting worse. The signs are listed below.When to seek medical adviceCall your healthcare provider right away if any of these occur: Increasing redness or swelling Red streaks in the skin leading away from the wound Increasing local pain or swelling Continued pus draining from the wound 2 days after treatment Fever of 100.4F (38C) or higher, or as directed by your healthcare provider Boil returns when you are at home 3 [facility] Emergency Department [address] [place] [address] Phone #: ext- [phone] 11/16/2020 09:54 Patient: BISHNU CASEY III Sex: M : 1995 Age: 24y [id number] [employer] [place] [address]. All rights reserved. This information is not intended as asubstitute for professional medical care. Always follow your healthcare professional's instructions.Foreign Object Under the Skin (Not Removed)Very small particles that remain under the skin usually don't cause problems or need furthertreatment. But sometimes they can cause an infection. Sometimes they work their way to the surfaceon their own without any problems. If you see this happening, you can remove any particles withtweezers. Be careful not to dig up the skin and make things worse.You may need to see a surgeon if the object is large and couldn't be removed.. The surgeon canassess the injury and treat it. Sometimes a surgeon uses X-rays or ultrasound to guide them inremoving the object.Home careWound care Keep the wound clean and dry. If there is a dressing or bandage, change it when it gets wet or dirty. Otherwise, leave it on for the first 24 hours, then change it once a day or as often as you were instructed. If stitches or nica were used, clean the wound every day: o After taking off the dressing, wash the area gently with soap and water. o Apply a thin layer of antibiotic ointment to the cut. This will keep the wound clean and make it easier to remove the stitches. If it is oozing a lot, you can put a nonstick dressing over it. Then reapply the bandage or dressing as you were instructed. o You can get it wet, just like when you clean it. This means you can shower as usual for the first 24 hours. But don't soak the area in water (no baths or swimming) until the stitches or nica are taken out. If surgical tape or strips were used, keep the area clean and dry. If it becomes wet, blot it dry with a towel.Medicine You can take edsn-tiq-vrwppsk medicine for pain, unless you were given a different pain medicine to use. Talk with your healthcare provider before using these medicines if you have chronic liver or kidney disease, ever had a stomach ulcer or digestive bleeding, or are taking blood-thinner medicines. If you were given antibiotics, take them until they are used up. It's important to finish the 4 General Instructions [facility] Emergency Department [address] [place] [address] Phone #: ext- [phone] 11/16/2020 09:54 Patient: BISHNU CASEY III Sex: M : 1995 Age: 24y antibiotics even if the wound looks better to make sure the infection clears.Follow-up careFollow up your healthcare provider, or as advised. Keep in mind the following: Watch for any signs of infection, such as increasing pain, redness, swelling, or pus drainage. If this happens, don't wait for your scheduled visit. See your healthcare provider sooner. Stitches or nica are usually taken out within 5 to 14 days. This varies depending on what part of your body they are on, and the type of wound. The healthcare provider will tell you how long they should be left in. If surgical tape or strips were used, they are usually left on for 7 to 10 days. You can remove them after that unless you were told otherwise. If you try to remove them, and it is too difficult, soaking can help. If the edges of the cut pull apart, then stop removing the tape, and follow up with your healthcare provider. If X-rays were taken, you will be told if there are new findings that may affect your care.When to seek medical adviceCall your healthcare provider right away if any of these occur: Fever of 100.4F (38C) or higher, or as directed by your healthcare provider Increasing pain in the wound Redness, swelling or pus coming from the wound [phone] [employer]. [address] [place] [address]. All rights reserved. This information is not intended as asubstitute for professional medical care. Always follow your healthcare professional's instructions. You have been given the following additional information: Abscess, Incision And Drainage Foreign Body, Soft Tissue (Not Removed)(Electronically signed by PACHECO Adams 11/17/2020 19:42) Name Value Range Interpretation Code Description Data Yaritza rce(s) Supporting Document(s) ID Date Data Source [id number] 11/16/2020 09:54:00 AM EDT [facility] 1 Clinical Report - Nurses [facility] Emergency Department [address] [place] [address] Phone #: ext- [phone] 11/16/2020 09:54 Patient: BISHNU CASEY III Sex: M : 1995 Age: 24yTRIAGEArrived by private vehicle. Historian: patient. Accompanied by family. ( enlarged area on left side ofneck, has had abscess before on the other side of his neck).Acuity: LEVEL 3.Chief Complaint: NECK PAIN and (enlarged area on left bottom of neck).Alert.Onset. (3 days ago). ( hurts to swallow).Treatment POLISHER IMPLANT:None.SEPSIS SCREEN: SIRS SCREEN NEGATIVE. SEPSIS SCREEN NEGATIVE. No suspected or confirmedsigns of infection present. --10:01 11/16/20 Clary Frey R.N.09:56 11/16/20. BP: 125/87. MAP: 99. HR: 81. RR: 16. O2 saturation: 100%. Temp: 97.8 F. Pain levelnow: 10/30. --10:01 11/16/20 Clary Frey R.N.Weight: 68 kg stated. Height/Length: 66 inches Per Patient. BMI: 24.2. --09:56 11/16/20 Clary Frey R.N.MedicationsNone. --09:58 11/16/20 Clary Frey R.N.AllergiesNone. --09:58 11/16/20 Clary Frey R.N.PROBLEMS:Asthma.Abscess. --09:58 11/16/20 Clary Frey R.N.ADDITIONAL QUEZADA RGERIES:Abscess drained. --09:58 11/16/20 Clary Frye R.N.HistoryPAST MEDICAL HX: Immunizations: up-to-date and (no covid vaccine).SOCIAL HX: Light tobacco smoker- less than 1/2 a pack per day. No alcohol use or drug use. He wasoffered HIV testing but declined and hepatitis C testing but declined. He has not traveled outside the [place]Infectious disease exposure: No infectious disease exposure. 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 Patient is not a known carrier of tuberculosis, hepatitis, HIV, 2 Clinical Report - Nurses [facility] Emergency Department [address] [place] [address] Phone #: ext- [phone] 11/16/2020 09:54 Patient: BISHNU CASEY III Sex: M : 1995 Age: 24y VRE or CRE. SELF HARM ASSESSMENT: Self harm assessment was performed. The patient answered "no" to the question(s) "Have you recently felt down, depressed, or hopeless?" and "Do you have thoughts of harming or killing yourself?". ABUSE ASSESSMENT: Abuse assessment. Abuse denied. No suspicion of abuse. No report of abuse. NUTRITIONAL RISK ASSESSMENT: The nutritional risk assessment revealed no deficiencies. FUNCTIONAL ASSESSMENT: Functional assessment: no impairments noted. LEARNING NEEDS ASSESSMENT: The learning needs assessment revealed no barriers. FALL RISK ASSESSMENT: Fall risk assessment completed. No risk factors identified. SKIN INTEGRITY ASSESSMENT: Skin integrity risk assessment completed. No skin integrity risk identified. --10:01 11/16/20 Clary Frey R.N. Interventions Identification band on patient. To treatment room. --10:01 11/16/20 Clary Frey R.N.PHYSICAL ASSESSMENTGENERAL / NEURO / PSYCH: Alert. Oriented X 4.RESPIRATORY: Respirations not labored. Chest nontender. Breath sounds within normal limits.CVS: Normal heart rate and rhythm. Capillary refill less than 2 seconds.GI / : Abdomen soft and nontender. Bowel sounds within normal limits.EXTREMITIES: Sensation intact in extremities.BACK: ( swelling on left lower neck). --10:02 11/16/20 Clary Frey R.N.NURSING PROGRESS NOTESPatient gowned. Reassurance given. Two patient identifiers checked. Call light placed in reach. Siderails up x 2. Bed placed in lowest position. Brakes of bed on. Patient ready for evaluation. --10: Clary Frey R.N. Patient gowned. Reassurance given. Rounding: Position: states comfortable. Proximity of possessions / care items: call light within easy reach. Set expectations: advised patient of rounding protocol timing and asked if they needed anything else at this time. The patient is calm and resting quietly. Patient waiting for lab results. --11:09 11/16/20 Leatha Chandler R.N. Monitoring of patient in place. Patient gowned. Reassurance given. 3 Clinical Report - Nurses [facility] Emergency Department [address] [place] [address] Phone #: ext- [phone] 11/16/2020 09:54 Patient: BISHNU CASEY III Sex: M : 1995 Age: 24yRounding: Position: states comfortable. Proximity of possessions / care items: call light within easy reach.Set expectations: advised patient of rounding protocol timing and asked if they needed anything else at thistime. The patient is calm, resting quietly and sleeping. Patient waiting for lab results. --11:59 11/16/20Leatha Chandler R.N.late entry - 10:30 11/16/20. ( IV attempted at this time, pt tolerated well). --12:01 11/16/20 Leatha Chandler R.N.late entry - 11:00 11/16/20. ( June RN NM attempting IV at this time). --12:00 11/16/20 Leatha Chandler R.N.late entry - 11:38 11/16/20. ( Anesthesia contacted to attempt IV). --11:53 11/16/20 Leatha Chandler R.N.11:34 11/16/20. BP: 142/86. MAP: 104. HR: 81. RR: 16. O2 saturation: 99% on room air. --12:0611/16/20 Leatha Chandler R.N.12:23 11/16/2020 Site #1 started via IV in the left upper arm with an 20g angiocath, with aseptic techniqueand good blood return. Saline lock flushed with 10 mL saline (7 attempts). --12:33 11/16/20 Leatha Chandler R.N.12:49 11/16/2020 Started bag #1 1000 mL IV Fluids NS; bolus of 1000 mL wide open via site #1 via IVpump. Allergies verified and confirmed 5 rights. IV patency established. IV site checked: no pain, redness,or swelling. IV flushed thoroughly pre- and post- medication administration. Information reviewed withpatient including reason for taking this medication, signs of allergic reaction and precautions. Verbalizesunderstanding. --12:59 11/16/20 Leatha Chandler R.N.12:54 11/16/2020 Toradol (Ketorolac Tromethamine) IVP 30 mg given over 2 minute(s) via site #1.Allergies verified and confirmed 5 rights. IV patency established. IV site checked: no pain, redness, orswelling. IV flushed thoroughly pre- and post- medication administration. IVP given by RN. Informationreviewed with patient including reason for taking this medication, signs of allergic reaction and precautions.Verbalizes understanding. --12:59 11/16/20 Leatha Chandler R.N.Monitoring of patient in place. Patient gowned. Reassurance given.Rounding: Position: states comfortable. Proximity of possessions / care items: call light within easy reach.Plug ins: assured IV pump plugged in; checked status of equipment in use; located all cords, tubes, andlines to prevent fall hazard. Set expectations: advised patient of rounding protocol timing and asked if theyneeded anything else at this time. The patient is calm, resting quietly and sleeping. Patient waiting forlab and CT results. --13:08 11/16/20 Leatha Chandler R.N.13:16 11/16/2020 Started 3.375 gm of Zosyn (Piperacillin Sod-Tazobactam So) IVPB in bag #1 50 mL; at100 mL/hr via site #1. via IV pump. Allergies verified and confirmed 5 rights. IV patency established. IV sitechecked: no pain, redness, or swelling. IV flushed thoroughly pre- and post-medication administration.Information reviewed with patient including reason for taking thi s medication, signs of allergic reaction and 4 Clinical Report - Nurses [facility] Emergency Department [address] [place] [address] Phone #: ext- [phone] 11/16/2020 09:54 Patient: BISHNU CASEY III Sex: M : 1995 Age: 24y precautions. Verbalizes understanding. --13:16 11/16/20 Leatha Chandler R.N. late entry - 13:30 11/16/20. ( Pt evaluated by Dr. Painter at this time. Pt refusing to go to the OR.). --14:00 11/16/20 Leatha Chandler R.N. 13:45 11/16/2020 Zosyn IVPB via IV site #1 Discontinued: bag #1 infused. Total amount infused: 50ml mL. IV patency established. IV site checked: no pain, redness, or swelling. IV flushed thoroughly. --14:34 11/16/20 Leatha Chandler R.N. late entry - 14:00 11/16/20. Patient ID band checked for patient name and birthdate: patient confirmed. Wound to neck swabbed for culture; collected by doctor. Specimen labeled in the presence of the patient. I D: Incision and Drainage of abscess performed by (Dr. Painter). Assisted by one nurse. The abscess is located on the neck. Preparation: Incision and Drainage tray set up with 1% lidocaine. Procedure: skin cleansed with Betadine; pus was drained. Sample obtained for cultures. A dressing was applied. Post-procedure: he was stable, no complications, patient tolerated the procedure well and bleeding controlled. --16:24 11/16/20 Leatha Chandler R.N. 14:34 11/16/2020 IV Fluids NS via IV site #1 Discontinued: bag #1 infused. Total amount infused: 1000ml mL. IV patency established. IV site checked: no pain, redness, or swelling. IV flushed thoroughly. --14:34 11/16/20 Leatha Chandler R.N. late entry - 15:00 11/16/20. ( Pt given dinner tray, pt called mother for ride). --16:25 11/16/20 Leatha Chandler R.N. 15:11/16/2020 Site #1 removed upon discharge. Catheter intact. Bandage applied. --16:30 11/16/20 Leatha Chandler R.N.DISPOSITION / DISCHARGE late entry - 15:32 11/16/20. Departure time: late entry - 15:11/16/2020. Phil Coma Scale: 15- eyes open- spontaneous (4); best verbal response- oriented (5); best motor response- obeys commands (6). Condition at departure: improved and stable. No learning barriers present. Discharge instructions provided and reviewed with the patient. Reviewed warnings (infection). Reviewed medication(s) side effects, precautions, dosing and course information. Prescription(s) sent electronically to pharmacy (Augmentin). Reviewed referral to an ear, nose, and throat specialist (machine operator helper) for followup. Patient verbalized un derstanding. Written instructions provided in [place]. The patient was discharged by the physician title i instructional assistant. He was discharged home and accompanied by parent. He left ambulatory and via private vehicle. Parent driving. --16:28 11/16/20 Leatha Chandler R.N. 15:11/16/20. BP: 130/84. MAP: 99. HR: 74. RR: 18. O2 saturation: 100% on room air. --16:11/16/20 Leatha Chandler R.NTrisha 15:11/16/20. Temp: 98.9 F (temporal). Pain level now: 05/02. --16:11/16/20 Leatha Chandler R.N. 5 Clinical Report - Nurses [facility] Emergency Department [address] [place] [address] Phone #: ext- [phone] 11/16/2020 09:54 Patient: BISHNU CASEY III Sex: M : 1995 Age: 24yLocked/Released at 11/16/2020 16:31 by Leatha Chandler R.N. Name Value Range Interpretation Code Description Data Yaritza rce(s) Supporting Document(s) ID Date Data Source [id number] 11/16/2020 09:54:00 AM EDT [facility] 1 Clinical Report - Physicians/Mid Levels [facility] Emergency Department [address] [place] [address] Phone #: ext- [phone] 11/16/2020 09:54 Patient: BISHNU CASEY III Sex: M : 1995 Age: 24y Time Seen: 10:05 11/16/2020. Arrived- By private vehicle. Historian- patient.HISTORY OF PRESENT ILLNESS Chief Complaint: LESION, BOIL and TENDER AREA. This started 3 days ago and is still present. It was gradual in onset and has been constant. It is described as painful. It has been located on the neck (Left anterior neck). A possible cause has been identified (H/O MRSA). Similar symptoms previously. Patient has had similar symptoms once. Recent medical care: The patient was seen recently at another facility in the emergency department.REVIEW OF SYSTEMSNo fever, chills, sore throat, cough or difficulty breathing. No hoarseness, lump in throat, enlarged lymphnodes, headache or eye irritation. No chest pain, abdominal pain, nausea, diarrhea or difficulty withurination. No joint pain or vomiting.PAST HISTORYProblems:Asthma.Abscess. Additional Surgeries: Abscess drained. Medications: None. Allergies: None.SOCIAL HISTORYLight tobacco smoker (cigarette)- less than 1/2 a pack per day. No alcohol use or drug use.PHYSICAL EXAMVital Signs: 11/16/2020 09:56 BP: 125/87. MAP: 99. HR: 81. RR: 16. O2 saturation: 100%. Temp: 97.8 F.Pain level now: 10/30. Have been reviewed as normal. Oxygen saturation normal.Appearance: Alert. Oriented X3. No acute distress.Eyes: Pupils equal, round and reactive to light. Conjunctivae and eyelids normal.ENT: Ears normal. Nose normal. Pharynx normal.Neck: Moderate left anterior neck lymphadenopathy present.CVS: Normal heart rate and rhythm. Heart sounds normal. 2 Clinical Report - Physicians/[facility] Emergency Department [address] [place] [address] Phone #: ext- [phone] 11/16/2020 09:54 Patient: BISHNU CASEY III Sex: M : 1995 Age: 24y Respiratory: No respiratory distress. Breath sounds normal. Abdomen: Nontender. Skin: Skin warm and dry. Normal skin color. Normal skin turgor. Single medium abscess with cellulitis to the neck (3 x 3 cm, erythematous and indurated). No fluctuance. There is warmth, induration, tenderness, thickening and swelling. Extremities: Extremities nontender. Neuro: Oriented X 3.LABS, X-RAYS, AND EKGCT Neck - Soft Tissue: (7 mm linear hyperdense foreign body deep subcutaneous fat left anterior midneck. Subjacent 25 mm complex fluid collection in the sternocleidomastoid muscle which is likely a nabscess.). Neck CT (soft tissue) performed with contrast. The study was interpreted by the radiologistand contemporaneously by me. Interpretation time: 14:17 11/16/2020.Laboratory Tests: Laboratory tests have been ordered, with results reviewed and considered in themedical decision making process. CBC w Diff: (YAN: 11/16/2020 10:40) ( MsgRcvd 11/16/2020 11:01) Final results Test Result Flag Units (Reference) CBC W/AUTOMATED DIFF COMPLETE BLOOD COUNT WBC 9.4 10/uL (4.2 - 11.0) RBC 4.73 10/uL (4.50 - 6.30) HEMOGLOBIN 12.0 L g/dL (14.0 - 16.0) HEMATOCRIT 37.6 L % (41.0 - 51.0) MCV 79.5 L fL (80.0 - 94.0) MCH 25.4 L pg (27.0 - 34.0) MCHC 31.9 g/dL (31.0 - 36.0) RDW 15.4 H % (11.5 - 14.8) PLATELETS 190 10/uL (150 - 450) MPV 10.9 H fL (7.4 - 10.4) NEUT 83.9 H % (37.0 - 80.0) LYMPH 12.0 L % (25.0 - 40.0) MONO 3.3 % (3.0 - 8.0) EOS 0.3 % (0.0 - 7.0) BASO 0.2 % (0.0 - 2.0) %IG 0.3 H % (0.0 - 0.0) %NRBC 0.0 % (0.0 - 0.0) #NEUT 7.88 H 10/uL (2.00 - 6.90) #LYMPH 1.13 10/uL (0.60 - 3.40) #MONO 0.31 10/uL (0.00 - 0.90) #EOS 0.03 10/uL (0.00 - 0.70) #BASO 0.02 10/uL (0.00 - 0.20) #IG 0.03 10/uL (0.00 - 0.10) #NRBC 0.00 10/uL (0.00 - 0.00) MANUAL DIFF NOT INDICATED RBC MORPH NOT INDICATED CMP: (YAN: 11/16/2020 10:40) ( MsgRcvd 11/16/2020 11:31) Final results Test Result Flag Units (Reference) COMPREHENSIVE METABOLIC PANEL COMPREHENSIVE METABOLIC PANEL SODIUM 137 mEq/L (134 - 153) POTASSIUM 4.5 mEq/L (3.6 - 5.0) 3 Clinical Report - Physicians/Mid Levels [facility] Emergency Department [address] [place] [address] Phone #: ext- [phone] 11/16/2020 09:54 Patient: BISHNU CASEY III Sex: M : 1995 Age: 24y CHLORIDE 100 mEq/L (98 - 107) CO2 27 MEQ/L (22 - 30) GLUCOSE 91 MG/DL (70 - 99) BUN 8 MG/DL (7 - 21) CREATININE 0.8 MG/DL (0.7 - 1.5) BUN/CREAT 10 (8 - 27) TOTAL PROTEIN 7.8 G/DL (6.3 - 8.2) ALBUMIN 4.3 G/DL (3.9 - 5.0) GLOBULIN 3.5 H GM/DL (2.4 - 3.2) A/G RATIO 1.2 (0.8 - 2.0) CALCIUM 10.0 MG/DL (8.4 - 10.2) TOTAL BILI <0.7 MG/DL (0.2 - 1.3) ALKALINE PHOS 159 H U/L (38 - 126) SGOT/AST 28 U/L (5 - 40) SGPT/ALT 18 U/L (7 - 56) ANION GAP 10.0 mmol/L (8.0 - 16.0) AGE 24 yrs NON-AA GFR >60 mL/min AFR AMER GFR >60 mL/min Male GFR Interprentation 20-49 yrs >60 mL/min Normal 50-59 yrs >56 mL/min Normal 60-69 yrs >49 mL/min Normal 70-79yrs >42 mL/min Normal 80 and above >35 mL/min Normal Female GFR Interpretation 20-39 yrs >60 mL/min Normal 40-49 yrs >58 mL/min Normal 50-59 yrs >51 mL/min Normal 60-69 yrs >45 mL/min Normal 70-79 yrs >39 mL/min Normal 80 and above >32 mL/min Normal Lactic Acid: (YAN: 11/16/2020 10:40) ( [facility] 11/16/2020 11:09) Final results Test Result Flag Units (Reference) LACTIC ACID 1.5 MMOL/L (0.2 - 2.2) Sed. Rate: (YAN: 11/16/2020 10:40) ( HigRcvd 11/16/2020 11:23) Final results Test Result Flag Units (Reference) SED RATE 4 mm/hr (0 - 15) SED RATE REENTER 4 CRP: (YAN: 11/16/2020 10:40) ( [facility] 11/16/2020 11:32) Final results Test Result Flag Units (Reference) CRP-HS 16.01 H MG/L (1.00 - 3.00) CDC/S HS-CRP CUT-OFF: RELATIVE RISK: <1.0 mg/L Low 1.0 - 3.0 mg/L Average >3.0 mg/L High Optimally, the average of HS-CRP results repeated two weeks apart should be used for risk assessment. CT Neck Soft Tissue W/ Cont: (YAN: 11/16/2020 10:15) ( [facility] 11/16/2020 12:55) In Progress CT ST NECK W/CONTRAST Reason(s): Infection TRANSPORTATION: IV? IV?(Yes) O2? Oxygen?(No) Ro.PROGRESS AND PROCEDURESCourse of Care: 14:17 Nov 16 2020. Evaluation after observation. (Pt was evaluated by Dr Painter in theED and he performed a needle aspiration, pt refused to go to OR and have surgery. Pt does not want to 4 Clinical Report - Physicians/Mid Levels [facility] Emergency Department [address] [place] [address] Phone #: ext- [phone] 11/16/2020 09:54 Patient: BISHNU CASEY III Sex: M : 1995 Age: 24y stay for IV antibiotics. Discussed return s/s and pt is agreeable with close follow up.). Patient counseled in person regarding the patient's stable condition, test results, diagnosis and need for follow-up. Patient agrees with plan of care. 14:Nov 16 2020. Disposition: Discharged home in good and improved condition (14:Nov 16 2020).CLINICAL IMPRESSION Single superficial abscess to the neck. Retained superficial metal soft tissue foreign body to the left anterior neck. Infection present. No puncture wound.INSTRUCTIONS Warnings: Further evaluation is necessary. It is very important to follow up with a healthcare provider. GENERAL WARNINGS: Return or contact your physician immediately if your condition worsens or changes unexpectedly, if not improving as expected, or if other problems arise. Specifically return if pain or fever worsens. Your Current Medications: . No home medication. Prescription Medications: Augmentin 875 mg-125 mg tablet Take 1 tablet twice a day as directed for 10 days -- Dispense 20 tablet. Refills: 0. Substitution permitted. Pharmacy - [facility] - [address] [place] [address] ; [place], [place] [id number]. P christopher: . Understanding of the discharge instructions verbalized by patient. Follow-up with: [facility], , [id number], [address] [place] [address], [place], [address] Follow up Thursday. Call for the next available appointment. Reason for referral: evaluation and treatment. Summary of care provided to patient.(Electronically signed by PACHECO Adams 11/17/2020 19:42) 5Clinical Report - Physicians/Mid Levels [facility] Emergency Department [address] [place] [address] Phone #: ext- [phone] 11/16/2020 09:54 Patient: BISHNU CASEY III Sex: M : 1995 Age: 24y Name Value Range Interpretation Code Description Data Yaritza rce(s) Supporting Document(s) ID Date Data Source [id number] 11/16/2020 09:54:00 AM EDT [facility] Addenda for BISHNU CASEY III VisitID: [id number] Date: 12:17Bactrim DS 800 mg-160 mg tablet Take 1 tablet twice a day as directed for 10 days -- Dispense 20tablet. Refills: 0. Substitution permitted.Pharmacy - [facility] - [address] [place] [address] ; [place], [place] [id number]. FaxNumber: .(Electronically signed by Martinez BERGMAN - 11/24/2020 12:17) Name Value Range Interpretation Code Description Data Yaritza rce(s) Supporting Document(s) ID Date Data Source [id number] 11/21/2020 05:05:00 PM EDT [facility] ) Name Value Range Interpretation Code Description Data Yaritza e(s) Supporting Document(s) Surgical pathology study Laboratory test result [facility] ([facility], ) FINAL DIAGNOSIS Foreign body, left neck, removal: Metallic foreign body, for gross examination only. 11/23/2020 - 1211 CLINICAL DIAGNOSIS Foreign body left neck 11/22/2020 - 1315 GROSS DIAGNOSIS Received in formalin labeled "foreign body left neck" and consists of one piece of thin lópez metallic object measuring 0.7 cm. in length and less than 1 mm. in diameter. For gross examination only. -LETTYY 11/22/2020 - 1315 Signed GOVIND SCOTT MD 11/23/2020 1211 ID Date Data Source [id number] 11/21/2020 04:46:00 PM EDT [facility] Name Value Range Interpretation Code Description Data Yaritza rce(s) Supporting Document(s) Afb Smear Laboratory test result [facility] ([facility]) Testing performed at reference lab . Rep ort copy to follow on a separate form. 01/07/21 REF LAB#:[id number] Due to limited sensitivity, smear results should be used as an adjunct in evaluating patient tuberculosis status. Cultural examination is highly recommended for clinical diagnosis. AFB sm REF LAB concentra NEGATIVE Afb Culture Laboratory test result [facility] ([facility]) Testing performed at reference lab . Rep ort copy to follow on a separate form. 01/07/21 REF LAB#:[id number] [facility] RE[facility] NOT[facility] No Acid-Fast Bacilli Isolated after 6 Weeks. ID Date Data Source [id number] 11/21/2020 04:46:00 PM EDT [facility]) Name Value Range Interpretation Code Description Data Yaritza rce(s) Supporting Document(s) Bacteria identified in Unspecified specimen by Anaerob e culture Laboratory test result Normal (applies to non-numeric results) [facility]) FULL REPORT IN LAB NOTES ([facility] and [facility] ). ORGANISM 1: STREPTOCOCCUS INTERMEDIUS ORGANISM 1: STREPTOCOCCUS INTERMEDIUS ID Date Data Source [id number] 11/21/2020 04:46:00 PM EDT [facility] ([facility]) Name Value Range Interpretation Code Description Data Yaritza rce(s) Supporting Document(s) Wound Culture Laboratory test result [facility] ([facility]) If aerobic or anaerobic growth is detected within the next 7-21 days, an addendum will follow. . . FULL REPORT IN LAB NOTES ([facility] and [facility]). NO GROWTH AEROBICALLY ID Date Data Source [id number] 11/21/2020 10:04:00 AM EDT [facility] Name Value Range Interpretation Code Description Data Yaritza rce(s) Supporting Document(s) SARS coronavirus 2 RNA [Presence] in Res piratory specimen by JENNIFER with probe detection NEGATIVE [facility] This lab was ordered by [facility] a nd reported by [facility]. ID Date Data Source [id number] 11/21/2020 08:40:00 AM EDT [facility] ) Name Value Range Interpretation Code Description Data Yaritza rce(s) Supporting Document(s) Blood Culture Laboratory test result [facility] ([facility], ) No growth after 72 hours . All specimens observed for 5 days. Results final at that time. No growth after 48 hours . All specimens observed for 5 days. Results final at that time. No growth after 24 hours . All specimens observed for 5 days. Results final at that time. NO GROWTH AFTER 5 DAYS ID Date Data Source [id number] 11/16/2020 03:13:00 PM EDT [facility] [address] [place] [address] PHONE: [phone] FAX: [phone] Name .................. : JACINTO BISHNU III Acct Number.................. : [id number] ROOM. ................. : TR-03 MR Number ................... : [id number] Stay type ............. : E/R Discharge Date......... ... : Admit Date ......... : 11/16/20 Admit Phys .................... : ARGELIA Jiang Date of ....... : 1995 Family Phys ................... : VANESSA Sheth Phone .................. : [phone] Age ................................ : 24 Film# .................. .:[id number] Sex ................................. : M Unsigned transcriptions are preliminary reports and do not represent a medical or legal document SOFT TISSUE HEAD/NECK [id number] COMPLETE:11/16/20 13:22 Reason(s): ABCESS ULTRASOUND OF SOFT TISSUES OF HEAD AND NECK: HISTORY: Abscess COMPARISON: CT 11/16/2020 FINDINGS: Complex fluid collection in the left sternocleidomastoid muscle in the mid neck. This measures 1.6 x 2.4 x 2.7 cm. Internal contents are heterogeneous with septations. Color flow imaging shows increased blood flow around the lesion and in one septation but not in the complex content. This indicates the complex content is fluid rather than solid material. Overlying the complex collection in the superficial tissues is a linear hyperechoic structure measuring 8 mm. This corresponds to the dense structure seen on CT. IMPRESSION: Complex fluid collection in the left neck as described above. This is likely an abscess. Overlying the abscess in the subcutaneous tissue is a hyperechoic 8 mm structure corresponding to the metallic foreign body seen on CT. This could be a broken needle. Electronically Reviewed and Signed By Niraj Lucas MD , 11/16/20 15:13, BERNARD Transcribe Initials: SKIP , Transcribe Date: 11/16/20 14:29, Dictation Date: Copy for: 010 EMERGENCY SRV Copy for: MARIBEL ARNOLD via fax Copy for: EMERGENCY DEPT via modem Copy for: 710 MED REC Page 1 of 1 Name Value Range Interpretation Code Description Data Yaritza rce(s) Supporting Document(s) ID Date Data Source [id number] 11/16/2020 03:12:00 PM EDT [facility] [address] [place] [address] PHONE: [phone] FAX: [phone] Name .................. : JACINTO GOETZ III Acct Number.................. : [id number] ROOM. ................. : TR-03 MR Number ................... : [id number] Stay type ............. : E/R Discharge Date......... ... : Admit Date ......... : 11/16/20 Admit Phys .................... : ARGELIA Jiang Date of ....... : 1995 Family Phys ................... : VANESSA Sheth Phone .................. : [phone] Age ................................ : 24 Film# .................. .:[id number] Sex ................................. : M Unsigned transcriptions are preliminary reports and do not represent a medical or legal document CT ST NECK W/CONTRAST [id number] COMPLETE:11/16/20 12:55 SRG [id number] Reason(s): Infection CT NECK WITH IV CONTRAST INDICATION: Infection, swelling, pain COMPARISON: None CONTRAST: 75 cc Isovue-370 FINDINGS: There is a linear hyperdense structure in the deep subcutaneous fat of the left anterior mid neck at the level of the laryngeal cartilage. This measures 7 mm in length. Deep to this there is moderate enlargement of the left sternocleidomastoid muscle. A complex fluid collection is seen in the anterior sternocleidomastoid muscle deep to the foreign body. This measures 1.8 x 2.2 x 2.5 cm. It has irregular ring enhancement. Moderate infiltration is seen in the surrounding fat and there is mild overlying skin thickening. BRAIN/POSTERIOR FOSSA: Posterior fossa structures are within normal limits. To the extent included orbits and supratentorial brain are within normal limits. SALIVARY/THYROID: Normal parotid and submandibular glands. Thyroid gland is within normal limits. PHARYNX/LARYNX: No pharyngeal or laryngeal masses. LYMPH NODES: Mildly prominent left jugulodigastric lymph node measuring up to 12 mm short axis. SPINE: No significant abnormalities. IMPRESSION: 7 mm linear hyperdense foreign body deep subcutaneous fat left anterior mid neck. Subjacent 25 mm complex fluid collection in the sternocleidomastoid muscle which is likely an abscess. Page 1 of 2 [facility] [address] [place] [address] PHONE: [phone] FAX: [phone] Name .................. : JACINTO GOETZ III Acct Number.................. : [id number] ROOM. ................. : TR-03 MR Number ................... : [id number] Stay type ............. : E/R Discharge Date......... ... : Admit Date ......... : 11/16/20 Admit Phys .................... : ARGELIA Jiang Date of ....... : 1995 Family Phys ................... : VANESSA Sheth Phone .................. : [phone] Age ................................ : 24 Film# .................. .:[id number] Sex ................................. : M Unsigned transcriptions are preliminary reports and do not represent a medical or legal document CT ST NECK W/CONTRAST [id number] COMPLETE:11/16/20 12:55 SRG [id number] Reason(s): Infection These findings were discussed with Martinez BERGMAN in the emergency department at 1:11 PM. Electronically Reviewed and Signed By Niraj Lucas MD , 11/16/20 15:12, JWS Transcribe Initials: SKIP , Transcribe Date: 11/16/20 14:22, Dictation Date: Copy for: 010 EMERGENCY SRV Copy for: MARIBEL ARNOLD via fax Copy for: EMERGENCY DEPT via modem Copy for: 710 MED REC Page 2 of 2 Name Value Range Interpretation Code Description Data Yaritza rce(s) Supporting Document(s) ID Date Data Source [id number] 11/22/2020 06:29:00 AM EDT [facility] Name Value Range Interpretation Code Description Data Yaritza rce(s) Supporting Document(s) CULTURE WOUND [facility] spital _CULTURE WOUND_$$[id number]$$[id number]$$[id number]$$[id number]$$[id number]$$[id number] DATE/TIME: 11/21/2020 15:06Culture: CULTURE WOUND Status: FinalIsolate 1 Enterobacter species Flag: A . . . . . . .5Moderate growth Previous result entered on 11/20/2020 14:06 ET Gram negative rodsAerobic Bacterial Culture: [id number] species Flag: AIsolate 2 Streptococcus intermedius Flag: A . . . . . . .6Moderate growthSusceptibility not normally performed on this organism. Previous result entered on 11/20/2020 14:06 ET Microbiological testing to rule out the presence of possible pathogensis in progress.Streptococcus intermedius Flag: APatient: JACINTO BISHNU III Order: [id number] Page 2Culture: CULTURE WOUND Status: Final ISOLATE 1 Enterobacter species Isolate 1Antibiotic NEGIN IntUnits ug/mL Amoxicillin/Clavulanic Acid R R . . . . . .20-8Cefazolin R R . . . . . .76-0Cefepime S S . . . . . .6644-9Cefuroxime R R . . . . . .145-3Ciprofloxacin S S . . . . . .185-9Ertapenem S S . . . . . .62120- 0Gentamicin S S . . . . . .267-5Imipenem S S . . . . . .279-0Levofloxacin S S . . . . . .51391-5Mmmadltvh S S . . . . . .6652-2Tetracycline S S . . . . . .496-0Tobramycin S S . . . . . .508-2Trimethoprim/Sulfa S S . . . . . .516- 5P1 Test performed by: [facility] #: [id number] [address] [id number] [facility] [id number] Director : Larry Foster MD NPI #:Emd Special Education Teacher : -- Continued on next page --Patient: JACINTO GOETZ III Order: [id number] Page 2Culture: CULTURE WOUND Status: Prelim 11/21/20.40.XMT.SENT REF 11/22/20.XMT.SENT REF ID Date Data Source [id number] 11/16/2020 11:31:00 AM EDT [facility] Name Value Range Interpretation Code Description Data Yaritza rce(s) Supporting Document(s) C reactive protein [Mass/volume] in Serum or Plasma by High sensitivity method 16.01 MG/L 1.00 - 3.00 H [facility] CDC/S HS-CRP CUT-OFF: RELATIVE RISK: <1.0 mg/L Low 1.0 - 3.0 mg/L Average >3.0 mg/L High Optimally, the average of HS-CRP results repeated two weeks apart should be used for risk assessment. ID Date Data Source [id number] 11/16/2020 11:30:00 AM EDT [facility] Name Value Range Interpretation Code Description Data Yaritza rce(s) Supporting Document(s) COMPREHENSIVE METABOLIC PANEL [facility] COMPREHENSIVE METABOLIC PANEL Sodium [Moles/volume] in Serum or Plasma 137 mEq/L 134 - 153 [facility] Potassium [Moles/volume] in Serum or Plasma 4.5 mEq/L 3.6 - 5.0 [facility] Chloride [Moles/volume] in Serum or Plasma 100 mEq/L 98 - 107 [facility] Carbon dioxide, total [Moles/volume] in Serum or Plasma 27 MEQ/L 22 - 30 [facility] Glucose [Mass/volume] in Serum or Plasma 91 MG/DL 70 - 99 [facility] BUN 8 MG/DL 7 - 21 [facility] al Creatinine [Mass/volume] in Serum or Plasma 0.8 MG/DL 0.7 - 1.5 [facility] BUN/CREAT 10 8 - 27 [facility] Protein [Mass/volume] in Serum or Plasma 7.8 G/DL 6.3 - 8.2 [facility] Albumin [Mass/volume] in Serum or Plasma 4.3 G/DL 3.9 - 5.0 [facility] Globulin [Mass/volume] in Serum by calculation 3.5 GM/DL 2.4 - 3.2 H [facility] A/G RATIO 1.2 0.8 - 2.0 [facility] Calcium [Mass/volume] in Serum or Plasma 10.0 MG/DL 8.4 - 10.2 [facility] Bilirubin.total [Mass/volume] in Serum or Plasma <0.7 MG/DL 0.2 - 1.3 [facility] Alkaline phosphatase [Enzymatic activity/volume] in Serum or Plasma 159 U/L 38 - 126 H [facility] Aspartate aminotransferase [Enzymatic activity/volume] in Serum or Plasma 28 U/L 5 - 40 [facility] Alanine aminotransferase [Enzymatic activity/volume] in Seru m or Plasma 18 U/L 7 - 56 [facility] Anion gap 3 in Serum or Plasma 10.0 mmol/L 8.0 - 16.0 [facility] AGE 24 yrs [facility] al NON-AA GFR >60 mL/min [facility] ital AFR AMER GFR >60 mL/min [facility] Ho spital Male GFR In terprentation 20-49 yrs >60 mL/min Normal 50-59 yrs >56 mL/min Normal 60-69 yrs >49 mL/min Normal 70-79yrs >42 mL/min Normal 80 and above >35 mL/min Normal Female GFR Interpretation 20-39 yrs >60 mL/min Normal 40-49 yrs >58 mL/min Normal 50-59 yrs >51 mL/min Normal 60-69 yrs >45 mL/min Normal 70-79 yrs >39 mL/min Normal 80 and above >32 mL/min Normal ID Date Data Source [id number] 11/16/2020 11:22:00 AM EDT [facility] Name Value Range Interpretation Code Description Data Yaritza rce(s) Supporting Document(s) Erythrocyte sedimentation rate by Westergren method 4 mm/hr 0 - 15 [facility] SED RATE REENTER 4 [facility] ID Date Data Source [id number] 11/16/2020 11:09:00 AM EDT [facility] Name Value Range Interpretation Code Description Data Yaritza rce(s) Supporting Document(s) Lactate [Moles/volume] in Serum or Plasma 1.5 MMOL/L 0.2 - 2.2 [facility] ID Date Data Source [id number] 11/16/2020 11:01:00 AM EDT [facility] Name Value Range Interpretation Code Description Data Yaritza rce(s) Supporting Document(s) CBC W/AUTOMATED DIFF [facility] COMPLETE BLOOD COUNT Leukocytes [#/volume] in Blood by Automated count 9.4 10^3/uL 4.2 - 1 1.0 [facility] Erythrocytes [#/volume] in Blood by Automated count 4.73 10^6/uL 4. 50 - 6.30 [facility] Hemoglobin [Mass/volume] in Blood 12.0 g/dL 14.0 - 16.0 L [facility] Hematocrit [Volume Fraction] of Blood by Automated count 37.6 % 4 1.0 - 51.0 L [facility] Erythrocyte mean corpuscular volume [Entitic volume] by Auto mated count 79.5 fL 80.0 - 94.0 L [facility] Erythrocyte mean corpuscular hemoglobin [Entitic mass] by Automated count 25.4 pg 27.0 - 34.0 L [facility] Erythrocyte mean corpuscular hemoglobin concentration [Mass/volume] by Automated count 31.9 g/dL 31.0 - 36.0 [facility] Erythrocyte distribution width [Ratio] by Automated count 15.4 % 11.5 - 14.8 H [facility] Platelets [#/volume] in Blood by Automated count 190 10^3/uL 150 - 45 0 [facility] Platelet mean volume [Entitic volume] in Blood by Automated count 10.9 fL 7.4 - 10.4 H [facility] Neutrophils/100 leukocytes in Blood by Automated count 83.9 % 37. 0 - 80.0 H [facility] Lymphocytes/100 leukocytes in Blood by Manual count 12.0 % 25.0 - 40.0 L [facility] Monocytes/100 leukocytes in Blood by Automated count 3.3 % 3.0 - 8.0 [facility] Eosinophils/100 leukocytes in Blood by Automated count 0.3 % 0.0 - 7.0 [facility] Basophils/100 leukocytes in Blood by Automated count 0.2 % 0.0 - 2.0 [facility] %IG 0.3 % 0.0 - 0.0 H [facility] al %NRBC 0.0 % 0.0 - 0.0 [facility] Neutrophils [#/volume] in Blood by Automated count 7.88 10^3/uL 2.00 - 6.90 H [facility] Lymphocytes [#/volume] in Blood by Automated count 1.13 10^3/uL 0.60 - 3.40 [facility] Monocytes [#/volume] in Blood by Automated count 0.31 10^3/uL 0.00 - 0.90 [facility] Eosinophils [#/volume] in Blood by Automated count 0.03 10^3/uL 0.00 - 0.70 [facility] Basophils [#/volume] in Blood by Automated count 0.02 10^3/uL 0.00 - 0.20 [facility] #IG 0.03 10^3/uL 0.00 - 0.10 [facility] ospital #NRBC 0.00 10^3/uL 0.00 - 0.00 [facility]ital MANUAL DIFF NOT INDICATED [facility] RBC MORPH NOT INDICATED [facility] Ho spital Procedure Social History Code Duration Value Status Description Data Source(s ) Smoking 11/16/2020 12:00:00 PM EDT Smokes tobacco daily (sinaTV Volume Wizard App) completed Current Every Day Smoker [facility] ([facility]) Vital Signs ID Date Data Source UNK Name Value Range Interpretation Code Description Data Source(s) Diastolic blood pressure 90 mm[Hg] 90 mm[Hg] [facility] ([facility]) Heart rate 107 /min 107 /min [facility] Respiratory rate 20 /min 20 /min [facility] ( [facility]) Systolic blood pressure 122 mm[Hg] 122 mm[Hg] [facility] Body temperature 98.4 [degF] 98.4 [degF] [facility] ([facility]) Body height 65.5 [in_i] 65.5 [in_i] [facility] ([facility]) 5'5.50" Diastolic blood pressure 80 mm[Hg] 80 mm[Hg] [facility] ([facility]) Heart rate 123 /min 123 /min [facility] ([facility]) Oxygen saturation in Arterial blood by Pulse oximetry 98 % 98 % [facility] ([facility]) Body weight 143.00 [lb_av] 143.00 [lb_av] [facility] ([facility]) Body mass index (BMI) [Ratio] 23.4 kg/m2 23.4 k g/m2 [facility] ([facility]) [place] body weight 136 [lb_av] 136 [lb_av] [facility] Body weight 64.865 kg 64.865 kg [facility] ([facility]) Body surface area Derived from formula 1.73 m2 1.73 m2 [facility] ([facility]) Systolic blood pressure 110 mm[Hg] 110 mm[Hg] [facility] ([facility]) Body weight 145.00 [lb_av] 145.00 [lb_av] [facility] Body weight 65.772 kg 65.772 kg [facility] ([facility]) [place] body weight 136 [lb_av] 136 [lb_av] [facility] ([facility]) Body mass index (BMI) [Ratio] 23.8 kg/m2 23.8 k g/m2 [facility] ([facility]) Body surface area Derived from formula 1.74 m2 1.74 m2 [facility] ([facility]) Systolic blood pressure 120 mm[Hg] 120 mm[Hg] [facility] ([facility], ) Diastolic blood pressure 980 mm[Hg] 980 mm[Hg] [facility] ([facility], ) Heart rate 98 /min 98 /min [facility] ([facility], ) Oxygen saturation in Arterial blood by Pulse oximetry 97 % 97 % [facility] ([facility], ) Body height 65.5 [in_i] 65.5 [in_i] [facility] ([facility] [place], ) 5'5.50" Heart rate 111.0 /MIN 111.0 /MIN [facility] ([facility]) Diastolic blood pressure 66.0 MM[HG] 66.0 MM[HG ] [facility] ([facility]) Systolic blood pressure 108.0 MM[HG] 108.0 MM[H G] [facility] ([facility]) Systolic blood pressure 116.0 MM[HG] 116.0 MM[H G] [facility] ([facility]) Body temperature 97.7 [DEGF] 97.7 [DEGF] [facility] ([facility]) Body temperature 36.5 VIN 36.5 VIN [facility] ([facility]) Heart rate 100.0 /MIN 100.0 /MIN [facility] ([facility]) Respiratory rate 16.0 /MIN 16.0 /MIN [facility] ([facility]) Diastolic blood pressure 75.0 MM[HG] 75.0 MM[HG ] [facility] ([facility]) Diastolic blood pressure 82.0 MM[HG] 82.0 MM[HG ] [facility] ([facility]) Body temperature 98.2 [DEGF] 98.2 [DEGF] [facility] ([facility]) Body temperature 36.8 VIN 36.8 VIN [facility] ([facility]) Heart rate 69.0 /MIN 69.0 /MIN [facility] ([facility]) Respiratory rate 18.0 /MIN 18.0 /MIN [facility] ([facility]) Systolic blood pressure 138.0 MM[HG] 138.0 MM[H G] [facility] ([facility]) Body temperature 98.2 [DEGF] 98.2 [DEGF] [facility] ([facility]) Body temperature 36.8 VIN 36.8 VIN [facility] ([facility]) Heart rate 81.0 /MIN 81.0 /MIN [facility] ([facility]) Respiratory rate 16.0 /MIN 16.0 /MIN [facility] ([facility]) Systolic blood pressure 134.0 MM[HG] 134.0 MM[H G] [facility] ([facility]) Diastolic blood pressure 88.0 MM[HG] 88.0 MM[HG ] [facility] ([facility]) Body temperature 36.8 VIN 36.8 VIN [facility] ([facility]) Body temperature 98.2 [DEGF] 98.2 [DEGF] [facility] ([facility]) Heart rate 69.0 /MIN 69.0 /MIN [facility] ([facility]) Respiratory rate 16.0 /MIN 16.0 /MIN [facility] ([facility]) Systolic blood pressure 131.0 MM[HG] 131.0 MM[H G] [facility] ([facility]) Diastolic blood pressure 85.0 MM[HG] 85.0 MM[HG ] [facility] ([facility]) Body temperature 36.9 VIN 36.9 VIN [facility] ([facility]) Heart rate 116.0 /MIN 116.0 /MIN [facility] ([facility]) Respiratory rate 16.0 /MIN 16.0 /MIN [facility] ([facility]) Systolic blood pressure 128.0 MM[HG] 128.0 MM[H G] [facility] ([facility]) Diastolic blood pressure 85.0 MM[HG] 85.0 MM[HG ] [facility] ([facility]) Body temperature 98.4 [DEGF] 98.4 [DEGF] [facility] ([facility]) Body temperature 36.5 VIN 36.5 VIN [facility] ([facility]) Heart rate 80.0 /MIN 80.0 /MIN [facility] ([facility]) Body temperature 97.7 [DEGF] 97.7 [DEGF] [facility] ([facility]) Respiratory rate 16.0 /MIN 16.0 /MIN [facility] ([facility]) Diastolic blood pressure 84.0 MM[HG] 84.0 MM[HG ] [facility] ([facility]) Systolic blood pressure 130.0 MM[HG] 130.0 MM[H G] [facility] ([facility]) Respiratory rate 18.0 /MIN 18.0 /MIN [facility] ([facility]) Oxygen saturation in Arterial blood by Pulse oximetry 96.0 % 96.0 % [facility] ([facility]) Body temperature 36.7 VIN 36.7 VIN [facility] ([facility]) Heart rate 82.0 /MIN 82.0 /MIN [facility] ([facility]) Body temperature 98.1 [DEGF] 98.1 [DEGF] [facility] ([facility]) Systolic blood pressure 132.0 MM[HG] 132.0 MM[H G] [facility] ([facility]) Diastolic blood pressure 97.0 MM[HG] 97.0 MM[HG ] [facility] ([facility])
--- OUTSIDE RECORDS SUMMARY | 2021-02-11 22:31 | CCD | Continuity of Care Document ---
Author Author Danny SAMANIEGO MD Organization Unknown Address [address], [address] [place] [address] Phone [phone] Care Team Providers Care Car Ferry Captain Name Role Phone Keith Jimenez M.D. AUTM Jimbo Whitaker M.D. AUTM [phone] Problems Active Problems Provider Date Removal of suture Fortino Samaniego MD Onset: 11/22/2020 Cellulitis and abscess of neck Fortino Samaniego MD Onset: Residual foreign body in soft tissue Fortino Samaniego MD Ons et: 11/21/2020 Allergic asthma without status asthmaticus Fortino Samaniego MD Onset: 11/22/2020 Social History Type Date Description Comments Sex Unknown ETOH Use Denies alcohol use Tobacco Use Start: Unknown Patient is a current smoker, smo kes every day Recreational Drug Use Current Drug User Allergies, Adverse Reactions, Alerts Description No Known Drug Allergies Medications Active Medications SIG Qnty Indications Ordering Provide r Date Amoxicillin 500mg Capsules 1 by mouth every day Unknown Immunizations Description No Information Available Vital Signs Date Vital Result Comment 11/22/2020 12:52pm BP Systolic 120 mmHg BP Diastolic 980 mmHg Heart Rate 98 /min O2 % BldC Oximetry 97 % Height 65.5 inches 5'5.50" Weight 145.00 lb BMI (Body Mass Index) 23.8 kg/m2 [place] Body Weight 136 lb Weight 65.772 kg BSA (Body Surface Area) 1.74 m2 Results Test Acquired Date Facility Test Result H/L Range Note Blood Culture 11/21/2020 [facility] nt Main Lab [address], [place] [id number] [phone] Blood Culture No growth after <SEE NOTE> 1 1 No growth after 24 hours . A ll specimens observed for 5 days. Results final at that time. Procedures Date Code Description Status 11/21/2020 46312 I & D Abscess/Hematoma Neck/Thor ax Soft Tissue Completed 11/21/2020 23432 Remove Foreign Body Subcutaneous Complicated Completed Medical [...] 11:15 am - Fortino Samaniego MD at [facility] 11/22/2020 - Fortino Samaniego MD* L02.11 Cutaneous abscess of neck* Comments:* Partial suture removal was performed in [...]
--- OUTSIDE RECORDS SUMMARY | 2021-02-11 22:31 | CCD ---
Author [facility] Address [address] [place] [address] Care Team Providers Care Production Inspector Name Role Phone Deandra Webster Admphys Fritz Medina Attphys Aristeo Kelly Practitioner Roberto Jasso Admphys Functional Status No Results Allergies Name Onset Date Reaction Severity NKDA - NO KNOWN DRUG ALLERGIES (Allergy) ThuSep 19 08:00:00 EDT 2015 Encounters Program Name Primary Diagnosis Admission Date/ Time Discharge Date/Time [facility] [place] ThuSep 19 13:15:00 EDT 2016 [facility] Heroin use disorder, severe ThuNov 16 18:32:00 EDT 2020 [place] [facility] ThuSep 09 13:00:00 EDT 2017 [place] [facility] Heroin use dis order, severe, dependence ThuNov 16 21:15:00 EDT 2020Nov 20 15:15:00 EDT 2020 [place] [facility] ThuSep 17 10:00:00 EDT [...] 23:43:00 EDT 2020Nov 18 23:42:00 EDT 2020 ACETAMINOPHEN 500 MG CAPSULE 2 caps ule Q4HPRN: Every 4 Hours As Needed ORAL (MDD 6 Tabs) ThuNov 16 23:43:00 EDT 2020Nov 20:17:00 EDT 2020 DIPHENHYDRAMINE HCL [...] 2020 FIBER-LAX 625 MG TABLET 2 tablet NM N: As Needed ORAL (MDD 4 Tabs) ThuNov 16 23:43:00 EDT 2020Nov 20:17 :00 EDT 2020 IBUPROFEN 200 MG TABLET 3 tablet TI DPRN: Three Times A Day As Needed ORAL ThuNov 16:43:00 EDT 2020Nov 20:17 :00 EDT 2020 MELATONIN 5 MG CAPSULE 1 capsule HS PRN: At Bedtime As Needed ORAL (MDD 5mg) ThuNov 16:43:00 EDT 2020Nov 20 15:17:00 EDT 2020 MULTIVITAMIN TABLET 1 tablet Daily [...] ThuNov 16:43:00 EDT 2020Nov 20:17:00 EDT 2020 Problems Active Concerns * Addiction/Abstinence/Withdrawal [...] 19 05:35:00 EDT 2020 Temperature 36.8 VIN Thu 3 0 05:35:00 EDT 2020 Heart Rate 81 [...] 1 1:58:00 EDT 2020 Diastolic 85 MM[HG] [facility] Oct 28 11:58:00 EDT 2020 Temperature 97.7 [DEGF] [facility] Oct 28 06:18:00 EDT 2020 Temperature 36.5 [...]
[2021-02-12 06:02] VITALS: BP 130/81
[2021-02-12] MEDS ORDERED: PERI0.126 PO (06:17)
[2021-02-12] MEDS ORDERED: AUGM875T28 PO (06:17)
[2021-02-12] MEDS ORDERED: ACETAMINOPHEN 500 MG TAB PO ONE (06:20)
== END 2021-02-12 06:29 | disposition home or self-care (01) ==
LOC: M ED 22:21
DX: K04.7 Periapical abscess without sinus (principal); F41.9 Anxiety disorder, unspecified; Z79.899 Other long term (current) drug therapy

== ENCOUNTER 2021-02-22 16:58 | Emergency (ER) | payer OTHER, MEDICAID ==
[~2021-02-22] VITALS: Ht 167.6 cm; Wt 68.2 kg
[2021-02-22 16:58] VITALS: BP 138/68
[~2021-02-22 16:58] MED LIST changes: +PERI0.126 PO
--- OUTSIDE RECORDS SUMMARY | 2021-02-22 17:08 | CCD | Continuity of Care Document ---
Author Author [facility] Organization [facility] Address [address] [place] [address] Phone Care Team Providers Care Barrel Lathe Operator Outside Name Role Phone Dwello Gisselle BERGMAN Unavailable Unavailable Allergies, Adverse Reactions, Alerts Substance Reaction Status Criticality No Known Allergies Active No Information Medications Medication Instructions Dosage Effective Dates (start - stop) Sta tus Comments Truvada 200 mg-300 mg tablet take 1 tablet by oral rou te at the same time every day - Active Isentress 400 mg tablet take 1 tablet by oral route twice da edna (every 12 hrs) - Active Problems Condition Effective Dates (start - stop) Clinical Status C omments Contact w and (suspected) exposure to human immunodef virus Other sex counseling Human immunodeficiency virus [HIV] counseling Encounter for screening for human immunodeficiency virus Encntr screen for infections w sexl mode of transmiss High risk heterosexual behavior Encounter for oth general cnsl and advice on contraception Unspecified viral hepatitis C without hepatic coma Encntr screen for infections w sexl mode of transmiss Encounter for screening for human immunodeficiency virus Human immunodeficiency virus [HIV] counseling High risk heterosexual behavior Encounter for oth general cnsl and advice on contraception Procedures Procedure Date No Information Results Test Name Date and Time Measure Units Reference Range Abnormal Flag St atus Comments No Information Advance Directives Directive Yes / No Effective Date File Name No Information Encounters Encounter Description Practice Location Reason(s) For Visit Diagnose s Date Provider Providers Copied on Encounter [facility], [address], [place], [id number], tel:[phone] [facility] No Information D peg Yost. [address] [place] [address], [address] [place] [address], . tel:[phone] [facility], [address] [place] [address], [address] [place] [address], tel:[phone] [facility] [place] Contact w and (susp ected) exposure to human immunodef virusOther sex counselingHuman immunodeficiency virus [HIV] counselingEncounter for screening for human immunodeficiency virusEncntr screen for infections w sexl mode of transmissHigh risk heterosexual behaviorEncounter for oth general cnsl and advice on contraception Dwell o Gisselle Yost. [address] [place] [address], [address] [place] [address], . tel:[phone] Referring Provider: Gisselle Helms, [address] [place] [address], [address] [place] [address]. tel:[phone] [facility], [address] [place] [address], [address] [place] [address], tel:[phone] [facility] [place] Unspecified viral h epatitis C without hepatic coma Shana Tejeda. [address] [place] [address], [address] [place] [address], . tel:[phone] [facility], [address] [place] [address], [address] [place] [address], tel:[phone] [facility] [place] Encntr screen for i nfections w sexl mode of transmissEncounter for screening for human immunodeficiency virusHuman immunodeficiency virus [HIV] counselingHigh risk heterosexual behaviorEncounter for oth general cnsl and advice on contraception Israel Aguilar. [address] [place] [address], [address] [place] [address], . tel:[phone] Referring Provider: Lauren Wood, [address] [place] [address], [address] [place] [address]. tel:[phone] Family History Family Member Diagnosis Age At Onset 1st degree relative No hx of osteoporosis 1st degree relative No hx of cancer of breast, colon, endome trium or ovary 1st degree relative No hx of venous thromboembolism 1st degree relative No hx of coronary heart disease (female <65, male <55) Immunizations Vaccine Date Status Comments No Information Payers Payer name Insurance type Covered constitution party ID Authorization(s ) Medicaid MC [id number] Social History Type Description Quantity Date Captured Comments Alcohol Use Details Unknown Caffeine Use Details Unknown Tobacco Use Status Smoking Status Light tobacco smoker Sex Male Vital Signs Date / Time: Height Weight BMI Pulse Rate Blood Pressure Temperatu re Respiratory Rate Body Surface Area Head Circumference BMI percentile Pulse Ox In haled Ox No Information Chief Complaint And Reason For Visit No Information Reason For Referral Reason For Referral No Information Plan Of Treatment Date Type Action Status Goal Tobacco cessation counseling com pleted Goal Tobacco cessation counseling com pleted Referral Ordered: Primary Care Provider (related to Unspecified viral hepatitis C without hepatic coma) ordered Referral Referred To: Dr. Zahra Wan [address], [place] [id number] Ordered: Referrals: Primary Care Provider. Dr. Zahra Wan. Location: [facility]. Evaluate and treat Appointment date/timeframe: 3 Months ordered Appointment Danny Rush BOOKED Appointment Danny Rush BOOKED History Of Present Illness Encounter Date Complaint History Of Present I llness No Information Functional Status Date Functional Assessment No Information Medications Administered Medication Instructions Dosage Effective Dates (start - stop) Sta tus Comments No Information Instructions Date Instruction Additional Informati on No Information Assessments Type Assessment Date No Information Goals Health Concern Goal Type Priority Status Date No Information Medical Equipment Description Device [place] Device Identifier Effective Alisatir es (start - stop) Status No Information Mental Status Date Cognitive Assessment No Information Health Concerns Observation Date No Information Concern Status Date No Information Physical Examination Exam Findings Details No Information
--- OUTSIDE RECORDS SUMMARY | 2021-02-22 17:09 | CCD ---
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 Name Role Phone Alcon Whitaker MD Unavailable [...] Unavailable Unavailable LyndaAlcon fine MD Unavailable Unavailable LyndakerAlcon MD Unavailable Unavailable LyndaAlcon fine MD Unavailable Unavailable LyndakerAlcon MD Unavailable Unavailable LyndakerlAcon MD Unavailable Unavailable LyndakerAlcon MD Unavailable Unavailable LyndaAlcon fine MD Unavailable Unavailable LyndaAlcon fine MD Unavailable Unavailable LyndaAlcon fine MD Unavailable Unavailable LyndaAlcon fine MD Unavailable Unavailable LyndakerAlcon MD Unavailable Unavailable LyndakerAlcon MD Unavailable Unavailable LyndaAlcon fine MD Unavailable [...] Unavailable Unavailable LyndaAlcon fine MD Unavailable Unavailable Lyndarody L Jimbo MD Unavailable Unavailable LynAlcon paez MD Unavailable Unavailable Alcon Whitaker MD Unavailable Unavailable Alcon Whitaker MD Unavailable Unavailable Alcon Whitaker MD Unavailable Unavailable LynAlcon paez MD Unavailable Unavailable Alcon Whitaker MD Unavailable Unavailable Alcon Whitaker MD Unavailable Unavailable LynAlcon paez MD Unavailable Unavailable LynAlcon paez MD Unavailable Unavailable Alcon Whitaker MD Unavailable Unavailable Alcon Whitaker MD Unavailable Unavailable LynAlcon paez MD Unavailable Unavailable Alcon Whitaker MD Unavailable [...] Unavailable Unavailable Vishal Barclay MD Unavailable Unavailable Daniele Cherry MD Unavailable [...] Unavailable Unavailable Daniele Cherry MD Unavailable Unavailable Daneile Cherry MD Unavailable Unavailable Daniele Cherry MD [...] Unavailable Unavailable Daniele Cherry MD Unavailable Unavailable Danieel Cherry MD Unavailable Unavailable Daniele Cherry MD [...] Unavailable Unavailable Daniele Cherry MD Unavailable Unavailable DEFAULT, PROVIDER Unavailable Unavailable Dwello PA PA, Gisselle Unavailable Unavailable Dwello PA PA, Gisselle Unavailable Unavailable Dwello PA PA, Gisselle Unavailable Unavailable Dwello PA PA, Gisselle Unavailable Unavailable Dwello PA PA, Gisselle Unavailable Unavailable Dwello PA PA, Gisselle Unavailable Unavailable Dwello PA PA, Gisselle Unavailable Unavailable Airoldi, Noa PA Unavailable Unavailable Airoldi, Noa PA Unavailable Unavailable Airoldi, Noa PA Unavailable Unavailable Airoldi, Noa PA Unavailable Unavailable Airoldi, Noa PA Unavailable Unavailable Airoldi, Noa PA Unavailable Unavailable Airoldi, Noa PA Unavailable Unavailable Airoldi, Noa PA Unavailable Unavailable Airoldi, Noa PA Unavailable Unavailable Airoldi, Noa PA Unavailable Unavailable Airoldi, Noa PA Unavailable Unavailable Airoldi, Noa PA Unavailable Unavailable Airoldi, Noa PA Unavailable Unavailable Luis Alfredo Hurst Unavailable Unavailable Aden, Deidre Freitas PH.D., M.D. [...] Deidre Freitas PH.D., M.D. Unavailable Unavailable Aden, C Fortino [...] Aden, C Fortino PH.D., M.D. Unavailable Unavailable Re-disclosure Warning The [...] is protected by Article 27-F of the [facility] Public Health law. If you continue you may have access to information: Regarding HIV / AIDS; Provided by facilities licensed or operated by the [facility] Office of Mental Health; or Provided by the [facility] Office for People With Developmental Disabilities. If such information is present, then the following [facility] mandated warning applies: This information has [...] law may result in a fine or chcf sentence or both. A general authorization for the release of medical or other information is NOT sufficient authorization for further disc losure. Allergies and Adverse Reactions Type Description Substance Reaction Status Data Source(s ) No Known Drug Allergies No Known Drug Allergies [facility] Encounters Encounter Providers Location Date Indications Data Source(s ) Attender: Gisselle Sorto 03/2020 07:16:00 AM EST - 02/20/2021 07:16:00 AM EST [facility] ([facility]) Attender: Gisselle Sorto 09:13:00 AM EST - 02/19/2021 09:13:00 AM EST [facility] ([facility]) Outpatient Attender: PROVIDER DEFAULT 02/18/2021 05:45:00 PM EST [facility] Attender: Noa Mendiola 01/22 09:28:00 AM EST - 02/15/2021 09:28:00 AM EST [facility] ([facility]) OutpatientOFFICE/OUTPATIENT VISIT, NEW Attender: Gisselle BERGMAN [place] 02/13/2021 03:45:00 PM EST - 02/13/2021 03:45:00 PM ES T Encounter for oth general cnsl and advice on contraceptionHigh risk heterosexual behaviorEncntr screen for infections w sexl mode of transmissEncounter for screening for human immunodeficiency virusHuman immunodeficiency virus [HIV] counselingOther sex counselingContact w and (suspected) exposure to human immunodef virus [facility] ([facility]) Encounter for oth general cnsl and advic e on contraception High risk heterosexual behavior Encntr screen for infections w sexl mode of transmiss Encounter for screening for human immuno deficiency virus Human immunodeficiency virus [HIV] couns eling Other sex counseling Contact w and (suspected) exposure to hu man immunodef virus Office Visit Attender: Fortino Samaniego PH.Oj, MShi Torres 11/29/2020 11:15:00 AM EDT [facility], ) Office Visit Attender: Fortino Samaniego PH.Oj, MShi Torres 11/22/2020 01:00:00 PM EDT [facility] ([facility] ) Unlisted evaluation and management service Performer: Dory ca 11/17/2020 01:15:00 AM EDT - 11/20/2020 07:15:00 PM EDT [facility] ([facility]) Unlisted evaluation and management service Performer: Dory ca 11/16/2020 10:32:00 PM EDT [facility] ([facility]) Emergency Attender: Vishal Barclay MDConsultant: Jimbo Whitaker MD 11/16/2020 09:54:00 AM EDT - 11/16/2020 03:32:00 PM EDT [facility] Patient discharged. Outpatient Attender: Gabriel MARIE 12/29/2019 11:37:02 AM EDT [facility] Medications Medication Brand Name Start Date Product Form Dose Route Admi nistrative Instructions Pharmacy Instructions Status Indications Reaction Description Data Source(s) raltegravir 400 MG Oral Tablet [ISENTRESS] Isentress 4 00 mg tablet Isentress 400 mg tablet 02/13/2021 12:00:00 AM EST active raltegravir 400 MG Oral Tablet [Isentress] [facility] ([facility]) emtricitabine 200 MG / Tenofovir disopro xil fumarate 300 MG Oral Tablet [Truvada] Truvada 200 mg-300 mg tablet Truvada 200 mg-300 mg tablet 02/13/2021 12:00:00 AM EST active emtricitabine 200 MG / tenofovir disoproxil fumarate 300 MG Oral Tablet [Truvada] [facility] ([facility]) Sulfamethoxazole 800 MG / Trimethoprim 160 MG Oral Tab let Sulfamethoxazole/Trimethoprim DS 11/22/2020 12:00:00 AM EDT ORAL active [facility] ([facility] ) Insurance Providers Payer name Policy type / Coverage type Policy ID Covered libertarian ID Covered libertarian's relationship to skinner Policy Skinner Plan Information [facility] [id number] SP [id number] [facility] [id number] SP [id number] MEDICAID M [id number] Self [id number] CORRE[place] B [id number] Self [id number] Medicaid P [id number] S [id number] MEDICAID [id number] S [id number] P [facility] [id number] SP [id number] ANSI-Medicaid [id number] ANSI-Medicaid [id number] MEDICAID [id number] S [id number] [facility] [address] [id number] S [id number] ANSI-Medicaid [id number] SELF PAY Unemployed MEDICAID [id number] S [id number] [facility] [address] [id number] S [id number] ANSI-Medicaid [id number] UN COMMUNITY PLAN [facility] [id number] SP [id number] MEDICAID [id number] S [id number] MEDICAID PROF FEES [id number] S [id number] MEDICAID UNAVAILABLE UNAVAILA BLE Medicaid P [id number] S [id number] ANSI-Medicaid [id number] Sliding Fee Scale P none S no ne Medicaid S UNAVAILABLE S UNAVAILA BLE [facility] O [id number] S [id number] UN COMMUNITY PLAN [facility] [id number] SP [id number] SELF PAY UNAVAILABLE SP UNAVAILA BLE MEDICAID - O/P EMERGENCY ROOM [id number] MEDICAID-O/P [id number] MEDICAID-O/P UNAVAILABLE UNAVA ILABLE [facility] MEDICAID [id number] SP [id number] T [facility] MEDICAID HMO -O/P [id number] 18 [id number] [facility] MEDICAID HMO -O/P [id number] [facility] [id number] 18 [id number] [place] [id number] SP [id number] MEDICAID [id number] SP [id number] Problems, Conditions, and Diagnoses Code Display Name Description Problem Type Effective Dates Data Source(s) Y9[address] or not applicable Unspecified place or not applicable Diagnosis 11/16/2020 09:54:00 AM EDT [facility] Q11BSNP Exposure to other specified factors, ini tial encounter Exposure to other specified factors, initial encounter Diagnosis 11/16/2020 09:54:00 AM EDT [facility] Z8614 Personal history of Methicillin resistan t Staphylococcus aureus infection Personal history of Methicillin resistant Staphylococcus aureus infection Diagnosis 11/16/2020 09:54:00 AM EDT [facility] T78880 Unspecified asthma, uncomplicated Unspecified as thma, uncomplicated Diagnosis 11/16/2020 09:54:00 AM EDT [facility] K00360 Nicotine dependence, cigarettes, uncompl icated Nicotine dependence, cigarettes, uncomplicated Diagnosis 11/16/2020 09:54:[address] [facility] F0129HG Superficial foreign body of unspecified part of neck, initial encounter Superficial foreign body of unspecified part of neck, initial encounter Diagnosis 11/16/2020 09:54:00 AM EDT [facility] L0211 Cutaneous abscess of neck Cutaneous abscess of neck Di agnosis 11/16/2020 09:54:00 AM EDT [facility] M542 Cervicalgia Cervicalgia Diagnosis 11/16/2020 09:54:00 AM EDT [facility] S10.95XD Superficial foreign body in neck Superficial for eign body in neck Problem 11/29/2020 12:00:00 AM EDT [facility] ([facility], ) [id number] Allergic asthma without status asthmatic us Allergic asthma without status asthmaticus Problem 11/22/2020 12:00:00 AM EDT [facility] ([facility], ) Z48.02 Removal of suture Removal of suture Problem 11/22/2020 12:00:00 AM EDT [facility] ([facility], ) L02.11 Cellulitis and abscess of neck Cellulitis and abscess of neck Problem 11/21/2020 12:00:00 AM EDT [facility] ([facility], ) M79.5 Residual foreign body in soft tissue Residual fo reign body in soft tissue Problem 11/21/2020 12:00:00 AM EDT [facility] ([facility], ) Surgeries/Procedures Procedure Description Date Indications Data Source(s) HCS Pre Test Counseling 02/13/2021 12:00 :00 AM EST - 02/13/2021 12:00:00 AM EST [facility] ([facility]) HIV-1/HIV-2, SINGLE ASSAY 02/13/2021 12: 00:00 AM EST - 02/13/2021 12:00:00 AM EST [facility] ([facility]) CVR Senior Architectural Designer.Svc. STI / H 02/13/2021 12:00:00 AM EST - 02/13/2021 12:00:00 AM EST [facility] ([facility]) CVR Senior Architectural Designer.Svc. Contraceptive 02/13/2021 12 :00:00 AM EST - 02/13/2021 12:00:00 AM EST [facility] ([facility]) CVR Med.Svc. Height/Weight 02/13/2021 12 :00:00 AM EST - 02/13/2021 12:00:00 AM EST [facility] ([facility]) CVR Blood Pressure 02/13/2021 12:00:00 AM EST - 2020 12:00:00 AM EST [facility] ([facility]) OFFICE/OUTPATIENT VISIT, NEW 02/13/2021 12:00:00 AM EST - 02/13/2021 12:00:00 AM EST [facility] ([facility]) ROUTINE VENIPUNCTURE 02/13/2021 12:00:00 AM EST - 02/13/2021 12:00:00 AM EST [facility] ([facility]) COMPLETE CBC W/AUTO DIFF WBC 02/13/2021 12:00:00 AM EST - 02/13/2021 12:00:00 AM EST [facility] ([facility]) TRICHOMONAS VAGIN, AMP PROBE 02/13/2021 12:00:00 AM EST - 02/13/2021 12:00:00 AM EST [facility] ([facility]) HEPATITIS C, RNA, AMP PROBE 02/13/2021 1 2:00:00 AM EST - 02/13/2021 12:00:00 AM EST [facility] ([facility]) METABOLIC PANEL TOTAL CA 02/13/2021 12:0 0:00 AM EST - 02/13/2021 12:00:00 AM EST [facility] ([facility]) HEP B CORE ANTIBODY, TOTAL 02/13/2021 12 :00:00 AM EST - 02/13/2021 12:00:00 AM EST [facility] ([facility]) HEPATIC FUNCTION PANEL 02/13/2021 12:00: 00 AM EST - 02/13/2021 12:00:00 AM EST [facility] ([facility]) HTLV/HIV SERUM TEST 02/13/2021 12:00:00 AM EST - 02/13 12:00:00 AM EST [facility] ([facility]) HEPATITIS B SURFACE AG, EIA 02/13/2021 1 2:00:00 AM EST - 02/13/2021 12:00:00 AM EST [facility] ([facility]) N.GONORRHOEAE, URINE 02/13/2021 12:00:00 AM EST - 02/13/2021 12:00:00 AM EST [facility] ([facility]) CHYLMD TRACH, URINE 02/13/2021 12:00:00 AM EST - 02/13 12:00:00 AM EST [facility] ([facility]) I & D Abscess Simple 11/21/2020 12:00:00 AM EDT [facility] ([facility], ) RMVL FOREIGN BODY MUSCLE/TENDON SHEATH DEEP/COMP 11/21 12:00:00 AM EDT [facility] ([facility], ) Remove Foreign Body Subcutaneous Complicated 12:00:00 AM EDT [facility] ([facility], ) I & D Abscess/Hematoma Neck/Thorax Soft Tissue 021 12:00:00 AM EDT [facility] ([facility], ) Results ID Date Data Source [id number] 02/13/2021 06:08:49 PM EST [facility] ([facility]) Name Value Range Interpretation Code Description Data Yaritza rce(s) Supporting Document(s) Non-Reactive (Negative); Lot : [id number]; Exp: 10/30/2021; Start time: 3:45 PM; Completed time: 3:46 PM Rapid HIV [facility] ([facility]) ID Date Data Source [id number] 11/16/2020 09:54:00 AM EDT [facility] 1 OrderSheet [facility] Emergency Department [address] [place] [address] Phone #: ext- [phone] 11/16/2020 09:54 Patient: [...] Rate STAT 10:15 11/16/2020 10:17 Martinez Chandler R.N. PA;CRP STAT 10:15 11/16/2020 10:17 Martinez Chandler R.N. PA;Culture, Wound STAT 14:37 11/16/2020 14:39 Geraldine,(Abscess) Martinez Zhang R.N. PA; NOTES: NeckDIAGNOSTIC STUDY ORDERSOrder Description Priority Entered Acknowledged InitialedCT Neck Soft STAT 10:11/16/2020 Ack'd: 10:17 12:32 Geraldine,Tissue W/ Cont Leatha Person R.NTrisha(Oxygen?(No)) PA; R.N.(IV?(Yes)) Reason for Study: Infection, Mass, Pain, SwellingUS Soft Tissue 13:22 11/16/2020 Ack'd: 13:25 13:59 Geraldine,Head/Neck Leatha PersonNTrisha PA; R.N. 2 OrderSheet [facility] Emergency Department [address] [place] [address] Phone #: ext- [phone] 11/16/2020 09:54 Patient: BISHNU CASEY III Sex: M : 1995 Age: 24y NOTES: anterior neck abscess with FB, localize and selena FBMEDICATION/IV/DRIP/FLUID ORDERSOrder Description Priority Entered Acknowledged InitialedToradol IVP 30 mg 10:15 11/16/2020 Ack'd: 10:17 12:59 Martinez Chandler Amber Amber R.N. PA; R.NTrishaZosyn- IVPB 3.375 12:32 11/16/2020 Ack'd: 12:43 13:16 Geraldinegm (in 50 mL D5W, Leatha PersonNTrishaX1) PA; R.NTrishaNS IV 1000 mL 12:37 11/16/2020 Ack'd: 12:43 12:59 GeraldineBolus: : Bolus 1000 Leatha Person R.N.mL (X1) PA; R.NTrishaGENERAL ORDERSOrder Description Priority Entered Acknowledged InitialedSaline Lock 10:15 11/16/2020 Ack'd: 10:17 12:32 Martinez Chandler Amber Amber R.N. PA; R.NTrishaDiet: (Regular Diet) 14:21 11/16/2020 14:31 Martinez Chandler R.N.;[Electronically signed by Leatha Chandler R.N. (16:31 11/16/2020)][Electronically signed by Martinez Rollins (19:42 11/17/2020)][Electronically locked by Leatha Chandler R.N. (16:31 11/16/2020)] Name Value Range Interpretation Code Description Data Yaritza rce(s) Supporting Document(s) ID Date Data Source [id number] 11/16/2020 09:54:00 AM EDT [facility] 1 Medication Reconciliation Report [facility] Emergency Department [address] [place] [address] Phone #: ext [phone] 11/16/2020 09:54 Patient: BISHNU CASEY III Sex: [...] Dispense 20tablet. Refills: 0. Substitution permitted.Pharmacy - [facility] - [address] [place] [phone]. . -- PACHECO Adams Name Value Range Interpretation Code Description Data Yaritza rce(s) Supporting Document(s) ID Date Data Source [id number] 11/16/2020 09:54:00 AM EDT [facility] 1 Medication Administration Record [facility] Emergency Department [address] [place] [address] Phone #: ext- [phone] 11/16/2020 09:54 Patient: BISHNU CASEY III Sex: [...] NS IV 1000 mL Bolus: : Bolus [id number] 11/16/2020 Dose: IV Fluids mL (X1)Leatha Chandler R.N. Bolus: 1000 mL wide open---- Dispensed: 1000 mL bagStop Site: #1 left upper arm14:34 11/16/2020Leatha Chandler R.N. Name Value Range Interpretation Code Description Data Yaritza rce(s) Supporting Document(s) ID Date Data Source [id number] 11/16/2020 09:54:00 AM EDT [facility] 1 General Instructions [facility] Emergency Department [address] [place] [address] Phone #: ext- [phone] 11/16/2020 09:54 Patient: [...] Dispense 20tablet. Refills: 0. Substitution permitted.[facility] - [facility] - [address] [place] [address] ; [place], [place] [phone]. FaxNumber: [phone].Understanding of the discharge instructions verbalized by patient.Follow-up with: [facility], , [phone], [address] [place] [address], [id number] Follow up Thursday. Call for the next [...] need to remove or 2 General Instructions [facility] Emergency Department [address] [place] [address] Phone #: ext- [phone] 11/16/2020 09:54 Patient: BISHNU CASEY III Sex: [...] returns when you are at home 3 [facility] Emergency Department [address] [place] [address] Phone #: ext- [phone] 11/16/2020 09:54 Patient: BISHNU CASEY III Sex: M : 1995 Age: 24y [id number] [employer] [place] [address]. All rights reserved. This information is not [...] dry with a towel.Medicine You can take [id number] medicine for pain, unless you were given a different pain medicine to use. Talk with your healthcare provider before using these medicines if you have chronic liver or kidney disease, ever had a stomach ulcer or digestive bleeding, or are taking blood-thinner medicines. If you were given antibiotics, take them until they are used up. It's important to finish the 4 General Instructions [facility] Emergency Department [address] [place] [address] Phone #: ext- [phone] 11/16/2020 09:54 Patient: [...] swelling or pus coming from the wound [phone] [employer]. [address] [place] [address], [place] [address]. All rights reserved. This information is not intended as asubstitute for professional medical care. Always follow your healthcare professional's instructions. You have been given the following additional information: Abscess, Incision And Drainage Foreign Body, Soft Tissue (Not Removed)(Electronically signed by PACHECO Adams 11/17/2020 19:42) Name Value Range Interpretation Code Description Data Yaritza rce(s) Supporting Document(s) ID Date Data Source [id number] 11/16/2020 09:54:00 AM EDT [facility] 1 Clinical Report - Nurses [facility] Emergency Department [address] [place] [address] Phone #: ext- [phone] 11/16/2020 09:54 Patient: BISHNU CASEY III Sex: M : 1995 Age: 24yTRIAGEArrived by private vehicle. Historian: patient. Accompanied by family. ( enlarged area on left side ofneck, has had abscess before on the other side of his neck).Acuity: LEVEL 3.Chief Complaint: NECK PAIN and (enlarged area on left bottom of neck).Alert.Onset. (3 days ago). ( hurts to swallow).Treatment SENIOR BUSINESS ANALYST:None.SEPSIS SCREEN: SIRS SCREEN NEGATIVE. SEPSIS SCREEN NEGATIVE. No suspected or confirmedsigns of infection present. --10:01 11/16/20 Clary Frey R.N.09:56 11/16/20. BP: 125/87. MAP: 99. HR: 81. RR: 16. O2 saturation: 100%. Temp: 97.8 F. Pain levelnow: 10/30. --10:01 11/16/20 Clary Frey R.N.Weight: 68 kg stated. Height/Length: 66 inches Per Patient. BMI: 24.2. --09:56 11/16/20 Clary Frey R.N.MedicationsNone. --09:58 11/16/20 Tk, Clary, R.N.AllergiesNone. --09:58 11/16/20 Clary Frey R.N.PROBLEMS:Asthma.Abscess. --11/16/20 Clary Frey R.N.ADDITIONAL QUEZADA RGERIES:Abscess drained. --:58 11/16/20 Clary Frey R.N.HistoryPAST MEDICAL HX: Immunizations: up-to-date and (no [...] hepatitis, HIV, 2 Clinical Report - Nurses [facility] Emergency Department [address] [place] [address] Phone #: ext- [phone] 11/16/2020 09:54 [id number] Sex: M : 1995 Age: 24y VRE [...] bed on. Patient ready for evaluation. --10: lCary Frey R.N. Patient gowned. Reassurance given. Rounding: Position: states comfortable. Proximity of possessions / care items: call light within easy reach. Set expectations: advised patient of rounding protocol timing and asked if they needed anything else at this time. The patient is calm and resting quietly. Patient waiting for lab results. --11:09 11/16/20 Leatha Cahndler R.N. Monitoring of patient in place. Patient gowned. Reassurance given. 3 Clinical Report - Nurses [facility] Emergency Department [address] [place] [address] Phone #: ext- [phone] 11/16/2020 09:54 Patient: BISHNU CASEY III Sex: [...] reaction and 4 Clinical Report - Nurses [facility] Emergency Department [address] [place] [address] Phone #: ext- [phone] 11/16/2020 09:54 Patient: [...] for ride). --16:25 11/16/20 Leatha Chandler R.N. 15:30 11/16/2020 Site #1 removed upon discharge. Catheter intact. Bandage applied. --16:30 11/16/20 Leatha Chandler R.N.DISPOSITION / DISCHARGE late entry - 15:32 11/16/20. Departure time: late entry - 15:32 11/16/2020. [place] Coma Scale: 15- eyes open- spontaneous (4); best verbal response- oriented (5); best motor response- obeys commands (6). Condition at departure: improved and stable. No learning barriers present. Discharge instructions provided and reviewed with the patient. Reviewed warnings (infection). Reviewed medication(s) side effects, precautions, dosing and course information. Prescription(s) sent electronically to pharmacy (Augmentin). Reviewed referral to an ear, nose, and throat specialist (theater manager) for followup. Patient verbalized un derstanding. Written instructions provided in Burkinan. The patient was discharged by the physician preschool teacher's assistant. He was discharged home and accompanied by parent. He left ambulatory and via private vehicle. Parent driving. --16:28 11/16/20 Leatha Chandler R.N. 15:30 11/16/20. BP: 130/84. MAP: 99. HR: 74. RR: 18. O2 saturation: 100% on room air. --16:28 11/16/20 Leatha Chandler R.N. 15:30 11/16/20. Temp: 98.9 F (temporal). Pain level now: 05/02. --16:28 11/16/20 Leatha Chandler R.N. 5 Clinical Report - Nurses [facility] Emergency Department [address] [place] [address] Phone #: ext- [phone] 11/16/2020 09:54 Patient: BISHNU CASEY III Sex: M : 1995 Age: 24yLocked/Released at 11/16/2020 16:31 by Leatha Chandler R.N. Name Value Range Interpretation Code Description Data Yaritza rce(s) Supporting Document(s) ID Date Data Source [id number] 11/16/2020 09:54:00 AM EDT [facility] 1 Clinical Report - Physicians/Mid Levels [facility] Emergency Department [address] [place] [address] Phone #: ext- [phone] 11/16/2020 09:54 Patient: BISHNU CASEY III Sex: [...] saturation: 100%. Temp: 97.8 F.Pain level now: 8/10. Have been reviewed as normal. Oxygen saturation normal.Appearance: Alert. Oriented X3. No acute distress.Eyes: Pupils equal, round and reactive to light. Conjunctivae and eyelids normal.ENT: Ears normal. Nose normal. Pharynx normal.Neck: Moderate left anterior neck lymphadenopathy present.CVS: Normal heart rate and rhythm. Heart sounds normal. 2 Clinical Report - Physicians/Mid Levels [facility] Emergency Department [address] [place] [address] Phone #: ext- [phone] 11/16/2020 09:54 Patient: BISHNU CASEY III Sex: [...] 5.0) 3 Clinical Report - Physicians/Mid Levels [facility] Emergency Department [address] [place] [address] Phone #: ext- [phone] 11/16/2020 09:54 Patient: [...] Normal Lactic Acid: (YAN: 11/16/2020 10:40) ( [facility] 11/16/2020 11:09) Final results Test Result Flag Units (Reference) LACTIC ACID 1.5 MMOL/L (0.2 - 2.2) Sed. Rate: (YAN: 11/16/2020 10:40) ( [facility] 11/16/2020 11:23) Final results Test Result Flag Units (Reference) SED RATE 4 mm/hr (0 - 15) SED RATE REENTER 4 CRP: (YAN: 11/16/2020 10:40) ( [facility] 11/16/2020 11:32) Final results Test Result Flag Units (Reference) CRP-HS 16.01 H MG/L (1.00 - 3.00) CDC/S HS-CRP CUT-OFF: RELATIVE RISK: <1.0 mg/L Low 1.0 - 3.0 mg/L Average >3.0 mg/L High Optimally, the average of HS-CRP results repeated two weeks apart should be used for risk assessment. CT Neck Soft Tissue W/ Cont: (YAN: 11/16/2020 10:15) ( MsgRcvd 11/16/2020 12:55) In Progress CT ST NECK W/CONTRAST Reason(s): Infection TRANSPORTATION: IV? IV?(Yes) O2? Oxygen?(No) Ro.PROGRESS AND PROCEDURESCourse of Care: 14:17 Nov 16 2020. Evaluation after observation. (Pt was evaluated by Dr Painter in theED and he performed a needle aspiration, pt refused to go to OR and have surgery. Pt does not want to 4 Clinical Report - Physicians/Mid Levels [facility] Emergency Department [address] [place] [address] Phone #: ext- [phone] 11/16/2020 09:54 Patient: [...] Discharged home in good and improved condition (14:20 Nov 16 2020).CLINICAL IMPRESSION Single superficial abscess to [...] tablet. Refills: 0. Substitution permitted. Pharmacy - [facility] - [address] [place] [address] [phone]. P christopher: . Understanding of the discharge instructions verbalized by patient. Follow-up with: [facility], , [id number], [address], , [place], [address] Follow up Thursday. Call for the next available appointment. Reason for referral: evaluation and treatment. Summary of care provided to patient.(Electronically signed by PACHECO Adams 11/17/2020 19:42) 5Clinical Report - Physicians/Mid Levels [facility] Emergency Department [address] [place] [address] Phone #: ext- [phone] 11/16/2020 09:54 Patient: BISHNU CASEY III Sex: M : 1995 Age: 24y Name Value Range Interpretation Code Description Data Yaritza rce(s) Supporting Document(s) ID Date Data Source [id number] 11/16/2020 09:54:00 AM EDT [facility] Addenda for BISHNU CASEY III VisitID: [id number] Date: 12:17Bactrim DS 800 mg-160 mg tablet Take 1 tablet twice a day as directed for 10 days -- Dispense 20tablet. Refills: 0. Substitution permitted.Pharmacy - [facility] - [address] [place] [address] [phone]. FaxNumber: [phone].(Electronically signed by Martinez BERGMAN - 11/24/2020 12:17) Name Value Range Interpretation Code Description Data Yaritza rce(s) Supporting Document(s) ID Date Data Source [id number] 11/21/2020 05:05:00 PM EDT [facility] ([facility]) Name Value Range Interpretation Code Description Data Yaritza rce(s) Supporting Document(s) Surgical pathology study Laboratory test result [facility] ([facility]) FINAL DIAGNOSIS Foreign body, left neck, removal: [...] - 1314 Signed GOVIND SCOTT MD 11/23/20201210 ID Date Data Source [id number] 11/21/2020 04:46:00 PM EDT [facility] ([facility]) Name Value Range Interpretation Code Description Data Yaritza e(s) Supporting Document(s) Afb Smear Laboratory test result [facility] ([facility]) Testing performed at reference lab . Rep ort copy to follow on a separate form. 01/07/21 REF LAB#:[id number] Due to limited sensitivity, smear results should be used as an adjunct in evaluating patient tuberculosis status. Cultural examination is highly recommended for clinical diagnosis. AFB sm REF LAB concentra NEGATIVE [employer] Culture Laboratory test result [facility] ([facility]) Testing performed at reference lab . Rep ort copy to follow on a separate form. 01/07/21 REF LAB#:[id number] FULL REPORT IN LAB NOTES ([facility] and [facility]). No Acid-Fast Bacilli Isolated after 6 Weeks. ID Date Data Source [id number] 11/21/2020 04:46:00 PM EDT [facility] ([facility]) Name Value Range Interpretation Code Description Data Yaritza rce(s) Supporting Document(s) Bacteria identified in Unspecified specimen by Anaerob e culture Laboratory test result Normal (applies to non-numeric results) [facility] FULL REPORT IN LAB NOTES ([facility] and [facility] ). ORGANISM 1: STREPTOCOCCUS INTERMEDIUS ORGANISM 1: STREPTOCOCCUS INTERMEDIUS ID Date Data Source [id number] 11/21/2020 04:46:00 PM EDT [facility] ([facility] ) Name Value Range Interpretation Code Description Data Yaritza rce(s) Supporting Document(s) Wound Culture Laboratory test result [facility] ([facility], ) If aerobic or anaerobic growth is detected within the next 7-21 days, an addendum will follow. . . FULL REPORT IN LAB NOTES ([facility]CW and [facility]). NO GROWTH AEROBICALLY ID Date Data Source [id number] 11/21/2020 10:04:00 AM EDT [facility] Name Value Range Interpretation Code Description Data Yaritza rce(s) Supporting Document(s) SARS coronavirus 2 RNA [Presence] in Res piratory specimen by JENNIFER with probe detection NEGATIVE [facility] This lab was ordered by [facility] a nd reported by [facility]. ID Date Data Source [id number] 11/21/2020 08:40:00 AM EDT [facility] ([facility] ) Name Value Range Interpretation Code Description Data Yaritza rce(s) Supporting Document(s) Blood Culture Laboratory test result [facility] ([facility], ) No growth after 72 hours . All specimens observed for 5 days. Results final at that time. No growth after 48 hours . All specimens observed for 5 days. Results final at that time. No growth after 24 hours . All specimens observed for 5 days. Results final at that time. NO GROWTH AFTER 5 DAYS ID Date Data Source [id number] 11/16/2020 03:13:00 PM EDT [facility] [address] [place] [address] PHONE: [phone] FAX: [phone] Name .................. : JACINTO GOETZ III Acct Number.................. : [id number] ROOM. ................. : TR-03 MR Number ................... : [id number] Stay type ............. : E/R Discharge Date......... ... : Admit Date ......... : 11/16/20 Admit Phys .................... : ARGELIA Jiang Date of ....... : 1995 Family Phys ................... : Humansized Phone .................. : [phone] Age ................................ : 24 Film# .................. .:[id number] Sex ................................. : M Unsigned transcriptions are preliminary reports and do not represent a medical or legal document SOFT TISSUE HEAD/NECK [id number] COMPLETE:11/16/20 13:22 Reason(s): ABCESS ULTRASOUND OF SOFT [...] rce(s) Supporting Document(s) ID Date Data Source [id number] 11/16/2020 03:12:00 [place] [address] PHONE: [phone] FAX: [phone] Name .................. : JACINTO BISHNU III Acct Number.................. : [id number] ROOM. ................. : TR-03 Number ................... : [id number] Stay type ............. : E/R Discharge Date......... ... : Admit Date ......... : 11/16/20 Admit Phys .................... : ARGELIA Jiang Date of ....... : 1995 Family Phys ................... : VANESSA Sheth Phone .................. : [phone] Age ................................ : 24 Film# .................. .:[id number] Sex ................................. : M Unsigned transcriptions are preliminary reports and do not represent a medical or legal document CT ST NECK W/CONTRAST [id number] COMPLETE:11/16/20 12:55 [facility] [id number] Reason(s): Infection CT NECK WITH IV CONTRAST [...] likely an abscess. Page 1 of 2 [facility] [address] [place] [address] PHONE: [phone] FAX: [phone] Name .................. : JACINTO GOETZ III Acct Number.................. : [id number] ROOM. ................. : TR-03 Number ................... : [id number] Stay type ............. : E/R Discharge Date......... ... : Admit Date ......... : 11/16/20 Admit Phys .................... : ARGELIA Jiang Date of ....... : 1995 Family Phys ................... : VANESSA S Phone .................. : [phone] Age ................................ : 24 Film# .................. .:[id number] Sex ................................. : M Unsigned transcriptions are preliminary reports and do not represent a medical or legal document CT ST NECK W/CONTRAST [id number] COMPLETE:11/16/20 12:55 SRG 81102 Reason(s): Infection These findings were discussed with Martinez BERGMAN in the emergency department at 1:11 PM. Electronically Reviewed and Signed By Niraj Lucas MD , 11/16/20 15:12, JWDomenic Transcribe Initials: SKIP , Transcribe Date: 11/16/20 14:22, Dictation Date: Copy for: 010 EMERGENCY SRV Copy for: MARIBEL ARNOLD via fax Copy for: EMERGENCY DEPT via modem Copy for: 710 MED REC Page 2 of 2 Name Value Range Interpretation Code Description Data Yaritza rce(s) Supporting Document(s) ID Date Data Source [id number] 11/22/2020 06:29:00 AM EDT [facility] Name Value Range Interpretation Code Description Data Yaritza rce(s) Supporting Document(s) CULTURE WOUND [facility] _CULTURE WOUND_$$[id number]$$[id number]$$[id number] [id number]$$[id number]$$[id number]$$[id number] DATE/TIME: 11/21/2020 15:06Culture: CULTURE WOUND Status: FinalIsolate 1 Enterobacter species Flag: A . . . . . . .5Moderate growth Previous result entered on 11/20/2020 14:06 ET Gram negative rodsAerobic Bacterial Culture: [id number] species Flag: AIsolate 2 Streptococcus intermedius Flag: A . . . . . . .6Moderate growthSusceptibility not normally performed on this organism. Previous result entered on 11/20/2020 14:06 ET Microbiological testing to rule out the presence of possible pathogensis in progress.Streptococcus intermedius Flag: APatient: JACINTO GOETZ III Order: [id number] Page 2Culture: CULTURE WOUND Status: Final ISOLATE [...] S S . . . . . .26495- 0Gentamicin S S . . . . . .267-5Imipenem S S . . . . . .279-0Levofloxacin S S . . . . . .69959-6Nsutqkfbi S S . . . . . .6652-2Tetracycline S S . . . . . .496-0Tobramycin S S . . . . . .508-2Trimethoprim/Sulfa S S . . . . . .516- 5P1 Test performed by: [facility] #: [id number] [address] [id number] [facility] [id number] Director : Larry Foster MD NPI #:Width Stripper : -- Continued on next page --Patient: JACINTO GOETZ III Order: [id number] Page 2Culture: CULTURE WOUND Status: Prelim 11/21/20.40.XMT.SENT REF 11/22/20.30.XMT.SENT REF ID Date Data Source [id number] 11/16[facility]2020 [facility]:31[facility] Interpretation Code Description Data Yaritza rce(s) Supporting Document(s) C reactive protein [Mass/volume] in Serum or Plasma by High sensitivity method 16.01 MG/L 1.00 - 3.00 H [facility] CDC/S HS-CRP CUT-OFF: RELATIVE RISK: <1.0 mg/L Low 1.0 - 3.0 mg/L Average >3.0 mg/L High Optimally, the average of HS-CRP results repeated two weeks apart should be used for risk assessment. ID Date Data Source [id number] 11/16/2020 11:30:00 AM EDT [facility] Name Value Range Interpretation Code Description Data Ayritza rce(s) Supporting Document(s) COMPREHENSIVE METABOLIC PANEL [facility] COMPREHENSIVE METABOLIC PANEL Sodium [Moles/volume] in Serum or Plasma 137 mEq/L 134 - 153 [facility] Potassium [Moles/volume] in Serum or Plasma 4.5 mEq/L 3.6 - 5.0 [facility] Chloride [Moles/volume] in Serum or Plasma 100 mEq/L 98 - 107 [facility] Carbon dioxide, total [Moles/volume] in Serum or Plasma 27 MEQ/L 22 - 30 [facility] Glucose [Mass/volume] in Serum or Plasma 91 MG/DL 70 - 99 [facility] BUN 8 MG/DL 7 - 21 [facility] al Creatinine [Mass/volume] in Serum or Plasma 0.8 MG/DL 0.7 - 1.5 [facility] BUN/CREAT 10 8 - 27 [facility] al Protein [Mass/volume] in Serum or Plasma 7.8 G/DL 6.3 - 8.2 [facility] Albumin [Mass/volume] in Serum or Plasma 4.3 G/DL 3.9 - 5.0 [facility] Globulin [Mass/volume] in Serum by calculation 3.5 GM/DL 2.4 - 3.2 H [facility] A/G RATIO 1.2 0.8 - 2.0 [facility] Calcium [Mass/volume] in Serum or Plasma 10.0 MG/DL 8.4 - 10.2 [facility] Bilirubin.total [Mass/volume] in Serum or Plasma <0.7 MG/DL 0.2 - 1.3 [facility] Alkaline phosphatase [Enzymatic activity/volume] in Serum or Plasma 159 U/L 38 - 126 H [facility] Aspartate aminotransferase [Enzymatic activity/volume] in Serum or Plasma 28 U/L 5 - 40 [facility] Alanine aminotransferase [Enzymatic activity/volume] in Seru m or Plasma 18 U/L 7 - 56 [facility] Anion gap 3 in Serum or Plasma 10.0 mmol/L 8.0 - 16.0 [facility] 24 [facility] >60 mL/min [facility] ital AFR AMER GFR >60 mL/min [facility] Male GFR In terprentation 20-49 [...] >32 mL/min Normal ID Date Data Source [id number] 11/16/2020 11:22:00 AM EDT [facility] Name Value Range Interpretation Code Description Data Yaritza rce(s) Supporting Document(s) Erythrocyte sedimentation rate by Westergren method 4 mm/hr 0 - 15 [facility] SED RATE REENTER 4 [facility] ID Date Data Source [id number] 11/16/2020 11:09:00 AM EDT [facility] Name Value Range Interpretation Code Description Data Yaritza rce(s) Supporting Document(s) Lactate [Moles/volume] in Serum or Plasma 1.5 MMOL/L 0.2 - 2.2 [facility] ID Date Data Source [id number] 11/16/2020 11:01:00 AM [facility] Name Value Range Interpretation Code Description Data Yaritza rce(s) Supporting Document(s) CBC W/AUTOMATED DIFF [facility] COMPLETE BLOOD COUNT Leukocytes [#/volume] in Blood by Automated count 9.4 10^3/uL 4.2 - 1 1.0 [facility] Erythrocytes [#/volume] in Blood by Automated count 4.73 10^6/uL 4. 50 - 6.30 [facility] Hemoglobin [Mass/volume] in Blood 12.0 g/dL 14.0 - 16.0 L [facility] Hematocrit [Volume Fraction] of Blood by Automated count 37.6 % 4 1.0 - 51.0 L [facility] Erythrocyte mean corpuscular volume [Entitic volume] by Auto mated count 79.5 fL 80.0 - 94.0 L [facility] Erythrocyte mean corpuscular hemoglobin [Entitic mass] by Automated count 25.4 pg 27.0 - 34.0 L [facility] Erythrocyte mean corpuscular hemoglobin concentration [Mass/volume] by Automated count 31.9 g/dL 31.0 - 36.0 [facility] Erythrocyte distribution width [Ratio] by Automated count 15.4 % 11.5 - 14.8 H [facility] Platelets [#/volume] in Blood by Automated count 190 10^3/uL 150 - 45 0 [facility] Platelet mean volume [Entitic volume] in Blood by Automated count 10.9 fL 7.4 - 10.4 H [facility] Neutrophils/100 leukocytes in Blood by Automated count 83.9 % 37. 0 - 80.0 H [facility] Lymphocytes/100 leukocytes in Blood by Manual count 12.0 % 25.0 - 40.0 L [facility] Monocytes/100 leukocytes in Blood by Automated count 3.3 % 3.0 - 8.0 [facility] Eosinophils/100 leukocytes in Blood by Automated count 0.3 % 0.0 - 7.0 [facility] Basophils/100 leukocytes in Blood by Automated count 0.2 % 0.0 - 2.0 [facility] %IG 0.3 % 0.0 - 0.0 [facility] %NRBC 0.0 % 0.0 - 0.0 [facility] al Neutrophils [#/volume] in Blood by Automated count 7.88 10^3/uL 2.00 - 6.90 H [facility] Lymphocytes [#/volume] in Blood by Automated count 1.13 10^3/uL 0.60 - 3.40 [facility] Monocytes [#/volume] in Blood by Automated count 0.31 10^3/uL 0.00 - 0.90 [facility] Eosinophils [#/volume] in Blood by Automated count 0.03 10^3/uL 0.00 - 0.70 [facility] Basophils [#/volume] in Blood by Automated count 0.02 10^3/uL 0.00 - 0.20 [facility] #IG 0.03 10^3/uL 0.00 - 0.10 [facility] ospital #NRBC 0.00 10^3/uL 0.00 - 0.00 [facility] MANUAL DIFF NOT INDICATED [facility] RBC MORPH NOT INDICATED [facility] Procedure Social History Code Duration Value Status Description Data Source(s ) Smoking 02/20/2021 12:00:00 AM EST Light tobacco smoker comple nicolas Light tobacco smoker [facility] ([facility]) 02/13/2021 12:00:00 AM EST Light cigarette smoker (1-9 cigs/day) completed Light cigarette smoker (1-9 cigs/day) [facility] ([facility]) Smoking 11/16/2020 12:00:00 PM EDT Smokes tobacco daily ([employer]) completed Current Every Day Smoker [facility] ([facility]) Vital Signs ID Date Data Source UNK Name Value Range Interpretation Code Description Data Source(s) Body height 165.10 cm 165.10 cm [facility] ([facility]) Body weight 72.575 kg 72.575 kg [facility] ([facility]) Systolic blood pressure 118 mm[Hg] 118 mm[Hg] N [facility] ([facility]) Diastolic blood pressure 74 mm[Hg] 74 mm[Hg] [facility] ([facility]) Body mass index (BMI) [Ratio] 26.63 kg/m2 Overweight 26.63 kg/m2 [facility] By [facility] ([facility]) Diastolic blood pressure 90 mm[Hg] 90 mm[Hg] [facility] Heart rate 107 /min 107 /min [facility] ([facility]) Respiratory rate 20 /min 20 /min [facility] ( [facility]) Systolic blood pressure 122 mm[Hg] 122 mm[Hg] [facility] Body temperature 98.4 [degF] 98.4 [degF] [facility] ([facility]) Heart rate 123 /min 123 /min [facility] ([facility] ) Diastolic blood pressure 80 mm[Hg] 80 mm[Hg] [facility] ([facility] ) Oxygen saturation in Arterial blood by Pulse oximetry 98 % 98 % [facility] ([facility], ) Body weight 143.00 [lb_av] 143.00 [lb_av] [facility] ([facility]) Body mass index (BMI) [Ratio] 23.4 kg/m2 23.4 k g/m2 [facility] ([facility]) [place] body weight 136 [lb_av] 136 [lb_av] [facility] ([facility]) Body weight 64.865 kg 64.865 kg [facility] ([facility]) Body surface area Derived from formula 1.73 m2 1.73 m2 [facility] ([facility]) Body height 65.5 [in_i] 65.5 [in_i] [facility] ([facility]) 5'5.50" Systolic blood pressure 110 mm[Hg] 110 mm[Hg] [facility] ([facility]) Body weight 145.00 [lb_av] 145.00 [lb_av] [facility] ([facility]) Body weight 65.772 kg 65.772 kg [facility] ([facility]) [place] body weight 136 [lb_av] 136 [lb_av] [facility] ([facility]) Body mass index (BMI) [Ratio] 23.8 kg/m2 23.8 k g/m2 [facility] ([facility]) Body surface area Derived from formula 1.74 m2 1.74 m2 [facility] ([facility]) Systolic blood pressure 120 mm[Hg] 120 mm[Hg] [facility] ([facility]) Diastolic blood pressure 980 mm[Hg] 980 mm[Hg] [facility] ([facility]) Heart rate 98 /min 98 /min [facility] ([facility]) Oxygen saturation in Arterial blood by Pulse oximetry 97 % 97 % [facility] ([facility]) Body height 65.5 [in_i] 65.5 [in_i] [facility] ([facility]) 5'5.50" Heart rate 111.0 /MIN 111.0 /MIN [...] 36.8 VIN 36.8 VIN [facility] ([facility]) Respiratory rate 16.0 /MIN 16.0 /MIN [facility] ([facility]) Heart rate 69.0 /MIN 69.0 /MIN [facility] ([facility]) Systolic blood pressure 131.0 MM[HG] 131.0 MM[H G] [facility] ([facility]) Diastolic blood pressure 85.0 MM[HG] 85.0 MM[HG ] [facility] ([facility]) Body temperature 98.2 [DEGF] 98.2 [DEGF] [facility] ([facility]) Body temperature 98.4 [DEGF] 98.4 [DEGF] [facility] ([facility]) Body temperature 36.9 VIN 36.9 VIN [facility] ([facility]) Heart rate 116.0 /MIN 116.0 /MIN [facility] ([facility]) Respiratory rate 16.0 /MIN 16.0 /MIN [facility] ([facility]) Systolic blood pressure 128.0 MM[HG] 128.0 MM[H G] [facility] ([facility]) Diastolic blood pressure 85.0 MM[HG] 85.0 MM[HG ] [facility] ([facility]) Body temperature 36.5 VIN 36.5 VIN [facility] ([facility]) Heart rate 80.0 /MIN 80.0 /MIN [facility] ([facility]) Respiratory rate 16.0 /MIN 16.0 /MIN [facility] ([facility]) Systolic blood pressure 130.0 MM[HG] 130.0 MM[H G] [facility] ([facility]) Body temperature 97.7 [DEGF] 97.7 [DEGF] [facility] ([facility]) Diastolic blood pressure 84.0 MM[HG] 84.0 MM[HG ] [facility] ([facility]) Body temperature 36.7 VIN 36.7 VIN [facility] ([facility]) Respiratory rate 18.0 /MIN 18.0 /MIN [facility] ([facility]) Oxygen saturation in Arterial blood by Pulse oximetry 96.0 % 96.0 % [facility] ([facility]) Heart rate 82.0 /MIN 82.0 /MIN [facility] ([facility]) Body temperature 98.1 [DEGF] 98.1 [DEGF] [facility] ([facility]) Systolic blood pressure 132.0 MM[HG] 132.0 MM[H G] [facility] ([facility]) Diastolic blood pressure 97.0 MM[HG] 97.0 MM[HG ] [facility] ([facility]) Patient Treatment Plan of Care Planned Activity Planned Date Details Description Data Source (s) raltegravir 400 MG Oral Tablet [ISENTRESS] 02/13/2021 12:00:[address] [place] ([facility]) emtricitabine 200 MG / Tenofovir disopro xil fumarate 300 MG Oral Tablet [Truvada] 02/13/2021 12:00:00 AM N[facility] ([facility])
--- OUTSIDE RECORDS SUMMARY | 2021-02-22 17:09 | CCD | Continuity of Care Document ---
Author Author [facility] Organization [facility] Address [address] [place] [address] Phone Care Team Providers Care De Ionizer Operator Name Role Phone Noa Saldaña Unavailable Unavailable Allergies, Adverse Reactions, Alerts Substance [...] Provider Providers Copied on Encounter [facility] [place] [facility], [address] [place], [place], [id number], tel:[phone] [facility] [place] No Information Tobias Latham. [address] [place] [address], [id number], . tel:[phone] [facility] [place] [facility], [address] [place] [address], [id number], tel:[phone] [facility] [place] Contact w and (susp ected) exposure to human immunodef virusOther sex counselingHuman immunodeficiency virus [HIV] counselingEncounter for screening for human immunodeficiency virusEncntr screen for infections w sexl mode of transmissHigh risk heterosexual behaviorEncounter for oth general cnsl and advice on contraception Dwell o Gisselle Yost. [address] [place] [address], [address] [place] [address], . tel:[phone] Referring Provider: Gisselle Helms, [address] [place] [address], [address] [place] [address]. tel:[phone] [facility] [place] [facility], [address] [place] [address], [address] [place] [address], tel:[phone] [facility] [place] Unspecified viral h epatitis C without hepatic coma Shana Tejeda. [address] [place] [address], [id number], . tel:[phone] [facility] [place] [facility], [address] [place] [address], [address] [place] [address], tel:[phone] [facility] [place] Encntr screen for i nfections w sexl mode of transmissEncounter for screening for human immunodeficiency virusHuman immunodeficiency virus [HIV] counselingHigh risk heterosexual behaviorEncounter for oth general cnsl and advice on contraception Israel Aguilar. [address] [place] [address], [id number], [place]. tel:[phone] Referring Provider: Lauren Wood, [address] [place] [address], [address] [place] [address]. tel:[phone] Family History Family Member Diagnosis Age At Onset 1st degree relative No hx of osteoporosis 1st degree relative No hx of cancer of breast, colon, endome trium or ovary 1st degree relative No hx of venous thromboembolism 1st degree relative No hx of coronary heart disease (female <65, male <55) Immunizations Vaccine Date Status Comments No Information Payers Payer name Insurance type Covered alliance party ID Authorization(s ) Medicaid MC [id number] Social History Type Description Quantity Date Captured [...] Referral Referred To: Dr. Zahra Wan [address] [place], [place] [phone] Ordered: Referrals: Primary Care Provider. Dr. Zahra Wan. Location: [facility]. Evaluate and treat Appointment date/timeframe: 3 Months [...] Date No Information Medical Equipment Description Device [place] Device Identifier Effective Alistair es (start - stop) Status No Information Mental Status Date Cognitive Assessment No Information Health Concerns Observation Date No Information Concern Status Date No Information Physical Examination Exam Findings Details No Information
--- OUTSIDE RECORDS SUMMARY | 2021-02-22 17:09 | CCD | Continuity of Care Document ---
Author Author [facility] Organization [facility] Address Unknown Phone Unavailable Care Team Providers Care Pile Operator Name Role Phone Dwello Gisselle BERGMAN Unavailable [...] and advice on contraception Procedures Procedure Date CHYLMD TRACH, URINE N.GONORRHOEAE, URINE HEPATITIS B SURFACE AG, EIA HTLV/HIV SERUM TEST HEPATIC FUNCTION PANEL HEP B CORE ANTIBODY, TOTAL METABOLIC PANEL TOTAL CA HEPATITIS C, RNA, AMP PROBE TRICHOMONAS VAGIN, AMP PROBE COMPLETE CBC W/AUTO DIFF WBC ROUTINE VENIPUNCTURE OFFICE/OUTPATIENT VISIT, NEW CVR Blood Pressure CVR Med.Svc. Height/Weight CVR Airline Reservationist.Svc. Contraceptive CVR Airline Reservationist.Svc. STI / H HIV-1/HIV-2, SINGLE ASSAY HCS Pre Test Counseling Results Test Name Date and Time Measure Units Reference Range Abnormal Flag St atus Comments Panel Description: Rapid HIV Final Rapid HIV 18:08:49 Non-Reactive (Negat rahel); Lot: [id number]; Exp: 10/30/2021; Start time: 3:45 PM; Completed time: 3:46 PM Final Advance Directives Directive Yes / No Effective Date File Name No Information Encounters Encounter Description Practice Location Reason(s) For Visit Diagnose s Date Provider Providers Copied on Encounter OFFICE/OUTPATIENT VISIT, [facility], [address] [place] [address], [id number], tel:[phone] [facility] [place] PEP (ch ief complaint) Contact w and (suspected) exposure to hu man immunodef virusOther sex counselingHuman immunodeficiency virus [HIV] counselingEncounter for screening for human immunodeficiency virusEncntr screen for infections w sexl mode of transmissHigh risk heterosexual behaviorEncounter for oth general cnsl and advice on contraception Scooter Ysot. [address] [place] [address], [id number], . tel:[phone] Referring Provider: Gisselle Helms, [address] [place] [address], [id number]. 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 [address] [place] [address], [id number], . tel:[phone] [facility] [place], [address] [place], [place], [id number], tel:[phone] [facility] [place] Encntr screen for i nfections w sexl mode of transmissEncounter for screening for human immunodeficiency virusHuman immunodeficiency virus [HIV] counselingHigh risk heterosexual behaviorEncounter for oth general cnsl and advice on contraception Israel Aguilar. [address] [place], [place], [id number], [place]. tel:[phone] Referring Provider: Lauren Wood, [address] [place] [address], [id number]. tel:[phone] Family History Family Member Diagnosis Age At [...] constitution party ID Authorization(s ) Medicaid MC [id number] Social History Type Description Quantity Date Captured Comments Alcohol Use Details Unknown Caffeine Use Details Unknown Tobacco Use Status Light cigarette smoker (1-9 cigs/day) Smoking Status Light tobacco smoker Smoking Tobacco Use Details Cigarette: Years Used 10 Cigarette: 3 Cigarettes per day, Pack Year: 1.5 Sex Male Vital Signs Date / Time: Height Weight BMI Pulse Rate Blood Pressure Temperatu re Respiratory Rate Body Surface Area Head Circumference BMI percentile Pulse Ox In haled Ox 6:05 PM 65.00 in 160.00 lbs 26.63 kg/meter(2) 118/74 m m[Hg] Chief Complaint And Reason For Visit Most recent encounter only, dated 02/13/2021 15:45'. PEP (chief complaint) Reason For Referral Reason For Referral No Information Plan Of Treatment Date Type Action Status Goal Tobacco cessation counseling com pleted Goal Tobacco cessation counseling com pleted Referral Ordered: Primary Care Provider (related to Unspecified viral hepatitis C without hepatic coma) ordered Referral Referred To: Dr. Zahra Wan [address] [place], [place] [id number] Ordered: Referrals: Primary Care Provider. Dr. Zahra Wan. Location: [facility]. Evaluate and treat Appointment date/timeframe: 3 Months [...] on No Information Assessments Type Assessment Date assessment Contact w and (suspected) exposure to hu man immunodef virus assessment Other sex counseling assessment Human immunodeficiency virus [HIV] couns eling assessment Encounter for screening for human immuno deficiency virus assessment Encntr screen for infections w sexl mode of transmiss assessment High risk heterosexual behavior 021 assessment Encounter for oth general cnsl and advic e on contraception Goals Health Concern Goal Type Priority Status Date No Information Medical Equipment Description Device [place] Device Identifier Effective Alistair es (start - stop) Status No Information Mental Status Date Cognitive Assessment Orientation - Oriented to ti me, place, person, situation.Normal Orientation Health Concerns Observation Date No Information Concern Status Date No Information Physical Examination Exam Findings Details Neurological Normal Level of consciousne ss - Normal. Orientation - Normal. Psychiatric Normal Orientation - Tyler ed to time, place, person & situation.
--- OUTSIDE RECORDS SUMMARY | 2021-02-22 18:25 | CCD ---
Author Author [facility] Organization [facility] Address Unknown Phone Unavailable Care Team Providers Care Application Integration Specialist Name Role Phone Alcon Whitaker MD Unavailable Unavailable Alcon Whitaker MD Unavailable Unavailable Alcon Whitaker MD Unavailable Unavailable Alcon Whitaker MD Unavailable Unavailable Alcon Whitaker MD Unavailable Unavailable Alocn Whitaker MD Unavailable Unavailable Alcon Whitaker MD [...] Unavailable Daniele Cherry MD Unavailable Unavailable Daniele Chrery MD Unavailable Unavailable Daniele Cherry MD Unavailable [...] Airoldi, Noa PA Unavailable Unavailable Luis Alfredo Jasso Unavailable Unavailable Aden, Deidre Freitas PH.D., M.D. [...] Aden, Deidre Freitas PH.D., M.D. Unavailable Unavailable Adne, Deidre Freitas PH.D., M.D. Unavailable Unavailable Aden, [...] is protected by Article 27-F of the [facility] Public Health law. If you continue you may have access to information: Regarding HIV / AIDS; Provided by facilities licensed or operated by the [facility] Office of Mental Health; or Provided by the [facility] Office for People With Developmental Disabilities. If such information is present, then the following [facility] mandated warning applies: This information has [...] law may result in a fine or long term sentence or both. A general authorization for the release of medical or other information is NOT sufficient authorization for further disc losure. Allergies and Adverse Reactions Type Description Substance Reaction Status Data Source(s ) No Known Drug Allergies No Known Drug Allergies [facility] Encounters Encounter Providers Location Date Indications Data Source(s ) Attender: Gisselle Sorto 03/2020 07:16:00 AM EST - 02/20/2021 07:16:00 AM EST [facility] ([facility]) Attender: Gisselle Sorto 09:13:00 AM EST - 02/19/2021 09:13:00 AM EST [facility] ([facility]) Outpatient Attender: PROVIDER DEFAULT 02/18/2021 05:45:00 PM EST [facility] Attender: Noa Mendiola 01/22 09:28:00 AM EST - 02/15/2021 09:28:00 AM EST [facility] ([facility]) [facility] Gisselle BERGMAN PPNCNY [place] 02/13/2021 03:45:00 PM EST - 02/13/2021 03:45:00 PM ES T Encounter for oth general cnsl and advice on contraceptionHigh risk heterosexual behaviorEncntr screen for infections w sexl mode of transmissEncounter for screening for human immunodeficiency virusHuman immunodeficiency virus [HIV] counselingOther sex counselingContact w and (suspected) exposure to human immunodef virus [facility] ([facility]) Encounter for oth general cnsl and [...] MShi Torres 11/29/2020 11:15:00 AM EDT [facility] ([facility] Adithya novoa ) Office Visit Attender: Fortino Samaniego PH.Daniele., MShi Torres 11/22/2020 01:00:00 PM EDT [facility] ([facility] Adithya novoa ) Unlisted evaluation and management service Performer: Roberto hadley 11/17/2020 01:15:00 AM EDT - 11/20/2020 07:15:00 PM EDT [facility] ([facility]) Unlisted evaluation and management service Performer: Roberto hadley 11/16/2020 10:32:00 PM EDT [facility] ([facility]) Emergency Attender: Vishal Barclay MDConsultant: Jimbo Whitaker MD 11/16/2020 09:54:00 AM EDT - 11/16/2020 03:32:[address] [facility] Patient discharged. Outpatient Attender: Gabriel Cherry MD 12/29/2019 11:37:02 AM EDT [facility] Medications Medication Brand Name Start Date Product Form Dose Route Admi nistrative Instructions Pharmacy Instructions Status Indications Reaction Description Data Source(s) raltegravir 400 MG Oral Tablet [ISENTRESS] Isentress 4 00 mg tablet Isentress 400 mg tablet 02/13/2021 12:00:00 AM EST active raltegravir 400 MG Oral Tablet [Isentress] [facility] ([facility]) emtricitabine 200 MG / Tenofovir disopro xil fumarate 300 MG Oral Tablet [Truvada] Truvada 200 mg-300 mg tablet Truvada 200 mg-300 mg tablet 02/13/2021 12:00:00 AM EST active emtricitabine 200 MG / tenofovir disoproxil fumarate 300 MG Oral Tablet [Truvada] [facility] ([facility]) Sulfamethoxazole 800 MG / Trimethoprim 160 MG Oral Tab let Sulfamethoxazole/Trimethoprim DS 11/22/2020 12:00:00 AM EDT ORAL active [facility] ([facility], ) Insurance Providers Payer name Policy type / Coverage type Policy ID Covered democrat ID Covered democrat's relationship to skinner Policy Skinner Plan Information [facility] COMMUNITY PLAN [facility] [id number] SP [id number] [facility] COMMUN[facility] [id number] SP [id number] MEDICAID M [id number] Self [id number] [place]RE[place] [id number] Self [id number] Medicaid P [id number] S [id number] MEDICAID [id number] MVP [facility] [id number] SP [id number] ANSI-Medicaid [id number] ANSI-Medicaid [id number] MEDICAID [id number] S [id number] [facility] [id number] S [id number] ANSI-Medicaid [id number] SELF PAY Unemployed MEDICAID [id number] S [id number] [facility] [id number] S [id number] ANSI-Medicaid [id number] UN COMMUNITY PLAN [facility] [id number] SP [id number] MEDICAID [id number] S [id number] MEDICAID PROF FEES [id number] S [id number] MEDICAID UNAVAILABLE UNAVAILA BLE Medicaid P [id number] S [id number] ANSI-Medicaid [id number] Sliding Fee Scale P none S no ne Medicaid S UNAVAILABLE S UNAVAILA BLE [facility] O [id number] S [id number] UN COMMUNITY PLAN [facility] [id number] SP [id number] SELF PAY UNAVAILABLE SP UNAVAILA BLE MEDICAID - O/P EMERGENCY ROOM [id number] MEDICAID-O/P [id number] MEDICAID-O/P UNAVAILABLE UNAVA ILABLE [facility] MEDICAID [id number] SP [id number] T MVP MEDICAID HMO -O/P [id number] 18 [id number] MV MEDICAID HMO -O/P [id number] 18 [id number] UN AMERICHOICE XIX -O [id number] 18 [id number] EMEDNY [id number] SP [id number] MEDICAID [id number] SP [id number] Problems, Conditions, and Diagnoses Code Display Name Description Problem Type Effective Dates Data Source(s) Y9[address] or not applicable Unspecified place or not applicable Diagnosis 11/16/2020 09:54:[address] [facility] [id number] Exposure to other specified factors, ini tial encounter Exposure to other specified factors, initial encounter Diagnosis 11/16/2020 09:54:[address] [facility] Z8614 Personal history of Methicillin resistan t Staphylococcus aureus infection Personal history of Methicillin resistant Staphylococcus aureus infection Diagnosis 11/16/2020 09:54:[address] [facility] [id number] Unspecified asthma, uncomplicated Unspecified as thma, uncomplicated Diagnosis 11/16/2020 09:54:[address] [facility] N89812 Nicotine dependence, cigarettes, uncompl icated Nicotine dependence, cigarettes, uncomplicated Diagnosis 11/16/2020 09:54:[address] [facility] [id number] Superficial foreign body of unspecified part of neck, initial encounter Superficial foreign body of unspecified part of neck, initial encounter Diagnosis 11/16/2020 09:54:[address] [facility] L0211 Cutaneous abscess of neck Cutaneous abscess of neck Di agnosis 11/16/2020 09:54:[address] [facility] M542 Cervicalgia Cervicalgia Diagnosis 11/16/2020 09:54:[address] [facility] S10.95XD Superficial foreign body in neck Superficial for eign body in neck Problem 11/29/2020 12:00:00 AM EDT [facility] ([facility], ) [id number] Allergic asthma without status asthmatic us Allergic asthma without status asthmaticus Problem 11/22/2020 12:00:00 AM EDT [facility] ([facility], ) Z48.02 Removal of suture Removal of suture Problem 11/22/2020 12:00:00 AM EDT [facility] ([facility], ) L02.11 Cellulitis and abscess of neck Cellulitis and abscess of neck Problem 11/21/2020 12:00:00 AM EDT [facility] ([facility], ) M79.5 Residual foreign body in soft tissue Residual fo reign body in soft tissue Problem 11/21/2020 12:00:00 AM EDT [facility] Surgeries/Procedures Procedure Description Date Indications Data Source(s) HCS Pre Test Counseling 02/13/2021 12:00 :00 AM EST - 02/13/2021 12:00:00 AM EST [facility] ([facility]) HIV-1/HIV-2, SINGLE ASSAY 02/13/2021 12: 00:00 AM EST - 02/13/2021 12:00:00 AM EST [facility] ([facility]) CVR Buffing Wheel Former Automatic.Svc. STI / H 02/13/2021 12:00:00 AM EST - 02/13/2021 12:00:00 AM EST [facility] ([facility]) CVR Buffing Wheel Former Automatic.Svc. Contraceptive 02/13/2021 12 :00:00 AM EST - 02/13/2021 12:00:00 AM EST [facility] ([facility]) CVR Med.Svc. Height/Weight 02/13/2021 12 :00:00 AM EST - 02/13/2021 12:00:00 AM EST [facility] ([facility]) CVR Blood Pressure 02/13/2021 12:00:00 AM EST - 2020 12:00:00 AM EST [facility] ([facility]) OFFICE/OUTPATIENT VISIT, NEW 02/13/2021 12:00:00 AM EST - 02/13/2021 12:00:00 AM EST [facility] ([facility]) ROUTINE VENIPUNCTURE 02/13/2021 12:00:00 AM EST - 02/13/2021 12:00:00 AM EST [facility] ([facility]) COMPLETE CBC W/AUTO DIFF WBC 02/13/2021 12:00:00 AM EST - 02/13/2021 12:00:00 AM EST [facility] ([facility]) TRICHOMONAS VAGIN, AMP PROBE 02/13/2021 12:00:00 AM EST - 02/13/2021 12:00:00 AM EST [facility] ([facility]) HEPATITIS C, RNA, AMP PROBE 02/13/2021 1 2:00:00 AM EST - 02/13/2021 12:00:00 AM EST [facility] ([facility]) METABOLIC PANEL TOTAL CA 02/13/2021 12:0 0:00 AM EST - 02/13/2021 12:00:00 AM EST [facility] ([facility]) HEP B CORE ANTIBODY, TOTAL 02/13/2021 12 :00:00 AM EST - 02/13/2021 12:00:00 AM EST [facility] ([facility]) HEPATIC FUNCTION PANEL 02/13/2021 12:00: 00 AM EST - 02/13/2021 12:00:00 AM EST [facility] ([facility]) HTLV/HIV SERUM TEST 02/13/2021 12:00:00 AM EST - 02/13 12:00:00 AM EST [facility] ([facility]) HEPATITIS B SURFACE AG, EIA 02/13/2021 1 2:00:00 AM EST - 02/13/2021 12:00:00 AM EST [facility] ([facility]) N.GONORRHOEAE, URINE 02/13/2021 12:00:00 AM EST - 02/13/2021 12:00:00 AM EST [facility] ([facility]) CHYLMD TRACH, URINE 02/13/2021 12:00:00 AM EST - 02/13 12:00:00 AM EST [facility] I & D Abscess Simple 11/21/2020 12:00:00 AM EDT [facility] ([facility], ) RMVL FOREIGN BODY MUSCLE/TENDON SHEATH DEEP/COMP 11/21 12:00:00 AM EDT [facility] ([facility], ) Remove Foreign Body Subcutaneous Complicated 12:00:00 AM EDT [facility] ([facility], ) I & D Abscess/Hematoma Neck/Thorax Soft Tissue 021 12:00:00 AM EDT [facility] ([facility], ) Results ID Date Data Source [id number] 02/13/2021 06:08:49 PM EST [facility] ([facility]) Name Value Range Interpretation Code Description Data Yaritza rce(s) Supporting Document(s) Non-Reactive (Negative); Lot : [id number]; Exp: 10/30/2021; Start time: 3:45 PM; Completed time: 3:46 PM Rapid HIV [facility] ([facility]) ID Date Data Source [id number] 11/16/2020 09:54:[address] [facility] [address] [facility] Emergency Department [address] [place] [address] Phone #: ext- [phone] 11/16/2020 09:54 Patient: [...] R.N. PA;Culture, Wound STAT 14:37 11/16/2020 14:39 Geraldine(Abscess) Martinez Zhang R.N. PA; NOTES: NeckDIAGNOSTIC STUDY ORDERSOrder Description Priority Entered Acknowledged InitialedCT Neck Soft STAT 10:15 11/16/2020 Ack'd: 10:17 12:32 Geraldine,Tissue W/ Cont Leatha Person R.NTrisha(Oxygen?(No)) PA; R.N.(IV?(Yes)) Reason for Study: Infection, Mass, Pain, SwellingUS Soft Tissue 13:22 11/16/2020 Ack'd: 13:25 13:59 Geraldine,Head/Neck Leatha PersonNTrisha PA; R.N. [address] [facility] Emergency Department [address] [place] [address] Phone #: ext- [phone] 11/16/2020 09:54 Patient: [...] rce(s) Supporting Document(s) ID Date Data Source [id number] 11/16/2020 09:54:[address] [facility] [address] [facility] Emergency Department [address] [place] [address] Phone #: ext [phone] 11/16/2020 09:54 Patient: BISHNU CASEY III Sex: [...] Dispense 20tablet. Refills: 0. Substitution permitted.Pharmacy - [facility] - [address] [place] [address] [phone]. . -- PACHECO Adams Name Value Range Interpretation Code Description Data Yaritza rce(s) Supporting Document(s) ID Date Data Source [id number] 11/16/2020 09:54:[address] [facility] [address] [facility] Emergency Department [address] [place] [address] Phone #: ext [phone] 11/16/2020 09:54 Patient: BISHNU CASEY III Sex: [...] NS IV 1000 mL Bolus: : Bolus [id number] 11/16/2020 Dose: IV Fluids mL (X1)Leatha Chandler R.N. Bolus: 1000 mL wide open---- Dispensed: 1000 mL bagStop Site: #1 left upper arm14:34 11/16/2020Leatha Chandler R.N. Name Value Range Interpretation Code Description Data Yaritza rce(s) Supporting Document(s) ID Date Data Source [id number] 11/16/2020 09:54:[address] [facility] [address] [facility] Emergency Department [address] [place] [address] Phone #: ext- [phone] 11/16/2020 09:54 Patient: [...] Dispense 20tablet. Refills: 0. Substitution permitted.Pharmacy - [facility] - [address] [place] [address] ; [place], [place] [phone]. FaxNumber: .Understanding of the discharge instructions verbalized by patient.Follow-up with: [facility], , [id number], [address] [place] [address], ,[place], [address] Follow up Thursday. Call for the next [...] need to remove or [address] [facility] Emergency Department [address] [place] [address] Phone #: ext- [phone] 11/16/2020 09:54 Patient: BISHNU CASEY III Sex: [...] returns when you are at home 3 [facility] Emergency Department [address] [place] [address] Phone #: ext- [phone] 11/16/2020 09:54 Patient: BISHNU CASEY III Sex: M : 1995 Age: 24y [id number] [employer]. [address] [place], [place] [id number]. All rights reserved. This information is not [...] dry with a towel.Medicine You can take nakr-szq-ipvortt medicine for pain, unless you were given a different pain medicine to use. Talk with your healthcare provider before using these medicines if you have chronic liver or kidney disease, ever had a stomach ulcer or digestive bleeding, or are taking blood-thinner medicines. If you were given antibiotics, take them until they are used up. It's important to finish the [address] [facility] Emergency Department [address] [place] [address] Phone #: ext- [phone] 11/16/2020 09:54 Patient: [...] swelling or pus coming from the wound [phone] [employer]. [address] [place] [address], [place] [address]. All rights reserved. This information is not intended as asubstitute for professional medical care. Always follow your healthcare professional's instructions. You have been given the following additional information: Abscess, Incision And Drainage Foreign Body, Soft Tissue (Not Removed)(Electronically signed by PACHECO Adams 11/17/2020 19:42) Name Value Range Interpretation Code Description Data Yaritza rce(s) Supporting Document(s) ID Date Data Source [id number] 11/16/2020 09:54:[address] [facility] 1 Clinical Report - Nurses [facility] Emergency Department [address] [place] [address] Phone #: ext- [phone] 11/16/2020 09:54 Patient: BISHNU CASEY III Sex: M : 1995 Age: 24yTRIAGEArrived by private vehicle. Historian: patient. Accompanied by family. ( enlarged area on left side ofneck, has had abscess before on the other side of his neck).Acuity: LEVEL 3.Chief Complaint: NECK PAIN and (enlarged area on left bottom of neck).Alert.Onset. (3 days ago). ( hurts to swallow).Treatment TIP TESTER:None.SEPSIS SCREEN: SIRS SCREEN NEGATIVE. SEPSIS SCREEN NEGATIVE. [...] Frey R.N.AllergiesNone. --09:58 11/16/20 Clary Frey R.N.PROBLEMS:Asthma.Abscess. --:58 11/16/20 Clary Frey R.N.ADDITIONAL QUEZADA RGERIES:Abscess drained. --:58 [...] hepatitis, HIV, 2 Clinical Report - Nurses [facility] Emergency Department [address] [place] [address] Phone #: ext- [phone] 11/16/2020 09:54 Patient: [...] assessment completed. No skin integrity risk identified. --10:11/16/20 Clary Frey R.N. Interventions Identification band on patient. To treatment room. --10:11/16/20 Clary Frey R.N.PHYSICAL ASSESSMENTGENERAL / NEURO / [...] Reassurance given. 3 Clinical Report - Nurses [facility] Emergency Department [address] [place] [address] Phone #: ext- [phone] 11/16/2020 09:54 Patient: BISHNU CASEY III Sex: [...] entry - 11:00 11/16/20. ( June RN TAMMY attempting IV at this time). --12:00 11/16/20 [...] reaction and 4 Clinical Report - Nurses [facility] Emergency Department [address] [place] [address] Phone #: ext- [phone] 11/16/2020 09:54 Patient: [...] Departure time: late entry - 15:32 11/16/2020. [place] Coma Scale: 15- eyes open- spontaneous (4); best verbal response- oriented (5); best motor response- obeys commands (6). Condition at departure: improved and stable. No learning barriers present. Discharge instructions provided and reviewed with the patient. Reviewed warnings (infection). Reviewed medication(s) side effects, precautions, dosing and course information. Prescription(s) sent electronically to pharmacy (Augmentin). Reviewed referral to an ear, nose, and throat specialist (snowboarding instructor) for followup. Patient verbalized un derstanding. Written instructions provided in Nigerien. The patient was discharged by the physician housing assistant. He was discharged home and accompanied [...] Chandler R.N. 5 Clinical Report - Nurses [facility] Emergency Department [address] [place] [address] Phone #: ext- [phone] 11/16/2020 09:54 Patient: BISHNU CASEY III Sex: M : 1995 Age: 24yLocked/Released at 11/16/2020 16:31 by Leatha Chandler R.N. Name Value Range Interpretation Code Description Data Yaritza rce(s) Supporting Document(s) ID Date Data Source [id number] 11/16/2020 09:54:[address] [facility] 1 Clinical Report - Physicians/Mid Levels [facility] Emergency Department [address] [place] [address] Phone #: ext- [phone] 11/16/2020 09:54 Patient: BISHNU CASEY III Sex: [...] Heart sounds normal. 2 Clinical Report - Physicians/[facility] Emergency Department [address] [place] [address] Phone #: ext- [phone] 11/16/2020 09:54 Patient: BISHNU CASEY III Sex: [...] 5.0) 3 Clinical Report - Physicians/Mid Levels [facility] Emergency Department [address] [place] [address] Phone #: ext- [phone] 11/16/2020 09:54 Patient: [...] Normal Lactic Acid: (YAN: 11/16/2020 10:40) ( [facility] 11/16/2020 11:09) Final results Test Result Flag Units (Reference) LACTIC ACID 1.5 MMOL/L (0.2 - 2.2) Sed. Rate: (YAN: 11/16/2020 10:40) ( [facility] 11/16/2020 11:23) Final results Test Result Flag Units (Reference) SED RATE 4 mm/hr (0 - 15) SED RATE REENTER 4 CRP: (YAN: 11/16/2020 10:40) ( [facility] 11/16/2020 11:32) Final results Test Result Flag Units (Reference) CRP-HS 16.01 H MG/L (1.00 - 3.00) CDC/AHS HS-CRP CUT-OFF: RELATIVE RISK: <1.0 mg/L Low 1.0 - 3.0 mg/L Average >3.0 mg/L High Optimally, the average of HS-CRP results repeated two weeks apart should be used for risk assessment. CT Neck Soft Tissue W/ Cont: (YAN: 11/16/2020 10:15) ( MsgRcvd 11/16/2020 12:55) In Progress CT ST NECK W/CONTRAST Reason(s): Infection TRANSPORTATION: IV? IV?(Yes) O2? Oxygen?(No) Ro.PROGRESS AND PROCEDURESCourse of Care: 14:Nov 16 2020. Evaluation after observation. (Pt was evaluated by Dr Painter in theED and he performed a needle aspiration, pt refused to go to OR and have surgery. Pt does not want to 4 Clinical Report - Physicians/Mid Levels [facility] Emergency Department [address] [place] [address] Phone #: ext- [phone] 11/16/2020 09:54 Patient: [...] tablet. Refills: 0. Substitution permitted. Pharmacy - [facility] - [address] [place] [address] [place] [phone]. P christopher: . Understanding of the discharge instructions verbalized by patient. Follow-up with: [facility], , [id number], [address] [facility] [address], , [place], [address] Follow up Thursday. Call for the next available appointment. Reason for referral: evaluation and treatment. Summary of care provided to patient.(Electronically signed by PACHECO Adams 11/17/2020 19:42) 5Clinical Report - Physicians/Mid Levels [facility] Emergency Department [address] [place] [address] Phone #: ext- [phone] 11/16/2020 09:54 Patient: BISHNU CASEY III Sex: M : 1995 Age: 24y Name Value Range Interpretation Code Description Data Yaritza rce(s) Supporting Document(s) ID Date Data Source [id number] 11/16/2020 09:54:[address] [facility] Addenda for BISHNU CASEY III VisitID: [id number] Date: 12:17Bactrim DS 800 mg-160 mg tablet Take 1 tablet twice a day as directed for 10 days -- Dispense 20tablet. Refills: 0. Substitution permitted.Pharmacy - [facility] - [address] [place] [phone]. FaxNumber: .(Electronically signed by Martinez BERGMAN - 11/24/2020 12:17) Name Value Range Interpretation Code Description Data Yaritza rce(s) Supporting Document(s) ID Date Data Source [id number] 11/21/2020 05:05:00 PM EDT [facility] ([facility]) Name Value Range Interpretation Code Description Data Yaritza rce(s) Supporting Document(s) Surgical pathology study Laboratory test result [facility] ([facility]) FINAL DIAGNOSIS Foreign body, left neck, [...] SCOTT MD 11/23/20201210 ID Date Data Source [id number] 11/21/2020 04:46:00 PM EDT [facility] ([facility]) Name Value Range Interpretation Code Description Data Yaritza rce(s) Supporting Document(s) Afb Smear Laboratory test result [facility] ([facility]) Testing performed at reference lab . Rep ort copy to follow on a separate form. 01/07/21 REF LAB#:[id number] Due to limited sensitivity, smear results should be used as an adjunct in evaluating patient tuberculosis status. Cultural examination is highly recommended for clinical diagnosis. AFB sm REF LAB concentra NEGATIVE Afb Culture Laboratory test result [facility] ([facility]) Testing performed at reference lab . Rep ort copy to follow on a separate form. 01/07/21 REF LAB#:[id number] FULL REPORT IN LAB NOTES (eCW and [facility]). No Acid-Fast Bacilli Isolated after 6 Weeks. ID Date Data Source [id number] 11/21/2020 04:46:00 PM EDT [facility] ([facility]) Name Value Range Interpretation Code Description Data Yaritza rce(s) Supporting Document(s) Bacteria identified in Unspecified specimen by Anaerob e culture Laboratory test result Normal (applies to non-numeric results) [facility] ([facility]) FULL REPORT IN LAB NOTES (eCW and [facility] ). ORGANISM 1: STREPTOCOCCUS INTERMEDIUS ORGANISM 1: STREPTOCOCCUS INTERMEDIUS ID Date Data Source [id number] 11/21/2020 04:46:00 PM EDT [facility] ([facility], ) Name Value Range Interpretation Code Description Data Yaritza rce(s) Supporting Document(s) Wound Culture Laboratory test result [facility] ([facility], ) If aerobic or anaerobic growth is detected within the next 7-21 days, an addendum will follow. . . FULL REPORT IN LAB NOTES (eCW and [facility]). NO GROWTH AEROBICALLY ID Date Data Source [id number] 11/21/2020 10:04:00 AM EDT [facility] Name Value Range Interpretation Code Description Data Yaritza rce(s) Supporting Document(s) SARS coronavirus 2 RNA [Presence] in Res piratory specimen by JENNIFER with probe detection NEGATIVE [facility] This lab was ordered by [facility] a nd reported by [facility]. ID Date Data Source [id number] 11/21/2020 08:40:00 AM EDT [facility] ([facility], ) Name Value Range Interpretation Code Description Data Yaritza rce(s) Supporting Document(s) Blood Culture Laboratory test result [facility] ([facility], ) No growth after 72 hours . All specimens observed for 5 days. Results final at that time. No growth after 48 hours . All specimens observed for 5 days. Results final at that time. No growth after 24 hours . All specimens observed for 5 days. Results final at that time. NO GROWTH AFTER 5 DAYS ID Date Data Source [id number] 11/16/2020 03:13:00 PM EDT [facility] [address] [place] [address] PHONE: [phone] FAX: [phone] Name .................. : JACINTO BISHNU III Acct Number.................. : [id number] ROOM. ................. : TR-03 MR Number ................... : [id number] Stay type ............. : E/R Discharge Date......... ... : Admit Date ......... : 11/16/20 Admit Phys .................... : ARGELIA Jiang Date of ....... : 1995 Family Phys ................... : [employer] Phone .................. : [phone] Age ................................ : 24 Film# .................. .:[id number] Sex ................................. : M Unsigned transcriptions are preliminary reports and do not represent a medical or legal document SOFT TISSUE HEAD/NECK [id number] COMPLETE:11/16/20 13:22 Reason(s): ABCESS ULTRASOUND OF SOFT [...] rce(s) Supporting Document(s) ID Date Data Source [id number] 11/16/2020 03:12:00 [place] [address] PHONE: [phone] FAX: [phone] Name .................. : JACINTO BISHNU III Acct Number.................. : [id number] ROOM. ................. : TR-03 MR Number ................... : [id number] Stay type ............. : E/R Discharge Date......... ... : Admit Date ......... : 11/16/20 Admit Phys .................... : ARGELIA Jiang Date of ....... : 1995 Family Phys ................... : VANESSA Sheth Phone .................. : [phone] Age ................................ : 24 Film# .................. .:[id number] Sex ................................. : M Unsigned transcriptions are preliminary reports and do not represent a medical or legal document CT ST NECK W/CONTRAST [id number] COMPLETE:11/16/20 12:55 [facility] [id number] Reason(s): Infection CT NECK WITH IV CONTRAST [...] likely an abscess. Page 1 of 2 [facility] [address] [place] [address] PHONE: [phone] FAX: [phone] Name .................. : JACINTO GOETZ III Acct Number.................. : [id number] ROOM. ................. : TR-03 MR Number ................... : [id number] Stay type ............. : E/R Discharge Date......... ... : Admit Date ......... : 11/16/20 Admit Phys .................... : ARGELIA Jiang Date of ....... : 1995 Family Phys ................... : [employer] Phone .................. : [phone] Age ................................ : Film# .................. .:[id number] Sex ................................. : M Unsigned transcriptions are preliminary reports and do not represent a medical or legal document CT ST NECK W/CONTRAST [id number] COMPLETE:11/16/20 12:55 [facility] 11240 Reason(s): Infection These findings were discussed with [...] rce(s) Supporting Document(s) ID Date Data Source [id number] 11/22/2020 06:29:00 AM EDT [facility] Name Value Range Interpretation Code Description Data Yaritza rce(s) Supporting Document(s) CULTURE WOUND [facility] spital _CULTURE WOUND_$$[id number]$$[id number]$$[id number]$$[id number]$$[id number]$$[id number] DATE/TIME: 11/21/2020 15:06Culture: CULTURE WOUND Status: FinalIsolate 1 Enterobacter species Flag: A . . . . . . .5Moderate growth Previous result entered on 11/20/2020 14:06 ET Gram negative rodsAerobic Bacterial Culture: [id number] species Flag: AIsolate 2 Streptococcus intermedius Flag: A . . . . . . .6Moderate growthSusceptibility not normally performed on this organism. Previous result entered on 11/20/2020 14:06 ET Microbiological testing to rule out the presence of possible pathogensis in progress.Streptococcus intermedius Flag: APatient: JACINTO BISHNU III Order: [id number] Page 2Culture: CULTURE WOUND Status: Final ISOLATE [...] S S . . . . . .87415- 0Gentamicin S S . . . . . .267-5Imipenem S S . . . . . .279-0Levofloxacin S S . . . . . .24921-3Ltzxltasb S S . . . . . .6652-2Tetracycline S S . . . . . .496-0Tobramycin S S . . . . . .508-2Trimethoprim/Sulfa S S . . . . . .516- 5P1 Test performed by: [facility] #: [id number] [address] [id number] [facility] [id number] Director : Larry Foster MD NPI #:Lecturer In Computer Science : -- Continued on next page --Patient: JACINTO GOETZ III Order: [id number] Page 2Culture: CULTURE WOUND Status: Prelim 11/21/20.0640.XMT.SENT REF 11/22/20.0630.XMT.SENT REF ID Date Data Source [id number] 11/16/2020 11:31:00 AM EDT [facility] Value Range Interpretation Code Description Data Yaritza rce(s) Supporting Document(s) C reactive protein [Mass/volume] in Serum or Plasma by High sensitivity method 16.01 MG/L 1.00 - 3.00 [facility] HS-CRP CUT-OFF: RELATIVE RISK: <1.0 mg/L Low 1.0 - 3.0 mg/L Average >3.0 mg/L High Optimally, the average of HS-CRP results repeated two weeks apart should be used for risk assessment. ID Date Data Source [id number] 11/16/2020 11:30:00 AM EDT [facility] Value Range Interpretation Code Description Data Yaritza rce(s) Supporting Document(s) COMPREHENSIVE METABOLIC PANEL [facility] COMPREHENSIVE METABOLIC PANEL Sodium [Moles/volume] in Serum or Plasma 137 mEq/L 134 - 153 [facility] Potassium [Moles/volume] in Serum or Plasma 4.5 mEq/L 3.6 - 5.0 [facility] Chloride [Moles/volume] in Serum or Plasma 100 mEq/L 98 - 107 [facility] Carbon dioxide, total [Moles/volume] in Serum or Plasma 27 MEQ/L 22 - 30 [facility] Glucose [Mass/volume] in Serum or Plasma 91 MG/DL 70 - 99 [facility] BUN 8 MG/DL 7 - 21 [facility] Creatinine [Mass/volume] in Serum or Plasma 0.8 MG/DL 0.7 - 1.5 [facility] BUN/CREAT 10 8 - 27 [facility] Protein [Mass/volume] in Serum or Plasma 7.8 G/DL 6.3 - 8.2 [facility] Albumin [Mass/volume] in Serum or Plasma 4.3 G/DL 3.9 - 5.0 [facility] Globulin [Mass/volume] in Serum by calculation 3.5 GM/DL 2.4 - 3.[address] [facility] A/G RATIO 1.2 0.8 - 2.0 [facility] Calcium [Mass/volume] in Serum or Plasma 10.0 MG/DL 8.4 - 10.2 [facility] Bilirubin.total [Mass/volume] in Serum or Plasma <0.7 MG/DL 0.2 - 1.3 [facility] Alkaline phosphatase [Enzymatic activity/volume] in Serum or Plasma 159 U/L 38 - [address] [facility] Aspartate aminotransferase [Enzymatic activity/volume] in Serum or Plasma 28 U/L 5 - 40 [facility] Alanine aminotransferase [Enzymatic activity/volume] in Seru m or Plasma 18 U/L 7 - 56 [facility] Anion gap 3 in Serum or Plasma 10.0 mmol/L 8.0 - 16.0 [facility] 24 [facility]60 mL/min [facility] AFR AMER GFR >60 mL/min [facility] Male GFR In [...] >32 mL/min Normal ID Date Data Source [id number] 11/16/2020 11:22:[address] [facility] Name Value Range Interpretation Code Description Data Yaritza rce(s) Supporting Document(s) Erythrocyte sedimentation rate by Westergren method 4 mm/hr 0 - 15 [facility] SED RATE REENTER 4 [facility] ID Date Data Source [id number] 11/16/2020 11:09:[address] [facility] Name Value Range Interpretation Code Description Data Yaritza rce(s) Supporting Document(s) Lactate [Moles/volume] in Serum or Plasma 1.5 MMOL/L 0.2 - 2.2 [facility] ID Date Data Source [id number] 11/16/2020 11:01:[address] [facility] Name Value Range Interpretation Code Description Data Yaritza rce(s) Supporting Document(s) CBC W/AUTOMATED DIFF [facility] COMPLETE BLOOD COUNT Leukocytes [#/volume] in Blood by Automated count 9.4 10^3/uL 4.2 - [address] [facility] Erythrocytes [#/volume] in Blood by Automated count 4.73 10^6/uL 4. 50 - 6.30 [facility] Hemoglobin [Mass/volume] in Blood 12.0 g/dL 14.0 - 16.[address] [facility] Hematocrit [Volume Fraction] of Blood by Automated count 37.6 % 4 1.0 - 51.[address] [facility] Erythrocyte mean corpuscular volume [Entitic volume] by Auto mated count 79.5 fL 80.0 - 94.[address] [facility] Erythrocyte mean corpuscular hemoglobin [Entitic mass] by Automated count 25.4 pg 27.0 - 34.[address] [facility] Erythrocyte mean corpuscular hemoglobin concentration [Mass/volume] by Automated count 31.9 g/dL 31.0 - 36.0 [facility] Erythrocyte distribution width [Ratio] by Automated count 15.4 % 11.5 - 14.[address] [facility] Platelets [#/volume] in Blood by Automated count 190 10^3/uL 150 - [address] [facility] Platelet mean volume [Entitic volume] in Blood by Automated count 10.9 fL 7.4 - 10.[address] [facility] Neutrophils/100 leukocytes in Blood by Automated count 83.9 % 37. 0 - 80.[address] [facility] Lymphocytes/100 leukocytes in Blood by Manual count 12.0 % 25.0 - 40.[address] [facility] Monocytes/100 leukocytes in Blood by Automated count 3.3 % 3.0 - 8.0 [facility] Eosinophils/100 leukocytes in Blood by Automated count 0.3 % 0.0 - 7.0 [facility] Basophils/100 leukocytes in Blood by Automated count 0.2 % 0.0 - 2.0 [facility] %IG 0.3 % 0.0 - 0.0 [facility] %NRBC 0.0 % 0.0 - 0.0 [facility] al Neutrophils [#/volume] in Blood by Automated count 7.88 10^3/uL 2.00 - 6.[address] [facility] Lymphocytes [#/volume] in Blood by Automated count 1.13 10^3/uL 0.60 - 3.40 [facility] Monocytes [#/volume] in Blood by Automated count 0.31 10^3/uL 0.00 - 0.90 [facility] Eosinophils [#/volume] in Blood by Automated count 0.03 10^3/uL 0.00 - 0.70 [facility] Basophils [#/volume] in Blood by Automated count 0.02 10^3/uL 0.00 - 0.20 [facility] #IG 0.03 10^3/uL 0.00 - 0.10 [facility] #NRBC 0.00 10^3/uL 0.00 - 0.00 [facility] MANUAL DIFF NOT INDICATED [facility] RBC MORPH NOT INDICATED [facility] Procedure Social History Code Duration Value Status Description Data Source(s ) Smoking 02/20/2021 12:00:00 AM EST Light tobacco smoker comple nicolas Light tobacco smoker [facility] ([facility]) 02/13/2021 12:00:00 AM EST Light cigarette smoker (1-9 cigs/day) completed Light cigarette smoker (1-9 cigs/day) [facility] ([facility]) Smoking 11/16/2020 12:00:00 PM EDT Smokes tobacco daily (findi Fiiiling) completed Current Every Day Smoker NETSMART ([facility]) Vital Signs ID Date Data Source UNK Name Value Range Interpretation Code Description Data Source(s) Body height 165.10 cm 165.10 cm [facility] ([facility]) Body weight 72.575 kg 72.575 kg [facility] Systolic blood pressure 118 mm[Hg] 118 mm[Hg] N extGen ([facility]) Diastolic blood pressure 74 mm[Hg] 74 mm[Hg] [facility] ([facility]) Body mass index (BMI) [Ratio] 26.63 kg/m2 Overweight 26.63 kg/m2 [facility] ([facility]) Diastolic blood pressure 90 mm[Hg] 90 mm[Hg] [facility] ([facility]) Heart rate 107 /min 107 /min [facility]) Respiratory rate 20 /min 20 /min [facility] ( [facility]) Systolic blood pressure 122 mm[Hg] 122 mm[Hg] M [facility] ([facility]) Body temperature 98.4 [degF] 98.4 [degF] [facility] ([facility]) Body height 65.5 [in_i] 65.5 [in_i] [facility] ([facility], ) 5'5.50" Diastolic blood pressure 80 mm[Hg] 80 mm[Hg] [facility] ([facility] ) Heart rate 123 /min 123 /min [facility] ([facility] ) Oxygen saturation in Arterial blood by Pulse oximetry 98 % 98 % [facility] ([facility]) Body weight 143.00 [lb_av] 143.00 [lb_av] [facility] Body mass index (BMI) [Ratio] 23.4 kg/m2 23.4 k g/m2 [facility] ([facility]) Dos Rios body weight 136 [lb_av] 136 [lb_av] [facility] T ([facility]) Body weight 64.865 kg 64.865 kg [facility] ([facility]) Body surface area Derived from formula 1.73 m2 1.73 m2 [facility] ([facility]) Systolic blood pressure 110 mm[Hg] 110 mm[Hg] [facility] ([facility]) Body weight 65.772 kg 65.772 kg [facility] ([facility]) Body weight 145.00 [lb_av] 145.00 [lb_av] [facility] Dos Rios body weight 136 [lb_av] 136 [lb_av] [facility] Body mass index (BMI) [Ratio] 23.8 kg/m2 23.8 k g/m2 [facility] ([facility]) Body surface area Derived from formula 1.74 m2 1.74 m2 [facility] ([facility]) Systolic blood pressure 120 mm[Hg] 120 mm[Hg] [facility] ([facility]) Diastolic blood pressure 980 mm[Hg] 980 mm[Hg] [facility] ([facility]) Heart rate 98 /min 98 /min [facility] ([facility]) Oxygen saturation in Arterial blood by Pulse oximetry 97 % 97 % [facility] ([facility]) Body height 65.5 [in_i] 65.5 [in_i] [facility] ([facility]) 5'5.50" Heart rate 111.0 /MIN 111.0 /MIN [facility] ([facility]) Diastolic blood pressure 66.0 MM[HG] 66.0 MM[HG ] [facility] ([facility]) Systolic blood pressure 108.0 MM[HG] 108.0 [...] [DEGF] NETSMA RT ([facility]) Body temperature 97.7 [DEGF] 97.7 [...] MM[H G] [facility] ([facility]) Body temperature 36.7 VIN 36.7 VIN [facility] ([facility]) Heart rate 82.0 /MIN 82.0 /MIN [facility] ([facility]) Respiratory rate 18.0 /MIN 18.0 /MIN [facility]SM[facility] ([facility]) Oxygen saturation in Arterial blood by Pulse oximetry 96.0 % 96.0 % [facility] ([facility]) Body temperature 98.1 [DEGF] 98.1 [DEGF] [facility]SMA RT ([facility]) Systolic blood pressure 132.0 MM[HG] 132.0 MM[H G] [facility] ([facility]) Diastolic blood pressure 97.0 MM[HG] 97.0 MM[HG ] [facility] ([facility]) Patient Treatment Plan of Care Planned Activity Planned Date Details Description Data Source (s) raltegravir 400 MG Oral Tablet [ISENTRESS] 02/13/2021 12:00:[address] [place] ([facility]) emtricitabine 200 MG / Tenofovir disopro xil fumarate 300 MG Oral Tablet [Truvada] 02/13/2021 12:00:00 AM EST Winston ingram ([facility])
== END 2021-02-22 18:18 | disposition left against medical advice (07) ==
LOC: M ED 16:58
DX: Z53.21 Procedure and treatment not carried out due to patient leaving prior to being seen by health care provider (principal)

== ENCOUNTER 2021-02-24 06:13 | Emergency (ER) | payer OTHER, MEDICAID ==
[~2021-02-24] VITALS: Ht 167.6 cm; Wt 68.2 kg
[2021-02-24 06:22] VITALS: BP 165/74
--- OUTSIDE RECORDS SUMMARY | 2021-02-24 06:28 | CCD | Continuity of Care Document ---
Author Author [facility] Organization [facility] Address Unknown Phone Unavailable Care Team Providers Care Resin Filterer Name Role Phone Dwello Gisselle BERGMAN Unavailable [...] Provider Providers Copied on Encounter [facility], [address] [place] [address], [id number], tel:[phone] [facility] No Information Daniele Yost. [address] [place] [address], [id number], . tel:[phone] [facility], [address] [place] [address], [id number], tel:[phone] [facility] Contact w and (susp ected) exposure to human immunodef virusOther sex counselingHuman immunodeficiency virus [HIV] counselingEncounter for screening for human immunodeficiency virusEncntr screen for infections w sexl mode of transmissHigh risk heterosexual behaviorEncounter for oth general cnsl and advice on contraception Dwell o Gisselle Yost. [address] [place] [address], [id number], [place]. tel:[phone] Referring Provider: Gisselle Helms, [address] [place] [address], [address] [place] [address]. tel:[phone] [facility], [address] [place] [address], [address] [place] [address], tel:[phone] [facility] Unspecified viral h epatitis C without hepatic coma Shana Ileana. [address] [place] [address], [id number], [place]. tel:[phone] [facility], [address] [place] [address], [address] [place] [address], tel:[phone] [facility] Encntr screen for i nfections w sexl mode of transmissEncounter for screening for human immunodeficiency virusHuman immunodeficiency virus [HIV] counselingHigh risk heterosexual behaviorEncounter for oth general cnsl and advice on contraception Israel Aguilar. [address] [place] [address], [id number], [place]. tel:[phone] Referring Provider: Lauren Wood, [address] [place] [address], [address] [place] [address]. tel:[phone] Family History Family Member Diagnosis Age At Onset 1st degree relative No hx of osteoporosis 1st degree relative No hx of cancer of breast, colon, endome trium or ovary 1st degree relative No hx of venous thromboembolism 1st degree relative No hx of coronary heart disease (female <65, male <55) Immunizations Vaccine Date Status Comments No Information Payers Payer name Insurance type Covered democrat ID Authorization(s ) Medicaid MC [id number] Social History Type Description Quantity Date Captured [...] Referral Referred To: Dr. Zahra Wan [address] [place], [place] [id number] Ordered: Referrals: Primary Care Provider. Dr. Zahra Wan. Location: [facility]. Evaluate and treat Appointment date/timeframe: 3 Months [...] Date No Information Medical Equipment Description Device [place] Device Identifier Effective Alistair es (start - stop) Status No Information Mental Status Date Cognitive Assessment No Information Health Concerns Observation Date No Information Concern Status Date No Information Physical Examination Exam Findings Details No Information
--- OUTSIDE RECORDS SUMMARY | 2021-02-24 06:28 | CCD | Continuity of Care Document ---
Author Author [facility] Organization [facility] Address [address] [place] [address] Phone Care Team Providers Care Mold Mechanic Name Role Phone Dwello Gisselle BERGMAN Unavailable [...] Provider Providers Copied on Encounter [facility], [address] [place] [address], [place], [id number], tel:[phone] [facility] No Information D peg Yost. [address] [place] [address], [address] [place] [address], . tel:[phone] [facility], [address] [place] [address], [address] [place] [address], tel:[phone] [facility] Contact w and (susp ected) exposure to human immunodef virusOther sex counselingHuman immunodeficiency virus [HIV] counselingEncounter for screening for human immunodeficiency virusEncntr screen for infections w sexl mode of transmissHigh risk heterosexual behaviorEncounter for oth general cnsl and advice on contraception Dwell o Gisselle Yost. [address] [place] [address], [address] [place] [address], . tel:[phone] Referring Provider: Gisselle Helms, [address] [place] [address], [address] [place] [address]. 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 [address] [place] [address], [address] [place] [address], . tel:[phone] [facility], [address] [place] [address], [address] [place] [address], tel:[phone] [facility] Encntr screen for i nfections w sexl mode of transmissEncounter for screening for human immunodeficiency virusHuman immunodeficiency virus [HIV] counselingHigh risk heterosexual behaviorEncounter for oth general cnsl and advice on contraception Israel Aguilar. [address] [place] [address], [address] [place] [address], . tel:[phone] Referring Provider: Lauren Wood, [address] [place] [address], [address] [place] [address]. tel:[phone] Family History Family Member Diagnosis Age At Onset 1st degree relative No hx of osteoporosis 1st degree relative No hx of cancer of breast, colon, endome trium or ovary 1st degree relative No hx of venous thromboembolism 1st degree relative No hx of coronary heart disease (female <65, male <55) Immunizations Vaccine Date Status Comments No Information Payers Payer name Insurance type Covered libertarian ID Authorization(s ) Medicaid MC [id number] Social History Type Description Quantity Date Captured [...] Referral Referred To: Dr. Zahra Wan [address], [place] [id number] Ordered: Referrals: Primary Care Provider. Dr. Zahra Wan. Location: [facility]. Evaluate and treat Appointment date/timeframe: 3 Months [...] Date No Information Medical Equipment Description Device Nakina Device Identifier Effective Alistair es (start - stop) Status No Information Mental Status Date Cognitive Assessment No Information Health Concerns Observation Date No Information Concern Status Date No Information Physical Examination Exam Findings Details No Information
--- OUTSIDE RECORDS SUMMARY | 2021-02-24 06:29 | CCD ---
Author Author [facility] Organization [facility] Address Unknown Phone Unavailable Care Team Providers Care Radio Program Checker Name Role Phone Alcon Whitaker MD Unavailable [...] Unavailable Unavailable LyndaAlcon fine MD Unavailable Unavailable LyndaAlocn fine MD Unavailable Unavailable LynAlcon paez MD [...] Unavailable Lyndarody L Jimbo MD Unavailable Unavailable Alcon Whitaker MD Unavailable Unavailable Alcon hWitaker MD Unavailable Unavailable Alcon Whitaker MD Unavailable [...] Unavailable Unavailable Vishal Barclay MD Unavailable Unavailable Luis Alfredo Corley Unavailable Unavailable DEFAULT, PROVIDER Unavailable Unavailable Dwello [...] Unavailable Unavailable Airoldi, Noa PA Unavailable Unavailable Daniele Cherry MD Unavailable Unavailable [...] Unavailable Unavailable Daniele Cherry MD Unavailable Unavailable Cherry, Daniele Rios MD Unavailable Unavailable Cherry, Daniele Rios MD Unavailable Unavailable Cherry, Daniele Rios MD Unavailable Unavailable Cherry, Daniele Rios MD Unavailable Unavailable Cherry, Daniele Rios MD Unavailable Unavailable Cherry, Daniele Rios MD Unavailable Unavailable Cherry, Daniele Rios MD Unavailable Unavailable Cherry, Daniele Rios MD Unavailable Unavailable Cherry, Daniele Rios MD Unavailable Unavailable Cherry, Daniele Rios MD Unavailable Unavailable Cherry, Daniele Rios MD Unavailable Unavailable Cherry, Daniele Rios MD Unavailable Unavailable Cherry, Daniele Rios MD Unavailable Unavailable Cherry, Daniele Rios MD Unavailable Unavailable Cherry, Daniele Rios MD Unavailable Unavailable Cherry, Daniele Rios MD Unavailable Unavailable Cherry, Daniele Rios MD Unavailable Unavailable Cherry, Daniele Rios MD Unavailable Unavailable Cherry, Daniele Rios MD Unavailable Unavailable Cherry, Daniele Rios MD Unavailable Unavailable Cherry, Daniele Rios MD Unavailable Unavailable Cherry, Daniele Rios MD Unavailable Unavailable Cherry, Daniele Rios MD Unavailable Unavailable Cherry, Daniele Rios MD Unavailable Unavailable Cherry, Daniele Rios MD Unavailable Unavailable Cherry, Daniele Rios MD Unavailable Unavailable Cherry, Daniele Rios MD Unavailable Unavailable Cherry, Daniele Rios MD Unavailable Unavailable Cherry, Daniele Rios MD Unavailable Unavailable Aden, Deidre Freitas PH.D., M.D. [...] is protected by Article 27-F of the [facility] Public Health law. If you continue you may have access to information: Regarding HIV / AIDS; Provided by facilities licensed or operated by the [facility] Office of Mental Health; or Provided by the [facility] Office for People With Developmental Disabilities. If such information is present, then the following [facility] mandated warning applies: This information has [...] law may result in a fine or nursing home sentence or both. A general authorization for the release of medical or other information is NOT sufficient authorization for further disc losure. Allergies and Adverse Reactions Type Description Substance Reaction Status Data Source(s ) No Known Drug Allergies No Known Drug Allergies [facility] Hospital Encounters Encounter Providers Location Date Indications Data Source(s ) Attender: Gisselle Sorto 04/2020 02:37:00 PM EST - 02/21/2021 02:37:00 PM EST [facility] ([facility]) Attender: Gisselle Sorto 03/2020 07:16:00 AM EST - 02/20/2021 07:16:00 AM EST [facility] ([facility]) Attender: Gisselle Sorto 09:13:00 AM EST - 02/19/2021 09:13:00 AM EST [facility] ([facility]) Outpatient Attender: WENDI BELL 02/18/2021 05:45:00 PM EST [facility] Attender: Noa Mendiola 01/22 09:28:00 AM EST - 02/15/2021 09:28:00 AM EST [facility] ([facility]) OFFICE/OUTPATIENT VISIT, [facility] Attender: Gisselle MARTIN Farnham 02/13/2021 03:45:00 PM EST - 02/13/2021 03:45:00 PM ES T Encounter for oth general cnsl and advice on contraceptionHigh risk heterosexual behaviorEncntr screen for infections w sexl mode of transmissEncounter for screening for human immunodeficiency virusHuman immunodeficiency virus [HIV] counselingOther sex counselingContact w and (suspected) exposure to human immunodef virus [facility] ([facility]) Encounter for oth general cnsl and advic e on contraception High risk heterosexual behavior Encntr screen for infections w sexl mode of transmiss Encounter for screening for human immuno deficiency virus Human immunodeficiency virus [HIV] couns eling Other sex counseling Contact w and (suspected) exposure to hu man immunodef virus Office Visit Attender: Fortino Samaniego PH.Oj, Niko Torres 11/29/2020 11:15:00 AM EDT [facility] ([facility]) Office Visit Attender: Fortino Samaniego PH.Daniele., Niko Torres 11/22/2020 01:00:00 PM EDT [facility] ([facility]) Unlisted evaluation and management service Performer: Marleni dc 11/17/2020 01:15:00 AM EDT - 11/20/2020 07:15:00 PM EDT [facility] ([facility]) Unlisted evaluation and management service Performer: Marleni dc 11/16/2020 10:32:00 PM EDT [facility] ([facility]) Emergency Attender: Vishal Barclay MDConsultant: Jimbo Whitaker MD 11/16/2020 09:54:00 AM EDT - 11/16/2020 03:32:00 PM EDT [facility] Patient discharged. Outpatient Attender: Gabriel MARIE 12/29/2019 11:37:02 AM EDT [facility] Medications Medication Brand Name Start Date Product Form Dose Route Admi nistrative Instructions Pharmacy Instructions Status Indications Reaction Description Data Source(s) raltegravir 400 MG Oral Tablet [ISENTRESS] Isentress 4 00 mg tablet Isentress 400 mg tablet 02/13/2021 12:00:00 AM EST active raltegravir 400 MG Oral Tablet [Isentress] [facility] ([facility]) emtricitabine 200 MG / Tenofovir disopro xil fumarate 300 MG Oral Tablet [Truvada] Truvada 200 mg-300 mg tablet Truvada 200 mg-300 mg tablet 02/13/2021 12:00:00 AM EST active emtricitabine 200 MG / tenofovir disoproxil fumarate 300 MG Oral Tablet [Truvada] [facility] ([facility]) Sulfamethoxazole 800 MG / Trimethoprim 160 MG Oral Tab let Sulfamethoxazole/Trimethoprim DS 11/22/2020 12:00:00 AM EDT ORAL active [facility] ([facility], ) Insurance Providers Payer name Policy type / Coverage type Policy ID Covered libertarian ID Covered libertarian's relationship to skinner Policy Skinner Plan Information [facility] MCDO [id number] SP [id number] [facility] [id number] SP [id number] MEDICAID M [id number] Self [id number] CORRECTIONS B [id number] Self [id number] Medicaid P [id number] S [id number] MEDICAID [id number] S [id number] [facility] [id number] SP [id number] ANSI-Medicaid [id number] ANSI-Medicaid [id number] MEDICAID [id number] S [id number] [facility] [id number] S [id number] ANSI-Medicaid [id number] SELF PAY Unemployed MEDICAID [id number] S [id number] [facility] [id number] S [id number] ANS-Medicaid [id number] [facility] [id number] SP [id number] MEDICAID [id number] MEDICAID PROF FEES [id number] S [id number] MEDICAID UNAVAILABLE UNAVAILA BLE Medicaid P [id number] S [id number] [facility]icaid [id number] Sliding Fee Scale P none S no ne Medicaid S UNAVAILABLE S UNAVAILA BLE [facility] O [id number] S [id number] [facility] [id number] SP [id number] SELF PAY UNAVAILABLE SP UNAVAILA BLE MEDICAID - O/P EMERGENCY ROOM [id number] MEDICAID-O/P [id number] MEDICAID-O/P UNAVAILABLE UNAVA ILABLE [facility] MEDICAID [id number] SP [id number] MEDICAID HMO -O/P [id number] [id number] [facility] MEDICAID HMO -O/P [id number] [facility] XIX -O [id number] 18 [id number] [place] [id number] SP [id number] MEDICAID [id number] SP [id number] Problems, Conditions, and Diagnoses Code Display Name Description Problem Type Effective Dates Data Source(s) Y9[address] or not applicable Unspecified place or not applicable Diagnosis 11/16/2020 09:54:00 AM EDT [facility] [id number] Exposure to other specified factors, ini tial encounter Exposure to other specified factors, initial encounter Diagnosis 11/16/2020 09:54:00 AM EDT [facility] Z8614 Personal history of Methicillin resistan t Staphylococcus aureus infection Personal history of Methicillin resistant Staphylococcus aureus infection Diagnosis 11/16/2020 09:54:00 AM EDT [facility] [id number] Unspecified asthma, uncomplicated Unspecified as thma, uncomplicated Diagnosis 11/16/2020 09:54:00 AM EDT [facility] [id number] Nicotine dependence, cigarettes, uncompl icated Nicotine dependence, cigarettes, uncomplicated Diagnosis 11/16/2020 09:54:00 AM EDT [facility] [id number] Superficial foreign body of unspecified part of neck, initial encounter Superficial foreign body of unspecified part of neck, initial encounter Diagnosis 11/16/2020 09:54:00 AM EDT [facility] L0211 Cutaneous abscess of neck Cutaneous abscess of neck Di agnosis 11/16/2020 09:54:00 AM EDT [facility] M542 Cervicalgia Cervicalgia Diagnosis 11/16/2020 09:54:00 AM EDT [facility] S10.95XD Superficial foreign body in neck Superficial for eign body in neck Problem 11/29/2020 12:00:00 AM EDT [facility] ([facility], ) [id number] Allergic asthma without status asthmatic us Allergic asthma without status asthmaticus Problem 11/22/2020 12:00:00 AM EDT [facility] ([facility], ) Z48.02 Removal of suture Removal of suture Problem 11/22/2020 12:00:00 AM EDT [facility] ([facility], ) L02.11 Cellulitis and abscess of neck Cellulitis and abscess of neck Problem 11/21/2020 12:00:00 AM EDT [facility] ([facility], ) M79.5 Residual foreign body in soft tissue Residual fo reign body in soft tissue Problem 11/21/2020 12:00:00 AM EDT [facility] Surgeries/Procedures Procedure Description Date Indications Data Source(s) HCS Pre Test Counseling 02/13/2021 12:00 :00 AM EST - 02/13/2021 12:00:00 AM EST [facility] ([facility]) HIV-1/HIV-2, SINGLE ASSAY 02/13/2021 12: 00:00 AM EST - 02/13/2021 12:00:00 AM EST [facility] ([facility]) 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 Contraceptive 02/13/2021 12 :00:00 AM EST - 02/13/2021 12:00:00 AM EST [facility] ([facility]) CVR Med.Svc. Height/Weight 02/13/2021 12 :00:00 AM EST - 02/13/2021 12:00:00 AM EST [facility] ([facility]) CVR Blood Pressure 02/13/2021 12:00:00 AM EST - 2020 12:00:00 AM EST [facility] ([facility]) OFFICE/OUTPATIENT VISIT, NEW 02/13/2021 12:00:00 AM EST - 02/13/2021 12:00:00 AM EST [facility] ([facility]) ROUTINE VENIPUNCTURE 02/13/2021 12:00:00 AM EST - 02/13/2021 12:00:00 AM EST [facility] ([facility]) COMPLETE CBC W/AUTO DIFF WBC 02/13/2021 12:00:00 AM EST - 02/13/2021 12:00:00 AM EST [facility] ([facility]) TRICHOMONAS VAGIN, AMP PROBE 02/13/2021 12:00:00 AM EST - 02/13/2021 12:00:00 AM EST [facility] ([facility]) HEPATITIS C, RNA, AMP PROBE 02/13/2021 1 2:00:00 AM EST - 02/13/2021 12:00:00 AM EST [facility] ([facility]) METABOLIC PANEL TOTAL CA 02/13/2021 12:0 0:00 AM EST - 02/13/2021 12:00:00 AM EST [facility] ([facility]) HEP B CORE ANTIBODY, TOTAL 02/13/2021 12 :00:00 AM EST - 02/13/2021 12:00:00 AM EST [facility] ([facility]) HEPATIC FUNCTION PANEL 02/13/2021 12:00: 00 AM EST - 02/13/2021 12:00:00 AM EST [facility]) HTLV/HIV SERUM TEST 02/13/2021 12:00:00 AM EST - 02/13 12:00:00 AM EST [facility] ([facility]) HEPATITIS B SURFACE AG, EIA 02/13/2021 1 2:00:00 AM EST - 02/13/2021 12:00:00 AM EST [facility] ([facility]) N.GONORRHOEAE, URINE 02/13/2021 12:00:00 AM EST - 02/13/2021 12:00:00 AM EST [facility] ([facility]) CHYLMD TRACH, URINE 02/13/2021 12:00:00 AM EST - 02/13 12:00:00 AM EST [facility] ([facility]) I & D Abscess Simple 11/21/2020 12:00:00 AM EDT [facility] ([facility], ) RMVL FOREIGN BODY MUSCLE/TENDON SHEATH DEEP/COMP 11/21 12:00:00 AM EDT [facility] ([facility], ) Remove Foreign Body Subcutaneous Complicated 12:00:00 AM EDT [facility] ([facility], ) I & D Abscess/Hematoma Neck/Thorax Soft Tissue 021 12:00:00 AM EDT [facility] ([facility], ) Results ID Date Data Source [id number] 02/13/2021 06:08:49 PM EST [facility] ([facility]) Name Value Range Interpretation Code Description Data Yaritza rce(s) Supporting Document(s) Non-Reactive (Negative); Lot : [id number]; Exp: 10/30/2021; Start time: 3:45 PM; Completed time: 3:46 PM Rapid HIV [facility] ([facility]) ID Date Data Source [id number] 11/16/2020 09:54:00 AM EDT [facility] 1 OrderSheet [facility] Emergency Department [address] [place] [address] Phone #: ext- [phone] 11/16/2020 09:54 Patient: [...] Soft Tissue 13:22 11/16/2020 Ack'd: 13:25 13:59 GeraldineHead/Neck Leatha Person R.N.; R.N. 2 OrderSheet [facility] Emergency Department [address] [place] [address] Phone #: ext- [phone] 11/16/2020 09:54 Patient: BISHNU CASEY III Sex: M : 1995 Age: 24y NOTES: anterior neck abscess with FB, localize and selena FBMEDICATION/IV/DRIP/FLUID ORDERSOrder Description Priority Entered Acknowledged InitialedToradol IVP 30 mg 10:15 11/16/2020 Ack'd: 10:17 12:59 Martinez Chandler Amber Amber R.N. PA; R.N.Zosyn- IVPB 3.375 12:32 11/16/2020 Ack'd: 12:43 13:16 Geraldinegm (in 50 mL D5W, Leatha PersonNTrishaX1) PA; R.N.NS IV 1000 mL 12:37 11/16/2020 Ack'd: 12:43 12:59 GeraldineBolus: : Bolus 1000 Leatha Person R.N.mL (X1) PA; R.N.GENERAL ORDERSOrder Description Priority Entered Acknowledged InitialedSaline Lock 10:15 11/16/2020 Ack'd: 10:17 12:32 Martinez Chandler Amber Amber R.N. PA; R.N.Diet: (Regular Diet) 14:21 11/16/2020 14:31 Martinez Chandler R.N.;[Electronically signed by Leatha Chandler R.N. (16:31 11/16/2020)][Electronically signed by Martinez Rollins (19:42 11/17/2020)][Electronically locked by Leatha Chandler R.N. (16:31 11/16/2020)] Name Value Range Interpretation Code Description Data Yaritza rce(s) Supporting Document(s) ID Date Data Source [id number] 11/16/2020 09:54:00 AM EDT [facility] 1 Medication Reconciliation Report [facility] Emergency Department [address] [place] [address] Phone #: ext- [phone] 11/16/2020 09:54 Patient: BISHNU CASEY III Sex: [...] Dispense 20tablet. Refills: 0. Substitution permitted.Pharmacy - [facility] - [address] [place] [address] ; [place], [place] [phone]. . -- PACHECO Adams Name Value Range Interpretation Code Description Data Yaritza rce(s) Supporting Document(s) ID Date Data Source [id number] 11/16/2020 09:54:00 AM EDT [facility] 1 Medication Administration Record [facility] Emergency Department [address] [place] [address] Phone #: ext- [phone] 11/16/2020 09:54 Patient: BISHNU CASEY III Sex: [...] NS IV 1000 mL Bolus: : Bolus [id number] 11/16/2020 Dose: IV Fluids mL (X1)Leatha Chandler R.N. Bolus: 1000 mL wide open---- Dispensed: 1000 mL bagStop Site: #1 left upper arm14:34 11/16/2020Leatha Chandler R.N. Name Value Range Interpretation Code Description Data Yaritza rce(s) Supporting Document(s) ID Date Data Source [id number] 11/16/2020 09:54:00 AM EDT [facility] 1 General Instructions [facility] Emergency Department [address] [place] [address] Phone #: ext- [phone] 11/16/2020 09:54 Patient: [...] Dispense 20tablet. Refills: 0. Substitution permitted.Pharmacy - [facility] - [address] [place] [phone]. FaxNumber: .Understanding of the discharge instructions verbalized by patient.Follow-up with: [facility], , [id number], [address] [place] [address], ,[place], [address] Follow up Thursday. Call for the next [...] need to remove or 2 General Instructions [facility] Emergency Department [address] [place] [address] Phone #: ext- [phone] 11/16/2020 09:54 [id number] Sex: M : 1995 Age: 24yreplace it [...] returns when you are at home 3 [facility] Emergency Department [address] [place] [address] Phone #: ext- [phone] 11/16/2020 09:54 Patient: BISHNU CASEY III Sex: M : 1995 Age: 24y [id number] [employer] [place] [address]. All rights reserved. This information is not [...] dry with a towel.Medicine You can take youp-fmh-inizjvl medicine for pain, unless you were given a different pain medicine to use. Talk with your healthcare provider before using these medicines if you have chronic liver or kidney disease, ever had a stomach ulcer or digestive bleeding, or are taking blood-thinner medicines. If you were given antibiotics, take them until they are used up. It's important to finish the 4 General Instructions [facility] Emergency Department [address] [place] [address] Phone #: ext- [phone] 11/16/2020 09:54 Patient: [...] swelling or pus coming from the wound [phone] [employer] [place] [address], [place] [address]. All rights reserved. This information is not intended as asubstitute for professional medical care. Always follow your healthcare professional's instructions. You have been given the following additional information: Abscess, Incision And Drainage Foreign Body, Soft Tissue (Not Removed)(Electronically signed by PACHECO Adams 11/17/2020 19:42) Name Value Range Interpretation Code Description Data Yaritza rce(s) Supporting Document(s) ID Date Data Source [id number] 11/16/2020 09:54:00 AM EDT [facility] 1 Clinical Report - Nurses [facility] Emergency Department [address] [place] [address] Phone #: ext- [phone] 11/16/2020 09:54 Patient: BISHNU CASEY III Sex: M : 1995 Age: 24yTRIAGEArrived by private vehicle. Historian: patient. Accompanied by family. ( enlarged area on left side ofneck, has had abscess before on the other side of his neck).Acuity: LEVEL 3.Chief Complaint: NECK PAIN and (enlarged area on left bottom of neck).Alert.Onset. (3 days ago). ( hurts to swallow).Treatment RENEWAL SPECIALIST:None.SEPSIS SCREEN: SIRS SCREEN NEGATIVE. SEPSIS SCREEN NEGATIVE. [...] R.N.ADDITIONAL QUEZADA RGERIES:Abscess drained. --09:58 11/16/20 Clary Frey R.N.HistoryPAST MEDICAL HX: Immunizations: [...] hepatitis, HIV, 2 Clinical Report - Nurses [facility] Emergency Department [address] [place] [address] Phone #: ext- [phone] 11/16/2020 09:54 Patient: BISHNU CASEY III Sex: [...] Reassurance given. 3 Clinical Report - Nurses [facility] Emergency Department [address] [place] [address] Phone #: ext- [phone] 11/16/2020 09:54 Patient: BISHNU CASEY III Sex: [...] reaction and precautions.Verbalizes understanding. --12:59 11/16/20 Leatha Chandelr R.N.Monitoring of patient in place. Patient gowned. [...] reaction and 4 Clinical Report - Nurses [facility] Emergency Department [address] [place] [address] Phone #: ext- [phone] 11/16/2020 09:54 Patient: [...] discharge. Catheter intact. Bandage applied. --16:30 11/16/20 Leatah Chandler R.N.DISPOSITION / DISCHARGE late entry - 15:32 11/16/20. Departure time: late entry - 15:11/16/2020. [place] Coma Scale: 15- eyes open- spontaneous (4); best verbal response- oriented (5); best motor response- obeys commands (6). Condition at departure: improved and stable. No learning barriers present. Discharge instructions provided and reviewed with the patient. Reviewed warnings (infection). Reviewed medication(s) side effects, precautions, dosing and course information. Prescription(s) sent electronically to pharmacy (Augmentin). Reviewed referral to an ear, nose, and throat specialist (shearer helper) for followup. Patient verbalized un derstanding. Written instructions provided in Maltese. The patient was discharged by the physician medical assistant instructor. He was discharged home and accompanied by parent. He left ambulatory and via private vehicle. Parent driving. --16:28 11/16/20 Leatha Chandler R.N. 15:30 11/16/20. BP: 130/84. MAP: 99. HR: 74. RR: 18. O2 saturation: 100% on room air. --16:28 11/16/20 Leatha Chandler R.N. 15:30 11/16/20. Temp: 98.9 F (temporal). Pain level now: 05/02. --16:11/16/20 Leatha Chandler R.N. 5 Clinical Report - Nurses [facility] Emergency Department [address] [place] [address] Phone #: ext- [phone] 11/16/2020 09:54 Patient: BISHNU CASEY III [facility]#: [id number] Sex: M : 1995 Age: 24yLocked/Released at 11/16/2020 16:31 by Leatha Chandler R.N. Name Value Range Interpretation Code Description Data Yaritza rce(s) Supporting Document(s) ID Date Data Source [id number] 11/16/2020 09:54:00 AM EDT [facility] 1 Clinical Report - Physicians/Mid Levels [facility] Emergency Department [address] [place] [address] Phone #: ext- [phone] 11/16/2020 09:54 Patient: [id number] Sex: M : 1995 Age: 24y Time [...] Heart sounds normal. 2 Clinical Report - Physicians/[facility] Emergency Department [address] [place] [address] Phone #: ext- [phone] 11/16/2020 09:54 Patient: [...] 5.0) 3 Clinical Report - Physicians/Mid Levels [facility] Emergency Department [address] [place] [address] Phone #: ext- [phone] 11/16/2020 09:54 Patient: [...] Normal Lactic Acid: (YAN: 11/16/2020 10:40) ( [facility] 11/16/2020 11:09) Final results Test Result Flag Units (Reference) LACTIC ACID 1.5 MMOL/L (0.2 - 2.2) Sed. Rate: (YAN: 11/16/2020 10:40) ( [facility] 11/16/2020 11:23) Final results Test Result Flag Units (Reference) SED RATE 4 mm/hr (0 - 15) SED RATE REENTER 4 CRP: (YAN: 11/16/2020 10:40) ( [facility] 11/16/2020 11:32) Final results Test Result Flag [...] to 4 Clinical Report - Physicians/Mid Levels [facility] Emergency Department [address] [place] [address] Phone #: ext- [phone] 11/16/2020 09:54 Patient: [...] tablet. Refills: 0. Substitution permitted. Pharmacy - [facility] - [address] [place] [phone]. P christopher: . Understanding of the discharge instructions verbalized by patient. Follow-up with: [facility], , [id number], [address] [address], , [place], [address] Follow up Thursday. Call for the next available appointment. Reason for referral: evaluation and treatment. Summary of care provided to patient.(Electronically signed by PACHECO Adams 11/17/2020 19:42) 5Clinical Report - Physicians/Mid Levels [facility] Emergency Department [address] [place] [address] Phone #: [phone] 11/16/2020 09:54 Patient: BISHNU CASEY III Sex: M : 1995 Age: 24y Name Value Range Interpretation Code Description Data Yaritza rce(s) Supporting Document(s) ID Date Data Source [id number] 11/16/2020 09:54:00 AM EDT [facility] Addenda for BISHNU CASEY III VisitID: [id number] Date: 12:17Bactrim DS 800 mg-160 mg tablet Take 1 tablet twice a day as directed for 10 days -- Dispense 20tablet. Refills: 0. Substitution permitted.Pharmacy - [facility] - [address] [place] [phone]. FaxNumber: [phone].(Electronically signed by Martinez BERGMAN - 11/24/2020 12:17) Name Value Range Interpretation Code Description Data Yaritza rce(s) Supporting Document(s) ID Date Data Source [id number] 11/21/2020 05:05:00 PM EDT [facility] (Health system) Name Value Range Interpretation Code Description Data Yaritza rce(s) Supporting Document(s) Surgical pathology study Laboratory test result [facility] ([facility]) FINAL DIAGNOSIS Foreign body, left neck, removal: Metallic foreign body, for gross examination only. 11/23/2020 - 1210 CLINICAL DIAGNOSIS Foreign body left neck 11/22/20201314 GROSS DIAGNOSIS Received in formalin labeled "foreign body left neck" and consists of one piece of thin lópez metallic object measuring 0.7 cm. in length and less than 1 mm. in diameter. For gross examination only. -CADENCE 11/22/20201314 Signed GOVIND SCOTT MD 11/23/20201210 ID Date Data Source [id number] 11/21/2020 04:46:00 PM EDT [facility] (Health system) Name Value Range Interpretation Code Description Data Yaritza rce(s) Supporting Document(s) Afb Smear Laboratory test result [facility] ([facility]) Testing performed at reference lab . Rep ort copy to follow on a separate form. 01/07/21 REF LAB#:[phone] Due to limited sensitivity, smear results should be used as an adjunct in evaluating patient tuberculosis status. Cultural examination is highly recommended for clinical diagnosis. AFB sm REF LAB concentra NEGATIVE Af[employer] Culture Laboratory test result [facility] ([facility]) Testing performed at reference lab . Rep ort copy to follow on a separate form. 01/07/21 REF LAB#:[phone] FULL REPORT IN LAB NOTES ([facility] and [facility]). No Acid-Fast Bacilli Isolated after 6 Weeks. ID Date Data Source [id number] 11/21/2020 04:46:00 PM EDT [facility] (Health system) Name Value Range Interpretation Code Description Data Yaritza rce(s) Supporting Document(s) Bacteria identified in Unspecified specimen by Anaerob e culture Laboratory test result Normal (applies to non-numeric results) [facility] ([facility], ) FULL REPORT IN LAB NOTES ([facility] and [facility] ). ORGANISM 1: STREPTOCOCCUS INTERMEDIUS ORGANISM 1: STREPTOCOCCUS INTERMEDIUS ID Date Data Source [id number] 11/21/2020 04:46:00 PM EDT [facility] ([facility], ) Name Value Range Interpretation Code Description Data Yaritza rce(s) Supporting Document(s) Wound Culture Laboratory test result [facility] ([facility], ) If aerobic or anaerobic growth is detected within the next 7-21 days, an addendum will follow. . . FULL REPORT [facility] LAB NOTES [facility] NO GROWTH AEROBICALLY ID Date Data Source [id number] 11/21/2020 10:04:00 AM EDT [facility] Name Value Range Interpretation Code Description [facility] Document(s) SARS coronavirus 2 RNA [Presence] in Res piratory specimen by JENNIFER with probe detection NEGATIVE [facility] This lab was ordered by [facility] a nd reported by [facility]. ID Date Data Source [id number] 11/21/2020 08:40:00 AM EDT [facility] ([facility], ) Name Value Range Interpretation Code Description Data [facility] rce(s) Supporting Document(s) Blood Culture Laboratory test result [facility] ([facility]) No growth after 72 hours . All specimens observed for 5 days. Results final at that time. No growth after 48 hours . All specimens observed for 5 days. Results final at that time. No growth after 24 hours . All specimens observed for 5 days. Results final at that time. NO GROWTH AFTER 5 DAYS ID Date Data Source [id number] 11/16/2020 03:13:00 PM EDT [facility] [address] [place] [address] PHONE: [phone] FAX: [phone] Name .................. : JACINTO GOETZ III Acct Number.................. : [id number] ROOM. ................. : [facility] MR Number ................... : [id number] Stay type ............. : E/R Discharge Date......... ... : Admit Date ......... : 11/16/20 Admit Phys .................... : ARGELIA Jiang Date of ....... : 1995 Family Phys ................... : VANESSA Sheth Phone .................. : [phone] Age ................................ : 24 Film# .................. .:[id number] Sex ................................. : M Unsigned transcriptions are preliminary reports and do not represent a medical or legal document SOFT TISSUE HEAD/NECK [id number] COMPLETE:11/16/20 13:22 Reason(s): ABCESS ULTRASOUND OF SOFT [...] EMERGENCY DEPT via modem Copy for: [facility] Page 1 of 1 Name Value Range Interpretation Code Description Data Yaritza rce(s) Supporting Document(s) ID Date Data Source [id number] 11/16/2020 03:12:00 [place] [address] PHONE: [phone] FAX: [phone] Name .................. : JACINTO BISHNU III Acct Number.................. : [id number] ROOM. ................. : TR-03 MR Number ................... : [id number] Stay type ............. : E/R Discharge Date......... ... : Admit Date ......... : 11/16/20 Admit Phys .................... : ARGELIA Jiang Date of ....... : 1995 Family Phys ................... : VANESSA Sheth Phone .................. : [phone] Age ................................ : 24 Film# .................. .:[id number] Sex ................................. : M Unsigned transcriptions are preliminary reports and do not represent a medical or legal document CT ST NECK W/CONTRAST [id number] COMPLETE:11/16/20 12:55 SR [id number] Reason(s): Infection CT NECK WITH IV CONTRAST [...] likely an abscess. Page 1 of 2 [place] [address] PHONE: [phone] FAX: [phone] Name .................. : JACINTO GOETZ III Acct Number.................. : [id number] ROOM. ................. : TR-03 MR Number ................... : [id number] Stay type ............. : E/R Discharge Date......... ... : Admit Date ......... : 11/16/20 Admit Phys .................... : ARGELIA Jiang Date of ....... : 1995 Family Phys ................... : [employer] S Phone .................. : [phone] Age ................................ : 24 Film# .................. .:[id number] Sex ................................. : M Unsigned transcriptions are preliminary reports and do not represent a medical or legal document CT ST NECK W/CONTRAST [id number] COMPLETE:11/16/20 12:55 SR 29529 Reason(s): Infection These findings were discussed with [...] rce(s) Supporting Document(s) ID Date Data Source [id number] 11/22/2020 06:29:00 AM EDT [facility] Name Value Range Interpretation Code Description Data Yaritza rce(s) Supporting Document(s) CULTURE WOUND [facility] _CULTURE WOUND_$$[id number]$$[id number]$$[id number]$$[id number]$$[id number]$$[id number] DATE/TIME: 11/21/2020 15:06Culture: CULTURE WOUND Status: FinalIsolate 1 Enterobacter species Flag: A . . . . . . .5Moderate growth Previous result entered on 11/20/2020 14:06 ET Gram negative rodsAerobic Bacterial Culture: N2Wiimllfemkow species Flag: AIsolate 2 Streptococcus intermedius Flag: A . . . . . . .6Moderate growthSusceptibility not normally performed on this organism. Previous result entered on 11/20/2020 14:06 ET Microbiological testing to rule out the presence of possible pathogensis in progress.Streptococcus intermedius Flag: APatient: JACINTO GOETZ III Order: [id number] Page 2Culture: CULTURE WOUND Status: Final ISOLATE [...] S S . . . . . .56045- 0Gentamicin S S . . . . . .267-5Imipenem S S . . . . . .279-0Levofloxacin S S . . . . . .17600-5Nuabyrwlk S S . . . . . .6652-2Tetracycline S S . . . . . .496-0Tobramycin S S . . . . . .508-2Trimethoprim/Sulfa S S . . . . . 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 : -- Continued on next page --Patient: JACINTO GOETZ III Order: [id number] Page 2Culture: CULTURE WOUND Status: Prelim 11/21/20.0640.XMT.SENT REF 11/22/20.0630.XMT.SENT REF ID Date Data Source [id number] 11/16/2020 11:31:00 AM EDT [facility] Name Value Range Interpretation Code Description Data Yaritza rce(s) Supporting Document(s) C reactive protein [Mass/volume] in Serum or Plasma by High sensitivity method 16.01 MG/L 1.00 - 3.00 H [facility] CDC/S HS-CRP CUT-OFF: RELATIVE RISK: <1.0 mg/L Low 1.0 - 3.0 mg/L Average >3.0 mg/L High Optimally, the average of HS-CRP results repeated two weeks apart should be used for risk assessment. ID Date Data Source [id number] 11/16/2020 11:30:00 AM EDT [facility] Name Value Range Interpretation Code Description Data Yaritza rce(s) Supporting Document(s) COMPREHENSIVE METABOLIC PANEL [facility] COMPREHENSIVE METABOLIC PANEL Sodium [Moles/volume] in Serum or Plasma 137 mEq/L 134 - 153 [facility] Potassium [Moles/volume] in Serum or Plasma 4.5 mEq/L 3.6 - 5.0 [facility] Chloride [Moles/volume] in Serum or Plasma 100 mEq/L 98 - 107 [facility] Carbon dioxide, total [Moles/volume] in Serum or Plasma 27 MEQ/L 22 - 30 [facility] Glucose [Mass/volume] in Serum or Plasma 91 MG/DL 70 - 99 [facility] BUN 8 MG/DL 7 - 21 [facility] al Creatinine [Mass/volume] in Serum or Plasma 0.8 MG/DL 0.7 - 1.5 [facility] BUN/CREAT 10 8 - 27 [facility] al Protein [Mass/volume] in Serum or Plasma 7.8 G/DL 6.3 - 8.2 [facility] Albumin [Mass/volume] in Serum or Plasma 4.3 G/DL 3.9 - 5.0 [facility] Globulin [Mass/volume] in Serum by calculation 3.5 GM/DL 2.4 - 3.2 H [facility] A/G RATIO 1.2 0.8 - 2.0 [facility] Calcium [Mass/volume] in Serum or Plasma 10.0 MG/DL 8.4 - 10.2 [facility] Bilirubin.total [Mass/volume] in Serum or Plasma <0.7 MG/DL 0.2 - 1.3 [facility] Alkaline phosphatase [Enzymatic activity/volume] in Serum or Plasma 159 U/L 38 - 126 H [facility] Aspartate aminotransferase [Enzymatic activity/volume] in Serum or Plasma 28 U/L 5 - 40 [facility] Alanine aminotransferase [Enzymatic activity/volume] in Seru m or Plasma 18 U/L 7 - 56 [facility] Anion gap 3 in Serum or Plasma 10.0 mmol/L 8.0 - 16.0 [facility] AGE 24 yrs [facility] Hospit al NON-AA GFR >60 mL/min [facility] ital AFR AMER GFR >60 mL/min [facility] sp[facility] Male GFR In terprentation 20-49 [...] >32 mL/min Normal ID Date Data Source [id number] 11/16/2020 11:22:00 AM EDT [facility] Name Value Range Interpretation Code Description Data Yaritza rce(s) Supporting Document(s) Erythrocyte sedimentation rate by Westergren method 4 mm/hr 0 - 15 [facility] SED RATE REENTER 4 [facility] ID Date Data Source [id number] 11/16/2020 11:09:00 AM EDT [facility] Name Value Range Interpretation Code Description Data Yaritza rce(s) Supporting Document(s) Lactate [Moles/volume] in Serum or Plasma 1.5 MMOL/L 0.2 - 2.2 [facility] ID Date Data Source [id number] 11/16/2020 11:01:00 AM EDT [facility] Name Value Range Interpretation Code Description Data Yaritza rce(s) Supporting Document(s) CBC W/AUTOMATED DIFF [facility] COMPLETE BLOOD COUNT Leukocytes [#/volume] in Blood by Automated count 9.4 10^3/uL 4.2 - 1 1.0 [facility] Erythrocytes [#/volume] in Blood by Automated count 4.73 10^6/uL 4. 50 - 6.30 [facility] Hemoglobin [Mass/volume] in Blood 12.0 g/dL 14.0 - 16.0 L [facility] Hematocrit [Volume Fraction] of Blood by Automated count 37.6 % 4 1.0 - 51.0 L [facility] Erythrocyte mean corpuscular volume [Entitic volume] by Auto mated count 79.5 fL 80.0 - 94.0 L [facility] Erythrocyte mean corpuscular hemoglobin [Entitic mass] by Automated count 25.4 pg 27.0 - 34.0 L [facility] Erythrocyte mean corpuscular hemoglobin concentration [Mass/volume] by Automated count 31.9 g/dL 31.0 - 36.0 [facility] Erythrocyte distribution width [Ratio] by Automated count 15.4 % 11.5 - 14.8 H [facility] Platelets [#/volume] in Blood by Automated count 190 10^3/uL 150 - 45 0 [facility] Platelet mean volume [Entitic volume] in Blood by Automated count 10.9 fL 7.4 - 10.4 H [facility] Neutrophils/100 leukocytes in Blood by Automated count 83.9 % 37. 0 - 80.0 H [facility] Lymphocytes/100 leukocytes in Blood by Manual count 12.0 % 25.0 - 40.0 L [facility] Monocytes/100 leukocytes in Blood by Automated count 3.3 % 3.0 - 8.0 [facility] Eosinophils/100 leukocytes in Blood by Automated count 0.3 % 0.0 - 7.0 [facility] Basophils/100 leukocytes in Blood by Automated count 0.2 % 0.0 - 2.0 [facility] %IG 0.3 % 0.0 - 0.0 [facility] %NRBC 0.0 % 0.0 - 0.0 [facility] al Neutrophils [#/volume] in Blood by Automated count 7.88 10^3/uL 2.00 - 6.90 H [facility] Lymphocytes [#/volume] in Blood by Automated count 1.13 10^3/uL 0.60 - 3.40 [facility] Monocytes [#/volume] in Blood by Automated count 0.31 10^3/uL 0.00 - 0.90 [facility] Eosinophils [#/volume] in Blood by Automated count 0.03 10^3/uL 0.00 - 0.70 [facility] Basophils [#/volume] in Blood by Automated count 0.02 10^3/uL 0.00 - 0.20 [facility] Hospital #IG 0.03 10^3/uL 0.00 - 0.10 [facility] #NRBC 0.00 10^3/uL 0.00 - 0.00 [facility] MANUAL DIFF NOT INDICATED [facility] RBC MORPH NOT INDICATED [facility] Procedure Social History Code Duration Value Status Description Data Source(s ) Smoking 02/21/2021 12:00:00 AM EST Light tobacco smoker comple nicolas Light tobacco smoker [facility] ([facility]) 02/13/2021 12:00:00 AM EST Light cigarette smoker (1-9 cigs/day) completed Light cigarette smoker (1-9 cigs/day) [facility] ([facility]) Smoking 11/16/2020 12:00:00 PM EDT Smokes tobacco daily ([employer]) completed Current Every Day Smoker 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[employer]) Vital Signs ID Date Data Source UNK Name Value Range Interpretation Code Description Data Source(s) Body height 165.10 cm 165.10 cm [facility] ([facility]) Body weight 72.575 kg 72.575 kg [facility] ([facility]) Systolic blood pressure 118 mm[Hg] 118 mm[Hg] N extGen ([facility]) Diastolic blood pressure 74 mm[Hg] 74 mm[Hg] [facility] ([facility]) Body mass index (BMI) [Ratio] 26.63 kg/m2 Overweight 26.63 kg/m2 [facility] ([facility]) Diastolic blood pressure 90 mm[Hg] 90 mm[Hg] [facility] ([facility]) Heart rate 107 /min 107 /min [facility] ([facility]) Respiratory rate 20 /min 20 /min [facility] ( [facility]) Systolic blood pressure 122 mm[Hg] 122 mm[Hg] M EDENT ([facility]) Body temperature 98.4 [degF] 98.4 [degF] [facility] ([facility]) Diastolic blood pressure 80 mm[Hg] 80 mm[Hg] [facility] ([facility]) Body height 65.5 [in_i] 65.5 [in_i] [facility] ([facility]) 5'5.50" Body weight 143.00 [lb_av] 143.00 [lb_av] MEDEN T ([facility]) Oxygen saturation in Arterial blood by Pulse oximetry 98 % 98 % [facility] ([facility]) [place] body weight 136 [lb_av] 136 [lb_av] MED[facility] T ([facility]) Body mass index (BMI) [Ratio] 23.4 kg/m2 23.4 k g/m2 [facility] ([facility]) Body weight 64.865 kg 64.865 kg [facility] (Health system) Heart rate 123 /min 123 /min [facility] ([facility]) Body surface area Derived from formula 1.73 m2 1.73 m2 [facility] ([facility]) Systolic blood pressure 110 mm[Hg] 110 mm[Hg] [facility] Body weight 145.00 [lb_av] 145.00 [lb_av] MED[facility] T ([facility]) Body weight 65.772 kg 65.772 kg [facility] (Health system) [place] body weight 136 [lb_av] 136 [facility]_av[facility] Body mass index (BMI) [Ratio] 23.8 kg/m2 23.8 k g/m2 [facility] ([facility]) Body surface area Derived from formula 1.74 m2 1.74 m2 [facility] ([facility]) Systolic blood pressure 120 mm[Hg] 120 mm[Hg] [facility] Diastolic blood pressure 980 mm[Hg] 980 mm[Hg] [facility] ([facility]) Heart rate 98 /min 98 /min [facility] ([facility]) Oxygen saturation in Arterial blood by Pulse oximetry 97 % 97 % [facility] ([facility]) Body height 65.5 [in_i] 65.5 [in_i] [facility] ([facility], ) 5'5.50" Heart rate 111.0 /MIN 111.0 [...] MM[HG] 88.0 MM[HG ] [facility]SMART ([facility]) Heart rate 69.0 /MIN 69.0 /MIN [facility] ([facility]) Body temperature 36.8 VIN 36.8 VIN [...] MM[HG] 130.0 MM[H G] [facility]SMART ([facility]) Diastolic blood pressure 84.0 MM[HG] 84.0 MM[HG ] [facility]SMART ([facility]) Body temperature 97.7 [DEGF] 97.7 [DEGF] NETSMA RT ([facility]) Respiratory rate 18.0 /MIN 18.0 /MIN [facility] ([facility]) Body temperature 36.7 VIN 36.7 VIN [facility] ([facility]) Heart rate 82.0 /MIN 82.0 /MIN [facility] ([facility]) Oxygen saturation in Arterial blood by Pulse oximetry 96.0 % 96.0 % [facility] ([facility]) Body temperature 98.1 [DEGF] 98.1 [DEGF] [facility]SMA RT ([facility]) Systolic blood pressure 132.0 MM[HG] 132.0 MM[H G] [facility] ([facility]) Diastolic blood pressure 97.0 MM[HG] 97.0 MM[HG ] [facility] ([facility]) Patient Treatment Plan of Care Planned Activity Planned Date Details Description Data Source (s) raltegravir 400 MG Oral Tablet [ISENTRESS] 02/13/2021 12:00:[address] [facility] ([facility]) emtricitabine 200 MG / Tenofovir disopro xil fumarate 300 MG Oral Tablet [Truvada] 02/13/2021 12:00:00 AM EST [facility] en ([facility])
--- OUTSIDE RECORDS SUMMARY | 2021-02-24 06:52 | CCD ---
Author Author [facility] Organization [facility] Address Unknown Phone Unavailable Care Team Providers Care Ticket Speculator Name Role Phone Alcon Whitaker MD Unavailable [...] is protected by Article 27-F of the [facility] Public Health law. If you continue you may have access to information: Regarding HIV / AIDS; Provided by facilities licensed or operated by the [facility] Office of Mental Health; or Provided by the [facility] Office for People With Developmental Disabilities. If such information is present, then the following [facility] mandated warning applies: This information has been [...] law may result in a fine or senior living sentence or both. A general authorization for the release of medical or other information is NOT sufficient authorization for further disc losure. Allergies and Adverse Reactions Type Description Substance Reaction Status Data Source(s ) No Known Drug Allergies No Known Drug Allergies [facility] Hospital Encounters Encounter Providers Location Date Indications Data Source(s ) Attender: Gisselle Sorto 04/2020 02:37:00 PM EST - 02/21/2021 02:37:00 PM EST [facility] ([facility]) Attender: Gisselle Sorto 03/2020 07:16:00 AM EST - 02/20/2021 07:16:00 AM EST [facility] ([facility]) Attender: Gisselle Sorto 09:13:00 AM EST - 02/19/2021 09:13:00 AM EST [facility] ([facility]) Outpatient Attender: WENDI BELL 02/18/2021 05:45:00 PM EST [facility] Attender: Noa Mendiola 01/22 09:28:00 AM EST - 02/15/2021 09:28:00 AM EST [facility] ([facility]) OutpatientOFFICE/OUTPATIENT VISIT, NEW Attender: Gisselle MARTIN [place] 02/13/2021 03:45:00 PM EST - 02/13/2021 03:45:00 PM ES T Encounter for oth general cnsl and advice on contraceptionHigh risk heterosexual behaviorEncntr screen for infections w sexl mode of transmissEncounter for screening for human immunodeficiency virusHuman immunodeficiency virus [HIV] counselingOther sex counselingContact w and (suspected) exposure to human immunodef virus [facility] ([facility]) Encounter for oth general cnsl and [...] Niko Torres 11/29/2020 11:15:00 AM EDT [facility] ([facility]) Office Visit Attender: Fortino Samaniego PH.Daniele., Niko Shay/Syeda Torres 11/22/2020 01:00:00 PM EDT [facility] ([facility]) Unlisted evaluation and management service Performer: Marleni dc 11/17/2020 01:15:00 AM EDT - 11/20/2020 07:15:00 PM EDT [facility] ([facility]) Unlisted evaluation and management service Performer: Marleni dc 11/16/2020 10:32:00 PM EDT [facility] ([facility]) Emergency Attender: Vishal Barclay MDConsultant: Jimbo Whitaker MD 11/16/2020 09:54:00 AM EDT - 11/16/2020 03:32:00 PM EDT [facility] Patient discharged. Outpatient Attender: Gabriel MARIE 12/29/2019 [...] Oral Tablet [Isentress] [facility] ([facility]) emtricitabine 200 MG / Tenofovir disopro xil fumarate 300 MG Oral Tablet [Truvada] Truvada 200 mg-300 mg tablet Truvada 200 mg-300 mg tablet 02/13/2021 12:00:00 AM EST active emtricitabine 200 MG / tenofovir disoproxil fumarate 300 MG Oral Tablet [Truvada] [facility] ([facility]) Sulfamethoxazole 800 MG / Trimethoprim 160 MG Oral Tab let Sulfamethoxazole/Trimethoprim DS 11/22/2020 12:00:00 AM EDT ORAL active [facility] ([facility], ) Insurance Providers Payer name Policy type / Coverage type Policy ID Covered green party ID Covered green party's relationship to skinner Policy Skinner Plan Information [facility] [employer] MCDO [id number] SP [id number] [facility] [id number] SP [id number] MEDICAID M [id number] Self [id number] CORRECTIONS B [id number] Self [id number] Medicaid P [id number] S [id number] MEDICAID [id number] S [id number] [facility] [id number] SP [id number] ANSI-Medicaid [id number] ANSI-Medicaid [id number] MEDICAID [id number] S [id number] [facility] [id number] S [id number] ANSI-Medicaid [id number] SELF PAY Unemployed MEDICAID [id number] S [id number] [facility] [id number] S [id number] ANS-Medicaid [id number] [facility] [id number] SP [id number] MEDICAID [id number] S [id number] MEDICAID PROF FEES [id number] S [id number] MEDICAID UNAVAILABLE UNAVAILA BLE Medicaid P [id number] S [id number] [facility]-Medicaid [id number] Sliding Fee Scale P none S no ne Medicaid S UNAVAILABLE S UNAVAILA BLE [facility]) O [id number] S [id number] [facility] [id number] SP [id number] SELF PAY UNAVAILABLE SP UNAVAILA BLE MEDICAID - O/P EMERGENCY ROOM [id number] MEDICAID-O/P [id number] MEDICAID-O/P UNAVAILABLE UNAVA ILABLE [facility] MEDICAID [id number] SP [id number] MV MEDICAID HMO -O/P [id number] 18 [id number] [facility] MEDICAID HMO -O/P [id number] 18 [id number] [facility] XIX -O [id number] 18 [id number] [facility] [id number] SP [id number] MEDICAID [id number] SP [id number] Problems, Conditions, and Diagnoses Code Display Name Description Problem Type Effective Dates Data Source(s) Y9[address] or not applicable Unspecified place or not applicable Diagnosis 11/16/2020 09:54:00 AM EDT [facility] [id number] Exposure to other specified factors, ini tial encounter Exposure to other specified factors, initial encounter Diagnosis 11/16/2020 09:54:00 AM EDT [facility] Z8614 Personal history of Methicillin resistan t Staphylococcus aureus infection Personal history of Methicillin resistant Staphylococcus aureus infection Diagnosis 11/16/2020 09:54:00 AM EDT [facility] K36678 Unspecified asthma, uncomplicated Unspecified as thma, uncomplicated Diagnosis 11/16/2020 09:54:00 AM EDT [facility] T67205 Nicotine dependence, cigarettes, uncompl icated Nicotine dependence, cigarettes, uncomplicated Diagnosis 11/16/2020 09:54:00 AM EDT [facility] [id number] Superficial foreign body of unspecified part of neck, initial encounter Superficial foreign body of unspecified part of neck, initial encounter Diagnosis 11/16/2020 09:54:00 AM EDT [facility] L0211 Cutaneous abscess of neck Cutaneous abscess of neck Di agnosis 11/16/2020 09:54:00 AM EDT [facility] M542 Cervicalgia Cervicalgia Diagnosis 11/16/2020 09:54:00 AM EDT [facility] S10.95XD Superficial foreign body in neck Superficial for eign body in neck Problem 11/29/2020 12:00:00 AM EDT [facility] ([facility], ) [id number] Allergic asthma without status asthmatic us Allergic asthma without status asthmaticus Problem 11/22/2020 12:00:00 AM EDT [facility] ([facility], ) Z48.02 Removal of suture Removal of suture Problem 11/22/2020 12:00:00 AM EDT [facility] ([facility], ) L02.11 Cellulitis and abscess of neck Cellulitis and abscess of neck Problem 11/21/2020 12:00:00 AM EDT [facility] ([facility], ) M79.5 Residual foreign body in soft tissue Residual fo reign body in soft tissue Problem 11/21/2020 12:00:00 AM EDT [facility] Surgeries/Procedures Procedure Description Date Indications Data Source(s) HCS Pre Test Counseling 02/13/2021 12:00 :00 AM EST - 02/13/2021 12:00:00 AM EST [facility] ([facility]) HIV-1/HIV-2, SINGLE ASSAY 02/13/2021 12: 00:00 AM EST - 02/13/2021 12:00:00 AM EST [facility] ([facility]) CVR Hat Copyist.Svc. STI / H 02/13/2021 12:00:00 AM EST - 02/13/2021 12:00:00 AM EST [facility] ([facility]) CVR Hat Copyist.Svc. Contraceptive 02/13/2021 12 :00:00 AM EST - 02/13/2021 12:00:00 AM EST [facility] ([facility]) CVR Med.Svc. Height/Weight 02/13/2021 12 :00:00 AM EST - 02/13/2021 12:00:00 AM EST [facility] ([facility]) CVR Blood Pressure 02/13/2021 12:00:00 AM EST - 2020 12:00:00 AM EST [facility] ([facility]) OFFICE/OUTPATIENT VISIT, NEW 02/13/2021 12:00:00 AM EST - 02/13/2021 12:00:00 AM EST [facility] ([facility]) ROUTINE VENIPUNCTURE 02/13/2021 12:00:00 AM EST - 02/13/2021 12:00:00 AM EST [facility] ([facility]) COMPLETE CBC W/AUTO DIFF WBC 02/13/2021 12:00:00 AM EST - 02/13/2021 12:00:00 AM EST [facility] ([facility]) TRICHOMONAS VAGIN, AMP PROBE 02/13/2021 12:00:00 AM EST - 02/13/2021 12:00:00 AM EST [facility] ([facility]) HEPATITIS C, RNA, AMP PROBE 02/13/2021 1 2:00:00 AM EST - 02/13/2021 12:00:00 AM EST [facility] ([facility]) METABOLIC PANEL TOTAL CA 02/13/2021 12:0 0:00 AM EST - 02/13/2021 12:00:00 AM EST [facility] ([facility]) HEP B CORE ANTIBODY, TOTAL 02/13/2021 12 :00:00 AM EST - 02/13/2021 12:00:00 AM EST [facility] ([facility]) HEPATIC FUNCTION PANEL 02/13/2021 12:00: 00 AM EST - 02/13/2021 12:00:00 AM EST [facility] HTLV/HIV SERUM TEST 02/13/2021 12:00:00 AM EST - 02/13 12:00:00 AM EST [facility] ([facility]) HEPATITIS B SURFACE AG, EIA 02/13/2021 1 2:00:00 AM EST - 02/13/2021 12:00:00 AM EST [facility] ([facility]) N.GONORRHOEAE, URINE 02/13/2021 12:00:00 AM EST - 02/13/2021 12:00:00 AM EST [facility] ([facility]) CHYLMD TRACH, URINE 02/13/2021 12:00:00 AM EST - 02/13 12:00:00 AM EST [facility] ([facility]) I & D Abscess Simple 11/21/2020 12:00:00 AM EDT [facility] ([facility], ) RMVL FOREIGN BODY MUSCLE/TENDON SHEATH DEEP/COMP 11/21 12:00:00 AM EDT [facility] ([facility], ) Remove Foreign Body Subcutaneous Complicated 12:00:00 AM EDT [facility] ([facility], ) I & D Abscess/Hematoma Neck/Thorax Soft Tissue 021 12:00:00 AM EDT [facility] ([facility], ) Results ID Date Data Source [id number] 02/13/2021 06:08:49 PM EST [facility] ([facility]) Name Value Range Interpretation Code Description Data Yaritza rce(s) Supporting Document(s) Non-Reactive (Negative); Lot : [id number]; Exp: 10/30/2021; Start time: 3:45 PM; Completed time: 3:46 PM Rapid HIV [facility] ([facility]) ID Date Data Source [id number] 11/16/2020 09:54:00 AM EDT [facility] 1 OrderSheet [facility] Emergency Department [address] [place] [address] Phone #: ext- [phone] 11/16/2020 09:54 Patient: [...] GeraldineHead/Neck Leatha Person R.N.; R.N. 2 OrderSheet [facility] Emergency Department [address] [place] [address] Phone #: ext- [phone] 11/16/2020 09:54 Patient: [...] rce(s) Supporting Document(s) ID Date Data Source [id number] 11/16/2020 09:54:00 AM EDT [facility] 1 Medication Reconciliation Report [facility] Emergency Department [address] [place] [address] Phone #: ext- [phone] 11/16/2020 09:54 Patient: BISHNU CASEY III Sex: [...] Dispense 20tablet. Refills: 0. Substitution permitted.Pharmacy - [facility] - [address] [place] [address] ; [place], [place] [phone]. . -- PACHECO Adams Name Value Range Interpretation Code Description Data Yaritza rce(s) Supporting Document(s) ID Date Data Source [id number] 11/16/2020 09:54:00 AM EDT [facility] 1 Medication Administration Record [facility] Emergency Department [address] [place] [address] Phone #: ext- [phone] 11/16/2020 09:54 Patient: BISHNU CASEY III Sex: [...] NS IV 1000 mL Bolus: : Bolus [id number] 11/16/2020 Dose: IV Fluids mL (X1)Leatha Chandler R.N. Bolus: 1000 mL wide open---- Dispensed: 1000 mL bagStop Site: #1 left upper arm14:34 11/16/2020Leatha Chandler R.N. Name Value Range Interpretation Code Description Data Yaritza rce(s) Supporting Document(s) ID Date Data Source [id number] 11/16/2020 09:54:00 AM EDT [facility] 1 General Instructions [facility] Emergency Department [address] [place] [address] Phone #: ext- [phone] 11/16/2020 09:54 Patient: [...] Dispense 20tablet. Refills: 0. Substitution permitted.Pharmacy - [facility] - [address] [place] [phone]. FaxNumber: [phone].Understanding of the discharge instructions verbalized by patient.Follow-up with: [facility], , [id number], [address] [place] [address], ,[place], [address] Follow up Thursday. Call for the next [...] need to remove or 2 General Instructions [facility] Emergency Department [address] [place] [address] Phone #: ext- [phone] 11/16/2020 09:54 [id number] Sex: M : 1995 Age: 24yreplace it [...] returns when you are at home 3 [facility] Emergency Department [address] [place] [address] Phone #: ext- [phone] 11/16/2020 09:54 Patient: BISHNU CASEY III Sex: M : 1995 Age: 24y [id number] [employer]. [address] [place] [address]. All rights reserved. This information is not [...] dry with a towel.Medicine You can take mvxc-bci-efokonc medicine for pain, unless you were given a different pain medicine to use. Talk with your healthcare provider before using these medicines if you have chronic liver or kidney disease, ever had a stomach ulcer or digestive bleeding, or are taking blood-thinner medicines. If you were given antibiotics, take them until they are used up. It's important to finish the 4 General Instructions [facility] Emergency Department [address] [place] [address] Phone #: ext- [phone] 11/16/2020 09:54 Patient: [...] swelling or pus coming from the wound [phone] [employer]. [address] [place] [address], [place] [address]. All rights reserved. This information is not intended as asubstitute for professional medical care. Always follow your healthcare professional's instructions. You have been given the following additional information: Abscess, Incision And Drainage Foreign Body, Soft Tissue (Not Removed)(Electronically signed by PACHECO Adams 11/17/2020 19:42) Name Value Range Interpretation Code Description Data Yaritza rce(s) Supporting Document(s) ID Date Data Source [id number] 11/16/2020 09:54:00 AM EDT [facility] 1 Clinical Report - Nurses [facility] Emergency Department [address] [place] [address] Phone #: ext- [phone] 11/16/2020 09:54 Patient: BISHNU CASEY III Sex: M : 1995 Age: 24yTRIAGEArrived by private vehicle. Historian: patient. Accompanied by family. ( enlarged area on left side ofneck, has had abscess before on the other side of his neck).Acuity: LEVEL 3.Chief Complaint: NECK PAIN and (enlarged area on left bottom of neck).Alert.Onset. (3 days ago). ( hurts to swallow).Treatment MOLD HOLDER:None.SEPSIS SCREEN: SIRS SCREEN NEGATIVE. SEPSIS SCREEN NEGATIVE. [...] hepatitis, HIV, 2 Clinical Report - Nurses [facility] Emergency Department [address] [place] [address] Phone #: ext- [phone] 11/16/2020 09:54 Patient: BISHNU CASEY III Sex: [...] Reassurance given. 3 Clinical Report - Nurses [facility] Emergency Department [address] [place] [address] Phone #: ext- [phone] 11/16/2020 09:54 Patient: BISHNU CASEY III Sex: [...] reaction and 4 Clinical Report - Nurses [facility] Emergency Department [address] [place] [address] Phone #: ext- [phone] 11/16/2020 09:54 Patient: [...] 11/16/20. Departure time: late entry - 15:11/16/2020. [place] Coma Scale: 15- eyes open- spontaneous (4); best verbal response- oriented (5); best motor response- obeys commands (6). Condition at departure: improved and stable. No learning barriers present. Discharge instructions provided and reviewed with the patient. Reviewed warnings (infection). Reviewed medication(s) side effects, precautions, dosing and course information. Prescription(s) sent electronically to pharmacy (Augmentin). Reviewed referral to an ear, nose, and throat specialist (tortilla maker) for followup. Patient verbalized un derstanding. Written instructions provided in Mauritian. The patient was discharged by the physician assistant program director. He was discharged home and accompanied by parent. He left ambulatory and via private vehicle. Parent driving. --16:28 11/16/20 Leatha Chandler R.N. 15:30 11/16/20. BP: 130/84. MAP: 99. HR: 74. RR: 18. O2 saturation: 100% on room air. --16:28 11/16/20 Leatha Chandler R.N. 15:30 11/16/20. Temp: 98.9 F (temporal). Pain level now: 05/02. --16:11/16/20 Leatha Chandler R.N. 5 Clinical Report - Nurses [facility] Emergency Department [address] [place] [address] Phone #: ext- [phone] 11/16/2020 09:54 Patient: BISHNU CASEY III [facility]#: [id number] Sex: M : 1995 Age: 24yLocked/Released at 11/16/2020 16:31 by Leatha Chandler R.N. Name Value Range Interpretation Code Description Data Yaritza rce(s) Supporting Document(s) ID Date Data Source [id number] 11/16/2020 09:54:00 AM EDT [facility] 1 Clinical Report - Physicians/Mid Levels [facility] Emergency Department [address] [place] [address] Phone #: ext- [phone] 11/16/2020 09:54 Patient: [id number] Sex: M : 1995 Age: 24y Time [...] Heart sounds normal. 2 Clinical Report - Physicians/[facility] Emergency Department [address] [place] [address] Phone #: ext- [phone] 11/16/2020 09:54 Patient: [...] themedical decision making process. CBC w Diff: (YNA: 11/16/2020 10:40) ( MsgRcvd 11/16/2020 11:01) Final [...] 5.0) 3 Clinical Report - Physicians/Mid Levels [facility] Emergency Department [address] [place] [address] Phone #: ext- [phone] 11/16/2020 09:54 Patient: [...] Normal Lactic Acid: (YAN: 11/16/2020 10:40) ( [facility] 11/16/2020 11:09) Final results Test Result Flag Units (Reference) LACTIC ACID 1.5 MMOL/L (0.2 - 2.2) Sed. Rate: (YAN: 11/16/2020 10:40) ( [facility] 11/16/2020 11:23) Final results Test Result Flag Units (Reference) SED RATE 4 mm/hr (0 - 15) SED RATE REENTER 4 CRP: (YAN: 11/16/2020 10:40) ( [facility] 11/16/2020 11:32) Final results Test Result Flag [...] to 4 Clinical Report - Physicians/Mid Levels [facility] Emergency Department [address] [place] [address] Phone #: ext- [phone] 11/16/2020 09:54 Patient: [...] tablet. Refills: 0. Substitution permitted. Pharmacy - [facility] - [address] [place] [phone]. P christopher: . Understanding of the discharge instructions verbalized by patient. Follow-up with: [facility], , [id number], [address] [address], , [place], [address] Follow up Thursday. Call for the next available appointment. Reason for referral: evaluation and treatment. Summary of care provided to patient.(Electronically signed by PACHECO Adams 11/17/2020 19:42) 5Clinical Report - Physicians/Mid Levels [facility] Emergency Department [address] [place] [address] Phone #: ext- [phone] 11/16/2020 09:54 Patient: BISHNU CASEY III Sex: M : 1995 Age: 24y Name Value Range Interpretation Code Description Data Yaritza rce(s) Supporting Document(s) ID Date Data Source [id number] 11/16/2020 09:54:00 AM EDT [facility] Addenda for BISHNU CASEY III VisitID: [id number] Date: 12:17Bactrim DS 800 mg-160 mg tablet Take 1 tablet twice a day as directed for 10 days -- Dispense 20tablet. Refills: 0. Substitution permitted.Pharmacy - [facility] - [address] [place] [phone]. FaxNumber: .(Electronically signed by Martinez BERGMAN - 11/24/2020 12:17) Name Value Range Interpretation Code Description Data Yaritza rce(s) Supporting Document(s) ID Date Data Source [id number] 11/21/2020 05:05:00 PM EDT [facility] Name Value Range Interpretation Code Description Data Yaritza rce(s) Supporting Document(s) Surgical pathology study Laboratory test result [facility] ([facility]) FINAL DIAGNOSIS Foreign body, left [...] SCOTT MD 11/23/20201210 ID Date Data Source [id number] 11/21/2020 04:46:00 PM EDT [facility]) Name Value Range Interpretation Code Description Data Yaritza rce(s) Supporting Document(s) Afb Smear Laboratory test result [facility] ([facility]) Testing performed at reference lab . Rep ort copy to follow on a separate form. 01/07/21 REF LAB#:[id number] Due to limited sensitivity, smear results should be used as an adjunct in evaluating patient tuberculosis status. Cultural examination is highly recommended for clinical diagnosis. AFB sm REF LAB concentra NEGATIVE Afb Culture Laboratory test result [facility] ([facility]) Testing performed at reference lab . Rep ort copy to follow on a separate form. 01/07/21 REF LAB#:[id number] FULL REPORT IN LAB NOTES ([facility]CW and [facility]). No Acid-Fast Bacilli Isolated after 6 Weeks. ID Date Data Source [id number] 11/21/2020 04:46:00 PM EDT [facility]) Name Value Range Interpretation Code Description Data Yaritza rce(s) Supporting Document(s) Bacteria identified in Unspecified specimen by Anaerob e culture Laboratory test result Normal (applies to non-numeric results) [facility] ([facility], ) FULL REPORT IN LAB NOTES ([facility] and [facility] ). ORGANISM 1: STREPTOCOCCUS INTERMEDIUS ORGANISM 1: STREPTOCOCCUS INTERMEDIUS ID Date Data Source [id number] 11/21/2020 04:46:00 PM EDT [facility] ([facility], ) Name Value Range Interpretation Code Description Data Yaritza rce(s) Supporting Document(s) Wound Culture Laboratory test result [facility] ([facility], ) If aerobic or anaerobic growth is detected within the next 7-21 days, an addendum will follow. . . FULL RE[facility] NO GROWTH AEROBICALLY ID Date Data Source [id number] 11/21/2020 10:04:00 AM EDT [facility] Name Value Range Interpretation Code Description Data [facility] Supporting Document(s) SARS coronavirus 2 RNA [Presence] in Res piratory specimen by JENNIFER with probe detection NEGATIVE [facility] This lab was ordered by [facility] a nd reported by [facility]. ID Date Data Source [id number] 11/21/2020 08:40:00 AM EDT [facility] ([facility], ) Name Value Range Interpretation Code Description Data [facility] rce(s) Supporting Document(s) Blood Culture Laboratory test result [facility] ([facility]) No growth after 72 hours . All specimens observed for 5 days. Results final at that time. No growth after 48 hours . All specimens observed for 5 days. Results final at that time. No growth after 24 hours . All specimens observed for 5 days. Results final at that time. NO GROWTH AFTER 5 DAYS ID Date Data Source [id number] 11/16/2020 03:13:00 PM EDT [facility] [address] [place] [address] PHONE: [phone] FAX: [phone] Name .................. : JACINTO GOETZ III Acct Number.................. : [id number] ROOM. ................. : [facility]03 MR Number ................... : [id number] Stay type ............. : E/R Discharge Date......... ... : Admit Date ......... : 11/16/20 Admit Phys .................... : ARGELIA Jiang Date of ....... : 1995 Family Phys ................... : VANESSA Sheth Phone .................. : [phone] Age ................................ : 24 Film# .................. .:[id number] Sex ................................. : M Unsigned transcriptions are preliminary reports and do not represent a medical or legal document SOFT TISSUE HEAD/NECK [id number] COMPLETE:11/16/20 13:22 Reason(s): ABCESS ULTRASOUND OF SOFT [...] EMERGENCY DEPT via modem Copy for: 710 [facility] REC Page 1 of 1 Name Value Range Interpretation Code Description Data Yaritza rce(s) Supporting Document(s) ID Date Data Source [id number] 11/16/2020 03:12:00 [place] [address] PHONE: [phone] FAX: [phone] Name .................. : JACINTO BISHNU III Acct Number.................. : [id number] ROOM. ................. : TR-03 MR Number ................... : [id number] Stay type ............. : E/R Discharge Date......... ... : Admit Date ......... : 11/16/20 Admit Phys .................... : ARGELIA Jiang Date of ....... : 1995 Family Phys ................... : VANESSA Sheth Phone .................. : [phone] Age ................................ : 24 Film# .................. .:[id number] Sex ................................. : M Unsigned transcriptions are preliminary reports and do not represent a medical or legal document CT ST NECK W/CONTRAST [id number] COMPLETE:11/16/20 12:55 SR [id number] Reason(s): Infection CT NECK WITH IV CONTRAST [...] likely an abscess. Page 1 of 2 [place] [address] PHONE: [phone] FAX: [phone] Name .................. : JACINTO GOETZ III Acct Number.................. : [id number] ROOM. ................. : TR-03 MR Number ................... : [id number] Stay type ............. : E/R Discharge Date......... ... : Admit Date ......... : 11/16/20 Admit Phys .................... : ARGELIA Jiang Date of ....... : 1995 Family Phys ................... : [employer] S Phone .................. : [phone] Age ................................ : 24 Film# .................. .:[id number] Sex ................................. : M Unsigned transcriptions are preliminary reports and do not represent a medical or legal document CT ST NECK W/CONTRAST [id number] COMPLETE:11/16/20 12:55 SR 71708 Reason(s): Infection These findings were discussed with [...] rce(s) Supporting Document(s) ID Date Data Source [id number] 11/22/2020 06:29:00 AM EDT [facility] Name Value Range Interpretation Code Description Data Yaritza rce(s) Supporting Document(s) CULTURE WOUND [facility] Ho spital _CULTURE WOUND_$$[id number]$$[id number]$$[id number]$$[id number]$$[id number]$$[id number] DATE/TIME: 11/21/2020 15:06Culture: CULTURE WOUND Status: FinalIsolate 1 Enterobacter species Flag: A . . . . . . .5Moderate growth Previous result entered on 11/20/2020 14:06 ET Gram negative rodsAerobic Bacterial Culture: T5Ssrxarxarnyy species Flag: AIsolate 2 Streptococcus intermedius Flag: A . . . . . . .6Moderate growthSusceptibility not normally performed on this organism. Previous result entered on 11/20/2020 14:06 ET Microbiological testing to rule out the presence of possible pathogensis in progress.Streptococcus intermedius Flag: APatient: JACINTO GOETZ III Order: [id number] Page 2Culture: CULTURE WOUND Status: Final ISOLATE [...] S S . . . . . .10000- 0Gentamicin S S . . . . . .267-5Imipenem S S . . . . . .279-0Levofloxacin S S . . . . . .74381-9Iojpcefqd S S . . . . . .6652-2Tetracycline S S . . . . . .496-0Tobramycin S S . . . . . .508-2Trimethoprim/Sulfa S S . . . . . .516- 5P1 Test performed by: [facility] #: [id number] [address] [place] [address] Avenue [id number] [facility] [id number] Director : Larry Foster MD NPI #:[employer] : -- Continued on next page --Patient: JACINTO GOETZ III Order: [id number] Page 2Culture: CULTURE WOUND Status: Prelim 11/21/20.0640.XMT.SENT REF 11/22/20.0630.XMT.SENT REF ID Date Data Source [id number] 11/16/2020 11:31:00 AM EDT [facility] Name Value Range Interpretation Code Description Data Yaritza rce(s) Supporting Document(s) C reactive protein [Mass/volume] in Serum or Plasma by High sensitivity method 16.01 MG/L 1.00 - 3.00 H [facility] CDC/S HS-CRP CUT-OFF: RELATIVE RISK: <1.0 mg/L Low 1.0 - 3.0 mg/L Average >3.0 mg/L High Optimally, the average of HS-CRP results repeated two weeks apart should be used for risk assessment. ID Date Data Source [id number] 11/16/2020 11:30:00 AM EDT [facility] Name Value Range Interpretation Code Description Data Yaritza rce(s) Supporting Document(s) COMPREHENSIVE METABOLIC PANEL [facility] COMPREHENSIVE METABOLIC PANEL Sodium [Moles/volume] in Serum or Plasma 137 mEq/L 134 - 153 [facility] Potassium [Moles/volume] in Serum or Plasma 4.5 mEq/L 3.6 - 5.0 [facility] Chloride [Moles/volume] in Serum or Plasma 100 mEq/L 98 - 107 [facility] Carbon dioxide, total [Moles/volume] in Serum or Plasma 27 MEQ/L 22 - 30 [facility] Glucose [Mass/volume] in Serum or Plasma 91 MG/DL 70 - 99 [facility] BUN 8 MG/DL 7 - 21 [facility] al Creatinine [Mass/volume] in Serum or Plasma 0.8 MG/DL 0.7 - 1.5 [facility] BUN/CREAT 10 8 - 27 [facility] al Protein [Mass/volume] in Serum or Plasma 7.8 G/DL 6.3 - 8.2 [facility] Albumin [Mass/volume] in Serum or Plasma 4.3 G/DL 3.9 - 5.0 [facility] Globulin [Mass/volume] in Serum by calculation 3.5 GM/DL 2.4 - 3.2 H [facility] A/G RATIO 1.2 0.8 - 2.0 [facility] Calcium [Mass/volume] in Serum or Plasma 10.0 MG/DL 8.4 - 10.2 [facility] Bilirubin.total [Mass/volume] in Serum or Plasma <0.7 MG/DL 0.2 - 1.3 [facility] Alkaline phosphatase [Enzymatic activity/volume] in Serum or Plasma 159 U/L 38 - 126 H [facility] Aspartate aminotransferase [Enzymatic activity/volume] in Serum or Plasma 28 U/L 5 - 40 [facility] Alanine aminotransferase [Enzymatic activity/volume] in Seru m or Plasma 18 U/L 7 - 56 [facility] Anion gap 3 in Serum or Plasma 10.0 mmol/L 8.0 - 16.0 [facility] AGE 24 yrs [facility] Hospit al NON-AA GFR >60 mL/min [facility] Hosp ital AFR AMER GFR >60 mL/min [facility] Male GFR In terprentation [...] >32 mL/min Normal ID Date Data Source [id number] 11/16/2020 11:22:00 AM EDT [facility] Name Value Range Interpretation Code Description Data Yaritza rce(s) Supporting Document(s) Erythrocyte sedimentation rate by Westergren method 4 mm/hr 0 - 15 [facility] SED RATE REENTER 4 [facility] ID Date Data Source [id number] 11/16/2020 11:09:00 AM EDT [facility] Name Value Range Interpretation Code Description Data Yaritza rce(s) Supporting Document(s) Lactate [Moles/volume] in Serum or Plasma 1.5 MMOL/L 0.2 - 2.2 [facility] ID Date Data Source [id number] 11/16/2020 11:01:00 AM EDT [facility] Name Value Range Interpretation Code Description Data Yaritza rce(s) Supporting Document(s) CBC W/AUTOMATED DIFF [facility] COMPLETE BLOOD COUNT Leukocytes [#/volume] in Blood by Automated count 9.4 10^3/uL 4.2 - 1 1.0 [facility] Erythrocytes [#/volume] in Blood by Automated count 4.73 10^6/uL 4. 50 - 6.30 [facility] Hemoglobin [Mass/volume] in Blood 12.0 g/dL 14.0 - 16.0 L [facility] Hematocrit [Volume Fraction] of Blood by Automated count 37.6 % 4 1.0 - 51.0 L [facility] Erythrocyte mean corpuscular volume [Entitic volume] by Auto mated count 79.5 fL 80.0 - 94.0 L [facility] Erythrocyte mean corpuscular hemoglobin [Entitic mass] by Automated count 25.4 pg 27.0 - 34.0 L [facility] Erythrocyte mean corpuscular hemoglobin concentration [Mass/volume] by Automated count 31.9 g/dL 31.0 - 36.0 [facility] Erythrocyte distribution width [Ratio] by Automated count 15.4 % 11.5 - 14.8 H [facility] Platelets [#/volume] in Blood by Automated count 190 10^3/uL 150 - 45 0 [facility] Platelet mean volume [Entitic volume] in Blood by Automated count 10.9 fL 7.4 - 10.4 H [facility] Neutrophils/100 leukocytes in Blood by Automated count 83.9 % 37. 0 - 80.0 H [facility] Lymphocytes/100 leukocytes in Blood by Manual count 12.0 % 25.0 - 40.0 L [facility] Monocytes/100 leukocytes in Blood by Automated count 3.3 % 3.0 - 8.0 [facility] Eosinophils/100 leukocytes in Blood by Automated count 0.3 % 0.0 - 7.0 [facility] Basophils/100 leukocytes in Blood by Automated count 0.2 % 0.0 - 2.0 [facility] %IG 0.3 % 0.0 - [facility].0 [facility] 0.0 % 0.0 - 0.0 [facility] al Neutrophils [#/volume] in Blood by Automated count 7.88 10^3/uL 2.00 - 6.90 H [facility] Lymphocytes [#/volume] in Blood by Automated count 1.13 10^3/uL 0.60 - 3.40 [facility] Monocytes [#/volume] in Blood by Automated count 0.31 10^3/uL 0.00 - 0.90 [facility] Eosinophils [#/volume] in Blood by Automated count 0.03 10^3/uL 0.00 - 0.70 [facility] Basophils [#/volume] in Blood by Automated count 0.02 10^3/uL 0.00 - 0.20 [facility] Hospital #IG 0.03 10^3/uL 0.00 - 0.10 [facility] H ospital #NRBC 0.00 10^3/uL 0.00 - 0.00 [facility] MANUAL DIFF NOT INDICATED [facility] Hospital RBC MORPH NOT INDICATED [facility] Procedure Social History Code Duration Value Status Description Data Source(s ) Smoking 02/21/2021 12:00:00 AM EST Light tobacco smoker comple nicolas Light tobacco smoker [facility] ([facility]) 02/13/2021 12:00:00 AM EST Light cigarette smoker (1-9 cigs/day) completed Light cigarette smoker (1-9 cigs/day) [facility] ([facility]) Smoking 11/16/2020 12:00:00 PM EDT Smokes tobacco daily ([employer]) completed Current Every Day Smoker NETSMART ([facility]) Vital Signs ID Date Data Source UNK Name Value Range Interpretation Code Description Data Source(s) Body height 165.10 cm 165.10 cm [facility] ([facility]) Body weight 72.575 kg 72.575 kg [facility] ([facility]) Systolic blood pressure 118 mm[Hg] 118 mm[Hg] N extGen ([facility]) Diastolic blood pressure 74 mm[Hg] 74 mm[Hg] [facility] ([facility]) Body mass index (BMI) [Ratio] 26.63 kg/m2 Overweight 26.63 kg/m2 [facility] ([facility]) Diastolic blood pressure 90 mm[Hg] 90 mm[Hg] [facility] ([facility]) Heart rate 107 /min 107 /min [facility] ([facility]) Respiratory rate 20 /min 20 /min [facility] ( [facility]) Systolic blood pressure 122 mm[Hg] 122 mm[Hg] M EDENT ([facility]) Body temperature 98.4 [degF] 98.4 [degF] [facility] ([facility]) Body height 65.5 [in_i] 65.5 [in_i] [facility] ([facility]) 5'5.50" Oxygen saturation in Arterial blood by Pulse oximetry 98 % 98 % [facility] ([facility]) Nelson body weight 136 [lb_av] 136 [lb_av] MEDEN T ([facility]) Diastolic blood pressure 80 mm[Hg] 80 mm[Hg] [facility] ([facility]) Heart rate 123 /min 123 /min [facility] ([facility]) Body weight 143.00 [lb_av] 143.00 [lb_av] MEDEN T ([facility]) Body mass index (BMI) [Ratio] 23.4 kg/m2 23.4 k g/m2 [facility] ([facility]) Body weight 64.865 kg 64.865 kg [facility] ([facility]) Body surface area Derived from formula 1.73 m2 1.73 m2 [facility] ([facility]) Systolic blood pressure 110 mm[Hg] 110 mm[facility]Hg] [facility] Body mass index (BMI) [Ratio] 23.8 kg/m2 23.8 k g/m2 [facility] ([facility]) Body weight 65.772 kg 65.772 kg [facility] ([facility]) Body weight 145.00 [lb_av] 145.00 [lb_av] MEDEN T ([facility]) Nelson body weight 136 [lb_av] 136 [lb_av] MEDEN T ([facility]) Body surface area Derived from formula 1.74 m2 1.74 m2 [facility] ([facility]) Systolic blood pressure 120 mm[Hg] 120 mm[Hg[facility] Diastolic blood pressure 980 mm[Hg] 980 mm[Hg] [facility] ([facility]) Heart rate 98 /min 98 /min [facility] ([facility]) Oxygen saturation in Arterial blood by Pulse oximetry 97 % 97 % [facility] ([facility]) Body height 65.5 [in_i] 65.5 [in_i] [facility] ([facility], ) 5'5.50" Heart rate 111.0 /MIN 111.0 [...] pressure 132.0 MM[HG] 132.0 MM[H G] [facility]SMART ([facility]) Diastolic blood pressure 97.0 MM[HG] 97.0 MM[HG ] [facility]SMART ([facility]) Patient Treatment Plan of Care Planned Activity Planned Date Details Description Data Source (s) raltegravir 400 MG Oral Tablet [ISENTRESS] 02/13/2021 12:00:[address] [facility] ([facility]) emtricitabine 200 MG / Tenofovir disopro xil fumarate 300 MG Oral Tablet [Truvada] 02/13/2021 12:00:00 AM EST NextG en ([facility])
== END 2021-02-24 06:34 | disposition left against medical advice (07) ==
LOC: M ED 06:13
DX: Z53.21 Procedure and treatment not carried out due to patient leaving prior to being seen by health care provider (principal)

== ENCOUNTER 2021-03-12 02:01 | Emergency (ER) | payer MEDICAID, OTHER ==
[~2021-03-12] VITALS: Ht 167.6 cm; Wt 66.8 kg
[2021-03-12 02:01] VITALS: BP 132/68
[2021-03-12] MEDS: cefTRIAXone SOD 1 GM in D5W MINI-BAG PLUS 50 ML IV ONE (08:00)
[2021-03-12] MEDS ORDERED: BACT800T5 PO (08:05)
[2021-03-12] MEDS: LIDOCAINE 1% SDV 5ML VIAL DILUENT ONE (08:20)
[2021-03-12] MEDS: cefTRIAXone SOD 1GM VIAL (J0696 PER 250MG) IM ONE (08:22)
[2021-03-12] MEDS: BACTRIM 160MG/800MG DS TAB PO ONE (08:28)
--- NOTE | 2021-03-12 08:30 | REP ---
INDICATION: AC abcess, IVDA, r/o FB COMPARISON: None. TECHNIQUE: AP and lateral views of the right elbow. FINDINGS: No acute fracture or dislocation is appreciated. Joint spaces and surrounding soft tissues appear normal. Lateral view demonstrates normal positioning to the anterior and posterior fat pads without evidence for effusion/hemarthrosis. No subcutaneous emphysema or foreign body identified. IMPRESSION: Normal elbow radiographs. No obvious fluid collection. <Electronically signed by Mario Read > 03/12/21 0112
== END 2021-03-12 09:05 | disposition home or self-care (01) ==
LOC: M ED 02:01
DX: L02.411 Cutaneous abscess of right axilla (principal); L03.031 Cellulitis of right toe; Z86.19 Personal history of other infectious and parasitic diseases; J45.909 Unspecified asthma, uncomplicated; F17.200 Nicotine dependence, unspecified, uncomplicated; F11.10 Opioid abuse, uncomplicated
CPT/HCPCS: 73070; 96365; 96372; 99282; J0696

== ENCOUNTER 2021-03-17 23:59 | Emergency (ER) | payer MEDICAID ==
[~2021-03-17] VITALS: Ht 167.6 cm; Wt 64.4 kg
[2021-03-18 00:04] VITALS: BP 144/74
== END 2021-03-18 02:45 | disposition left against medical advice (07) ==
LOC: M ED 23:59
DX: Z53.21 Procedure and treatment not carried out due to patient leaving prior to being seen by health care provider (principal)

== ENCOUNTER 2021-04-26 18:04 | Emergency (ER) | payer MEDICAID ==
[~2021-04-26] VITALS: Ht 167.6 cm; Wt 63.4 kg
[2021-04-26 18:04] VITALS: BP 150/83
[2021-04-26] MEDS ORDERED: BACT800T5 PO (19:50)
== END 2021-04-26 20:01 | disposition left against medical advice (07) ==
LOC: M ED 18:04
DX: L02.414 Cutaneous abscess of left upper limb (principal); Z53.9 Procedure and treatment not carried out, unspecified reason; F19.10 Other psychoactive substance abuse, uncomplicated; Z86.19 Personal history of other infectious and parasitic diseases; E78.5 Hyperlipidemia, unspecified; F17.200 Nicotine dependence, unspecified, uncomplicated

== ENCOUNTER 2021-09-20 04:16 | Emergency (ER) | payer MEDICAID, OTHER ==
[~2021-09-20] VITALS: Ht 167.6 cm; Wt 68.8 kg
[2021-09-20 04:17] VITALS: BP 117/58
== END 2021-09-20 07:12 | disposition left against medical advice (07) ==
LOC: M ED 04:16
DX: Z53.21 Procedure and treatment not carried out due to patient leaving prior to being seen by health care provider (principal)

== ENCOUNTER 2021-09-27 02:02 | Emergency (ER) | payer OTHER ==
[~2021-09-27] VITALS: Ht 167.6 cm; Wt 68.2 kg
[2021-09-27 02:02] VITALS: BP 172/92
== END 2021-09-27 08:04 | disposition left against medical advice (07) ==
LOC: M ED 02:02
DX: L98.9 Disorder of the skin and subcutaneous tissue, unspecified (principal); Z53.9 Procedure and treatment not carried out, unspecified reason; F19.10 Other psychoactive substance abuse, uncomplicated

== ENCOUNTER 2021-10-16 21:07 | Emergency (ER) | payer OTHER ==
[~2021-10-16] VITALS: Ht 167.6 cm; Wt 68.2 kg
[2021-10-17 06:50] VITALS: BP 133/76
== END 2021-10-17 06:52 | disposition left against medical advice (07) ==
LOC: M ED 21:07
DX: Z53.21 Procedure and treatment not carried out due to patient leaving prior to being seen by health care provider (principal)

== ENCOUNTER 2021-10-20 17:44 | Emergency (ER) | payer OTHER ==
[~2021-10-20] VITALS: Ht 167.6 cm; Wt 65.7 kg
[2021-10-20] MEDS ORDERED: cefTRIAXone SOD 1 GM in D5W MINI-BAG PLUS 50 ML IV ONE (18:55)
[2021-10-20] MEDS ORDERED: LIDOCAINE 1% MDV 20ML VIAL SC ONE (18:55)
[2021-10-20] MEDS ORDERED: BACTRIM 160MG/800MG DS TAB PO ONE (19:05)
[2021-10-20] MEDS ORDERED: cefTRIAXone SOD 1GM VIAL (J0696 PER 250MG) IM ONE (19:05)
[2021-10-20] MEDS ORDERED: LIDOCAINE 1% SDV 5ML VIAL DILUENT ONE (19:05)
[2021-10-20] MEDS ORDERED: BACT800T5 PO (19:19)
[2021-10-20 19:26] VITALS: BP 150/89
== END 2021-10-20 19:27 | disposition home or self-care (01) ==
LOC: M ED 17:44
DX: L02.413 Cutaneous abscess of right upper limb (principal); F19.10 Other psychoactive substance abuse, uncomplicated; E78.5 Hyperlipidemia, unspecified; Z86.19 Personal history of other infectious and parasitic diseases
CPT/HCPCS: 96372; 99283; J0696

== ENCOUNTER 2022-09-16 04:50 | Emergency (ER) | payer MEDICAID, OTHER ==
[~2022-09-16] VITALS: Ht 167.6 cm; Wt 69.0 kg
[~2022-09-16 04:50] MED LIST changes: -ATRO1OPD; +ATRO2DRO4; -OFLO3OPSO; +OFLO5DRO
[2022-09-16] MEDS ORDERED: BACTRIM 160MG/800MG DS TAB PO ONE (06:45)
[2022-09-16] MEDS ORDERED: IBUPROFEN 800 MG TAB PO ONE (06:45)
[2022-09-16] MEDS ORDERED: BACT800T5 PO (07:00)
[2022-09-16] MEDS ORDERED: IBUP80TA PO (07:00)
[2022-09-16 07:07] VITALS: BP 139/78; TEMP 98.7; O2SAT 99
== END 2022-09-16 07:14 | disposition left against medical advice (07) ==
LOC: M ED 04:50
DX: L08.9 Local infection of the skin and subcutaneous tissue, unspecified (principal); Z53.9 Procedure and treatment not carried out, unspecified reason; F19.10 Other psychoactive substance abuse, uncomplicated; E78.5 Hyperlipidemia, unspecified; Z86.19 Personal history of other infectious and parasitic diseases; Z86.14 Personal history of Methicillin resistant Staphylococcus aureus infection

== ENCOUNTER 2022-12-02 22:05 | Emergency (ER) | payer MEDICAID ==
[~2022-12-02] VITALS: Ht 167.6 cm; Wt 65.9 kg
[2022-12-02 22:05] VITALS: BP 99/57; TEMP 97.7; O2SAT 97
[~2022-12-02 22:05] MED LIST changes: -GABA-283 PO; +GABA-284 PO
== END 2022-12-02 22:51 | disposition left against medical advice (07) ==
LOC: M ED 22:05
DX: Z53.21 Procedure and treatment not carried out due to patient leaving prior to being seen by health care provider (principal)

== ENCOUNTER 2023-08-11 21:53 | Emergency (ER) | payer MEDICAID ==
[~2023-08-11] VITALS: Ht 167.6 cm; Wt 67.7 kg
[2023-08-11 21:53] VITALS: TEMP 97.8
[~2023-08-11 21:53] MED LIST changes: -ASPI-161 PO; +ASPI-615 PO; +BUPR-597 PO; -BUPR300T92 PO; +DOXY-323 PO; -DOXY-443 PO; -HYDR-3910 PO; +HYDR25TA87 PO
[2023-08-12] MEDS ORDERED: DALBAVANCIN 1,500 MG in D5W 250 ML IV ONE (01:05)
[2023-08-12 03:00] VITALS: BP 122/70; O2SAT 99
== END 2023-08-12 03:45 | disposition left against medical advice (07) ==
LOC: M ED 21:53
DX: L03.113 Cellulitis of right upper limb (principal); F19.10 Other psychoactive substance abuse, uncomplicated; F17.200 Nicotine dependence, unspecified, uncomplicated; Z53.9 Procedure and treatment not carried out, unspecified reason

== ENCOUNTER 2024-04-17 11:42 | Emergency (ER) | payer SELFPAY ==
[~2024-04-17] VITALS: Ht 167.6 cm; Wt 74.0 kg
[~2024-04-17 11:42] MED LIST changes: -DOXY-323 PO; +DOXY-441 PO; +GABA-1172; +GABA-1490 PO; -GABA-282; -GABA600T4 PO
[2024-04-17 11:44] VITALS: BP 123/59; TEMP 97.3; O2SAT 100
[2024-04-17 13:08] LABS: BASO % 0.3 % (0.0-1.0); EOS # 0.3 10^3/uL (0.0-0.5); HEMATOCRIT 26.3 % (42.0-52.0); HEMOGLOBIN 8.2 g/dl (13.5-17.5); LYMPH # 2.2 10^3/uL (1.5-5.0); LYMPH % 35.2 % (24.0-44.0); MEAN CORPUSCULAR HEMOGLOBIN 23.1 pg (27.0-33.0); MEAN CORPUSCULAR HGB CONC 31.2 g/dl (32.0-36.5); MEAN CORPUSCULAR VOLUME 74.1 fl (80.0-96.0); MONO # 0.6 10^3/uL (0.0-0.8); MONO % 9.7 % (2.0-8.0); NEUTROPHILS # 3.1 10^3/uL (1.5-8.5); NEUTROPHILS % 50.6 % (36.0-66.0); PLATELET COUNT, AUTOMATED 372 10^3/uL (150-450); RED BLOOD COUNT 3.55 10^6/uL (4.30-6.10); WHITE BLOOD COUNT 6.2 10^3/uL (4.0-10.0)
[2024-04-17 13:30] LABS: ALBUMIN 3.2 G/DL (3.2-5.2); ALKALINE PHOSPHATASE 135 U/L (40-129); ALT/SGPT 42 U/L (7.0-40); AST/SGOT 39 U/L (<34); BILIRUBIN,TOTAL 0.2 MG/DL (0.3-1.2); BLOOD UREA NITROGEN 10 MG/DL (9-23); CALCIUM LEVEL 8.9 MG/DL (8.5-10.1); CARBON DIOXIDE LEVEL 28 MMOL/L (20-31); CHLORIDE LEVEL 108 MMOL/L (98-107); CREATININE FOR GFR 0.83 MG/DL (0.70-1.30); GLOMERULAR FILTRATION RATE > 60.0 (>60); GLUCOSE, FASTING 95 MG/DL (60-100); SODIUM LEVEL 139 MMOL/L (136-145); TOTAL PROTEIN 7.3 G/DL (5.7-8.2)
[2024-04-17] MEDS: DALBAVANCIN 1,500 MG in D5W 250 ML IV ONE (14:15)
== END 2024-04-17 16:21 | disposition left against medical advice (07) ==
LOC: M ED 11:42
DX: L08.9 Local infection of the skin and subcutaneous tissue, unspecified (principal); L98.492 Non-pressure chronic ulcer of skin of other sites with fat layer exposed; F17.200 Nicotine dependence, unspecified, uncomplicated; F19.10 Other psychoactive substance abuse, uncomplicated; Z86.14 Personal history of Methicillin resistant Staphylococcus aureus infection; Z53.9 Procedure and treatment not carried out, unspecified reason
CPT/HCPCS: 16000; 80053; 83605; 85025; 87040; 87070; 87077; 87186; 96365; 96366; 99284; J0875